=== PATIENT | female | born 1950 | race Caucasian/White ===

== ENCOUNTER 2022-12-03 17:44 | Inpatient (IN) | payer MEDICARE, OTHER ==
[~2022-12-03] VITALS: Ht 170.2 cm; Wt 83.0 kg
[2022-12-03] MEDS ORDERED: SCOPOLAMINE 1.5 MG (TRANSDERM-SCOP) PATCH TD ONE (18:00)
[2022-12-03] MEDS ORDERED: fentaNYL INJ 100 MCG/2 ML AMP IVP ONE (18:00)
[2022-12-03] MEDS: NS IV 1000 ML 1,000 ML IV SCH ×2 (18:07→23:51)
--- NOTE | 2022-12-03 18:30 | Diagnostic Imaging Report ---
EXAMINATION: Chest 1 view. HISTORY: Preoperative exam. COMPARISON: None available. FINDINGS: There is a 2.5 cm nodule in the left upper zone. No edema or pneumonia. No pleural effusion or pneumothorax. Heart size is normal. IMPRESSION: Suspicious 2.5 cm nodule in the left upper zone. Chest CT recommended. Dictated by: Dictated on workstation # [id number]
--- NOTE | 2022-12-03 18:30 | Diagnostic Imaging Report ---
EXAM: Pelvis with right hip 2-3 views INDICATION: Fall. Trauma. Right hip pain. COMPARISON: None. FINDINGS/ IMPRESSION: 1. Mildly displaced right subcapital hip fracture. 2. No other fracture is identified. 3. Soft tissue shadows are unremarkable. Dictated by: Dictated on workstation # [id number]
--- NOTE | 2022-12-03 18:40 | ED Lower Extremity ---
General Chief Complaint: Trauma-Non Activation Stated Complaint: RIGHT HIP PAIN Nursing Triage Note: pt to room by [facility] ems. ems reports pt was out walking her dogs when she fell and landed on right hip. pt states she was unable to get herself up. ems reports giving 100 mcg fentanyl and then 50 mcg fentanyl before arrival. ems reports pt does have shortening and external rotation to right leg Source: patient, EMS Exam Limitations: no limitations History of Present Illness Date Seen by Provider: Dec 03, 2022 Time Seen by Provider: 17:47 Initial Comments Patient is a 72-year-old female who presents to the emergency room by ambulance from [facility] chief complaint right hip pain. She was out walking her dogs, had a mechanical trip and fall onto a rock onto her right hip due to the dogs. She was unable to get herself up, a neighbor called the ambulance. Patient denies hitting her head, no loss of consciousness. She denies any antecedent chest pain, shortness of breath, nausea or vomiting. She has never injured this right hip in the past. She has had prior right patellar fracture that she states needs follow-up. This is remote to this injury. She received 100 of fentanyl prior to arrival. Still complaining of pain at a "8". Denies numbness tingling to the right leg. No other complaints of illness or injury recently. She is a diabetic, hypertensive. Also on a cholesterol drug and anti-depressant, Onset: just prior to arrival Pain/Injury Location: right hip Method of Injury: fell Modifying Factors: Improves With Immobilization; Worse With Movement; Improves With Pain Medication Allergies and Home Medications Allergies Coded Allergies: Penicillins (Verified Allergy, Unknown, 12/03/22) Patient Home Medication List Home Medication List Reviewed: Yes Amlodipine Besylate (Amlodipine Besylate) 5 Mg Tablet, 5 MG PO DAILY, (Reported) Entered as Reported by: KATIE SHARMA on 12/04/22137 Last Action: New Order Ezetimibe (Zetia) 10 Mg Tablet, 10 MG PO HS, (Reported) Entered as Reported by: KATIE SHARMA on 12/04/22137 Last Action: New Order Liothyronine Sodium (Liothyronine Sodium) 5 Mcg Tablet, 5 MCG PO DAILY, (Reported) Entered as Reported by: KATIE SHARMA on 12/04/22137 Last Action: New Order Meloxicam, Submicronized (Meloxicam) 10 Mg Capsule, 15 MG PO DAILY, (Reported) Entered as Reported by: KATIE SHARMA on 12/04/22137 Last Action: New Order Metformin HCl (Metformin HCl ER) 500 Mg Tab.er.24h, 500 MG PO BID, (Reported) Entered as Reported by: KATIE SHARMA on 12/04/22137 Last Action: New Order Metoprolol Tartrate (Metoprolol Tartrate) 50 Mg Tablet, 50 MG PO BID, (Reported) Entered as Reported by: KATIE SHARMA on 12/04/22137 Last Action: New Order Venlafaxine HCl (Venlafaxine HCl ER) 150 Mg Cap.er.24h, 150 MG PO DAILY, (Reported) Entered as Reported by: KATIE SHARMA on 12/04/22137 Last Action: New Order Review of Systems Constitutional: see HPI EENTM: no symptoms reported Respiratory: no symptoms reported Cardiovascular: no symptoms reported Gastrointestinal: no symptoms reported Genitourinary: no symptoms reported : No Musculoskeletal: joint pain (right hip) Skin: no symptoms reported Psychiatric/Neurological: No Symptoms Reported All Other Systems Reviewed Negative Unless Noted: Yes Physical Exam Vital Signs Vital Signs - First Documented 12/03/22 17:47 Temp 36.6 Pulse 89 Resp 16 B/P (MAP) 183/87 (119) Pulse Ox 96 Capillary Refill : Height, Weight, BMI Height: '" Weight: lbs. oz. kg; 28.00 BMI Method: General Appearance: WD/WN, no apparent distress HEENT: PERRL/EOMI, other (dry mucous membranes) Neck: non-tender, full range of motion, supple Cardiovascular: regular rate, rhythm, other (2+ radial pulses; 2+ DP pulses bilaterally) Respiratory: lungs clear, normal breath sounds, no respiratory distress, no accessory muscle use Gastrointestinal: normal bowel sounds, non tender, soft Hips: right hip bone tenderness, right hip limited range of motion, right hip pain, right hip soft tissue tenderness Legs: bilateral leg non-tender, bilateral leg normal inspection Knees: bilateral knee non-tender, bilateral knee normal inspection Ankles: bilateral ankle non-tender, bilateral ankle normal inspection Feet: bilateral foot non-tender, bilateral foot normal inspection Neurologic/Psychiatric: alert, normal mood/affect, oriented x 3 Skin: normal color, warm/dry Progress/Results/Core Measures Results/Orders Lab Results Laboratory Tests Test 12/03/22 18:57 Range/Units White Blood Count 8.8 4.3-11.0 10^3/uL Red Blood Count 5.03 3.80-5.11 10^6/uL Hemoglobin 15.0 11.5-16.0 g/dL Hematocrit 45 35-52 % Mean Corpuscular Volume 89 80-99 fL Mean Corpuscular Hemoglobin 30 25-34 pg Mean Corpuscular Hemoglobin Concent 34 32-36 g/dL Red Cell Distribution Width 13.7 10.0-14.5 % Platelet Count 195 130-400 10^3/uL Mean Platelet Volume 11.3 9.0-12.2 fL Immature Granulocyte % (Auto) 1 % Neutrophils (%) (Auto) 79 H 42-75 % Lymphocytes (%) (Auto) 15 12-44 % Monocytes (%) (Auto) 6 0-12 % Eosinophils (%) (Auto) 0 0-10 % Basophils (%) (Auto) 0 0-10 % Neutrophils # (Auto) 6.9 1.8-7.8 10^3/uL Lymphocytes # (Auto) 1.3 1.0-4.0 10^3/uL Monocytes # (Auto) 0.5 0.0-1.0 10^3/uL Eosinophils # (Auto) 0.0 0.0-0.3 10^3/uL Basophils # (Auto) 0.0 0.0-0.1 10^3/uL Immature Granulocyte # (Auto) 0.1 0.0-0.1 10^3/uL Sodium Level 141 135-145 MMOL/L Potassium Level 3.3 L 3.6-5.0 MMOL/L Chloride Level 105 98-107 MMOL/L Carbon Dioxide Level 21 21-32 MMOL/L Anion Gap 15 H 5-14 MMOL/L Blood Urea Nitrogen 14 7-18 MG/DL Creatinine 0.86 0.60-1.30 MG/DL Estimat Glomerular Filtration Rate 72 BUN/Creatinine Ratio 16 Glucose Level 160 H 70-105 MG/DL Calcium Level 9.4 8.5-10.1 MG/DL My Orders Orders - NOEMI FLYNN MD Ed Iv/Invasive Line Start (12/03/22 18:00) Cbc With Automated Diff (12/03/22 18:00) Basic Metabolic Panel (12/03/22 18:00) Ekg Tracing (12/03/22 18:00) Chest 1 View, Ap/Pa Only (12/03/22 18:00) Pelvis With Right Hip 2-3views (12/03/22 18:00) Fentanyl Inj (Sublimaze Injection) (12/03/22 18:00) Scopolamine Patch (Transderm-Scop Patch) (12/03/22 18:00) Ns Iv 1000 Ml (Sodium Chloride 0.9%) (12/03/22 18:00) Morphine Injection (Morphine Injection (12/03/22 20:17) Medications Given in ED Current Medications Medications Dose Ordered Sig/Supriya Route Start Time Stop Time Status Last Admin Dose Admin Fentanyl Citrate 50 mcg ONCE ONCE IVP 12/03/22 18:00 12/03/22 18:04 DC 12/03/22 18:07 50 MCG Scopolamine 1.5 mg ONCE ONCE TD 12/03/22 18:00 12/03/22 18:04 DC 12/03/22 18:07 1.5 MG Vital Signs/I&O 12/03/22 12/03/22 17:47 21:05 Temp 36.6 Pulse 89 91 Resp 16 B/P (MAP) 183/87 (119) 165/78 Pulse Ox 96 94 12/04/22 00:00 Intake Total 1000 ml Balance 1000 ml Blood Pressure Mean: 119 Admisison Planning May Need Admission (Planning): 20:07 Initial ECG Impression Date: Dec 03, 2022 Initial ECG Impression Time: 18:26 Initial ECG Rate: 81 Initial ECG Rhythm: Normal Sinus Initial ECG Intervals: Normal Initial ECG Impression: Normal Diagnostic Imaging Diagonstic Imaging: Xray Plain Films/CT/US/NM/MRI: chest Comments [facility] [place] NAME: DON SAUCEDO I [facility] REC#: [id number] PT STATUS: REG ER : 1950 PHYSICIAN: NOEMI FLYNN MD ADMIT DATE: 12/03/22/ER Signed Date of Exam:12/03/22 CHEST 1 VIEW, AP/PA ONLY EXAMINATION: Chest 1 view. HISTORY: Preoperative exam. COMPARISON: None available. FINDINGS: There is a 2.5 cm nodule in the left upper zone. No edema or pneumonia. No pleural effusion or pneumothorax. Heart size is normal. IMPRESSION: Suspicious 2.5 cm nodule in the left upper zone. Chest CT recommended. Dictated by: Dictated on workstation # [id number] Dict: 12/03/221823 Trans: 12/03/22[address] [facility] [id number] Interpreted by: JOSÉ CAZARES MD Electronically signed by: JOSÉ CAZARES MD 12/03/221958 Diagonstic Imaging: Xray Comments [facility] [place] NAME: DON SAUCEDO I [facility] REC#: [id number] PT STATUS: REG ER : 1950 PHYSICIAN: NOEMI FLYNN MD ADMIT DATE: 12/03/22/ER Signed Date of Exam:12/03/22 PELVIS WITH RIGHT HIP 2-3VIEWS EXAM: Pelvis with right hip 2-3 views INDICATION: Fall. Trauma. Right hip pain. COMPARISON: None. FINDINGS/ IMPRESSION: 1. Mildly displaced right subcapital hip fracture. 2. No other fracture is identified. 3. Soft tissue shadows are unremarkable. Dictated by: Dictated on workstation # [id number] Dict: 12/03/221824 Trans: 12/03/221829 [facility] [id number] Interpreted by: ONEIL DEJESUS MD Electronically signed by: ONEIL DEJESUS MD 12/03/221829 Departure Communication (Admissions) Time/Spoke to Admitting Phy: 20:[address] Wright - hospitalist) accepts IP to Med surg Time/Spoke to Consulting Phy: 19:[address] Lara - if he can have a scrub and 2 assists, wioll be able to fix her on Tuesday. Discussing with Head Of Sales And Marketing Impression Primary Impression: Closed right hip fracture Qualified Codes: S72.001A - Fracture of unspecified part of neck of right femur, initial encounter for closed fracture Disposition: ADMITTED INPATIENT Condition: Stable Admissions Decision to Admit Reason: Admit from ER (General) Decision to Admit/Date: Dec 03, 2022 Time/Decision to Admit Time: 20:32 Departure-Patient Inst. Referrals: MARCY SNOWDEN (PCP/Family) Primary Care Physician NOEMI FLYNN MD Dec 03, 2022 18:40
[2022-12-03 19:04] LABS: BASOPHILS % (AUTO) 0 % (0-10); EOSINOPHILS % (AUTO) 0 % (0-10); HEMATOCRIT 45 % (35-52); LYMPHOCYTES # (AUTO) 1.3 10^3/uL (1.0-4.0); LYMPHOCYTES % (AUTO) 15 % (12-44); MEAN CORPUSCULAR HEMOGLOBIN 30 pg (25-34); MEAN CORPUSCULAR HGB CONC 34 g/dL (32-36); MEAN CORPUSCULAR VOLUME 89 fL (80-99); MEAN PLATELET VOLUME 11.3 fL (9.0-12.2); MONOCYTES # (AUTO) 0.5 10^3/uL (0.0-1.0); MONOCYTES % (AUTO) 6 % (0-12); NEUTROPHILS # (AUTO) 6.9 10^3/uL (1.8-7.8); NEUTROPHILS % (AUTO) 79 % (42-75); PLATELET COUNT 195 10^3/uL (130-400); WHITE BLOOD COUNT 8.8 10^3/uL (4.3-11.0)
[2022-12-03 19:43] LABS: CALCIUM 9.4 MG/DL (8.5-10.1); CREATININE SERUM 0.86 MG/DL (0.60-1.30); POTASSIUM 3.3 MMOL/L (3.6-5.0)
[2022-12-03] MEDS ORDERED: morphine INJ 10 MG/ML 1ML (SYR OR VIAL) IVP STA (20:17)
[2022-12-03 21:15] VITALS: BP 146/71
[2022-12-03 23:26] VITALS: BP 152/67
[2022-12-03] MEDS: CATHETER FLUSH 10 ML SYR IVP SCH (23:51)
[2022-12-04] MEDS: morphine INJ 4 MG/ML 1 ML (VIAL/SYRINGE) IV PRN ×3 (00:06→08:19)
[2022-12-04] MEDS ORDERED: MELO10CA3 PO (01:38)
[2022-12-04] MEDS ORDERED: VENL150C98 PO (01:38)
[2022-12-04] MEDS ORDERED: LIOT5TAB10 PO (01:38)
[2022-12-04] MEDS ORDERED: AMLO-250 PO (01:38)
[2022-12-04] MEDS ORDERED: METF-865 PO (01:38)
[2022-12-04] MEDS ORDERED: METO50TA15 PO (01:38)
[2022-12-04] MEDS ORDERED: EZET10TA17 PO (01:38)
[2022-12-04 04:20] VITALS: BP 140/80
[2022-12-04] MEDS: CATHETER FLUSH 10 ML SYR IVP SCH ×3 (05:41→20:48)
[2022-12-04 06:20] LABS: POTASSIUM 3.1 MMOL/L (3.6-5.0)
[2022-12-04 06:21] LABS: CALCIUM 8.3 MG/DL (8.5-10.1)
[2022-12-04 06:25] LABS: CREATININE SERUM 0.7 MG/DL (0.60-1.30)
[2022-12-04 07:45] VITALS: BP 146/67
[2022-12-04] MEDS ORDERED: meTOprolol TARTRATE 50 MG (LOPRESSOR) TAB PO NR (11:00)
[2022-12-04] MEDS ORDERED: VENlafaxine XR 75 MG (EFFEXOR XR) CAP PO NR (11:00)
[2022-12-04] MEDS ORDERED: KCL 20 MEQ TAB (K-DUR) PO NR (11:00)
[2022-12-04] MEDS ORDERED: LEVOTHYROXINE 75 MCG (LEVOTHROID) TABLET PO NR (11:00)
[2022-12-04] MEDS: HYDROcodone/APAP 5 MG/325 MG (LORTAB) TAB PO PRN ×2 (11:04→15:45)
[2022-12-04 11:15] VITALS: BP 149/70
--- NOTE | 2022-12-04 11:54 | History & Physical-Hospitalist ---
History of Present Illness HPI/Chief Complaint Pt is a 72yoCF with a PMH of NIDDMII, HTN, depression, hypothyroisism, and osteoporosis who presented to the ER due to right hip pain. She states she was out walking her dogs (7 month old standard poodle and 4 month old ?bulldog per picture) and suffered a mechanical fall and landed on her hip on a rock. She had severe right hip pain and decided to seek evaluation in the ER via EMS. She was given fentanyl without relief requiring morphine. imaging revealed right hip fracture. Dr Flynn discussed this with Dr Lara who plans to do surgery tomorrow AM. Patient reports doing well this morning and pain is controlled at the time. Source: patient Date Seen 12/04/22 Time Seen by a Provider: 10:00 Attending Physician Maricarmen Corrigan PCP Admitting Physician: Aaron Wright MD Attending Physician: Aaron Wright MD Referring Physician Date of Admission Dec 03, 2022 at 21:07 Home Medications & Allergies Home Medications Reviewed patient Home Medication Reconciliation performed by pharmacy medication reconciliations page technician and/or nursing. Patients Allergies have been reviewed. Allergies Allergies Coded Allergies Penicillins (Verified Allergy, Unknown, 12/03/22) Rdtjdbp-HAM-IfM Reductase Inhibitor (Verified Allergy, Unknown, 12/05/22) Sulfa (Sulfonamide Antibiotics) (Verified Allergy, Unknown, Itching, 12/05/22) acetaminophen (Verified Allergy, Unknown, Itching, 12/05/22) clarithromycin (Verified Allergy, Unknown, 12/05/22) doxycycline (Verified Allergy, Unknown, Hives, 12/05/22) oxycodone (Verified Allergy, Unknown, Itching, 12/05/22) valdecoxib (Verified Allergy, Unknown, Hives, 12/05/22) Past Cjvcovi-Jhuaqy-Fgmlmh Hx Patient Social History Marrital Status: Tobacco Use?: No Use of E-Cig and/or Vaping dev: No Substance use?: No Alcohol Use?: No Pt feels they are or have been: No Immunizations Up To Date Date of Influenza Vaccine: Oct 10, 2022 Current Status Advance Directives: No Communicates: Verbally Primary Language: Djiboutian Preferred Spoken Language: Djiboutian Is interpretation needed?: No Implanted or Applied Medical D: None Past Medical History Hypertension Osteoporosis Hypothyroidsim, Diabetes, Non-Insulin dep Family Medical History Reviewed Nursing Family Hx Review of Systems Constitutional: see HPI Physical Exam Physical Exam Vital Signs Vital Signs - First Documented 12/03/22 12/03/22 12/05/22 17:47 21:15 10:15 Temp 36.6 Pulse 89 Resp 16 B/P (MAP) 183/87 (119) Pulse Ox 96 O2 Delivery Room Air O2 Flow Rate 10.00 Capillary Refill : Height, Weight, BMI Height: '" Weight: lbs. oz. kg; 28.65 BMI Method: General Appearance: No Apparent Distress, WD/WN Respiratory: Lungs Clear, No Accessory Muscle Use, No Respiratory Distress Cardiovascular: Regular Rate, Rhythm, No Murmur Gastrointestinal: Normal Bowel Sounds, Non Tender, Soft Extremity: Normal Capillary Refill, No Calf Tenderness, No Pedal Edema Neurologic/Psychiatric: Alert, Oriented x3 Results Results/Procedures Labs Laboratory Tests 12/03/22 18:57 12/04/22 05:48 Patient resulted labs reviewed. Imaging: Reviewed Imaging Report Imaging [facility] [place] [id number] PT STATUS: REG ER : 1950 PHYSICIAN: NOEMI FLYNN MD ADMIT DATE: 12/03/22/ER Signed Date of Exam:12/03/22 PELVIS WITH RIGHT HIP 2-3VIEWS EXAM: Pelvis with right hip 2-3 views INDICATION: Fall. Trauma. Right hip pain. COMPARISON: None. FINDINGS/ IMPRESSION: 1. Mildly displaced right subcapital hip fracture. 2. No other fracture is identified. 3. Soft tissue shadows are unremarkable. Dictated by: Dictated on workstation # [id number] Dict: 12/03/221824 Trans: 12/03/221829 [facility] [id number] Interpreted by: ONEIL DEJESUS MD Electronically signed by: ONEIL DEJESUS MD 12/03/221829 [facility] [place] [place] [id number] PT STATUS: REG ER : 1950 PHYSICIAN: NOEMI FLYNN MD ADMIT DATE: 12/03/22/ER Signed Date of Exam:12/03/22 CHEST 1 VIEW, AP/PA ONLY EXAMINATION: Chest 1 view. HISTORY: Preoperative exam. COMPARISON: None available. FINDINGS: There is a 2.5 cm nodule in the left upper zone. No edema or pneumonia. No pleural effusion or pneumothorax. Heart size is normal. IMPRESSION: Suspicious 2.5 cm nodule in the left upper zone. Chest CT recommended. Dictated by: Dictated on workstation # [id number] Dict: 12/03/224 Trans: 12/03/221958 [facility] [id number] Interpreted by: JOSÉ CAZARES MD Electronically signed by: JOSÉ CAZARES MD 12/03/221958 Assessment/Plan Admission Diagnosis Right hip fracture Admission Status: Inpatient Order (span 2 midnights) Reason for Inpatient Admission: see below Assessment and Plan Right hip fracture Osteoporosis Planning for OR tomorrow AM Pain regimen Start bowel regimen tomorrow Add oral pain option while able to take PO PT/OT post surgery Hypokalemia Replace potassium HTN BP relatively well controlled right now REviewed home meds with patient in room Resume metoprolol and hold amlodipine and diuretic If BP trends up will resume amlodipine NIDDMII State metformin causes diarrhea and would like to avoid it while she is stuck in bed BS 153 this AM trend Hypothyroidism Resume synthroid Anxiety/Depression Resume Effexor Lung nodule on CXR Informed of this by ER Will need outpatient follow up DVT ppx: lovenox post op Diagnosis/Problems Diagnosis/Problems (1) Essential (primary) hypertension (2) Hyperlipidemia (3) Hypokalemia (4) Non-insulin dependent type 2 diabetes mellitus (5) Hypothyroidism (6) Depression (7) Closed right hip fracture Status: Acute Qualifiers: Encounter type: initial encounter Qualified Codes: S72.001A - Fracture of unspecified part of neck of right femur, initial encounter for closed fracture Copy Copies To 1: AARON Chen MD Dec 04, 2022 11:54 am
[2022-12-04] MEDS ORDERED: diphenhydrAMINE 25 MG TAB (BENADRYL) PO PRN (12:00)
[2022-12-04 16:00] VITALS: BP 164/76
[2022-12-04 19:48] VITALS: BP 178/82
[2022-12-04] MEDS: eZETimibe 10 MG (ZETIA) TABLET PO SCH (20:47)
[2022-12-04] MEDS: meTOprolol TARTRATE 50 MG (LOPRESSOR) TAB PO SCH (20:47)
[2022-12-05] VITALS (12 sets, daily range): BP systolic 147–197; BP diastolic 69–91
[2022-12-05] MEDS: morphine INJ 4 MG/ML 1 ML (VIAL/SYRINGE) IV PRN ×2 (00:22→15:05)
[2022-12-05] MEDS ORDERED: LORA10CA PO (01:03)
[2022-12-05] MEDS ORDERED: OMEP20CA18 PO (01:03)
[2022-12-05] MEDS ORDERED: DIPH25CA79 PO (01:03)
[2022-12-05] MEDS ORDERED: LEVO75CA5 PO (01:03)
[2022-12-05] MEDS ORDERED: CALC600T91 PO (01:03)
[2022-12-05] MEDS ORDERED: DENO60DI SQ (01:03)
[2022-12-05] MEDS ORDERED: VALS1TAB80 PO (01:03)
[2022-12-05] MEDS ORDERED: ASPI-999 PO (01:03)
[2022-12-05] MEDS: CATHETER FLUSH 10 ML SYR IVP SCH ×3 (05:42→21:27)
[2022-12-05] MEDS: VENlafaxine XR 75 MG (EFFEXOR XR) CAP PO SCH (05:42)
[2022-12-05] MEDS: LEVOTHYROXINE 75 MCG (LEVOTHROID) TABLET PO SCH (05:42)
[2022-12-05] MEDS ORDERED: CLINDAMYCIN 900 MG/50 ML IVPB 50 ML IV NR (07:30)
[2022-12-05] MEDS ORDERED: LIDOCAINE PF 2% 5 ML (XYLOCAINE) VIAL ONE (07:35)
[2022-12-05] MEDS ORDERED: proPOfol 200 MG/20 ML (DIPRIVAN) VIAL IV ONE (07:35)
[2022-12-05] MEDS ORDERED: SEVOFLURANE (ULTANE) 15 ML INHAL SOLN ONE ×2 (07:35→09:30)
[2022-12-05] MEDS ORDERED: MIDAZOLAM 2 MG/2 ML (VERSED) VIAL ONE (07:35)
[2022-12-05] MEDS ORDERED: fentaNYL INJ 100 MCG/2 ML AMP ONE (07:35)
[2022-12-05] MEDS ORDERED: ROCURONIUM 50 MG/5 ML (ZEMURON) VIAL IV ONE (07:35)
[2022-12-05] MEDS ORDERED: ONDANSETRON 4 MG/2 ML (SDV) Z0FRAN ONE (07:35)
[2022-12-05] MEDS ORDERED: ROPIVACAINE 5MG/ML 30ML VIAL ONE (07:46)
--- NOTE | 2022-12-05 08:02 | Consultation - Ortho ---
Consult - Ortho Subjective Date of Exam 12/05/22 Chief Complaint Right Hip Injury HPI/Events since last exam fell on 12/03/22, unable to bear weight, brought by EMS and found to have subcapital hip fracture, I was asked to manage the fracture Medical, Surgical History see admit Social History see admit Family History see admit Review of Systems - Allergies: Coded Allergies: Penicillins (Verified Allergy, Unknown, 12/03/22) Elugilw-MQR-VoB Reductase Inhibitor (Verified Allergy, Unknown, 12/05/22) Sulfa (Sulfonamide Antibiotics) (Verified Allergy, Unknown, Itching, 12/05/22) acetaminophen (Verified Allergy, Unknown, Itching, 12/05/22) clarithromycin (Verified Allergy, Unknown, 12/05/22) doxycycline (Verified Allergy, Unknown, Hives, 12/05/22) oxycodone (Verified Allergy, Unknown, Itching, 12/05/22) valdecoxib (Verified Allergy, Unknown, Hives, 12/05/22) Home Meds Reported Medications Valsartan/Hydrochlorothiazide (Valsartan-Hctz 320-25 mg Tab) 320 Mg-25 Mg Tablet, 1 EACH PO DAILY, TAB 12/05/22 Levothyroxine Sodium (Levothyroxine) 75 Mcg Capsule, 75 MCG PO DAILY, CAP 12/05/22 Denosumab (Prolia) 60 Mg/Ml Disp.syrin, 60 MG SQ UD, EA 12/05/22 Loratadine (Claritin) 10 Mg Capsule, 10 MG PO DAILY, CAP 12/05/22 Omeprazole (Omeprazole) 20 Mg Capsule.dr, 20 MG PO DAILY, CAP 12/05/22 Calcium Carbonate (Calcium) 600 Mg Calcium (1500 Mg) Tablet, 600 MG PO BID, TAB 12/05/22 Aspirin (Aspirin) 81 Mg Tab.chew, 81 MG PO DAILY, TAB 12/05/22 Diphenhydramine HCl (Benadryl) 25 Mg Capsule, 25 MG PO HS, CAP 12/05/22 Metformin HCl (Metformin HCl ER) 500 Mg Tab.er.24h, 1000 MG PO BID, TAB 12/04/22 Liothyronine Sodium (Liothyronine Sodium) 5 Mcg Tablet, 5 MCG PO DAILY, TAB 12/04/22 Amlodipine Besylate (Amlodipine Besylate) 5 Mg Tablet, 5 MG PO DAILY, TAB 12/04/22 Venlafaxine HCl (Venlafaxine HCl ER) 150 Mg Cap.er.24h, 150 MG PO DAILY, CAP 12/04/22 Meloxicam, Submicronized (Meloxicam) 10 Mg Capsule, 15 MG PO DAILY, CAP 12/04/22 Metoprolol Tartrate (Metoprolol Tartrate) 50 Mg Tablet, 50 MG PO BID, TAB 12/04/22 Ezetimibe (Zetia) 10 Mg Tablet, 10 MG PO HS, TAB 12/04/22 Objective Exam R Hip: No abrasions, leg with some shortening and rotation, +DF of ankle, sensation grossly intact to light touch, pulses 2+ Vital Signs Vital Signs Date Time Temp Pulse Resp B/P (MAP) Pulse Ox O2 Delivery O2 Flow Rate FiO2 12/05/22 04:29 36.0 80 18 167/77 (107) 92 Room Air 12/05/22 00:41 36.5 75 18 173/76 (108) 93 Room Air 12/04/22 20:00 Room Air 12/04/22 19:48 37.0 81 20 178/82 (114) 95 Room Air 12/04/22 16:00 37.2 79 20 164/76 (105) 93 Room Air 12/04/22 11:15 36.9 87 18 149/70 (96) 94 Room Air 12/04/22 08:00 92 Room Air I & O 12/05/22 07:00 Intake Total 2520 ml Output Total 3350 ml Balance -830 ml Imaging AP Pelvis and 2 views of the right hip dated 12/03/22 were reviewed from PACS and demonstrated displaced fracture of the femoral neck with some underlying o steoarthritis Assessment and Plan Assessment Right Femoral Neck Fracture Right Hip Primary Osteoarthritis Problem List Right Femoral Neck Fracture Right Hip Primary Osteoarthritis Plan Reviewed findings and options. I have recommended proceeding with right total hip arthroplasty. Nature of the procedure and the postoperative course were discussed. Risks and benefits were discussed. Consent obtained. Plan to proceed this AM. Final Diagonsis Right Femoral Neck Fracture Right Hip Primary Osteoarthritis Level of the visit: Level 3 (global preop) FIGUEROA VILCHIS MD Dec 05, 2022 08:02
[2022-12-05] MEDS ORDERED: TRANEXAMIC ACID 100 MG/ML 10 ML INJECTION ONE (08:13)
--- NOTE | 2022-12-05 10:17 | Operative Report - Ortho ---
Operative Report Surgeon (s)/Coating Manager (s) Surgeon FIGUEROA VILCHIS MD Coating Manager n/a Pre-Operative Diagnosis Right Femoral Neck Fracture; Right Hip Primary Osteoarthritis Post-Operative Diagnosis same Operative Report Date of Procedure: Dec 05, 2022 Name of Procedure Performed: Right Total Hip Arthroplasty Description & Findings After obtaining informed consent and marking the patient in the preoperative holding area, the patient did receive antibiotics and was taken to the operating room. General anesthesia was induced and patient was positioned in the lateral decubitus position with the right side up. Right lower extremity was prepped and draped in the usual sterile fashion. Surgical timeout was taken. Posterolateral approach was utilized. Capsule and external rotators were taken down in one layer. Femoral neck fracture line was freshened with a saw. Femoral head was removed and sized. Acetabulum was exposed. Labrum and soft tissue was removed from the acetabulum. Sequential reaming was began beginning with a 43 mm reamer and reaming to a 48 mm. 48 mm acetabular shell was placed and had good fit. A polyethylene liner was put into place and impacted to lock; locking was verified with a freer. Attention was turned to the femoral side, a [place] cutter osteotome was used to removed bone near the greater trochanter. Canal finder was inserted followed by the lateralizing reamer. Sequential broaching was began with a 0 and was broached to a 4. Trial 127 degree neck and -4 mm 32 head were put into place. Leg lengths were grossly equal; the hip was stable in position of sleep, and stable in flexion and internal rotation but tight. This was accepted. Hip was dislocated. Trial components were removed and the canal was irrigated. A size 4 Accolade II was impacted into place and set at the same level as the broach. A -4 32 mm ceramic head was impacted onto the samson taper of the stem. Hip was once again located and found to have grossly equal leg lengths with stability in position of sleep as well as flexion and internal rotation. Hip was irrigated. Tranexamic acid has been administered IV for hemostasis. The fascial layer was closed with #2 StrataFix. The subcutaneous layer was closed with 2-0 Vicryl. Skin was closed with ilene. Wound was dressed with xeroform, 4x4s, ABD, and tape. Patient was placed in abduction pillow and transferred to a hospital bed without difficulty and was stable to the recovery room. Anesthesia Type General Estimated Blood Loss 300 ml Specimen(s) collected/removed None FIGUEROA VILCHIS MD Dec 05, 2022 10:17
--- NOTE | 2022-12-05 11:01 | Diagnostic Imaging Report ---
EXAMINATION: Pelvis, single view. COMPARISON: December 03, 2022. HISTORY: 72-year-old female, status post right total hip arthroplasty. FINDINGS: There is a right total hip prosthesis. The hardware is intact. There are lateral skin ilene. Soft tissue gas likely reflects recent postoperative state of the patient. There is no identified interval fracture. IMPRESSION: 1. Interval placement of right total hip prosthesis without identified complication. Dictated by: Dictated on workstation # [id number]
[2022-12-05] MEDS: meTOprolol TARTRATE 50 MG (LOPRESSOR) TAB PO SCH ×2 (11:29→21:27)
[2022-12-05] MEDS: HYDROcodone/APAP 5 MG/325 MG (LORTAB) TAB PO PRN (11:29)
[2022-12-05] MEDS ORDERED: LACTATED RINGERS 1,000 ML IV PRN (11:45)
--- NOTE | 2022-12-05 13:03 | Progress Note - Hospitalist ---
Subjective HPI/CC On Admission Date Seen by Provider: Dec 05, 2022 Pt is a 72yoCF with a PMH of NIDDMII, HTN, depression, hypothyroisism, and osteoporosis who presented to the ER due to right hip pain. She states she was out walking her dogs (7 month old standard poodle and 4 month old ?bulldog per picture) and suffered a mechanical fall and landed on her hip on a rock. She had severe right hip pain and decided to seek evaluation in the ER via EMS. She was given fentanyl without relief requiring morphine. imaging revealed right hip fracture. Dr Montenegro discussed this with Dr Lara who plans to do surgery tomorrow AM. Patient reports doing well this morning and pain is controlled at the time. Subjective/Events-last exam Pt seen during recovery from surgery. Quite sleeping. APPLICATIONS ADMINISTRATOR Mary at bedside and states surgery went well. Objective Exam Vital Signs Vital Signs Date Time Temp Pulse Resp B/P (MAP) Pulse Ox O2 Delivery O2 Flow Rate FiO2 12/05/22 11:16 36.6 87 18 159/76 (103) 93 Room Air 12/05/22 10:50 10.00 Capillary Refill : General Appearance: No Apparent Distress, Other Respiratory: Lungs Clear, No Respiratory Distress Cardiovascular: Regular Rate, Rhythm, No Murmur Neurologic/Psychiatric: Other (sleeping still from surgery) Results/Procedures Lab Patient resulted labs reviewed. Imaging: Reviewed Imaging Report Assessment/Plan Assessment and Plan Assess & Plan/Chief Complaint Right hip fracture Osteoporosis POD #0 Management per Ortho Pain regimen Bowel regimen PT/OT IRF eval Hypokalemia Replaced potassium HTN BP slightly elevated, trend Continue metoprolol, resume amlodipine NIDDMII State metformin causes diarrhea and would like to avoid it while she is stuck in bed Hypothyroidism Continue synthroid Anxiety/Depression Continue Effexor Lung nodule on CXR Informed of this by ER Will need outpatient follow up DVT ppx: lovenox post op when ok with Dr Lara Diagnosis/Problems Diagnosis/Problems (1) Essential (primary) hypertension (2) Hyperlipidemia (3) Hypokalemia (4) Non-insulin dependent type 2 diabetes mellitus (5) Hypothyroidism (6) Depression (7) Closed right hip fracture Status: Acute Qualifiers: Encounter type: initial encounter Qualified Codes: S72.001A - Fracture of unspecified part of neck of right femur, initial encounter for closed fracture ROSETTA,AARON M MD Dec 05, 2022 1:03 pm
[2022-12-05] MEDS ORDERED: amLODIPine 10 MG (NORVASC) TAB PO NR (13:30)
[2022-12-05] MEDS: CLINDAMYCIN 600 MG/50 ML IVPB 50 ML IV SCH ×2 (15:06→21:27)
[2022-12-05] MEDS: inSUlin ASPART (NovoLOG) 1 UNIT/0.01 ML (CHARGE PER UNIT) SC SCH ×2 (16:16→21:27)
[2022-12-05] MEDS ORDERED: ENOXAPARIN 40 MG/0.4 ML (LOVENOX) SYR SQ SCH (21:00)
[2022-12-05] MEDS: eZETimibe 10 MG (ZETIA) TABLET PO SCH (21:27)
[2022-12-05] MEDS: DOCUSATE SODIUM 100 MG (COLACE) CAP PO SCH (21:27)
[2022-12-06] VITALS (25 sets, daily range): BP systolic 136–179; BP diastolic 63–80
[2022-12-06] MEDS: VENlafaxine XR 75 MG (EFFEXOR XR) CAP PO SCH (05:49)
[2022-12-06] MEDS: LEVOTHYROXINE 75 MCG (LEVOTHROID) TABLET PO SCH (05:49)
[2022-12-06] MEDS: CATHETER FLUSH 10 ML SYR IVP SCH ×3 (05:52→20:42)
[2022-12-06] MEDS: inSUlin ASPART (NovoLOG) 1 UNIT/0.01 ML (CHARGE PER UNIT) SC SCH ×4 (05:52→20:33)
[2022-12-06 06:28] LABS: HEMATOCRIT 35 % (35-52); HEMOGLOBIN 11.7 g/dL (11.5-16.0); MEAN CORPUSCULAR HEMOGLOBIN 29 pg (25-34); MEAN CORPUSCULAR HGB CONC 33 g/dL (32-36); MEAN CORPUSCULAR VOLUME 88 fL (80-99); MEAN PLATELET VOLUME 11.8 fL (9.0-12.2); PLATELET COUNT 204 10^3/uL (130-400); WHITE BLOOD COUNT 11.2 10^3/uL (4.3-11.0)
[2022-12-06 06:59] LABS: POTASSIUM 3.5 MMOL/L (3.6-5.0)
[2022-12-06 07:00] LABS: CALCIUM 8.2 MG/DL (8.5-10.1)
[2022-12-06 07:04] LABS: CREATININE SERUM 0.8 MG/DL (0.60-1.30)
--- NOTE | 2022-12-06 07:43 | Anesthesia-General Post-Op ---
General Patient Condition Mental Status/LOC: Same as Preop Cardiovascular: Satisfactory Nausea/Vomiting: Absent Respiratory: Satisfactory Pain: Controlled Complications: Absent Post Op Complications Complications None Follow Up Care/Instructions Patient Instructions None needed. Anesthesia/Patient Condition Patient Condition Patient is doing well, no complaints, stable vital signs, no apparent adverse anesthesia problems. No complications reported per nursing. D/C home per [facility] Criteria: Yes DWAIN TORO CRNA Dec 06, 2022 07:43
[2022-12-06] MEDS ORDERED: KCL 20 MEQ TAB (K-DUR) PO NR (08:30)
[2022-12-06] MEDS ORDERED: MELO15TA39 PO (08:38)
[2022-12-06] MEDS ORDERED: CYAN100088 PO (08:38)
[2022-12-06] MEDS ORDERED: FLUT9.9S NS (08:38)
[2022-12-06] MEDS ORDERED: MAGN400T39 PO (08:38)
[2022-12-06] MEDS: amLODIPine 10 MG (NORVASC) TAB PO SCH (08:58)
[2022-12-06] MEDS: meTOprolol TARTRATE 50 MG (LOPRESSOR) TAB PO SCH ×2 (08:59→20:42)
[2022-12-06] MEDS: ENOXAPARIN 40 MG/0.4 ML (LOVENOX) SYR SQ SCH (08:59)
[2022-12-06] MEDS: DOCUSATE SODIUM 100 MG (COLACE) CAP PO SCH ×2 (08:59→20:42)
[2022-12-06] MEDS ORDERED: amLODIPine 5 MG (NORVASC) TAB PO SCH (09:00)
--- NOTE | 2022-12-06 09:43 | Physical Therapy Evaluation ---
PT Evaluation-General Medical Diagnosis Admission Date Dec 03, 2022 at 21:07 Medical Diagnosis: right hip fracture Onset Date: Dec 03, 2022 Therapy Diagnosis Therapy Diagnosis: generalized weakness/debility Precautions Precautions/Isolations: Fall Prevention, Standard Precautions right THR precautions Weight Bear Status Right Lower Extremity: Right Weight Bearing/Tolerated Left Lower Extremity: Left Full Weight Bearing right THR precautions Referral Physician: aMrco Reason for Referral: Evaluation/Treatment Medical History Pertinent Medical History: DM, HTN, Hypothroidism Current History EMS secondary to fall walking dogs Reviewed History: Yes Social History Home: Single Level Current Living Status: Spouse Entry Into Home: Stairs With Railing PT Steps Into Home: 5 Prior Prior Level of Function SCALE: Activities may be completed with or without assistive devices. 5-Mwhnqcvdyt-nheiizq completes the activity by him/herself with no assistance from a helper. 5-Set-up or Clean-up Assistance-helper sets up or cleans up; patient completes activity. [place] assists only prior to or following the activity. 4-Supervision or Touching Assistance-helper provides verbal cues and/or touching/steadying and/or contact guard assistance as patient completes activity. Assistance may be provided throughout the activity or intermittently. 3-Partial/Moderate Assistance-helper does LESS THAN HALF the effort. [place] li fts, holds or supports trunk or limbs, but provides less than half the effort. 2-Substantial/Maximal Assistance-helper does MORE THAN HALF the effort. [place] lifts or holds trunk or limbs and provides more than half the effort. 9-Mdycecpzm-bdfoot does ALL the effort. Patient does none of the effort to complete the activity. Or, the assistance of 2 or more helpers is required for the patient to complete the activity. If activity was not attempted, code reason: 7-Patient Refused. 9-Not Applicable-not attempted and the patient did not perform the activity before the current illness, exacerbation or injury. 10-Not Attempted due to Environmental Limitations-(lack of equipment, weather restraints, etc.). 88-Not Attempted due to Medical Conditions or Safety Concerns. Bed Mobility: 6 Transfers (B,C,W/C): 6 Gait: 6 Stairs: 6 Indoor Mobility (Ambulation): Independent Stairs: Independent Prior Devices Use: None per patient report PT Evaluation-Current Subjective Patient agrees to PT. Patient having episodes of inconsistent responses to simple questions. RN is aware and confirms. Objective Patient Orientation: Confused Attachments: Oxygen, [place] Catheter ROM/Strength ROM Lower Extremities right hip precautions/left LE WFL (patient does home bilateral LE very rigid) Strength Lower Extremities left 3/5 grossly/right 3-/5 grossly Integumentary/Posture Bladder Incontinence: [place]field Cath Posture WFL Neuromuscular (Tone, Coordination, Reflexes) grossly intact Sensory Vision: Functional Hearing: Impaired Transfers Lying to Sitting/Side of Bed(Q: 1 Sit to Stand (QC): 1 Chair/Efv-dl-Puqdv Xfer(QC): 1 Gait Mode of Locomotion: Walk Anticipated Mode of Locomotion: Walk Distance: 3 steps Gait Assistive Device: FWW Comments/Gait Description PT dependent assist Balance Sitting Static: Fair Sitting Dynamic: Fair Standing Static: Poor Standing Dynamic: Poor Assessment/Needs Patient will benefit from skilled PT to address functional strength and mobility to improve current LOF to safely return to home with spouse at maximum LOF. Rehab Potential: Fair PT Railway Signal Electrician Goals Long-Term Goals PT Long-Term Goals Time Frame: Dec 25, 2022 Roll Left & Right (QC): 4 Sit to Lying (QC): 4 Lying-Sitting on Side/Bed(QC): 4 Sit to Stand (QC): 4 Chair/Tje-pn-Ytjhe Xfer(QC): 4 Toilet Transfer (QC): 4 Walk 10 feet (QC): 4 Walk 50ft with 2 Turns (QC): 4 Walk 150 ft (QC): 4 PT Plan Problem List Problem List: Activity Tolerance, Functional Strength, Safety, Balance, Gait, Transfer, Bed Mobility Treatment/Plan Treatment Plan: Continue Plan of Care Treatment Plan: Bed Mobility, Education, Functional Activity Bladimir, Functional Strength, Gait, Safety, Therapeutic Exercise, Transfers Treatment Duration: Dec 25, 2022 Frequency: 11 times per week Estimated Hrs Per Day: .5 hour per day Time Time In: 825 Time Out: 848 DATE: Dec 06, 2022 Total Billed Treatment Time: 23 Total Billed Treatment 1 visit EVModC 9 min FA 14 min MIRLANDE PEREZ PT Dec 06, 2022 09:43
--- NOTE | 2022-12-06 10:50 | Occ Therapy Progress Note ---
Therapy Progress Note OT recommends order for speech evaluation d/t report of increased patient confusion, inability to answer questions appropriately, word finding and formation and sentence organization impaired. MURRAY PENA OT Dec 06, 2022 10:50
--- NOTE | 2022-12-06 10:58 | Occupational Therapy Eval ---
OT Evaluation-General/PLF Medical Diagnosis Admission Date Dec 03, 2022 at 21:07 Medical Diagnosis: right hip fracture Onset Date: Dec 03, 2022 Therapy Diagnosis Therapy Diagnosis: R NITIN Precautions Precautions/Isolations: Fall Prevention, Standard Precautions Comments RTHA posterior precautions Weight Bear Status Weight Bearing Restriction: Weight Bearing/Tolerated Use abductor wedge in bed Referral Physician: Marco Medical History Pertinent Medical History: DM, HTN, Hypothroidism Current History s/p fall walking dogs Reviewed History: Yes Social History Home: Single Level Current Living Status: Spouse Entry Into Home: Stairs With Railing Steps Into Home: 5 ADL-Prior Level of Function SCALE: Activities may be completed with or without assistive devices. 3-Ifjnlurpqc-tgjelbu completes the activity by him/herself with no assistance from a helper. 5-Set-up or Clean-up Assistance-helper sets up or cleans up; patient completes activity. [place] assists only prior to or following the activity. 4-Supervision or Touching Assistance-helper provides verbal cues and/or touching/steadying and/or contact guard assistance as patient completes activity. Assistance may be provided throughout the activity or intermittently. 3-Partial/Moderate Assistance-helper does LESS THAN HALF the effort. [place] lifts, holds or supports trunk or limbs, but provides less than half the effort. 2-Substantial/Maximal Assistance-helper does MORE THAN HALF the effort. [place] lifts or holds trunk or limbs and provides more than half the effort. 7-Iasgtsskx-zdctcq does ALL the effort. Patient does none of the effort to complete the activity. Or, the assistance of 2 or more helpers is required for the patient to complete the activity. If activity was not attempted, code reason: 7-Patient Refused. 9-Not Applicable-not attempted and the patient did not perform the activity before the current illness, exacerbation or injury. 10-Not Attempted due to Environmental Limitations-(lack of equipment, weather restraints, etc.). 88-Not Attempted due to Medical Conditions or Safety Concerns. Self Care: Independent Functional Cognition: Needed Some Help Drive Self: Yes OT Current Status Subjective Confused when asked Day of week unable to respond, OT directed patient to [place], Patient responded Tuesday, when asked month, date and year patient reports TUESDAY. Patient reports she is in [place]. Unable to state her town or address she lives in . is present with patient Mental Status/Objective Patient Orientation: Confused Current Patient does not follow commands for therapist assessment, when asked to raise UES patient does not move, when asked to reach for an object patient has d ifficulty locating object, ADL-Treatment ADL-Current Dependent for all LB ADLS d/t inability to motor plan, and possible receptive aphasia, and weakness, Patient confused Eating (QC): 4 Oral Hygiene (QC): 4 Shower/Bathe Self (QC): 1 Upper Body Dressing (QC): 2 Lower Body Dressing (QC): 1 On/Off Footwear (QC): 1 Toileting Hygiene (QC): 1 Education OT Patient Education: Correct positioning, Instructions to caregiver, Modified ADL techniques, Progress toward Goal/Update tx plan, Purpose of tx/functional activities, Reviewed precautions, Rehab process, Safety issues, Transfer techniques, Use of adapted equipment Teaching Recipient: Patient, Family Teaching Methods: Demonstration, Discussion Response to Teaching: Verbalize Understanding, Unable to Comprehend ( reports understanding), Reinforcement Needed OT Short Term Goals Short Term Goals Eatin Oral hygiene: 6 Toileting hygiene: 3 Shower/bathe self: 3 Upper body dressin Lower body dressin Putting on/taking off footwear: 3 OT Consumer Product Advisor Goals Skilled Nursing Goals Eating (QC): 6 Oral Hygiene (QC): 6 Toileting Hygiene (QC): 5 Shower/Bathe Self (QC): 5 Upper Body Dressing (QC): 6 Lower Body Dressing (QC): 5 On/Off Footwear (QC): 5 1=Demonstrate adherence to instructed precautions during ADL tasks. 2=Patient will verbalize/demonstrate understanding of assistive devices/modifications for ADL. 3=Patient will improve strength/tolerance for activity to enable patient to perform ADL's. OT Education/Plan Problem List/Assessment Assessment: Decreased Activ Tolerance, Decreased Safety Aware, Decreased UE Strength, Dependent Transfers, Impaired Cognition, Impaired Coordination, Impaired Funct Balance, Impaired Self-Care Skills Discharge Recommendations Plan/Recommendations: Continue POC Therapy Discharge Recommendati: Post Acute OT Equpiment Recommendations-D/C: Hip Kit Treatment Plan/Plan of Care Treatment,Training & Education: Yes Patient would benefit from OT for education, treatment and training to promote independence in ADL's, mobility, safety and/or upper extremity function for ADL's. Plan of Care: ADL Retraining, Cognitive Retraining, Concurrent Therapy, Functional Mobility, Group Exercise/Act as Ind, UE Funct Exercise/Act, UE Neuromus Re-Ed/Coord Treatment Duration: Dec 18, 2022 Frequency: 3 times per week (3-5 times per week) Estimated Hrs Per Day: .25 hour per day Agreement: Yes Rehab Potential: Fair Time Start Time: 10:41 Stop Time: 11:04 DATE: Dec 06, 2022 Total Time Billed (hr/min): 23 Billed Treatment Time 1 visit EV 1, FA 1 23 minutes MURRAY PENA OT Dec 06, 2022 10:58
[2022-12-06] MEDS: MEROPENEM 500 MG in NS (IVPB) 100 ML IV SCH ×2 (12:24→18:00)
--- NOTE | 2022-12-06 12:56 | Progress Note - Ortho ---
Progress Note Subjective Date of Exam 12/06/22 Chief Complaint POD #1 R NITIN HPI/Events since last exam has remained confused today, not able to do much from therapy standpoint Review of Systems - Allergies: Coded Allergies: Penicillins (Verified Allergy, Unknown, 12/03/22) Nvmbtky-SKU-DwE Reductase Inhibitor (Verified Allergy, Unknown, 12/05/22) Sulfa (Sulfonamide Antibiotics) (Verified Allergy, Unknown, Itching, 12/05/22) acetaminophen (Verified Allergy, Unknown, Itching, 12/05/22) clarithromycin (Verified Allergy, Unknown, 12/05/22) doxycycline (Verified Allergy, Unknown, Hives, 12/05/22) oxycodone (Verified Allergy, Unknown, Itching, 12/05/22) valdecoxib (Verified Allergy, Unknown, Hives, 12/05/22) Home Meds Reported Medications Fluticasone Propionate (Flonase Allergy Relief) 50 Mcg/Actuation [place].susp, 1 SPRAY NS DAILY PRN for CONGESTION, EACH 1 SPRAY EACH NARE DAILY 12/06/22 Magnesium Oxide (Magnesium) 400 Mg Magnesium Tablet, 800 MG PO DAILY, TAB TAKES 2 (400MG) TABS 12/06/22 Cyanocobalamin (Vitamin B-12) (B-12) 1,000 Mcg Tablet, 1000 MCG PO DAILY, TAB 12/06/22 Meloxicam (Meloxicam) 15 Mg Tablet, 15 MG PO DAILY, TAB 12/06/22 Valsartan/Hydrochlorothiazide (Valsartan-Hctz 320-25 mg Tab) 320 Mg-25 Mg Tablet, 1 EACH PO DAILY, TAB 12/05/22 Levothyroxine Sodium (Levothyroxine) 75 Mcg Capsule, 75 MCG PO DAILY, CAP 12/05/22 Denosumab (Prolia) 60 Mg/Ml Disp.syrin, 60 MG SQ UD, EA 12/05/22 Loratadine (Claritin) 10 Mg Capsule, 10 MG PO DAILY, CAP 12/05/22 Omeprazole (Omeprazole) 20 Mg Capsule.dr, 20 MG PO DAILY, CAP 12/05/22 Calcium Carbonate (Calcium) 600 Mg Calcium (1500 Mg) Tablet, 600 MG PO BID, TAB 12/05/22 Aspirin (Aspirin) 81 Mg Tab.chew, 81 MG PO DAILY, TAB 12/05/22 Diphenhydramine HCl (Benadryl) 25 Mg Capsule, 25 MG PO HS, CAP 12/05/22 Metformin HCl (Metformin HCl ER) 500 Mg Tab.er.24h, 1000 MG PO BID, TAB TAKES 2 (500MG) TABS 12/04/22 Liothyronine Sodium (Liothyronine Sodium) 5 Mcg Tablet, 5 MCG PO BID, TAB 12/04/22 Amlodipine Besylate (Amlodipine Besylate) 5 Mg Tablet, 5 MG PO DAILY, TAB 12/04/22 Venlafaxine HCl (Venlafaxine HCl ER) 150 Mg Cap.er.24h, 150 MG PO DAILY, CAP 12/04/22 Metoprolol Tartrate (Metoprolol Tartrate) 50 Mg Tablet, 50 MG PO BID, TAB 12/04/22 Ezetimibe (Zetia) 10 Mg Tablet, 10 MG PO DAILY, TAB 12/04/22 Discontinued Reported Medications Meloxicam, Submicronized (Meloxicam) 10 Mg Capsule, 15 MG PO DAILY, CAP 12/04/22 Objective Exam R Hip: Dressing C/D/I, +DF of ankle, no s/s of DVT Vital Signs Vital Signs Date Time Temp Pulse Resp B/P (MAP) Pulse Ox O2 Delivery O2 Flow Rate FiO2 12/06/22 12:20 36.9 83 18 156/70 (98) 98 Nasal Cannula 1.00 12/06/22 08:32 37.8 79 18 162/71 (101) 98 Nasal Cannula 1.00 12/06/22 08:26 95 Nasal Cannula 1.00 12/06/22 08:00 Nasal Cannula 2.00 12/06/22 04:00 36.8 91 18 145/66 (92) 95 Nasal Cannula 1.00 12/05/22 23:58 37.8 90 18 160/69 (99) 94 Nasal Cannula 1.00 12/05/22 20:00 Nasal Cannula 2.00 12/05/22 19:44 38.2 90 20 149/70 (96) 94 Nasal Cannula 1.00 12/05/22 15:59 37.5 81 18 155/71 (99) 95 Room Air I & O 12/06/22 07:00 Intake Total 550 ml Output Total 675 ml Balance -125 ml Lab Results Laboratory Tests 12/05/22 16:03: Glucometer 138H 12/05/22 20:22: Glucometer 191H 12/06/22 05:37: White Blood Count 11.2H, Red Blood Count 4.01, Hemoglobin 11.7#, Hematocrit 35, Mean Corpuscular Volume 88, Mean Corpuscular Hemoglobin 29, Mean Corpuscular Hemoglobin Concent 33, Red Cell Distribution Width 13.6, Platelet Count 204, Mean Platelet Volume 11.8, Sodium Level 136, Potassium Level 3.5L, Chloride Level 105, Carbon Dioxide Level 20L, Anion Gap 11, Blood Urea Nitrogen 10, Creatinine 0.80, Estimat Glomerular Filtration Rate 78, BUN/Creatinine Ratio 13, Glucose Level 198H, Calcium Level 8.2L 12/06/22 05:47: Glucometer 197H 12/06/22 11:57: Glucometer 178H Imaging Postop AP Pelvis was reviewed and demonstrated right total hip arthroplasty with components in good position and no complication Assessment and Plan Assessment Right Femoral Neck Fracture s/p R NITIN Problem List Right Femoral Neck Fracture s/p R NITIN Plan Therapy as able Posterior hip precautions DVT prophylaxis Final Diagonsis Right Femoral Neck Fracture s/p R NITIN Level of the visit: Level 3 (global) FIGUEROA VILCHIS MD Dec 06, 2022 12:56
--- NOTE | 2022-12-06 14:15 | Physical Therapy Daily Note ---
PT Daily Note-Current Subjective Patient is currently very confused and unable to speak clearly. RN present and highly aware. Patient is talking but it's "word salad". Nothing is making since. Pain Section J - Health Conditions 1. Rarely or not at all 2. Occasionally 3. Frequently 4. Almost constantly 8. Unable to answer Pain Effect on Sleep: 8 Pain Interference with Therapy: 8 Pain Interference w/Day-to-Day: 8 Mental Status Patient Orientation: Confused Transfers SCALE: Activities may be completed with or without assistive devices. 3-Dmcnyuzuyt-gqyclfk completes the activity by him/herself with no assistance from a helper. 5-Set-up or Clean-up Assistance-helper sets up or cleans up; patient completes activity. [place] assists only prior to or following the activity. 4-Supervision or Touching Assistance-helper provides verbal cues and/or touching/steadying and/or contact guard assistance as patient completes activity. Assistance may be provided throughout the activity or intermittently. 3-Partial/Moderate Assistance-helper does LESS THAN HALF the effort. [place] lifts, holds or supports trunk or limbs, but provides less than half the effort. 2-Substantial/Maximal Assistance-helper does MORE THAN HALF the effort. [place] lifts or holds trunk or limbs and provides more than half the effort. 4-Fvbpntymz-wiltwr does ALL the effort. Patient does none of the effort to complete the activity. Or, the assistance of 2 or more helpers is required for the patient to complete the activity. If activity was not attempted, code reason: 7-Patient Refused. 9-Not Applicable-not attempted and the patient did not perform the activity before the current illness, exacerbation or injury. 10-Not Attempted due to Environmental Limitations-(lack of equipment, weather restraints, etc.). 88-Not Attempted due to Medical Conditions or Safety Concerns. Sit to Lying (QC): 1 (x 2) Sit to Stand (QC): 1 (x 2) Chair/Xmc-dh-Buiuw Xfer(QC): 1 (x 2) patient is very resistive with all mobility and unable to follow simple direction on this date. Weight Bearing Right Lower Extremity: Right Weight Bearing/Tolerated Left Lower Extremity: Left Full Weight Bearing right THR precautions Exercises Supine Ex: Ankle pumps, Heel Slides Supine Reps: 12 (AAROM with patient resisting all ROM and mobility) Assessment Patient in bed with abduction pillow in place. Patient is very resistive with all mobility at this time. ST, RN and physician aware of current speech difficulties. PT increase activity as tolerated by patient. PT Prison Goals Prison Goals PT Underground Conduit Installer Goals Time Frame: Dec 25, 2022 Roll Left & Right (QC): 4 Sit to Lying (QC): 4 Lying-Sitting on Side/Bed(QC): 4 Sit to Stand (QC): 4 Chair/Mkr-ab-Uyroo Xfer(QC): 4 Toilet Transfer (QC): 4 Walk 10 feet (QC): 4 Walk 50ft with 2 Turns (QC): 4 Walk 150 ft (QC): 4 PT Plan Treatment/Plan Treatment Plan: Continue Plan of Care Treatment Plan: Bed Mobility, Education, Functional Activity Bladimir, Functional Strength, Gait, Safety, Therapeutic Exercise, Transfers Treatment Duration: Dec 25, 2022 Frequency: 11 times per week Estimated Hrs Per Day: .5 hour per day Time Time In: 1323 Time Out: 1338 DATE: Dec 06, 2022 Total Billed Treatment Time: 15 Total Billed Treatment 1 visit FA 15 min MIRLANDE PEREZ PT Dec 06, 2022 14:15
--- NOTE | 2022-12-06 14:35 | Progress Note - Hospitalist ---
Subjective HPI/CC On Admission Date Seen by Provider: Dec 06, 2022 Time Seen by Provider: 11:15 Pt is a 72yoCF with a PMH of NIDDMII, HTN, depression, hypothyroisism, and osteoporosis who presented to the ER due to right hip pain. She states she was out walking her dogs (7 month old standard poodle and 4 month old ?bulldog per picture) and suffered a mechanical fall and landed on her hip on a rock. She had severe right hip pain and decided to seek evaluation in the ER via EMS. She was given fentanyl without relief requiring morphine. imaging revealed right hip fracture. Dr Montenegro discussed this with Dr Lara who plans to do surgery tomorrow AM. Patient reports doing well this morning and pain is controlled at the time. Subjective/Events-last exam She is sitting in her chair. She is confused. She denies pain. She has no complaints. Objective Exam Vital Signs Vital Signs Date Time Temp Pulse Resp B/P (MAP) Pulse Ox O2 Delivery O2 Flow Rate FiO2 12/06/22 12:20 36.9 83 18 156/70 (98) 98 Nasal Cannula 1.00 Capillary Refill : Less Than 3 Seconds General Appearance: No Apparent Distress, WD/WN HEENT: PERRL/EOMI, Pharynx Normal Neck: Normal Inspection, Supple Respiratory: Lungs Clear, No Respiratory Distress Cardiovascular: Regular Rate, Rhythm, No Edema, No Murmur Gastrointestinal: Normal Bowel Sounds, Non Tender, Soft Extremity: Normal Inspection, Non Tender, No Pedal Edema Neurologic/Psychiatric: Alert, No Motor/Sensory Deficits, Normal Mood/Affect, Disoriented Skin: Normal Color, Warm/Dry Results/Procedures Lab Laboratory Tests 12/06/22 05:37 Patient resulted labs reviewed. Imaging: Reviewed Imaging Report Assessment/Plan Assessment and Plan Assess & Plan/Chief Complaint Right hip fracture Osteoporosis POD #1 Management per Ortho Pain regimen Bowel regimen PT/OT IRF accepted Postoperative delirium Check UA CT Head Hypokalemia Monitor and correct as needed HTN Continue metoprolol and amlodipine NIDDMII Sliding scale insulin Hypothyroidism Continue synthroid Anxiety/Depression Continue Effexor Lung nodule on CXR Follow up recommended Will need CT chest as outpatient DVT ppx: lovenox Diagnosis/Problems Diagnosis/Problems (1) Closed right hip fracture Status: Acute Qualifiers: Encounter type: initial encounter Qualified Codes: S72.001A - Fracture of unspecified part of neck of right femur, initial encounter for closed fracture (2) Postoperative delirium Status: Acute (3) T2DM (type 2 diabetes mellitus) Status: Chronic (4) HTN (hypertension) Status: Chronic (5) Lung nodule Status: Acute ZOHREH NIXON MD Dec 06, 2022 14:35
[2022-12-06 15:17] LABS: BILIRUBIN,URINE NEGATIVE (NEGATIVE); CLARITY,URINE CLEAR; COLOR,URINE YELLOW; GLUCOSE, URINE (UA) NEGATIVE (NEGATIVE); KETONES,URINE 1+ (NEGATIVE); LEUKOCYTE ESTERASE ,URINE NEGATIVE (NEGATIVE); NITRITE,URINE NEGATIVE (NEGATIVE); PROTEIN,URINE 2+ (NEGATIVE)
[2022-12-06 15:32] LABS: BACTERIA,URINE TRACE /HPF; WBC,URINE RARE /HPF
--- NOTE | 2022-12-06 15:37 | Diagnostic Imaging Report ---
PROCEDURE: CT head wo r/o stroke. TECHNIQUE: Multiple contiguous axial images were obtained through the brain without the use of intravenous contrast. Auto Exposure Controls were utilized during the CT exam to meet ALARA standards for radiation dose reduction. INDICATION: Altered mental status. COMPARISON: No prior studies are available for comparison. The ventricles and sulci are within normal limits. No sulcal effacement or midline shift is identified. No acute intra-axial or extra-axial hemorrhage is detected. Cisterns are patent. Visualized paranasal sinuses are clear. IMPRESSION: No acute intracranial process is detected. Dictated by: Dictated on workstation # [id number]
[2022-12-06] MEDS ORDERED: NS IV ONE (17:30)
[2022-12-06] MEDS ORDERED: NS IV 500 ML 500 ML IV PRN (17:30)
--- NOTE | 2022-12-06 19:45 | Diagnostic Imaging Report ---
EXAMINATION: Chest 1 view HISTORY: Fever. COMPARISON: 12/03/2022 FINDINGS: Heart size and pulmonary vasculature are normal. There are mild interstitial opacities seen within the perihilar and upper lungs. These are not significantly changed from 12/03/2022. Persistent nodular density in the left upper lung. No pneumothorax or significant pleural effusion. The osseous structures are intact. IMPRESSION: 1. Stable interstitial opacities within the perihilar and upper lungs compared to prior exam. Stable opacity within the left upper lung. These could be further evaluated with a CT of the chest. Dictated by: Dictated on workstation # [id number]
[2022-12-06] MEDS: eZETimibe 10 MG (ZETIA) TABLET PO SCH (20:42)
[2022-12-06] MEDS ORDERED: ACETAMINOPHEN 325 MG TABLET PO PRN (22:45)
[2022-12-07 00:01] VITALS: BP 151/71
[2022-12-07] MEDS: MEROPENEM 500 MG in NS (IVPB) 100 ML IV SCH ×2 (00:14→05:03)
[2022-12-07 03:22] VITALS: BP 131/68
[2022-12-07 05:01] LABS: BASOPHILS % (AUTO) 0 % (0-10); EOSINOPHILS % (AUTO) 0 % (0-10); HEMATOCRIT 29 % (35-52); HEMOGLOBIN 9.6 g/dL (11.5-16.0); LYMPHOCYTES # (AUTO) 1.1 10^3/uL (1.0-4.0); LYMPHOCYTES % (AUTO) 13 % (12-44); MEAN CORPUSCULAR HEMOGLOBIN 29 pg (25-34); MEAN CORPUSCULAR HGB CONC 33 g/dL (32-36); MEAN CORPUSCULAR VOLUME 88 fL (80-99); MEAN PLATELET VOLUME 11.3 fL (9.0-12.2); MONOCYTES # (AUTO) 0.9 10^3/uL (0.0-1.0); MONOCYTES % (AUTO) 11 % (0-12); NEUTROPHILS # (AUTO) 6.1 10^3/uL (1.8-7.8); NEUTROPHILS % (AUTO) 75 % (42-75); PLATELET COUNT 164 10^3/uL (130-400); WHITE BLOOD COUNT 8.1 10^3/uL (4.3-11.0)
[2022-12-07] MEDS: VENlafaxine XR 75 MG (EFFEXOR XR) CAP PO SCH (05:03)
[2022-12-07] MEDS: LEVOTHYROXINE 75 MCG (LEVOTHROID) TABLET PO SCH (05:03)
[2022-12-07] MEDS: CATHETER FLUSH 10 ML SYR IVP SCH (05:04)
[2022-12-07] MEDS: inSUlin ASPART (NovoLOG) 1 UNIT/0.01 ML (CHARGE PER UNIT) SC SCH (05:11)
[2022-12-07 05:22] LABS: CALCIUM 7.7 MG/DL (8.5-10.1); CREATININE SERUM 0.63 MG/DL (0.60-1.30); MAGNESIUM 1.6 MG/DL (1.6-2.4); POTASSIUM 3.5 MMOL/L (3.6-5.0)
[2022-12-07] MEDS: MAGNESIUM 1 GM/100 ML IVPB 100 ML IV SCH ×4 (05:57→11:13)
[2022-12-07] MEDS ORDERED: KCL 20 MEQ TAB (K-DUR) PO SCH (06:00)
[2022-12-07] MEDS ORDERED: POTASSIUM CL 10MEQ/50ML IVPB 50 ML IV SCH (06:00)
[2022-12-07] MEDS ORDERED: MAGNESIUM 1 GM/100 ML IVPB 100 ML IV SCH (06:00)
[2022-12-07] MEDS ORDERED: POTASSIUM BICARB 20 MEQ (EFFER-K) TABLET PO SCH (06:00)
[2022-12-07] MEDS: DOCUSATE SODIUM 100 MG (COLACE) CAP PO SCH (07:30)
[2022-12-07] MEDS: meTOprolol TARTRATE 50 MG (LOPRESSOR) TAB PO SCH (07:30)
[2022-12-07] MEDS: amLODIPine 10 MG (NORVASC) TAB PO SCH (07:30)
[2022-12-07] MEDS: ENOXAPARIN 40 MG/0.4 ML (LOVENOX) SYR SQ SCH (07:31)
[2022-12-07 08:45] VITALS: BP 99/63
[2022-12-07] MEDS ORDERED: KCL 20 MEQ TAB (K-DUR) PO ONE (09:00)
--- NOTE | 2022-12-07 09:35 | Occupational Ther Daily Note ---
OT Current Status-Daily Note Subjective OT arrived w/ patient in bathroom w/ PCT. BM incont with environment contamination needing house keeping sanitation Mental Status/Objective Patient Orientation: Person, Place Attachments: Butterfield Catheter, IV ADL-Treatment Complete shower w/ NITIN precautions, patient does not recall precaution education Therapy Code Descriptions/Definitions Functional [place] Measure: 0=Not Assessed/NA 4=Minimal Assistance 1=Total Assistance 5=Supervision or Setup 2=Maximal Assistance 6=Modified [place] 3=Moderate Assistance 7=Complete IndependenceSCALE: Activities may be completed with or without assistive devices. 3-Xjdpypnqgx-rsmoqca completes the activity by him/herself with no assistance from a helper. 5-Set-up or Clean-up Assistance-helper sets up or cleans up; patient completes activity. [place] assists only prior to or following the activity. 4-Supervision or Touching Assistance-helper provides verbal cues and/or touching/steadying and/or contact guard assistance as patient completes activity. Assistance may be provided throughout the activity or intermittently. 3-Partial/Moderate Assistance-helper does LESS THAN HALF the effort. [place] lifts, holds or supports trunk or limbs, but provides less than half the effort. 2-Substantial/Maximal Assistance-helper does MORE THAN HALF the effort. [place] lifts or holds trunk or limbs and provides more than half the effort. 7-Iaxbgpvnx-gwkcdf does ALL the effort. Patient does none of the effort to complete the activity. Or, the assistance of 2 or more helpers is required for the patient to complete the activity. If activity was not attempted, code reason: 7-Patient Refused. 9-Not Applicable-not attempted and the patient did not perform the activity before the current illness, exacerbation or injury. 10-Not Attempted due to Environmental Limitations-(lack of equipment, weather restraints, etc.). 88-Not Attempted due to Medical Conditions or Safety Concerns. Eating (QC): 6 Oral Hygiene (QC): 5 (sitting) Bathing Location: L Arm, R Arm, L Upper Leg, R Upper Leg, L Lower Leg (including foot), R Lower Leg (including foot), Chest, Abdomen, Buttocks, Perineal Area Shower/Bathe Self (QC): 2 Upper Body Dressing (QC): 3 Lower Body Dressing (QC): 2 On/Off Footwear: 1 Toileting Hygiene (QC): 2 Toilet Transfer (QC): 2 Education OT Patient Education: Correct positioning, Modified ADL techniques, Progress toward Goal/Update tx plan, Purpose of tx/functional activities, Reviewed p recautions, Rehab process, Safety issues, Transfer techniques, Use of adapted equipment Teaching Recipient: Patient Teaching Methods: Demonstration, Discussion Response to Teaching: Reinforcement Needed OT Short Term Goals Short Term Goals Eatin Oral hygiene: 6 Toileting hygiene: 3 Shower/bathe self: 3 Upper body dressin Lower body dressin Putting on/taking off footwear: 3 OT Swimming Pool Salesperson Goals Swimming Pool Salesperson Goals Eating (QC): 6 Oral Hygiene (QC): 6 Toileting Hygiene (QC): 5 Shower/Bathe Self (QC): 5 Upper Body Dressing (QC): 6 Lower Body Dressing (QC): 5 On/Off Footwear (QC): 5 1=Demonstrate adherence to instructed precautions during ADL tasks. 2=Patient will verbalize/demonstrate understanding of assistive devices /modifications for ADL. 3=Patient will improve strength/tolerance for activity to enable patient to perform ADL's. OT Education/Plan Discharge Recommendations Plan/Recommendations: Continue POC Equpiment Recommendations-D/C: Hip Kit Comment Housekeeping notified, RN notified for IV alarm, solar project engineer arrived and left card for patient, cared placed on bed tray, patient resting in recliner, w/ LEs elevated all needs met Treatment Plan/Plan of Care Patient would benefit from OT for education, treatment and training to promote independence in ADL's, mobility, safety and/or upper extremity function for ADL's. Plan of Care: ADL Retraining, Cognitive Retraining, Concurrent Therapy, Functional Mobility, Group Exercise/Act as Ind, UE Funct Exercise/Act, UE Neuromus Re-Ed/Coord Treatment Duration: Dec 18, 2022 Frequency: 3 times per week (3-5 times per week) Estimated Hrs Per Day: .25 hour per day Agreement: Yes Rehab Potential: Fair Time Start Time: 08:45 Stop Time: 09:36 DATE: Dec 07, 2022 Total Time Billed (hr/min): 46 Billed Treatment Time 1 visit ADL 3 46 min MURRAY PENA OT Dec 07, 2022 09:35
--- NOTE | 2022-12-07 09:37 | Physical Therapy Daily Note ---
PT Daily Note-Current Subjective Patient agrees to PT. Mentation much improved on this date. Pain Numeric Pain Scale: 8 Location: Right Location Body Site: Hip Pain Description: Acute Section J - Health Conditions 1. Rarely or not at all 2. Occasionally 3. Frequently 4. Almost constantly 8. Unable to answer Pain Effect on Sleep: 2 Pain Interference with Therapy: 2 Pain Interference w/Day-to-Day: 2 Mental Status Patient Orientation: Person, Time, Situation Attachments: Oxygen, Butterfield Catheter, IV Transfers SCALE: Activities may be completed with or without assistive devices. 3-Rttmbmfouf-cwysumd completes the activity by him/herself with no assistance from a helper. 5-Set-up or Clean-up Assistance-helper sets up or cleans up; patient completes activity. [place] assists only prior to or following the activity. 4-Supervision or Touching Assistance-helper provides verbal cues and/or touching/steadying and/or contact guard assistance as patient completes activity. Assistance may be provided throughout the activity or intermittently. 3-Partial/Moderate Assistance-helper does LESS THAN HALF the effort. [place] lifts, holds or supports trunk or limbs, but provides less than half the effort. 2-Substantial/Maximal Assistance-helper does MORE THAN HALF the effort. [place] lifts or holds trunk or limbs and provides more than half the effort. 8-[place]-agmjef does ALL the effort. Patient does none of the effort to complete the activity. Or, the assistance of 2 or more helpers is required for the patient to complete the activity. If activity was not attempted, code reason: 7-Patient Refused. 9-Not Applicable-not attempted and the patient did not perform the activity before the current illness, exacerbation or injury. 10-Not Attempted due to Environmental Limitations-(lack of equipment, weather restraints, etc.). 88-Not Attempted due to Medical Conditions or Safety Concerns. Lying to Sitting/Side of Bed(Q: 2 Sit to Stand (QC): 2 Chair/Ppr-qq-Cpkms Xfer(QC): 2 Weight Bearing Right Lower Extremity: Right Weight Bearing/Tolerated Left Lower Extremity: Left Full Weight Bearing right THR precautions Gait Training Distance: 50' Walk 10 feet (QC): 3 Walk 50 ft with 2 Turns(QC): 3 Walk 150 ft (QC): 88 Gait Assistive Device: FWW very slow, step to, antalgic gait sequence Exercises Supine Ex: Ankle pumps, Quad Set, Heel Slides Supine Reps: 15 (AAROM) Seated Therapy Exercises: Ankle pumps, Long arc quads Seated Reps: 15 Assessment Patient improved on this date. Patient up in recliner with needs met. PT to continue to increase activity as tolerated by patient. PT Senior Care Goals Senior Care Goals PT Senior Care Goals Time Frame: Dec 25, 2022 Roll Left & Right (QC): 4 Sit to Lying (QC): 4 Lying-Sitting on Side/Bed(QC): 4 Sit to Stand (QC): 4 Chair/Gwo-ot-Bdbym Xfer(QC): 4 Toilet Transfer (QC): 4 Walk 10 feet (QC): 4 Walk 50ft with 2 Turns (QC): 4 Walk 150 ft (QC): 4 PT Plan Treatment/Plan Treatment Plan: Continue Plan of Care Treatment Plan: Bed Mobility, Education, Functional Activity [place], Functional Strength, Gait, Safety, Therapeutic Exercise, Transfers Treatment Duration: Dec 25, 2022 Frequency: 11 times per week Estimated Hrs Per Day: .5 hour per day Time Time In: 800 Time Out: 823 DATE: Dec 07, 2022 Total Billed Treatment Time: 23 Total Billed Treatment 1 visit EX 13 min GT 10 min MIRLANDE PEREZ PT Dec 07, 2022 09:37
--- NOTE | 2022-12-07 09:43 | Progress Note - Ortho ---
Progress Note Subjective Date of Exam 12/07/22 Chief Complaint POD #2 R NITIN HPI/Events since last exam much improved from confusion standpoint, making slow progress with therapy, pain controlled Review of Systems - Allergies: Coded Allergies: Penicillins (Verified Allergy, Unknown, 12/03/22) Mgpmcjz-WXW-QyB Reductase Inhibitor (Verified Allergy, Unknown, 12/05/22) Sulfa (Sulfonamide Antibiotics) (Verified Allergy, Unknown, Itching, 12/05/22) acetaminophen (Verified Allergy, Unknown, Itching, 12/05/22) clarithromycin (Verified Allergy, Unknown, 12/05/22) doxycycline (Verified Allergy, Unknown, Hives, 12/05/22) oxycodone (Verified Allergy, Unknown, Itching, 12/05/22) valdecoxib (Verified Allergy, Unknown, Hives, 12/05/22) Home Meds Reported Medications Fluticasone Propionate (Flonase Allergy Relief) 50 Mcg/Actuation [place].susp, 1 SPRAY NS DAILY PRN for CONGESTION, EACH 1 SPRAY EACH NARE DAILY 12/06/22 Magnesium Oxide (Magnesium) 400 Mg Magnesium Tablet, 800 MG PO DAILY, TAB TAKES 2 (400MG) TABS 12/06/22 Cyanocobalamin (Vitamin B-12) (B-12) 1,000 Mcg Tablet, 1000 MCG PO DAILY, TAB 12/06/22 Meloxicam (Meloxicam) 15 Mg Tablet, 15 MG PO DAILY, TAB 12/06/22 Valsartan/Hydrochlorothiazide (Valsartan-Hctz 320-25 mg Tab) 320 Mg-25 Mg Tablet, 1 EACH PO DAILY, TAB 12/05/22 Levothyroxine Sodium (Levothyroxine) 75 Mcg Capsule, 75 MCG PO DAILY, CAP 12/05/22 Denosumab (Prolia) 60 Mg/Ml Disp.syrin, 60 MG SQ UD, EA 12/05/22 Loratadine (Claritin) 10 Mg Capsule, 10 MG PO DAILY, CAP 12/05/22 Omeprazole (Omeprazole) 20 Mg Capsule.dr, 20 MG PO DAILY, CAP 12/05/22 Calcium Carbonate (Calcium) 600 Mg Calcium (1500 Mg) Tablet, 600 MG PO BID, TAB 12/05/22 Aspirin (Aspirin) 81 Mg Tab.chew, 81 MG PO DAILY, TAB 12/05/22 Diphenhydramine HCl (Benadryl) 25 Mg Capsule, 25 MG PO HS, CAP 12/05/22 Metformin HCl (Metformin HCl ER) 500 Mg Tab.er.24h, 1000 MG PO BID, TAB TAKES 2 (500MG) TABS 12/04/22 Liothyronine Sodium (Liothyronine Sodium) 5 Mcg Tablet, 5 MCG PO BID, TAB 12/04/22 Amlodipine Besylate (Amlodipine Besylate) 5 Mg Tablet, 5 MG PO DAILY, TAB 12/04/22 Venlafaxine HCl (Venlafaxine HCl ER) 150 Mg Cap.er.24h, 150 MG PO DAILY, CAP 12/04/22 Metoprolol Tartrate (Metoprolol Tartrate) 50 Mg Tablet, 50 MG PO BID, TAB 12/04/22 Ezetimibe (Zetia) 10 Mg Tablet, 10 MG PO DAILY, TAB 12/04/22 Discontinued Reported Medications Meloxicam, Submicronized (Meloxicam) 10 Mg Capsule, 15 MG PO DAILY, CAP 12/04/22 Objective Exam Right Hip: Dressing C/D/I, +DF of ankle, no s/s of DVT Vital Signs Vital Signs Date Time Temp Pulse Resp B/P (MAP) Pulse Ox O2 Delivery O2 Flow Rate FiO2 12/07/22 08:45 37.8 79 20 99/63 (75) 99 Nasal Cannula 2.00 12/07/22 03:22 36.1 90 24 131/68 (89) 97 Nasal Cannula 2.00 12/07/22 01:26 36.3 12/07/22 00:19 38.0 12/07/22 00:01 37.7 87 24 151/71 (97) 94 Nasal Cannula 2.00 12/06/22 22:19 85 150/72 (98) 95 Nasal Cannula 2.00 12/06/22 22:04 38.0 87 150/70 (96) 94 Nasal Cannula 2.00 12/06/22 21:49 81 152/79 (103) 98 12/06/22 21:34 82 145/80 (101) 95 Nasal Cannula 2.00 12/06/22 21:19 37.6 89 146/71 (96) 97 Nasal Cannula 2.00 12/06/22 20:51 93 145/70 (95) 12/06/22 20:49 106 145/70 (95) 98 Nasal Cannula 2.00 12/06/22 20:35 Nasal Cannula 2.00 12/06/22 20:34 38.2 107 179/71 (107) 97 Nasal Cannula 2.00 12/06/22 20:19 104 143/77 (99) Nasal Cannula 2.00 12/06/22 20:04 99 147/72 (97) 95 Nasal Cannula 2.00 12/06/22 20:01 37.5 100 18 160/75 (103) 97 Nasal Cannula 2.00 12/06/22 19:49 103 160/73 (102) 96 12/06/22 19:34 98 161/76 (104) 96 12/06/22 19:19 109 147/67 (93) 95 12/06/22 19:04 109 158/76 (103) 96 12/06/22 18:49 109 151/66 (94) 98 12/06/22 18:34 108 138/68 (91) 12/06/22 18:20 113 154/78 (103) 86 12/06/22 18:19 110 154/78 (103) 92 12/06/22 18:04 102 148/80 (102) 99 12/06/22 17:49 109 151/66 (94) 98 12/06/22 17:49 106 142/79 (100) 97 12/06/22 16:20 37.9 105 18 136/63 (87) 96 Nasal Cannula 2.00 12/06/22 15:38 97 Nasal Cannula 1.00 12/06/22 12:20 36.9 83 18 156/70 (98) 98 Nasal Cannula 1.00 I & O 12/07/22 06:59 Intake Total 4170 ml Output Total 1950 ml Balance 2220 ml Lab Results Laboratory Tests 12/06/22 11:57: Glucometer 178H 12/06/22 15:10: Urine Color YELLOW, Urine Clarity CLEAR, Urine pH 6.0, Urine Specific [place] 1.020, Urine Protein 2+H, Urine Glucose (UA) NEGATIVE, Urine Ketones 1+H, Urine Nitrite NEGATIVE, Urine Bilirubin NEGATIVE, Urine Urobilinogen 0.2, Urine Leukocyte Esterase NEGATIVE, Urine RBC (Auto) 3+H, Urine RBC 10-25H, Urine WBC RARE, Urine Crystals NONE, Urine Bacteria TRACE, Urine Casts NONE, Urine Mucus NEGATIVE, Urine Culture Indicated NO 12/06/22 16:23: Glucometer 154H 12/06/22 17:51: Lactic Acid Level 0.83 12/06/22 20:25: Glucometer 149H 12/07/22 04:44: White Blood Count 8.1, Red Blood Count 3.30L, Hemoglobin 9.6L, Hematocrit 29L, Mean Corpuscular Volume 88, Mean Corpuscular Hemoglobin 29, Mean Corpuscular Hemoglobin Concent 33, Red Cell Distribution Width 13.6, Platelet Count 164, Mean Platelet Volume 11.3, Immature Granulocyte % (Auto) 1, Neutrophils (%) (Auto) 75, Lymphocytes (%) (Auto) 13, Monocytes (%) (Auto) 11, Eosinophils (%) (Auto) 0, Basophils (%) (Auto) 0, Neutrophils # (Auto) 6.1, Lymphocytes # (Auto) 1.1, Monocytes # (Auto) 0.9, Eosinophils # (Auto) 0.0, Basophils # (Auto) 0.0, Immature Granulocyte # (Auto) 0.1, Sodium Level 137, Potassium Level 3.5L, Chloride Level 110H, Carbon Dioxide Level 18L, Anion Gap 9, Blood Urea Nitrogen 7, Creatinine 0.63, Estimat Glomerular Filtration Rate 94, BUN/Creatinine Ratio 11, Glucose Level 171H, Calcium Level 7.7L, Magnesium Level 1.6 12/07/22 05:08: Glucometer 166H Assessment and Plan Assessment Right Femoral Neck Fracture s/p R NITIN Problem List Right Femoral Neck Fracture s/p R NITIN Plan PT/OT DVT Prophylaxis Agree with plan for acute rehab Final Diagonsis Right Femoral Neck Fracture s/p R NITIN Level of the visit: Level 3 (postop global) Focused Exam Lactate Level 12/06/22 17:51: Lactic Acid Level 0.83 FIGUEROA VILCHIS MD Dec 07, 2022 09:43
--- NOTE | 2022-12-07 11:24 | Discharge Summary ---
Discharge Summary Hospital Course Problems/Dx: (1) Closed right hip fracture Status: Acute Qualifiers: Qualified Codes: S72.001A - Fracture of unspecified part of neck of right femur, initial encounter for closed fracture (2) Postoperative delirium Status: Acute (3) T2DM (type 2 diabetes mellitus) Status: Chronic (4) HTN (hypertension) Status: Chronic (5) Lung nodule Status: Acute Hospital Course Date of Admission: Dec 03, 2022 at 21:07 Admission Diagnosis : Closed right hip fracture Family Physician/Provider: Maricarmen Corrigan Date of Discharge: 12/07/22 Discharge Diagnosis: Closed right hip fracture Hospital Course: Xiomara Cox is a 72 year old female who was admitted with a hip fracture. Orthopedic surgery was consulted and she underwent a right total hip arthroplasty. She had issues with postoperative delirium. She had a CT Head which showed no acute abnormalities. She had a slight fever and was started on Meropenem. Her UA/chest xray were negative. Blood cultures were drawn and pending. Her delirium resolved. She was transferred to inpatient rehab for continued therapy and monitoring. Labs and Pending Lab Test: Laboratory Tests 12/06/22 11:57: Glucometer 178H 12/06/22 15:10: Urine Color YELLOW, Urine Clarity CLEAR, Urine pH 6.0, Urine Specific [place] 1.020, Urine Protein 2+H, Urine Glucose (UA) NEGATIVE, Urine Ketones 1+H, Urine Nitrite NEGATIVE, Urine Bilirubin NEGATIVE, Urine Urobilinogen 0.2, Urine Leukocyte Esterase NEGATIVE, Urine RBC (Auto) 3+H, Urine RBC 10-25H, Urine WBC RARE, Urine Crystals NONE, Urine Bacteria TRACE, Urine Casts NONE, Urine Mucus NEGATIVE, Urine Culture Indicated NO 12/06/22 16:23: Glucometer 154H 12/06/22 17:51: Lactic Acid Level 0.83 12/06/22 20:25: Glucometer 149H 12/07/22 04:44: White Blood Count 8.1, Red Blood Count 3.30L, Hemoglobin 9.6L, Hematocrit 29L, Mean Corpuscular Volume 88, Mean Corpuscular Hemoglobin 29, Mean Corpuscular Hemoglobin Concent 33, Red Cell Distribution Width 13.6, Platelet Count 164, Mean Platelet Volume 11.3, Immature Granulocyte % (Auto) 1, Neutrophils (%) (Auto) 75, Lymphocytes (%) (Auto) 13, Monocytes (%) (Auto) 11, Eosinophils (%) (Auto) 0, Basophils (%) (Auto) 0, Neutrophils # (Auto) 6.1, Lymphocytes # (Auto) 1.1, Monocytes # (Auto) 0.9, Eosinophils # (Auto) 0.0, Basophils # (Auto) 0.0, Immature Granulocyte # (Auto) 0.1, Sodium Level 137, Potassium Level 3.5L, Chloride Level 110H, Carbon Dioxide Level 18L, Anion Gap 9, Blood Urea Nitrogen 7, Creatinine 0.63, Estimat Glomerular Filtration Rate 94, BUN/Creatinine Ratio 11, Glucose Level 171H, Calcium Level 7.7L, Magnesium Level 1.6 12/07/22 05:08: Glucometer 166H 12/07/22 10:59: Glucometer 173H Home Meds Active Reported Flonase Allergy Relief (Fluticasone Propionate) 50 Mcg/Actuation [place].susp 1 [place] NS DAILY PRN 1 SPRAY EACH NARE DAILY Magnesium (Magnesium Oxide) 400 Mg Magnesium Tablet 800 Mg PO DAILY TAKES 2 (400MG) TABS B-12 (Cyanocobalamin (Vitamin B-12)) 1,000 Mcg Tablet 1,000 Mcg PO DAILY Meloxicam 15 Mg Tablet 15 Mg PO DAILY Valsartan-Hctz 320-25 mg Tab (Valsartan/Hydrochlorothiazide) 320 Mg-25 Mg Tablet 1 Each PO DAILY Levothyroxine (Levothyroxine Sodium) 75 Mcg Capsule 75 Mcg PO DAILY Prolia (Denosumab) 60 Mg/Ml Disp.syrin 60 Mg SQ UD Claritin (Loratadine) 10 Mg Capsule 10 Mg PO DAILY Omeprazole 20 Mg Capsule.dr 20 Mg PO DAILY Calcium (Calcium Carbonate) 600 Mg Calcium (1500 Mg) Tablet 600 Mg PO BID Aspirin 81 Mg Tab.chew 81 Mg PO DAILY Benadryl (Diphenhydramine HCl) 25 Mg Capsule 25 Mg PO HS Metformin HCl ER (Metformin HCl) 500 Mg Tab.er.24h 1,000 Mg PO BID TAKES 2 (500MG) TABS Liothyronine Sodium 5 Mcg Tablet 5 Mcg PO BID Amlodipine Besylate 5 Mg Tablet 5 Mg PO DAILY Venlafaxine HCl ER (Venlafaxine HCl) 150 Mg Cap.er.24h 150 Mg PO DAILY Metoprolol Tartrate 50 Mg Tablet 50 Mg PO BID Zetia (Ezetimibe) 10 Mg Tablet 10 Mg PO DAILY Assessment/Pt Instructions See instructions Discharge Planning: >30 minutes discharge planning Discharge Instructions Discharge Diet: No Restrictions Activity as Tolerated: Yes Consultations Ortho Discharge Physical Examination Vital Signs Vital Signs Date Time Temp Pulse Resp B/P (MAP) Pulse Ox O2 Delivery O2 Flow Rate FiO2 12/07/22 08:45 37.8 79 20 99/63 (75) 99 Nasal Cannula 2.00 General Appearance: No Apparent Distress, WD/WN Respiratory: Lungs Clear, No Respiratory Distress Cardiovascular: Regular Rate, Rhythm, No Murmur Gastrointestinal: Normal Bowel Sounds, Soft Extremity: Normal Inspection, No Pedal Edema Skin: Normal Color, Warm/Dry Neurologic/Psychiatric: Alert, Normal Mood/Affect Allergies: Coded Allergies: Penicillins (Verified Allergy, Unknown, 12/03/22) Dxajmgk-UOD-TsG Reductase Inhibitor (Verified Allergy, Unknown, 12/05/22) Sulfa (Sulfonamide Antibiotics) (Verified Allergy, Unknown, Itching, 12/05/22) clarithromycin (Verified Allergy, Unknown, 12/05/22) doxycycline (Verified Allergy, Unknown, Hives, 12/05/22) oxycodone (Verified Allergy, Unknown, Itching, 12/05/22) valdecoxib (Verified Allergy, Unknown, Hives, 12/05/22) Discharge Summary Date of Admission Dec 03, 2022 at 21:07 Date of Discharge Discharge Date: Dec 07, 2022 Discharge Time: 11:22 Admission Diagnosis Right hip fracture Consults/Procedures Consulations Ortho Procedures Right total hip arthroplasty Discharge Diagnosis Right hip fracture Osteoporosis Postoperative delirium Hypokalemia HTN NIDDMII Hypothyroidism Anxiety/Depression Lung nodule on CXR (1) Closed right hip fracture Status: Acute Qualifiers: Qualified Codes: S72.001A - Fracture of unspecified part of neck of right femur, initial encounter for closed fracture (2) Postoperative delirium Status: Acute (3) T2DM (type 2 diabetes mellitus) Status: Chronic (4) HTN (hypertension) Status: Chronic (5) Lung nodule Status: Acute ZOHREH NIXON MD Dec 07, 2022 11:22
[2022-12-07 11:29] VITALS: BP 99/63
[2022-12-07 11:34] VITALS: BP 99/63
--- NOTE | 2022-12-08 14:02 | Physician Query Clarification ---
PQ-Further Specificity Admission/Discharge Admission Date: Dec 03, 2022 at 21:07 Discharge Date: Dec 07, 2022 at 11:34 Dr. Nixon, The medical record reflects the following clinical scenario: History/Risk Factors: rt subcapital fx fall walking dogs, rt hip OA, osteoporosis, DM, HTN Clinical Findings: AP Pelvis and 2 views of the right hip dated 12/03/22 were reviewed from PACS and demonstrated displaced fracture of the femoral neck with some underlying osteoarthritis Treatment: Rt THR Question: Can you further specify if the rt subcapital fx is due to trauma or pathologic d/t OA and or Osteoporosis per the clinical indicators above? Please document a response in the Progress Notes or Discharge Summary. 1. Rt subcapital fx is due to trauma 2. Rt subcapital fx is pathologic d/t OA and or Osteoporosis 3. Other, with explanation of the clinical findings. 4. Clinically undetermined, no explanation for the clinical findings. PHYSICIAN RESPONSE Can you specify per above: 1 In responding to this query, please exercise your independent professional judgment. The purpose of this communication is to more accurately reflect the complexity of your patients condition. The fact that a question is asked does not imply that any particular answer is desired or expected. Thank you for your timely response to this clarification. Requestors name: Herminia THIS PHYSICIAN QUERY FORM IS A PERMANENT PART OF THE MEDICAL RECORD HERMINIA HARRELL Dec 08, 2022 14:01 ZOHREH NIXON MD Dec 08, 2022 17:09
== END 2022-12-07 11:34 | DRG 522 ==
LOC: ER 17:45 → 4TH 21:07
PROVIDERS: ADMIT Family Medicine; ATTEND Internal Medicine
PROC: 0SR904A Replacement of Right Hip Joint with Ceramic on Polyethylene Synthetic Substitute, Uncemented, Open Approach (ICD-10-PCS; principal; 2022-12-05 07:55)
DX: S72.011A Unspecified intracapsular fracture of right femur, initial encounter for closed fracture (principal); F05 Delirium due to known physiological condition; E11.9 Type 2 diabetes mellitus without complications; I10 Essential (primary) hypertension; E03.9 Hypothyroidism, unspecified; M81.0 Age-related osteoporosis without current pathological fracture; R91.1 Solitary pulmonary nodule; E87.6 Hypokalemia; F41.9 Anxiety disorder, unspecified; F32.A Depression, unspecified; M16.11 Unilateral primary osteoarthritis, right hip; Z79.84 Long term (current) use of oral hypoglycemic drugs; Z88.6 Allergy status to analgesic agent; Z88.1 Allergy status to other antibiotic agents; Z88.5 Allergy status to narcotic agent; Z88.0 Allergy status to penicillin; Z88.2 Allergy status to sulfonamides; Z88.8 Allergy status to other drugs, medicaments and biological substances; W18.30XA Fall on same level, unspecified, initial encounter; Y93.K1 Activity, walking an animal
CPT/HCPCS: 36415; 51702; 70450; 71045; 72170; 80048; 81000; 82947; 83605; 83735; 85025; 85027; 87040; 93005; 94664; 94760

== ENCOUNTER 2022-12-07 10:11 | Inpatient (IN) | payer MEDICARE, OTHER ==
[~2022-12-07] VITALS: Ht 170.2 cm; Wt 84.6 kg
[~2022-12-07 10:11] MED LIST: AMLO-250 PO; ASPI-999 PO; CALC600T91 PO; CYAN100088 PO; DENO60DI SQ; DIPH25CA79 PO; EZET10TA17 PO; FLUT9.9S NS; LEVO75CA5 PO; LIOT5TAB10 PO; LORA10CA PO; MAGN400T39 PO; MELO10CA3 PO; MELO15TA39 PO; METF-865 PO; METO50TA15 PO; OMEP20CA18 PO; VALS1TAB80 PO; VENL150C98 PO
[2022-12-07] MEDS ORDERED: LACTULOSE SYRUP 10GM/15ML (ENULOSE) 30ML UDC PO PRN (10:30)
[2022-12-07] MEDS ORDERED: DOCUSATE SODIUM 100 MG (COLACE) CAP PO PRN (10:30)
[2022-12-07] MEDS ORDERED: ALPRAZolam 0.25 MG (XANAX) TAB PO PRN (10:30)
[2022-12-07] MEDS ORDERED: ONDANSETRON 4 MG (ZOFRAN) ORAL DISSOLVE TAB PO PRN (10:30)
[2022-12-07] MEDS ORDERED: ACETAMINOPHEN 325 MG TABLET PO PRN (10:30)
[2022-12-07] MEDS ORDERED: FLEET ENEMA ADULT 1 EA BTL PR PRN (10:30)
[2022-12-07] MEDS ORDERED: CALCIUM CARBONATE 500 MG (TUMS) TAB.CHEW PO PRN (10:30)
[2022-12-07] MEDS ORDERED: BISACODYL 10 MG SUPP (DULCOLAX) PR PRN (10:30)
[2022-12-07 12:18] VITALS: BP 142/81
--- NOTE | 2022-12-07 12:38 | Physical Therapy Evaluation ---
PT Evaluation-General Medical Diagnosis Admission Date Dec 07, 2022 at 11:20 Medical Diagnosis: right NITIN Onset Date: Dec 05, 2022 Therapy Diagnosis Therapy Diagnosis: impaired mobility Precautions Precautions/Isolations: Fall Prevention, Standard Precautions, Pressure Ulcer Referral Physician: Dejah Carr DO Reason for Referral: Evaluation/Treatment Medical History Pertinent Medical History: DM, HTN, Hypothroidism Social History Home: Single Level Current Living Status: Spouse Entry Into Home: Stairs With Railing PT Steps Into Home: 5 Prior Prior Level of Function SCALE: Activities may be completed with or without assistive devices. 0-Ykkyrtufws-chpkutq completes the activity by him/herself with no assistance from a helper. 5-Set-up or Clean-up Assistance-helper sets up or cleans up; patient completes activity. [place] assists only prior to or following the activity. 4-Supervision or Touching Assistance-helper provides verbal cues and/or touching/steadying and/or contact guard assistance as patient completes activity. Assistance may be provided throughout the activity or intermittently. 3-Partial/Moderate Assistance-helper does LESS THAN HALF the effort. [place] lifts, holds or supports trunk or limbs, but provides less than half the effort. 2-Substantial/Maximal Assistance-helper does MORE THAN HALF the effort. [place] lifts or holds trunk or limbs and provides more than half the effort. 6-Gljklqwpn-uyhsam does ALL the effort. Patient does none of the effort to complete the activity. Or, the assistance of 2 or more helpers is required for the patient to complete the activity. If activity was not attempted, code reason: 7-Patient Refused. 9-Not Applicable-not attempted and the patient did not perform the activity before the current illness, exacerbation or injury. 10-Not Attempted due to Environmental Limitations-(lack of equipment, weather restraints, etc.). 88-Not Attempted due to Medical Conditions or Safety Concerns. Bed Mobility: 6 Transfers (B,C,W/C): 6 Gait: 6 Stairs: 6 Indoor Mobility (Ambulation): Independent Stairs: Independent PT Evaluation-Current Subjective Patient in recliner pre tx, agrees to PT, has 8/10 pain in right hip. Pain Section J - Health Conditions 1. Rarely or not at all 2. Occasionally 3. Frequently 4. Almost constantly 8. Unable to answer Pain Effect on Sleep: 3 Pain Interference with Therapy: 3 Pain Interference w/Day-to-Day: 3 Pt/Family Goals to be independent at home Objective Patient Orientation: Person, Place, Situation Attachments: Oxygen, IV Sensory Vision: Functional Hearing: Functional Sensation Right Lower Extremit: Intact Sensation Left Lower Extremity: Intact Transfers Roll Left & Right (QC): 3 Sit to Lying (QC): 3 Lying to Sitting/Side of Bed(Q: 3 Sit to Stand (QC): 3 Chair/Myi-ou-Lxfhw Xfer(QC): 4 Toilet Transfer (QC): 4 Car Transfer (QC): 3 Patient performed rolling and supine <-> sit with min assist, sit <-> stand mod assist, transfers CGA, car transfer mod assist. Patient needs cues for positioning and safety, has a lot of pain with movement. Gait Does the Patient Walk?: Yes Mode of Locomotion: Walk Anticipated Mode of Locomotion: Walk Walk 10 feet (QC): 4 Walk 50 ft with 2 Turns(QC): 4 Walk 150 ft (QC): 88 Walking 10ft/uneven surface-QC: 88 Distance: 50'x2 Gait Assistive Device: FWW Comments/Gait Description Patient can ambulate 50' with a rolling walker with CGA (including 50' with at least 2 turns of 90 degrees), she cannot ambulate over an uneven surface yet, she slides her feet across the floor, decreased weight bearing on right leg, lots of pain. Wheelchair Training Wheel 50 ft with 2 turns (QC): 9 Wheel 150 ft (QC): 9 Stairs 1 Step (curb) (QC): 88 4 Steps (QC): 88 12 Steps (QC): 88 Balance Sitting Static: Normal Sitting Dynamic: Normal Standing Static: Fair Standing Dynamic: Fair Picking up an Object (QC): 4 (CGA using a emissions testing technician) Assessment/Needs Patient in bed post tx with nurse call, phone, tray, all needs met. Patient has impaired mobility, endurance, pain with activity. She needs min assist for supine to sit but mod assist for sit to stand. Rehab Potential: Fair PT [facility] Goals Certified Medical Biller Goals PT [facility] Goals Time Frame: Dec 21, 2022 Roll Left to Right (QC): 6 Sit to Lying (QC): 6 Lying-Sitting on Side/Bed(QC): 6 Sit to Stand (QC): 6 Chair/Tsy-wo-Hhmim Xfer(QC): 6 Toilet/Commode Transfer (QC): 6 Car Transfer (QC): 6 Walk 10 feet (QC): 6 Walk 10ft-Uneven Surface(QC): 6 Walk 50ft with 2 Turns (QC): 6 Walk 150 ft (QC): 6 Wheel 50 feet with 2 turns (QC: 9 Wheel 150 feet: 9 1 Step (curb) (QC): 4 4 Steps (QC): 4 12 Steps (QC): 88 Picking up an Object (QC): 6 PT Plan Problem List Problem List: Activity Tolerance, Functional Strength, Safety, Balance, Gait, Transfer, Bed Mobility, ROM Treatment/Plan Treatment Plan: Continue Plan of Care Treatment Plan: Bed Mobility, Education, Functional Activity Bladimir, Functional Strength, Group Therapy, Gait, Safety, Therapeutic Exercise, Transfers Treatment Duration: Dec 21, 2022 Frequency: At least 5 of 7 days/Wk (IRF) Estimated Hrs Per Day: 1.5 hours per day Patient and/or Family Agrees t: Yes Safety Risks/Education Patient Education: Gait Training, Transfer Techniques, Reviewed Precautions, Correct Positioning, Safety Issues Teaching Recipient: Patient Teaching Methods: Demonstration, Discussion Response to Teaching: Reinforcement Needed Discharge Recommendations Plan Patient will perform bed mobility and transfer training, balance and endurance training, functional strengthening, stair training, gait training, and education, to improve functional mobility and independence at home. Therapy Discharge Recommendati: Home & Family, Post Acute PT Time Time In: 1120 Time Out: 1200 DATE: Dec 07, 2022 Total Billed Treatment Time: 40 Total Billed Treatment 1 visit EVAyush 15' FA 25' SWETHA KENDALL PT Dec 07, 2022 12:38
--- NOTE | 2022-12-07 12:45 | Occupational Therapy Eval ---
OT Evaluation-General/PLF Medical Diagnosis Admission Date Dec 07, 2022 at 11:20 Medical Diagnosis: s/p R NITIN Onset Date: Dec 05, 2022 Therapy Diagnosis Therapy Diagnosis: decreased ADL status Precautions Precautions/Isolations: Fall Prevention, Standard Precautions, Pressure Ulcer Comments R hip precautions. Referral Physician: Bruno Referral Reason: Evaluation/Treatment Medical History Pertinent Medical History: DM, HTN, Hypothroidism Additional Medical History NIDDMII, HTN, depression, hypothyroisism, and osteoporosis Current History fall walking dog, s/p R NITIN Social History Home: Single Level Current Living Status: Spouse Entry Into Home: Stairs With Railing Steps Into Home: 3 front door 2 large steps (~10" tall), deck door 3 steps with handrail. Typically go in/out of deck door. ADL-Prior Level of Function SCALE: Activities may be completed with or without assistive devices. 0-Rbttxxpyau-feobngn completes the activity by him/herself with no assistance from a helper. 5-Set-up or Clean-up Assistance-helper sets up or cleans up; patient completes activity. [place] assists only prior to or following the activity. 4-Supervision or Touching Assistance-helper provides verbal cues and/or touching/steadying and/or contact guard assistance as patient completes activity. Assistance may be provided throughout the activity or intermittently. 3-Partial/Moderate Assistance-helper does LESS THAN HALF the effort. [place] lifts, holds or supports trunk or limbs, but provides less than half the effort. 2-Substantial/Maximal Assistance-helper does MORE THAN HALF the effort. [place] lifts or holds trunk or limbs and provides more than half the effort. 3-Voznvgvja-pzzfge does ALL the effort. Patient does none of the effort to complete the activity. Or, the assistance of 2 or more helpers is required for the patient to complete the activity. If activity was not attempted, code reason: 7-Patient Refused. 9-Not Applicable-not attempted and the patient did not perform the activity before the current illness, exacerbation or injury. 10-Not Attempted due to Environmental Limitations-(lack of equipment, weather restraints, etc.). 88-Not Attempted due to Medical Conditions or Safety Concerns. ADL PLOF Comments Pt was independent with ADLs and functional mobility without AD. Pt owns a cane and uses it for long distance walks with hills (such as [place]). Self Care: Independent Functional Cognition: Independent DME/Equipment: Bath Chair, Shower OT Current Status Subjective Pt in bed, agreeable to OT evaluation and tx. Pt unable to recall hip precautions. Mental Status/Objective Patient Orientation: Person, Place, Situation Attachments: Butterfield Catheter, IV, Oxygen Current Glasses/Contacts: Yes Hearing Aids: No Dentures/Partials: Yes Hand Dominance: Right Upper Extremity ROM WFL Upper Extremity Coordination WFL Upper Extremity Sensation WFL Upper Extremity Strength grossly 4+/5 ADL-Treatment Eating (QC): 6 Oral Hygiene (QC): 5 Shower/Bathe Self (QC): 2 Upper Body Dressing (QC): 3 (min A) Lower Body Dressing (QC): 2 On/Off Footwear (QC): 1 Toileting Hygiene (QC): 2 Other Treatments OT evaluation complete along with ADL tx. OT/PT cotreat due to skill of 2 clinicians required which a project technician could not perform in order to coordinate UE/LEs, decrease fall risk, and due to pt's limitations in strength, mobility/transfers, activity tolerance. OT focused on UE placement and cues for sequencing and safety, PT focused on LE placement, transfers/mobility and gross overall movement. Pt transferred supine to sit EOB, then performed functional mobility out of room into ARU common area, slow pace. Pt transferred to w/c and taken to therapy gym. Pt stood in parallel bars, completing BUE reaching task to focus on standing tolerance and dynamic standing balance. Post tx, pt in therapy gym with [place], all needs met. Max assist for supine to sit, min assist for sit to stand, CGA for transfers, patient needs cues for positioning during mobility. Education OT Patient Education: Correct positioning, Energy conservation, Exercise program, Modified ADL techniques, Progress toward Goal/Update tx plan, Purpose of tx/functional activities, Reviewed precautions, Rehab process Teaching Recipient: Patient Teaching Methods: Discussion Response to Teaching: Verbalize Understanding BIMS CAM BIMS Expression of Ideas and Wants: Without Difficulty Understanding Verbal Content: Understands Brief Interview/Mental Status: Yes IRF LOREN BIMS: IRF LOREN BIMS Response (Comments) Value Repitition of Three Words Three 3 Recalls Socks Yes, No Cue Required 2 Recalls Blue Yes, No Cue Required 2 Recalls Bed No, Could Not Recall 0 Year Correct 3 Month Accurate Within 5 Days 2 Day Incorrect or No Answer 0 Total 12 [address] Ass[address] Mental [address] No CAM Mental Status Change/Baseline: 1 Inattention: 0 Disorganized thinkin Altered level of consciousness: 0 OT Short Term Goals Short Term Goals Time Frame: Dec 15, 2022 Shower/bathe self: 3 Lower body dressin Putting on/taking off footwear: 3 OT Pie Chef Goals Alf Goals Time Frame: Dec 31, 2022 Eating (QC): 6 Oral Hygiene (QC): 6 Toileting Hygiene (QC): 6 Shower/Bathe Self (QC): 6 Upper Body Dressing (QC): 6 Lower Body Dressing (QC): 6 On/Off Footwear (QC): 6 Additional Goals: 1-Demonstrate ADL Tasks, 2-Verbalize Understanding, 3- ImproveStrength/Bladimir 1=Demonstrate adherence to instructed precautions during ADL tasks. 2=Patient will verbalize/demonstrate understanding of assistive devices/modifications for ADL. 3=Patient will improve strength/tolerance for activity to enable patient to perform ADL's. OT Education/Plan Problem List/Assessment Assessment: Decreased Activ Tolerance, Decreased UE Strength, Impaired Funct Balance, Impaired I ADL's, Impaired Self-Care Skills Discharge Recommendations Plan/Recommendations: Continue POC Treatment Plan/Plan of Care Patient would benefit from OT for education, treatment and training to promote independence in ADL's, mobility, safety and/or upper extremity function for ADL's. Plan of Care: ADL Retraining, Functional Mobility, Group Exercise/Act as Ind, UE Funct Exercise/Act Treatment Duration: Dec 31, 2022 Frequency: At least 5 of 7 days/Wk (IRF) Estimated Hrs Per Day: 1.5 hours per day Agreement: Yes Rehab Potential: Good Time Start Time: 12:35 Stop Time: 13:30 DATE: Dec 07, 2022 Total Time Billed (hr/min): 55 Billed Treatment Time [id number] OT eval/tx (25'), 1300 - 1330 [place] (30') 1, EVM (10'), ADL (15'), FA 2 (30') HELENA BANEGAS OT Dec 07, 2022 12:45
--- NOTE | 2022-12-07 13:44 | ST Cognitive Linguistic Eval ---
Speech Evaluation-General Medical Diagnosis s/p R NITIN Onset Date: Dec 05, 2022 Therapy Diagnosis Therapy Diagnosis: Baseline, Intact Cognitive Linguistic Skills Precautions Precautions: Fall Precautions/Isolations: Fall Prevention, Standard Precautions Referral Referring Physician: Dr. Carr Reason for Referral: Evaluation/Treatment Medical History Pertinent Medical History: DM, HTN, Hypothroidism Reviewed History: Yes Social History Current Living Status: Spouse Speech PLF-Current Status Prior Level of Function The patient denied concerns or difficulties with her cognition, speech, language, or swallowing. Per patient, "Yesterday was pretty bad but I think I'm back." Per patient's , the patient experienced delrium following anesthesia. Subjective The patient was lying in bed, awake and alert, upon entrance to her room by the clinician. The patient greeted the clinician appropriately and was agreeable to participation in the cognitive linguistic evaluation. The patient's spouse was at bedside and remained for the evaluation. Language Eval: Auditory Comprehends Simple Yes/No Ques: Functional Indent/Objects Multiple Pelaez: Functional Follows 1-Step Commands: Functional Follows General Conversations: Functional Language Eval: Verbal Language Completes Spontaneous Greeting: Functional Produces Auto, Serial Info: Functional Word Finding: Mild Requests Basic Needs: Functional States Basic Personal Info: Functional Expresses Complex Ideas: Functional Cognitive Patient Orientation The patient was independently oriented to self, location, month, and year. Objective Cognitive Domain Attention: WNL Memory: WNL Visuospatial Skills: WNL Composite Severity Rating: WNL Objective Oral Motor/Speech Production The patient does not display dysarthria or apraxia of speech at this time. The patient is 100% intelligible in known and unknown contexts. Impression The patient demonstrated intact and baseline cognitive linguistic skills. Skilled speech pathology services are not warranted at this time. Speech-Plan Treatment Plan Speech Therapy Treatment Plan: Continue Plan of Care Treatment Duration: Dec 07, 2022 Frequency: 1 time per week Estimated Hrs Per Day: .25 hour per day Rehab Potential: Good Pt/Family Agrees to Plan: Yes Safety Risks/Education Teaching Recipient: Patient, Significant Other Teaching Methods: Discussion Response to Teaching: Verbalize Understanding Education Topics Provided: Results, Recommendations, Plan of Care Time Speech Therapy Time In: 12:00 Speech Therapy Time Out: 12:20 DATE: Dec 07, 2022 Total Billed Time: 20 Billed Treatment Time 1, BAKARI CASTILLO [facility] ST Dec 07, 2022 13:44
--- NOTE | 2022-12-07 13:46 | Progress Note ---
TOLUSYNDEY 12/07/22 1346: Progress Note CC: R Hip Arthroplasty POD#2 HPI: Xiomara is a 72 yo F w/ hx of NIDDMI, hypothyroidism, and HTN who presents to the rehabilitation unit on POD#2 following a total R hip arthroplasty on 12/05/22 for a R femoral head fx. Post op course is notable for confusion which has since resolved and w/u with CTH was negative. CXR performed on date of admission revealed lung nodule. Xiomara says she is doing well. She complains of 8-9/10 pain in her hip when she tries to roll or reposition herself. ROS: Denies SOB, palpitations, confusion, nausea, vomiting, pain, fever/chills, hematemesis, hemoptysis, hematochezia. +diarrhea x1 this morning, +dry cough present before admission. Medications(Home): -Amlodipine 5 mg qday -Aspirin 81mg qday -Calcium carbonate 600 mg BID -Cyanocobalamin(B12) 1000 Mcg qday -Denosumab 60 mg sq ud -Diphenhydramine 25mg po qhs -Ezetimibe 10 mg qday -Fluticasone 1 spray PRN -Levothyroxine 75 mcg qday -Liothyronine 5 mcg qday -Loratadine 10 mg qday -Magnesium oxide 400 mg qday -Meloxicam 15 mg po qday -Metformin 500mg ER BID -Metoprolol tartrate 50 mg BID -Omeprazole 20 mg po qday -Valsartan/HCTZ 320/25mg po qday -Venlafaxine 150 mg qday PMHx: Non insulin dependent DMII hypothyroidism osteoporosis anxiety depression breast cancer PSHx: Breast lumpectomy +radiation, follows with breast surgeon cholecystectomy tonsillectomy age 7 appendectomy age 8 Family Hx: Denies FamHx of lung cancer Father w/ pancreatic cancer dx'ed age ~80 Social Hx: Denies Hx of smoking Denies alcohol use. , lives at home with , 2 dogs 2 children, healthy Physical Exam: Vitals: Temp 36.5C; Pulse 84; RR 18; BP 142/81; 99%RA General: Pleasant, cooperative, NAD. HEENT: EOMI, PERRL. MM moist. Neck: Supple, no JVD, no LAD. CV: distal pulses 2+/4, cap refill <2 seconds, normal s1/s2, RRR, no M/R/Gs. Pulmonary: CTAB, normal respiratory excursion. Abdomen: soft, nondistended, nTTP. Skin: surgical wound with dressing R hip, otherwise dry, intact. Extremities: no c/c/e. Neuro: A&Ox4. Moves all extremities spontaneously, CNII-XII grossly intact. Assessment/Plan: R Femoral Head Fx s/p R NITIN POD#2 Post-op Delirium - resolved -confusion on POD#1, CTH negative, resolved -PT/OT eval -SECTIONIZER eval -Tylenol prn for pain Lung Nodule Dry Cough Hx Breast Cancer -CXR reviewed -Robutussin prn for cough T2DM, non insulin dependent -Medium SSI Diarrhea -x1 this morning -on senna, lactulose, PEG, loperamide -monitor HTN -resume home meds Anxiety -xanax prn ARLETTE -uses home cpap Dispo: POD#2, continue with PT/OT. DEJAH GEORGE DO 12/08/22 0440: Supervisory-Addendum Brief Verification & Attestation Participated in pt care: history, MDM, physical Personally performed: exam, history, MDM, supervision of care Care discussed with: Medical Student Procedures: n/a Results interpretation: Verified all documentation Verification and Attestation of Medical Student E/M Service A medical student performed and documented this service in my presence. I reviewed and verified all information documented by the medical student and made modifications to such information, when appropriate. I personally performed the physical exam and medical decision making. Dejah George Dec 08, 2022,04:40 SYDNEY MOTLEY Dec 07, 2022 13:46 DEJAH GEORGE DO Dec 08, 2022 04:40
--- NOTE | 2022-12-07 14:17 | Occupational Ther Daily Note ---
OT Current Status-Daily Note Subjective Took over care from OTR/L. Co-treat with PT ([id number]), skills of 2 clinicians required to decrease fall risk, increase activity tolerance and overall mobility. PT focusing on transfers and standing stamina while OT focusing on functional mobility and B UE placment/strength. Mental Status/Objective Patient Orientation: Person, Place, Time Attachments: [place] Catheter, IV, Oxygen (2L) ADL-Treatment Therapy Code Descriptions/Definitions Functional [place] Measure: 0=Not Assessed/NA 4=Minimal Assistance 1=Total Assistance 5=Supervision or Setup 2=Maximal Assistance 6=Modified [place] 3=Moderate Assistance 7=Complete IndependenceSCALE: Activities may be completed with or without assistive devices. 6-Nqanzywdfr-aabeyoe completes the activity by him/herself with no assistance from a helper. 5-Set-up or Clean-up Assistance-helper sets up or cleans up; patient completes activity. [place] assists only prior to or following the activity. 4-Supervision or Touching Assistance-helper provides verbal cues and/or touching /steadying and/or contact guard assistance as patient completes activity. Assistance may be provided throughout the activity or intermittently. 3-Partial/Moderate Assistance-helper does LESS THAN HALF the effort. [place] lifts, holds or supports trunk or limbs, but provides less than half the effort. 2-Substantial/Maximal Assistance-helper does MORE THAN HALF the effort. [place] lifts or holds trunk or limbs and provides more than half the effort. 4-Iqvdzdhwp-lbxxvl does ALL the effort. Patient does none of the effort to complete the activity. Or, the assistance of 2 or more helpers is required for the patient to complete the activity. If activity was not attempted, code reason: 7-Patient Refused. 9-Not Applicable-not attempted and the patient did not perform the activity before the current illness, exacerbation or injury. 10-Not Attempted due to Environmental Limitations-(lack of equipment, weather restraints, etc.). 88-Not Attempted due to Medical Conditions or Safety Concerns. Eating (QC): 6 Lower Body Dressing (QC): 2 Other Treatment Pt required assistance to transport via w/c back to room. Pt has difficulty with following directions and pc/gc needed. Pt required max A for sit to stand from w/c. Assist x2 for EOB to supine to maintain hip precautions and pt's weakness. Pt requires assist to roll side to side in bed then is able to hold self on designated side. Nrsg in room for skin check and to change dressings. Max A for lower body dressing. Pt able to set up own meal and use regular utensils to eat. After session, pt lying in bed with call light/phone in reach. All needs met in room. OT Director Of Development And Marketing Goals [facility] Goals Time Frame: Dec 31, 2022 Acute change in mental status: 1 Inattention: 0 Disorganized thinkin Altered level of consciousness: 0 Eating (QC): 6 Oral Hygiene (QC): 6 Toileting Hygiene (QC): 6 Shower/Bathe Self (QC): 6 Upper Body Dressing (QC): 6 Lower Body Dressing (QC): 6 On/Off Footwear (QC): 6 Additional Goals: 1-Demonstrate ADL Tasks, 2-Verbalize Understanding, 3-ImproveStrength/Bladimir 1=Demonstrate adherence to instructed precautions during ADL tasks. 2=Patient will verbalize/demonstrate understanding of assistive devices/modifications for ADL. 3=Patient will improve strength/tolerance for activity to enable patient to perform ADL's. OT Education/Plan Problem List/Assessment Assessment: Decreased Activ Tolerance, Decreased Safety Aware, Decreased UE Strength, Impaired Bed Mobility, Impaired Cognition, Impaired Funct Balance, Impaired Self-Care Skills Discharge Recommendations Plan/Recommendations: Continue POC Treatment Plan/Plan of Care Patient would benefit from OT for education, treatment and training to promote independence in ADL's, mobility, safety and/or upper extremity function for ADL's. Plan of Care: ADL Retraining, Functional Mobility, Group Exercise/Act as Ind, UE Funct Exercise/Act Treatment Duration: Dec 31, 2022 Frequency: At least 5 of 7 days/Wk (IRF) Estimated Hrs Per Day: 1.5 hours per day Agreement: Yes Rehab Potential: Good Time Start Time: 13:30 Stop Time: 14:00 DATE: Dec 07, 2022 Total Time Billed (hr/min): 30 Billed Treatment Time 1 visit-FA 2 (30 min) co-treat with PT [id number], individual [id number] SHARMAINE MUNOZ Dec 07, 2022 14:17
[2022-12-07] MEDS ORDERED: morphine INJ 4 MG/ML 1 ML (VIAL/SYRINGE) IV PRN (14:30)
[2022-12-07] MEDS ORDERED: ENOXAPARIN 40 MG/0.4 ML (LOVENOX) SYR SQ SCH (14:30)
[2022-12-07] MEDS ORDERED: MEROPENEM 500 MG in NS (IVPB) 100 ML IV SCH (14:30)
--- NOTE | 2022-12-07 14:35 | Physical Therapy Daily Note ---
PT Daily Note-Current Subjective Patient in bed pre tx, agrees to PT, has 8/10 pain in right leg. Will be co- treating with OT due to poor patient mobility, strength, endurance, severe debility, severe pain with activity, coordinate UE and LE with activity, safety and reduce risk of falls. Pain Section J - Health Conditions 1. Rarely or not at all 2. Occasionally 3. Frequently 4. Almost constantly 8. Unable to answer Pain Effect on Sleep: 3 Pain Interference with Therapy: 3 Pain Interference w/Day-to-Day: 3 Appearance Patient in therapy gym post tx, will continue with OT for a bit. Mental Status Patient Orientation: Person, Place, Situation Attachments: Oxygen, IV Transfers SCALE: Activities may be completed with or without assistive devices. 4-Awttlyzncs-dnnswnn completes the activity by him/herself with no assistance from a helper. 5-Set-up or Clean-up Assistance-helper sets up or cleans up; patient completes activity. [place] assists only prior to or following the activity. 4-Supervision or Touching Assistance-helper provides verbal cues and/or touching/steadying and/or contact guard assistance as patient completes activity. Assistance may be provided throughout the activity or intermittently. 3-Partial/Moderate Assistance-helper does LESS THAN HALF the effort. [place] lifts, holds or supports trunk or limbs, but provides less than half the effort. 2-Substantial/Maximal Assistance-helper does MORE THAN HALF the effort. [place] lifts or holds trunk or limbs and provides more than half the effort. 1-Dixsuehgm-vjhecf does ALL the effort. Patient does none of the effort to complete the activity. Or, the assistance of 2 or more helpers is required for the patient to complete the activity. If activity was not attempted, code reason: 7-Patient Refused. 9-Not Applicable-not attempted and the patient did not perform the activity before the current illness, exacerbation or injury. 10-Not Attempted due to Environmental Limitations-(lack of equipment, weather restraints, etc.). 88-Not Attempted due to Medical Conditions or Safety Concerns. Roll Left & Right (QC): 3 Lying to Sitting/Side of Bed(Q: 2 Sit to Stand (QC): 3 Chair/Hmo-ww-Obgyf Xfer(QC): 4 Max assist for supine to sit, min assist for sit to stand, CGA for transfers, patient needs cues for positioning during mobility. Gait Training Distance: 50' Walk 10 feet (QC): 4 Walk 50 ft with 2 Turns(QC): 4 Gait Persons Needed: 1 Gait Assistive Device: FWW WC follow, very slow ambulation, decreased weight bearing on right leg, step-to gait pattern, poor foot clearance Exercises standing in parallel bars working on bearing weight and endurance on the right leg while working on UE peg activity Treatments PT performed bed mobility and transfers, ambulation, standing activity, OT performed UE peg activity, UE positioning and safety during activity Assessment Current Status: Fair Progress severe pain with activity PT Law Office Manager Goals Law Office Manager Goals PT [facility] Goals Time Frame: Dec 21, 2022 Roll Left & Right (QC): 6 Sit to Lying (QC): 6 Lying-Sitting on Side/Bed(QC): 6 Sit to Stand (QC): 6 Chair/Ixm-ic-Cunnd Xfer(QC): 6 Toilet Transfer (QC): 6 Car Transfer (QC): 6 Does the Patient Walk: Yes Walk 10 feet (QC): 6 Walk 50ft with 2 Turns (QC): 6 Walk 150 ft (QC): 6 Walking 10ft on Uneven Surface: 6 1 Step (curb) (QC): 4 4 Steps (QC): 4 12 Steps (QC): 88 Picking up an Object (QC): 6 Wheel 50 feet with 2 turns (QC: 9 Wheel 150 feet: 9 PT Plan Problem List Problem List: Activity Tolerance, Functional Strength, Safety, Balance, Gait, Transfer, Bed Mobility, ROM Treatment/Plan Treatment Plan: Continue Plan of Care Treatment Plan: Bed Mobility, Education, Functional Activity Bladimir, Functional Strength, Group Therapy, Gait, Safety, Therapeutic Exercise, Transfers Treatment Duration: Dec 21, 2022 Frequency: At least 5 of 7 days/Wk (IRF) Estimated Hrs Per Day: 1.5 hours per day Patient and/or Family Agrees t: Yes Safety Risks/Education Patient Education: Gait Training, Transfer Techniques, Reviewed Precautions, Correct Positioning, Safety Issues Teaching Recipient: Patient Teaching Methods: Demonstration, Discussion Response to Teaching: Reinforcement Needed Time Time In: 1300 Time Out: 1340 DATE: Dec 07, 2022 Total Billed Treatment Time: 40 Total Billed Treatment 1 visit FA 40' co-treated for 40' SWETHA KENDALL PT Dec 07, 2022 14:35
--- NOTE | 2022-12-07 14:35 | PM&R Post Admission Assessment ---
PM&R HP Date of Visit: Dec 07, 2022 Time of Visit: 12:00 History of Present Illness CC: R Hip Arthroplasty POD#2 HPI: Xiomara is a 72 yo F w/ hx of NIDDMI, hypothyroidism, and HTN who presents to the rehabilitation unit on POD#2 following a total R hip arthroplasty on 12/05/22 for a R femoral head fx. Post op course is notable for confusion which has since resolved and w/u with CTH was negative. CXR performed on date of admission revealed lung nodule. Xiomara says she is doing well. She complains of 8-9/10 pain in her hip when she tries to roll or reposition herself. ROS: Denies SOB, palpitations, confusion, nausea, vomiting, pain, fever/chills, hematemesis, hemoptysis, hematochezia. +diarrhea x1 this morning, +dry cough present before admission. Medications(Home): -Amlodipine 5 mg qday -Aspirin 81mg qday -Calcium carbonate 600 mg BID -Cyanocobalamin(B12) 1000 Mcg qday -Denosumab 60 mg sq ud -Diphenhydramine 25mg po qhs -Ezetimibe 10 mg qday -Fluticasone 1 spray PRN -Levothyroxine 75 mcg qday -Liothyronine 5 mcg qday -Loratadine 10 mg qday -Magnesium oxide 400 mg qday -Meloxicam 15 mg po qday -Metformin 500mg ER BID -Metoprolol tartrate 50 mg BID -Omeprazole 20 mg po qday -Valsartan/HCTZ 320/25mg po qday -Venlafaxine 150 mg qday PMHx: Non insulin dependent DMII hypothyroidism osteoporosis anxiety depression breast cancer PSHx: Breast lumpectomy +radiation, follows with breast surgeon cholecystectomy tonsillectomy age 7 appendectomy age 8 Family Hx: Denies FamHx of lung cancer Father w/ pancreatic cancer dx'ed age ~80 Social Hx: Denies Hx of smoking Denies alcohol use. , lives at home with , 2 dogs 2 children, healthy Physical Exam: Vitals: Temp 36.5C; Pulse 84; RR 18; BP 142/81; 99%RA General: Pleasant, cooperative, NAD. HEENT: EOMI, PERRL. MM moist. Neck: Supple, no JVD, no LAD. CV: distal pulses 2+/4, cap refill <2 seconds, normal s1/s2, RRR, no M/R/Gs. Pulmonary: CTAB, normal respiratory excursion. Abdomen: soft, nondistended, nTTP. Skin: surgical wound with dressing R hip, otherwise dry, intact. Extremities: no c/c/e. Neuro: A&Ox4. Moves all extremities spontaneously, CNII-XII grossly intact. Assessment/Plan: R Femoral Head Fx s/p R NITIN POD#2 Post-op Delirium - resolved -confusion on POD#1, CTH negative, resolved -PT/OT eval -[facility]ERMAN eval -Tylenol prn for pain Lung Nodule Dry Cough Hx Breast Cancer -CXR reviewed -Robutussin prn for cough T2DM, non insulin dependent -Medium SSI Diarrhea -x1 this morning -on senna, lactulose, PEG, loperamide -monitor HTN -resume home meds Anxiety -xanax prn ARLETTE -uses home cpap Dispo: POD#2, continue with PT/OT. Past Kvvpyuz-Wbshkz-Wirymn Hx Past Med/Social Hx: Reviewed Nursing Past Med/Soc Hx, Reviewed and Corrections made Patient Social History Marrital Status: Employed/Student: retired Alcohol Use: Denies Use Smoking Status: Never a Smoker Immunizations Up To Date Date of Influenza Vaccine: Oct 10, 2022 Past Medical History Surgeries: Breast Respiratory: Sleep Apnea Cardiac: Hypertension Musculoskeletal: Osteoporosis Endocrine: Hypothyroidsim, Diabetes, Non-Insulin dep Cancer: Breast What Type of Treatment Did You: Chemotherapy, Radiation, Surgical Intervention Prior Level of Function Bed Mobility: 6 Transfers: 6 Gait: 6 Stairs: 6 Indoor Mobility (Ambulation): Independent Stairs: Independent Self Care: Independent Functional Cognition: Independent Current Level of Fuctioning Roll Left to Right: 3 Sit to Lyin Lying to Sitting/Side of Bed: 2 Sit to Stand: 3 Chair/Tkl-bf-Fcxoj Xfer: 4 Car Transfer: 3 Does the Patient Walk: Yes Mode of Locomotion: Walk Anticipated Mode of Locomotion: Walk Walk 10 feet: 4 Walk 50 ft with 2 Turns: 4 Walk 150 ft: 88 Walking 10ft on uneven surface: 88 Gait Assistive Device: FWW Wheel 50 ft with 2 turns: 9 Wheel 150 ft: 9 1 Step (curb): 88 4 Steps: 88 12 Steps: 88 Picking up an Object: 4 (CGA using a medical malpractice paralegal) Eatin Oral Hygiene: 5 Shower/Bathe Self: 2 Upper Body Dressin Lower Body Dressin On/Off Footwear: 1 Toileting Hygiene: 2 PM&R Allergy/Meds/Data Review Allergies Coded Allergies: Penicillins (Verified Allergy, Unknown, 12/03/22) Pbeyecs-NDO-CtW Reductase Inhibitor (Verified Allergy, Unknown, 12/05/22) Sulfa (Sulfonamide Antibiotics) (Verified Allergy, Unknown, Itching, 12/05/22) clarithromycin (Verified Allergy, Unknown, 12/05/22) doxycycline (Verified Allergy, Unknown, Hives, 12/05/22) oxycodone (Verified Allergy, Unknown, Itching;pt tolerated morphine, 12/07/22) valdecoxib (Verified Allergy, Unknown, Hives, 12/05/22) Home Medications Scheduled Amlodipine Besylate (Amlodipine Besylate), 5 MG PO DAILY, (Reported) Aspirin (Aspirin), 81 MG PO DAILY, (Reported) Calcium Carbonate (Calcium), 600 MG PO BID, (Reported) Cyanocobalamin (Vitamin B-12) (B-12), 1,000 MCG PO DAILY, (Reported) Denosumab (Prolia), 60 MG SQ UD, (Reported) Diphenhydramine HCl (Benadryl), 25 MG PO HS, (Reported) Ezetimibe (Zetia), 10 MG PO DAILY, (Reported) Levothyroxine Sodium (Levothyroxine), 75 MCG PO DAILY, (Reported) Liothyronine Sodium (Liothyronine Sodium), 5 MCG PO BID, (Reported) Loratadine (Claritin), 10 MG PO DAILY, (Reported) Magnesium Oxide (Magnesium), 800 MG PO DAILY, (Reported) Meloxicam (Meloxicam), 15 MG PO DAILY, (Reported) Metformin HCl (Metformin HCl ER), 1,000 MG PO BID, (Reported) Metoprolol Tartrate (Metoprolol Tartrate), 50 MG PO BID, (Reported) Omeprazole (Omeprazole), 20 MG PO DAILY, (Reported) Valsartan/Hydrochlorothiazide (Valsartan-Hctz 320-25 mg Tab), 1 EACH PO DAILY, (Reported) Venlafaxine HCl (Venlafaxine HCl ER), 150 MG PO DAILY, (Reported) Scheduled PRN Fluticasone Propionate (Flonase Allergy Relief), 1 SPRAY NS DAILY PRN for CONGESTION, (Reported) Discontinued Medications Meloxicam, Submicronized (Meloxicam), 15 MG PO DAILY, (Reported) Discontinued Reason: Prescription changed Current Medications Current Medications Reviewed Review of Systems Constitutional: see HPI, malaise, weakness EENTM: no symptoms reported Respiratory: no symptoms reported Cardiovascular: no symptoms reported Gastrointestinal: no symptoms reported Genitourinary: no symptoms reported Musculoskeletal: joint pain, muscle pain, muscle stiffness, muscle cramps Skin: no symptoms reported Psychiatric/Neurological: Anxiety, Depressed All Other Systems Reviewed Negative Unless Noted: Yes Physical Exam Physical Exam Vital Signs Vital Signs - First Documented 12/07/22 12:18 Temp 36.5 Pulse 84 Resp 18 B/P (MAP) 142/81 (101) Pulse Ox 99 O2 Delivery Room Air Capillary Refill : Height, Weight, BMI Height: '" Weight: lbs. oz. kg; 29.58 BMI Method: General Appearance: No Apparent Distress, WD/WN, Chronically ill, Obese Eyes: Bilateral Eye Normal Inspection, Bilateral Eye PERRL HEENT: PERRL/EOMI, Normal ENT Inspection, Pharynx Normal Neck: Full Range of Motion, Normal Inspection, Non Tender, Supple, Carotid Bruit Respiratory: Chest Non Tender, Lungs Clear, No Accessory Muscle Use, No Respiratory Distress, Decreased Breath Sounds Cardiovascular: Regular Rate, Rhythm, No Edema, No Gallop, No JVD, No Murmur, Normal Peripheral Pulses Gastrointestinal: Normal Bowel Sounds, No Organomegaly, No Pulsatile Mass, Non Tender, Soft Back: Normal Inspection, No CVA Tenderness, No Vertebral Tenderness Extremity: Normal Capillary Refill, Normal Inspection, Normal Range of Motion (except right leg), Non Tender, No Calf Tenderness, No Pedal Edema Neurologic/Psychiatric: Alert, Oriented x3, No Motor/Sensory Deficits, Normal Mood/Affect Skin: Normal Color, Warm/Dry Lymphatic: No Adenopathy PM&R Medical Assessment & Plan REHAB/MEDICAL ASSESSMENT AND PLAN: REHAB IMPAIRMENT GROUP: Right hip fracture ETIOLOGIC DIAGNOSIS: Right hip fracture The comorbidities that impact the patients function and/or functional outcome by: post op confusion now cleared, right leg pain, ARLETTE, HTN, post op anemia, lung nodule with h/o breast cancer REHAB PLAN: The patient is being admitted to our comprehensive inpatient rehabilitation facility and can tolerate the intensity of service consisting of at least: 180 minutes of therapy a day, 5 out of 7 days a week Rehab treatment will consist of: PT OT will focus on regaining function with use of AD in order to return home with family The patient/family has a good understanding of our discharge process and will benefit from an interdisciplinary inpatient rehabilitation program. The patient has potential to make improvement and is in need of at least two of the following multidisciplinary therapies including but not limited to physical, occupational, speech, and prosthetics and orthotics. Additionally the patient will need services from respiratory, nutritional services, wound care, psychology, etc. (Customize this to each patient). Given the patients complex condition and risk of further medical complications, rehabilitation services cannot be safely or effectively provided at a lower level of care such as a senior living facility. BARRIERS TO DISCHARGE: Right leg pain ESTIMATED LOS: 10 days DISPOSITION: Home RELEVANT CHANGES SINCE PREADMISSION SCREENING: I have compared the patients medical and functional status at the time of the preadmission screening and there are: no changes PROGNOSIS: Good REHABILITATION GOALS: 1. PT OT will focus on regaining function with use of AD in order to return home with family All the above goals were reviewed with the patient and he/she is in agreement. By signing this document, I acknowledge that I have personally performed a full physical examination on this patient within 24 hours of admission to this inpatient rehabilitation facility and have determined the patient to be able to tolerate the above course of treatment at an intensive level for a reasonable period of time. I will be completing a detailed individualized Plan of Care for this patient by day #4 of the patients stay based upon the Preadmission Screen, the Post-Admission Evaluation, and the therapy evaluations. Admission Dx/Comorbidities: (1) Closed right hip fracture Status: Acute ICD Codes: S72.001A - Fracture of unspecified part of neck of right femur, initial encounter for closed fracture (2) Postoperative delirium Status: Acute ICD Codes: F05 - Delirium due to known physiological condition (3) T2DM (type 2 diabetes mellitus) Status: Chronic ICD Codes: E11.9 - Type 2 diabetes mellitus without complications (4) Lung nodule Status: Acute ICD Codes: R91.1 - Solitary pulmonary nodule (5) HTN (hypertension) Status: Chronic ICD Codes: I10 - Essential (primary) hypertension (6) Non-insulin dependent type 2 diabetes mellitus ICD Codes: E11.9 - Type 2 diabetes mellitus without complications (7) Essential (primary) hypertension ICD Codes: I10 - Essential (primary) hypertension (8) Hypothyroidism ICD Codes: E03.9 - Hypothyroidism, unspecified (9) Hyperlipidemia ICD Codes: E78.5 - Hyperlipidemia, unspecified (10) Hypokalemia ICD Codes: E87.6 - Hypokalemia Assessment/Plan Assessment and Plan Assess & Plan/Chief Complaint Assessment: Right hip fracture Post op delirium Post op anemia from acute blood loss ARLETTE on CPAP Breast cancer with lung nodule on imaging HTN HLP Hypothyroidism DM Plan: PT OT Pain control Monitor labs SHA GEORGE DO Dec 07, 2022 14:35
[2022-12-07 20:13] VITALS: BP 147/74
[2022-12-07] MEDS: meTOprolol TARTRATE 50 MG (LOPRESSOR) TAB PO SCH (20:37)
[2022-12-07] MEDS: eZETimibe 10 MG (ZETIA) TABLET PO SCH (20:37)
[2022-12-07] MEDS: CATHETER FLUSH 10 ML SYR IVP SCH (20:38)
[2022-12-07] MEDS: polyethylene glycoL POWDER 17 GM (MIRALAX) PACK PO SCH (20:57)
[2022-12-07] MEDS: DOCUSATE SODIUM 100 MG (COLACE) CAP PO SCH ×2 (20:57)
[2022-12-07] MEDS: SENNA W/DOCUSATE (SENOKOT S) TABLET PO SCH (20:58)
[2022-12-08 05:20] LABS: BASOPHILS % (AUTO) 0 % (0-10); EOSINOPHILS % (AUTO) 0 % (0-10); HEMATOCRIT 28 % (35-52); HEMOGLOBIN 9.4 g/dL (11.5-16.0); LYMPHOCYTES # (AUTO) 1.2 10^3/uL (1.0-4.0); LYMPHOCYTES % (AUTO) 18 % (12-44); MEAN CORPUSCULAR HEMOGLOBIN 29 pg (25-34); MEAN CORPUSCULAR HGB CONC 34 g/dL (32-36); MEAN CORPUSCULAR VOLUME 86 fL (80-99); MEAN PLATELET VOLUME 11.2 fL (9.0-12.2); MONOCYTES # (AUTO) 0.6 10^3/uL (0.0-1.0); MONOCYTES % (AUTO) 9 % (0-12); NEUTROPHILS # (AUTO) 4.8 10^3/uL (1.8-7.8); NEUTROPHILS % (AUTO) 73 % (42-75); PLATELET COUNT 196 10^3/uL (130-400); WHITE BLOOD COUNT 6.6 10^3/uL (4.3-11.0)
[2022-12-08 05:39] LABS: ALBUMIN 2.8 GM/DL (3.2-4.5); BILIRUBIN,TOTAL 0.5 MG/DL (0.1-1.0); CREATININE SERUM 0.6 MG/DL (0.60-1.30); POTASSIUM 3.5 MMOL/L (3.6-5.0); TOTAL PROTEIN 5.7 GM/DL (6.4-8.2)
[2022-12-08] MEDS: CATHETER FLUSH 10 ML SYR IVP SCH ×3 (06:02→20:56)
[2022-12-08] MEDS: LEVOTHYROXINE 75 MCG (LEVOTHROID) TABLET PO SCH (06:02)
[2022-12-08] MEDS: VENlafaxine XR 75 MG (EFFEXOR XR) CAP PO SCH (06:02)
[2022-12-08 08:00] VITALS: BP 144/75
--- NOTE | 2022-12-08 08:06 | PM&R Progress Note ---
Subjective HPI/CC On Admission Date Seen by Provider: Dec 08, 2022 Time Seen by Provider: 13:30 Subjective/Events-last exam 12/08/2022: Improved status Pain controlled Lung mass is known and managed in [place] but it appears it is a benign granuloma? No falls Improved status Subtle cognition deficit noted since she could not name her doctor who managed the lung nodule Review of Systems General: Fatigue, Malaise Objective Exam Vital Signs Vital Signs Date Time Temp Pulse Resp B/P (MAP) Pulse Ox O2 Delivery O2 Flow Rate FiO2 12/08/22 20:30 Nasal Cannula 2.00 12/08/22 19:46 36.6 87 20 140/63 (88) 98 Capillary Refill : General Appearance: No Apparent Distress, WD/WN, Chronically ill, Obese HEENT: PERRL/EOMI, Normal ENT Inspection, Pharynx Normal Neck: Full Range of Motion, Normal Inspection, Non Tender, Supple, Carotid Bruit Respiratory: Chest Non Tender, Lungs Clear, No Accessory Muscle Use, No Respiratory Distress, Decreased Breath Sounds Cardiovascular: Regular Rate, Rhythm, No Edema, No Gallop, No JVD, No Murmur, Normal Peripheral Pulses Gastrointestinal: Normal Bowel Sounds, No Organomegaly, No Pulsatile Mass, Non Tender, Soft Back: Normal Inspection, No CVA Tenderness, No Vertebral Tenderness Extremity: Normal Capillary Refill, Normal Inspection, Normal Range of Motion (except right leg), Non Tender, No Calf Tenderness, No Pedal Edema Neurologic/Psychiatric: Alert, Oriented x3, No Motor/Sensory Deficits, Normal Mood/Affect Skin: Normal Color, Warm/Dry Lymphatic: No Adenopathy Results/Procedures Lab Laboratory Tests 12/08/22 05:05 Patient resulted labs reviewed. FIM Transfers Therapy Code Descriptions/Definitions Functional [place] Measure: 0=Not Assessed/NA 4=Minimal Assistance 1=Total Assistance 5=Supervision or Setup 2=Maximal Assistance 6=Modified [place] 3=Moderate Assistance 7=Complete IndependenceSCALE: Activities may be completed with or without assistive devices. 8-Lttwojelgk-etceaqt completes the activity by him/herself with no assistance from a helper. 5-Set-up or Clean-up Assistance-helper sets up or cleans up; patient completes activity. [place] assists only prior to or following the activity. 4-Supervision or Touching Assistance-helper provides verbal cues and/or touching/steadying and/or contact guard assistance as patient completes activity. Assistance may be provided throughout the activity or intermittently. 3-Partial/Moderate Assistance-helper does LESS THAN HALF the effort. [place] lifts, holds or supports trunk or limbs, but provides less than half the effort. 2-Substantial/Maximal Assistance-helper does MORE THAN HALF the effort. [place] lifts or holds trunk or limbs and provides more than half the effort. 8-Iklxytkvm-fftlxi does ALL the effort. Patient does none of the effort to complete the activity. Or, the assistance of 2 or more helpers is required for the patient to complete the activity. If activity was not attempted, code reason: 7-Patient Refused. 9-Not Applicable-not attempted and the patient did not perform the activity before the current illness, exacerbation or injury. 10-Not Attempted due to Environmental Limitations-(lack of equipment, weather restraints, etc.). 88-Not Attempted due to Medical Conditions or Safety Concerns. Roll Left to Right (QC): 3 Sit to Lying (QC): 3 Sit to Stand (QC): 3 Chair/Ige-ya-Jwzvj Xfer(QC): 4 Car Transfer (QC): 3 Gait Training Does the Patient Walk?: Yes Distance: 50' Walk 10 feet (QC): 4 Walk 50 ft with 2 Turns(QC): 4 Walk 150 ft (QC): 88 Walking 10ft/uneven surface-QC: 88 Gait Persons Needed: 1 Gait Assistive Device: FWW Wheelchair Training Wheel 50 ft with 2 turns (QC): 9 Wheel 150 ft (QC): 9 Stair Training 1 Step (curb) (QC): 88 4 Steps (QC): 88 12 Steps (QC): 88 Balance Picking up an Object (QC): 4 (CGA using a product picker) ADL-Treatment Eating (QC): 6 Oral Hygiene (QC): 5 Shower/Bathe Self (QC): 2 Upper Body Dressing (QC): 3 (min A) Lower Body Dressing (QC): 2 On/Off Footwear (QC): 1 Toileting Hygiene (QC): 2 Assessment/Plan Assessment and Plan Assess & Plan/Chief Complaint Assessment: Right hip fracture Post op delirium Post op anemia from acute blood loss ARLETTE on CPAP Breast cancer with lung nodule on imaging but this is a known nodule per patient and she sees specialist in [place] for that but patient did not remember the name of the doctor HTN HLP Hypothyroidism DM Plan: PT OT Pain control Monitor labs 12/08/2022: Pain control Monitor closely (1) Closed right hip fracture Status: Acute (2) Postoperative delirium Status: Acute (3) T2DM (type 2 diabetes mellitus) Status: Chronic (4) Lung nodule Status: Acute (5) HTN (hypertension) Status: Chronic (6) Non-insulin dependent type 2 diabetes mellitus (7) Essential (primary) hypertension (8) Hypothyroidism (9) Hyperlipidemia (10) Hypokalemia SHA GEORGE DO Dec 08, 2022 08:06
--- NOTE | 2022-12-08 08:06 | Individualized Plan of Care ---
Individualized Plan of Care Rehab Nursing IPOC Order Admission Date Dec 07, 2022 at 11:20 Current Orders Orders Admission Order(Inpt,Obs,Sdc) (12/07/22 10:22) Vital Signs: Per Unit Policy ( 08,16,00 (12/07/22 10:22) Yash Allen 09,21 (12/07/22 10:22) Sequential Compression Device (12/07/22 10:22) Degreaser Operator-Inpt Rehab Con (12/07/22 10:22) Rehab Nursing Orders-Ipoc (12/07/22 10:22) Physical Therapy Rehab Orders (12/07/22 10:22) Occupational Therapy Rehab Ord (12/07/22 10:22) Speech Therapy Rehab Orders (12/07/22 10:22) Cbc With Automated Diff (12/08/22 06:00) Comprehensive Metabolic Panel (12/08/22 06:00) Precautions (Aru) (12/07/22 10:22) Weekly Weight WEEK (12/07/22 10:22) Rehab-Intensity Of Therapy (12/07/22 10:22) Initiate Admission Nursing Pro .admission (12/07/22 10:22) Alprazolam Tablet (Xanax Tablet) (12/07/22 10:30) Calcium Carbonate Chew Tablet (Antacid C (12/07/22 10:30) Diphenhydramine Tablet (Benadryl Tablet) (12/07/22 10:30) Docusate Sodium Capsule (Colace Capsule) (12/07/22 21:00) Docusate Sodium Capsule (Colace Capsule) (12/07/22 10:30) Bisacodyl Suppository (Dulcolax Supposit (12/07/22 10:30) Lactulose Oral Solution (Enulose Oral So (12/07/22 10:30) Na Phos/Na Biphos Enema (Fleet Enema Maximus (12/07/22 10:30) Guaifenesin/Codeine Syrup (Robitussin Ac (12/07/22 10:30) Loperamide Tablet (Imodium Tablet) (12/07/22 10:30) Melatonin Tablet (Melatonin Tablet) (12/07/22 10:30) Polyethylene Glycol Powder Pkt (Miralax (12/07/22 21:00) Ondansetron Oral Dissolve Tab (Zofran (12/07/22 10:30) Senna S Tablet (Senokot S Tablet) (12/07/22 21:00) Acetaminophen Tablet/Caplet (Tylenol T (12/07/22 10:30) Initiate Admission Nursing Pro .admission (12/07/22 10:22) Admission Arrival Bed Request (12/07/22 11:34) General/Regular (12/07/22 Lunch) Patient Visit (12/07/22 ) Speech Sound Lang Comp (12/07/22 ) Treat. Speech/Lang/Voice (12/07/22 ) Code/Resuscitation (12/07/22 14:30) Abduction Pillow: Apply (Order (12/07/22 14:30) Accucheck Achs ACHS (12/07/22 14:30) Dressing Order (Intervention) DAILY (12/07/22 14:30) Incentive Spirometry (Nursing) Q2H (12/07/22 14:30) Oxygen-Administer 07,19 (12/07/22 14:30) Sequential Compression Device (12/07/22 14:30) Weight Bearing As Tolerated (12/07/22 14:30) Acetaminophen Tablet/Caplet (Tylenol T (12/07/22 14:30) Docusate Sodium Capsule (Colace Capsule) (12/07/22 21:00) Enoxaparin Injection (Lovenox Injection) (12/07/22 14:30) Hydrocodone/Apap 5/325 Tablet (Lortab 5 (12/07/22 14:30) Levothyroxine Tablet (Synthroid Tablet) (12/08/22 06:30) Meropenem (Merrem 500 Mg) (12/07/22 14:30) Sodium Chloride Flush (Catheter Flush Sy (12/07/22 22:00) Venlafaxine Xr Capsule (Effexor Xr Capsu (12/08/22 07:00) Amlodipine Tablet (Norvasc Tablet) (12/08/22 09:00) Ezetimibe Tablet (Zetia Tablet) (12/07/22 21:00) Metoprolol Tartrate (Ir) Tab (Lopressor (12/07/22 21:00) Morphine Injection (Morphine Injection (12/07/22 14:30) Consult Orthopedic Surgery (12/07/22 14:30) Incentive Spirometry Initial (12/07/22 14:30) Incentive Spirometry (Nursing) Q2H (12/07/22 14:30) Pharmacy Consult/Message (12/07/22 14:33) Enoxaparin Injection (Lovenox Injection) (12/08/22 09:00) Potassium Chloride (Tablet) (K Dur Table (12/08/22 08:30) Potassium Chloride (Tablet) (Klor Con Ta (12/09/22 07:00) Iron Test (Fe) (12/08/22 08:07) Vitamin B 12 (12/08/22 08:07) Pantoprazole Tablet (Protonix Tablet) (12/08/22 14:30) Sucralfate Tablet (Carafate Tablet) (12/08/22 14:30) Patient Visit (12/08/22 ) Gait Training, Ea 15 Min (12/08/22 ) Functional Activities, Ea 15 (12/08/22 ) Exercise Therap, Ea 15 Min (12/08/22 ) Patient Visit (12/08/22 ) Gait Training, Ea 15 Min (12/08/22 ) Exercise Therap, Ea 15 Min (12/08/22 ) Rehab Nursing Orders: Ongoing Assess. of Cognitive Status, Ongoing Assess. of Function Status, Bladder Management, Bladder Scan, Bladder Training, Bowel Management, Bowel Training, Disease Management & Educaiton, DVT Prophylaxis, Fall Prevention, Fluid/Electrolyte/Nutrition Mgmt, Infection Prevention, Medic ation Management & Education, Management of Risks & Complications, Management of Skin Intergrity, Nutrition Management, Pain Management, Patient/Family Support, Safety Management, Swallow Precautions Intensity of Therapy to be met Patient to be seen: Min.3h per day/5 of 7d PT IPOC Problem List: Activity Tolerance, Functional Strength, Safety, Balance, Gait, Transfer, Bed Mobility, ROM Treatment Plan: Continue Plan of Care Bed Mobility, Education, Functional Activity Bladimir, Functional Strength, Group Therapy, Gait, Safety, Therapeutic Exercise, Transfers Treatment Duration: Dec 21, 2022 Frequency: At least 5 of 7 days/Wk (IRF) Estimated Hrs Per Day: 1.5 hours per day OT IPOC Problems: Decreased Activ Tolerance, Decreased Safety Aware, Decreased UE Strength, Impaired Bed Mobility, Impaired Cognition, Impaired Funct Balance, Impaired Self-Care Skills OT Treatment, Training and Edu: Yes Plan of Care: ADL Retraining, Functional Mobility, Group Exercise/Act as Ind, UE Funct Exercise/Act Treatment Duration: Dec 31, 2022 Frequency: At least 5 of 7 days/Wk (IRF) Estimated Hrs Per Day: 1.[address] IPOC Speech Therapy Treatment Plan: Continue Plan of Care Treatment Duration: Dec 07, 2022 Frequency: 1 time per week Estimated Hrs Per Day: .25 hour per day Degreaser Operator/Case Mgmt Degreaser Operator/Case Managemen: Discharge Planning Dietitian/Jacquard Card Cutter Dietitian/Jacquard Card Cutter to monitor nutritional status and make changes and/or recommendations as needed and work with speech pathology on dietary upgrades as the occur. Physician IPOC Medical Issues being managed closely and that require the 24 hour availability of a physician: Recent hip fracture with post op confusion and post op anemia will require close monitoring for any decompensation since increased risk for respiratory failure Medical Issues: Bowel/Bladder Function, DVT Prophylaxis, Falls Precautions, Fluid/Electrolyte/Nutrition Balance, Infection Protection, Pain Management Brief Synthesis of Preadmission Screen, Post-Admission Evaluation, and Therapy Evaluations: PT OT will focus on regaining function with use of AD in order to increase ambulatory stamina and increase ADL's to return home Medical Prognosis: Good Anticipated Length of Stay: 10 days SHA GEORGE DO Dec 08, 2022 08:06
[2022-12-08] MEDS ORDERED: KCL 20 MEQ TAB (K-DUR) PO NR (08:30)
[2022-12-08] MEDS: meTOprolol TARTRATE 50 MG (LOPRESSOR) TAB PO SCH ×2 (08:49→20:56)
[2022-12-08] MEDS: ENOXAPARIN 40 MG/0.4 ML (LOVENOX) SYR SQ SCH (08:50)
[2022-12-08] MEDS: amLODIPine 10 MG (NORVASC) TAB PO SCH (08:50)
[2022-12-08] MEDS: SENNA W/DOCUSATE (SENOKOT S) TABLET PO SCH ×2 (08:50→20:03)
[2022-12-08] MEDS: DOCUSATE SODIUM 100 MG (COLACE) CAP PO SCH ×4 (08:50→20:03)
[2022-12-08] MEDS: polyethylene glycoL POWDER 17 GM (MIRALAX) PACK PO SCH ×2 (08:50→20:03)
--- NOTE | 2022-12-08 08:52 | Physical Therapy Daily Note ---
PT Daily Note-Current Subjective Pt. agrees to Rx. But states her son has shared that he thinks its entirely too soon to begin rehab. This COMPILATION CLERK sharing that this is a good thing for her, movement and strengthening are a very good thing for her. etc. Pt. with brief full of loose BM, states she usually has bowel control but thought she was passing gas but she wasnt, "metphormin does this to me" Pain Numeric Pain Scale: 8 Location: Right Location Body Site: Hip Pain Description: Ache Section J - Health Conditions 1. Rarely or not at all 2. Occasionally 3. Frequently 4. Almost constantly 8. Unable to answer Pain Effect on Sleep: 1 Pain Interference with Therapy: 2 Pain Interference w/Day-to-Day: 2 Appearance loose BM all about through brief and up into izaguirre and coming out of brief in front and back, on gown and bedding. Mental Status Patient Orientation: Normal For Age Attachments: Oxygen (2L), [place] Catheter Transfers SCALE: Activities may be completed with or without assistive devices. 6-Eblyuztlki-oluauvl completes the activity by him/herself with no assistance from a helper. 5-Set-up or Clean-up Assistance-helper sets up or cleans up; patient completes activity. [place] assists only prior to or following the activity. 4-Supervision or Touching Assistance-helper provides verbal cues and/or touching/steadying and/or contact guard assistance as patient completes activity. Assistance may be provided throughout the activity or intermittently. 3-Partial/Moderate Assistance-helper does LESS THAN HALF the effort. [place] lifts, holds or supports trunk or limbs, but provides less than half the effort. 2-Substantial/Maximal Assistance-helper does MORE THAN HALF the effort. [place] lifts or holds trunk or limbs and provides more than half the effort. 3-Dygwfwlse-gdjius does ALL the effort. Patient does none of the effort to complete the activity. Or, the assistance of 2 or more helpers is required for the patient to complete the activity. If activity was not attempted, code reason: 7-Patient Refused. 9-Not Applicable-not attempted and the patient did not perform the activity before the current illness, exacerbation or injury. 10-Not Attempted due to Environmental Limitations-(lack of equipment, weather restraints, etc.). 88-Not Attempted due to Medical Conditions or Safety Concerns. Roll Left & Right (QC): 4 Lying to Sitting/Side of Bed(Q: 3 Sit to Stand (QC): 5 Chair/Zmc-tb-Mcupl Xfer(QC): 4 needs assist sup to sit at mod level Gait Training Does the Patient Walk?: Yes Walk 10 feet (QC): 4 Walk 50 ft with 2 Turns(QC): 4 Gait Persons Needed: 1 Gait Assistive Device: FWW 80 ft, 50 ft x 4 FWW slow, good sequence , heavy wt bearing on FWW Exercises Supine Ex: Ankle pumps, Quad Set, Glut sets, Heel Slides, Short Arc Quads, Scooting, Hip abd/add Supine Reps: 12 (x2) Seated Therapy Exercises: Ankle pumps, Sit to stand, Long arc quads, Hip abd/add Seated Reps: 12 Treatments rolling and positioning, education regarding precautions as pt. crosses at ankle often. TRFs, gait, hip therex Assessment Current Status: Good Progress PT Fdc Goals Blind Hanger Goals PT Blind Hanger Goals Time Frame: Dec 21, 2022 Roll Left & Right (QC): 6 Sit to Lying (QC): 6 Lying-Sitting on Side/Bed(QC): 6 Sit to Stand (QC): 6 Chair/Myh-em-Sygqu Xfer(QC): 6 Toilet Transfer (QC): 6 Car Transfer (QC): 6 Does the Patient Walk: Yes Walk 10 feet (QC): 6 Walk 50ft with 2 Turns (QC): 6 Walk 150 ft (QC): 6 Walking 10ft on Uneven Surface: 6 1 Step (curb) (QC): 4 4 Steps (QC): 4 12 Steps (QC): 88 Picking up an Object (QC): 6 Wheel 50 feet with 2 turns (QC: 9 Wheel 150 feet: 9 PT Plan Treatment/Plan Treatment Plan: Continue Plan of Care Treatment Plan: Bed Mobility, Education, Functional Activity Bladimir, Functional Strength, Group Therapy, Gait, Safety, Therapeutic Exercise, Transfers Treatment Duration: Dec 21, 2022 Frequency: At least 5 of 7 days/Wk (IRF) Estimated Hrs Per Day: 1.5 hours per day Patient and/or Family Agrees t: Yes Safety Risks/Education Patient Education: Gait Training, Transfer Techniques, Reviewed Precautions, Correct Positioning, Safety Issues Teaching Recipient: Patient Teaching Methods: Demonstration, Discussion Response to Teaching: Verbalize Understanding, Return Demonstration, Reinforcement Needed Time Time In: 745 Time Out: 845 DATE: Dec 08, 2022 Total Billed Treatment Time: 60 Total Billed Treatment 1,EX25m,GT20m,FA15 JAVY FONTENOT COMPILATION CLERK Dec 08, 2022 08:52
--- NOTE | 2022-12-08 10:02 | Occupational Ther Daily Note ---
OT Current Status-Daily Note Subjective Pt alert, sitting in recliner. Pt agrees to therapy. No c/o pain at this time. Mental Status/Objective Patient Orientation: Person, Place, Time, Situation Attachments: IV, Oxygen (2L) ADL-Treatment Pt agrees to shower. Pt ambulated to shower using FWW with CGA, sit to stand min A. Mod A for shower transfer. Pt required assist to cleanse lower legs and feet, LH sponge given to pt. Pt able to reach most areas sitting on bench, assistance to stand while pt cleansed buttocks/dolores area. Set up for upper body dressing. Mod A for LBD, will need hip kit to complete independently. Mod A for slip on shoes. Assist to thread feet through pant legs then with assist to stand, pt able to hike over hips by self. After session pt, sitting in recliner with call light/phone in reach. All needs met in room. Therapy Code Descriptions/Definitions Functional [place] Measure: 0=Not Assessed/NA 4=Minimal Assistance 1=Total Assistance 5=Supervision or Setup 2=Maximal Assistance 6=Modified [place] 3=Moderate Assistance 7=Complete IndependenceSCALE: Activities may be completed with or without assistive devices. 5-Fykjcddiqa-cutlykm completes the activity by him/herself with no assistance from a helper. 5-Set-up or Clean-up Assistance-helper sets up or cleans up; patient completes activity. [place] assists only prior to or following the activity. 4-Supervision or Touching Assistance-helper provides verbal cues and/or touching/steadying and/or contact guard assistance as patient completes activity. Assistance may be provided throughout the activity or intermittently. 3-Partial/Moderate Assistance-helper does LESS THAN HALF the effort. [place] lifts, holds or supports trunk or limbs, but provides less than half the effort. 2-Substantial/Maximal Assistance-helper does MORE THAN HALF the effort. [place] lifts or holds trunk or limbs and provides more than half the effort. 3-Ydnfyessw-dmvvcw does ALL the effort. Patient does none of the effort to complete the activity. Or, the assistance of 2 or more helpers is required for the patient to complete the activity. If activity was not attempted, code reason: 7-Patient Refused. 9-Not Applicable-not attempted and the patient did not perform the activity before the current illness, exacerbation or injury. 10-Not Attempted due to Environmental Limitations-(lack of equipment, weather restraints, etc.). 88-Not Attempted due to Medical Conditions or Safety Concerns. Bathing Location: L Arm, R Arm, L Upper Leg, R Upper Leg, Chest, Abdomen, Buttocks, Perineal Area Shower/Bathe Self (QC): 3 Upper Body Dressing (QC): 5 Lower Body Dressing (QC): 3 On/Off Footwear: 2 OT Short Term Goals Short Term Goals Time Frame: Dec 15, 2022 Shower/bathe self: 3 Lower body dressin Putting on/taking off footwear: 3 OT Jewelry Enameler Goals [facility] Goals Time Frame: Dec 31, 2022 Acute change in mental status: 1 Inattention: 0 Disorganized thinkin Altered level of consciousness: 0 Eating (QC): 6 Oral Hygiene (QC): 6 Toileting Hygiene (QC): 6 Shower/Bathe Self (QC): 6 Upper Body Dressing (QC): 6 Lower Body Dressing (QC): 6 On/Off Footwear (QC): 6 Additional Goals: 1-Demonstrate ADL Tasks, 2-Verbalize Understanding, 3- ImproveStrength/Bladimir 1=Demonstrate adherence to instructed precautions during ADL tasks. 2=Patient will verbalize/demonstrate understanding of assistive devices/modifications for ADL. 3=Patient will improve strength/tolerance for activity to enable patient to perform ADL's. OT Education/Plan Problem List/Assessment Assessment: Decreased Activ Tolerance, Decreased UE Strength, Impaired Funct Balance, Impaired Self-Care Skills Discharge Recommendations Plan/Recommendations: Continue POC Treatment Plan/Plan of Care Patient would benefit from OT for education, treatment and training to promote independence in ADL's, mobility, safety and/or upper extremity function for ADL's. Plan of Care: ADL Retraining, Functional Mobility, Group Exercise/Act as Ind, U E Funct Exercise/Act Treatment Duration: Dec 31, 2022 Frequency: At least 5 of 7 days/Wk (IRF) Estimated Hrs Per Day: 1.5 hours per day Agreement: Yes Rehab Potential: Good Time Start Time: 09:00 Stop Time: 10:00 DATE: Dec 08, 2022 Total Time Billed (hr/min): 60 Billed Treatment Time 1 visit-ADL 4 (60 min) SHARMAINE MUNOZ Dec 08, 2022 10:02
[2022-12-08] MEDS: ACETAMINOPHEN 325 MG TABLET PO PRN ×2 (12:53→20:56)
--- NOTE | 2022-12-08 13:00 | Occupational Ther Daily Note ---
OT Current Status-Daily Note Subjective Pt alert, sitting in recliner. Pt agrees to therapy. Pt c/o hip pain, 06/19, nrsg brought pain meds. Mental Status/Objective Patient Orientation: Person, Place, Time, Situation Attachments: IV, Oxygen (2L) ADL-Treatment present in room. Pt very talkative and hard to keep focused on ADL task. Pt ambulated retirement to bathroom then sat in w/c to get to bathroom sink. Pt independent with oral care. SBA for safety while pt completes sit <--> stands. After session, pt sitting in recliner with call light/phone in reach. All needs met in room. Therapy Code Descriptions/Definitions Functional [place] Measure: 0=Not Assessed/NA 4=Minimal Assistance 1=Total Assistance 5=Supervision or Setup 2=Maximal Assistance 6=Modified [place] 3=Moderate Assistance 7=Complete IndependenceSCALE: Activities may be completed with or without assistive devices. 5-Qvwrwbaczc-vhanmnq completes the activity by him/herself with no assistance from a helper. 5-Set-up or Clean-up Assistance-helper sets up or cleans up; patient completes activity. [place] assists only prior to or following the activity. 4-Supervision or Touching Assistance-helper provides verbal cues and/or touching/steadying and/or contact guard assistance as patient completes activity. Assistance may be provided throughout the activity or intermittently. 3-Partial/Moderate Assistance-helper does LESS THAN HALF the effort. [place] lifts, holds or supports trunk or limbs, but provides less than half the effort. 2-Substantial/Maximal Assistance-helper does MORE THAN HALF the effort. [place] lifts or holds trunk or limbs and provides more than half the effort. 2-Lvkqcdmbg-agfoyb does ALL the effort. Patient does none of the effort to complete the activity. Or, the assistance of 2 or more helpers is required for the patient to complete the activity. If activity was not attempted, code reason: 7-Patient Refused. 9-Not Applicable-not attempted and the patient did not perform the activity before the current illness, exacerbation or injury. 10-Not Attempted due to Environmental Limitations-(lack of equipment, weather restraints, etc.). 88-Not Attempted due to Medical Conditions or Safety Concerns. Oral Hygiene (QC): 6 OT Short Term Goals Short Term Goals Time Frame: Dec 15, 2022 Shower/bathe self: 3 Lower body dressin Putting on/taking off footwear: 3 OT Human Services Worker Goals Detention Goals Time Frame: Dec 31, 2022 Acute change in mental status: 1 Inattention: 0 Disorganized thinkin Altered level of consciousness: 0 Eating (QC): 6 Oral Hygiene (QC): 6 Toileting Hygiene (QC): 6 Shower/Bathe Self (QC): 6 Upper Body Dressing (QC): 6 Lower Body Dressing (QC): 6 On/Off Footwear (QC): 6 Additional Goals: 1-Demonstrate ADL Tasks, 2-Verbalize Understanding, 3- ImproveStrength/Bladimir 1=Demonstrate adherence to instructed precautions during ADL tasks. 2=Patient will verbalize/demonstrate understanding of assistive devices/modifications for ADL. 3=Patient will improve strength/tolerance for activity to enable patient to perform ADL's. OT Education/Plan Problem List/Assessment Assessment: Decreased Activ Tolerance, Impaired Self-Care Skills Discharge Recommendations Plan/Recommendations: Continue POC Treatment Plan/Plan of Care Patient would benefit from OT for education, treatment and training to promote independence in ADL's, mobility, safety and/or upper extremity function for ADL's. Plan of Care: ADL Retraining, Functional Mobility, Group Exercise/Act as Ind, UE Funct Exercise/Act Treatment Duration: Dec 31, 2022 Frequency: At least 5 of 7 days/Wk (IRF) Estimated Hrs Per Day: 1.5 hours per day Agreement: Yes Rehab Potential: Good Time Start Time: 12:30 Stop Time: 13:00 DATE: Dec 08, 2022 Total Time Billed (hr/min): 30 Billed Treatment Time 1 visit-ADL 2 (30 min) SHARMAINE MUNOZ Dec 08, 2022 13:00
--- NOTE | 2022-12-08 13:45 | Physical Therapy Daily Note ---
PT Daily Note-Current Subjective Pt. agrees to Rx. c/o pain at 6/10 in right hip at rest and a little greater with activity Pain Numeric Pain Scale: 6 Location: Right Location Body Site: Hip Pain Description: Ache Section J - Health Conditions 1. Rarely or not at all 2. Occasionally 3. Frequently 4. Almost constantly 8. Unable to answer Pain Effect on Sleep: 1 Pain Interference with Therapy: 2 Pain Interference w/Day-to-Day: 2 Mental Status Patient Orientation: Normal For Age Attachments: Oxygen, [place] Catheter Transfers SCALE: Activities may be completed with or without assistive devices. 4-Uiwatpcukj-jtnjpqz completes the activity by him/herself with no assistance from a helper. 5-Set-up or Clean-up Assistance-helper sets up or cleans up; patient completes activity. [place] assists only prior to or following the activity. 4-Supervision or Touching Assistance-helper provides verbal cues and/or touching/steadying and/or contact guard assistance as patient completes activity. Assistance may be provided throughout the activity or intermittently. 3-Partial/Moderate Assistance-helper does LESS THAN HALF the effort. [place] lifts, holds or supports trunk or limbs, but provides less than half the effort. 2-Substantial/Maximal Assistance-helper does MORE THAN HALF the effort. [place] lifts or holds trunk or limbs and provides more than half the effort. 6-Cnuasbumz-rnhswr does ALL the effort. Patient does none of the effort to complete the activity. Or, the assistance of 2 or more helpers is required for the patient to complete the activity. If activity was not attempted, code reason: 7-Patient Refused. 9-Not Applicable-not attempted and the patient did not perform the activity before the current illness, exacerbation or injury. 10-Not Attempted due to Environmental Limitations-(lack of equipment, weather restraints, etc.). 88-Not Attempted due to Medical Conditions or Safety Concerns. Sit to Lying (QC): 3 Sit to Stand (QC): 4 Chair/Nfg-bk-Ybkmu Xfer(QC): 4 Gait Training Does the Patient Walk?: Yes Walk 10 feet (QC): 4 Walk 50 ft with 2 Turns(QC): 4 Gait Persons Needed: 1 Gait Assistive Device: FWW pt. hesitant to wt bear on RLE , antalgic, slow, heavy wt bearing on FWW , requests frequent rest breaks Exercises Supine Ex: Ankle pumps, Glut sets, Heel Slides, Short Arc Quads, Hip abd/add Supine Reps: 12 NuStep Minutes: 10 NuStep Workload: 2 Treatments needs assist for RLE ex as well as TRFs in ut bed, gait slow with pain c/o Assessment Current Status: Good Progress slow steady progress, working through pain PT Senior Care Goals Corporate Secretary Goals PT Corporate Secretary Goals Time Frame: Dec 21, 2022 Roll Left & Right (QC): 6 Sit to Lying (QC): 6 Lying-Sitting on Side/Bed(QC): 6 Sit to Stand (QC): 6 Chair/Drb-we-Pjdvm Xfer(QC): 6 Toilet Transfer (QC): 6 Car Transfer (QC): 6 Does the Patient Walk: Yes Walk 10 feet (QC): 6 Walk 50ft with 2 Turns (QC): 6 Walk 150 ft (QC): 6 Walking 10ft on Uneven Surface: 6 1 Step (curb) (QC): 4 4 Steps (QC): 4 12 Steps (QC): 88 Picking up an Object (QC): 6 Wheel 50 feet with 2 turns (QC: 9 Wheel 150 feet: 9 PT Plan Treatment/Plan Treatment Plan: Continue Plan of Care Treatment Plan: Bed Mobility, Education, Functional Activity Bladimir, Functional Strength, Group Therapy, Gait, Safety, Therapeutic Exercise, Transfers Treatment Duration: Dec 21, 2022 Frequency: At least 5 of 7 days/Wk (IRF) Estimated Hrs Per Day: 1.5 hours per day Patient and/or Family Agrees t: Yes Safety Risks/Education Patient Education: Gait Training, Transfer Techniques, Reviewed Precautions, Correct Positioning, Safety Issues Teaching Recipient: Patient Teaching Methods: Demonstration, Discussion Response to Teaching: Verbalize Understanding, Return Demonstration, Reinforcement Needed reviewed again THR precautions Time Time In: 1305 Time Out: 1335 DATE: Dec 08, 2022 Total Billed Treatment Time: 30 Total Billed Treatment 1,GT13m,EX17m JAVY FONTENOT RECRUITING SPECIALIST Dec 08, 2022 13:45
[2022-12-08] MEDS ORDERED: SUCRALFATE 1 GM (CARAFATE) TAB PO PRN (14:30)
[2022-12-08] MEDS: PANTOPRAZOLE 40 MG (PROTONIX) TAB PO SCH (17:02)
[2022-12-08 19:46] VITALS: BP 140/63
[2022-12-08] MEDS: MELATONIN 3 MG TABLET PO PRN (20:56)
[2022-12-08] MEDS: diphenhydrAMINE 25 MG TAB (BENADRYL) PO PRN (20:56)
[2022-12-08] MEDS: eZETimibe 10 MG (ZETIA) TABLET PO SCH (20:56)
[2022-12-09] VITALS (10 sets, daily range): BP systolic 78–218; BP diastolic 51–136
--- NOTE | 2022-12-09 04:56 | PM&R Progress Note ---
Subjective HPI/CC On Admission Date Seen by Provider: Dec 09, 2022 Time Seen by Provider: 10:00 Subjective/Events-last exam 12/09/2022: Had episode of HTN and tachycardia so EKG obtained and Telemetry started Dr Mccarty consulted DC catheter then had retention No falls 12/08/2022: Improved status Pain controlled Lung mass is known and managed in [place] but it appears it is a benign granuloma? No falls Improved status Subtle cognition deficit noted since she could not name her doctor who managed the lung nodule Review of Systems General: Fatigue, Malaise Objective Exam Vital Signs Vital Signs Date Time Temp Pulse Resp B/P (MAP) Pulse Ox O2 Delivery O2 Flow Rate FiO2 12/09/22 19:44 37.2 86 18 187/80 (115) 94 Room Air 12/08/22 20:30 2.00 Capillary Refill : General Appearance: No Apparent Distress, WD/WN, Chronically ill, Obese HEENT: PERRL/EOMI, Normal ENT Inspection, Pharynx Normal Neck: Full Range of Motion, Normal Inspection, Non Tender, Supple, Carotid Bruit Respiratory: Chest Non Tender, Lungs Clear, No Accessory Muscle Use, No Respiratory Distress, Decreased Breath Sounds Cardiovascular: Regular Rate, Rhythm, No Edema, No Gallop, No JVD, No Murmur, Normal Peripheral Pulses Gastrointestinal: Normal Bowel Sounds, No Organomegaly, No Pulsatile Mass, Non Tender, Soft Back: Normal Inspection, No CVA Tenderness, No Vertebral Tenderness Extremity: Normal Capillary Refill, Normal Inspection, Normal Range of Motion (except right leg), Non Tender, No Calf Tenderness, No Pedal Edema Neurologic/Psychiatric: Alert, Oriented x3, No Motor/Sensory Deficits, Normal Mood/Affect Skin: Normal Color, Warm/Dry Lymphatic: No Adenopathy Results/Procedures Lab Patient resulted labs reviewed. FIM Transfers Therapy Code Descriptions/Definitions Functional [place] Measure: 0=Not Assessed/NA 4=Minimal Assistance 1=Total Assistance 5=Supervision or Setup 2=Maximal Assistance 6=Modified [place] 3=Moderate Assistance 7=Complete IndependenceSCALE: Activities may be completed with or without assistive devices. 5-Tjrnjntqlx-homnung completes the activity by him/herself with no assistance from a helper. 5-Set-up or Clean-up Assistance-helper sets up or cleans up; patient completes activity. [place] assists only prior to or following the activity. 4-Supervision or Touching Assistance-helper provides verbal cues and/or touching/steadying and/or contact guard assistance as patient completes activity. Assistance may be provided throughout the activity or intermittently. 3-Partial/Moderate Assistance-helper does LESS THAN HALF the effort. [place] lifts, holds or supports trunk or limbs, but provides less than half the effort. 2-Substantial/Maximal Assistance-helper does MORE THAN HALF the effort. [place] lifts or holds trunk or limbs and provides more than half the effort. 7-Ivyncxwxz-gsfjfk does ALL the effort. Patient does none of the effort to complete the activity. Or, the assistance of 2 or more helpers is required for the patient to complete the activity. If activity was not attempted, code reason: 7-Patient Refused. 9-Not Applicable-not attempted and the patient did not perform the activity before the current illness, exacerbation or injury. 10-Not Attempted due to Environmental Limitations-(lack of equipment, weather restraints, etc.). 88-Not Attempted due to Medical Conditions or Safety Concerns. Roll Left to Right (QC): 4 Sit to Lying (QC): 3 Sit to Stand (QC): 4 Chair/Vex-bk-Uzhtr Xfer(QC): 4 Car Transfer (QC): 3 Gait Training Does the Patient Walk?: Yes Distance: 50' Walk 10 feet (QC): 4 Walk 50 ft with 2 Turns(QC): 4 Walk 150 ft (QC): 88 Walking 10ft/uneven surface-QC: 88 Gait Persons Needed: 1 Gait Assistive Device: FWW Wheelchair Training Wheel 50 ft with 2 turns (QC): 9 Wheel 150 ft (QC): 9 Stair Training 1 Step (curb) (QC): 88 4 Steps (QC): 88 12 Steps (QC): 88 Balance Picking up an Object (QC): 4 (CGA using a district court administrator) ADL-Treatment Eating (QC): 6 Oral Hygiene (QC): 6 Bathing Location: L Arm, R Arm, L Upper Leg, R Upper Leg, Chest, Abdomen, Buttocks, Perineal Area Shower/Bathe Self (QC): 3 Upper Body Dressing (QC): 5 Lower Body Dressing (QC): 3 On/Off Footwear (QC): 2 Toileting Hygiene (QC): 2 Assessment/Plan Assessment and Plan Assess & Plan/Chief Complaint Assessment: Right hip fracture Post op delirium Post op anemia from acute blood loss ARLETTE on CPAP Breast cancer with lung nodule on imaging but this is a known nodule per patient and she sees specialist in [place] for that but patient did not remember the name of the doctor HTN HLP Hypothyroidism DM Urinary retention after DC catheter Plan: PT OT Pain control Monitor labs 12/08/2022: Pain control Monitor closely 12/09/2022: Monitor closely In/out caths prn (1) Closed right hip fracture Status: Acute (2) Postoperative delirium Status: Acute (3) T2DM (type 2 diabetes mellitus) Status: Chronic (4) Lung nodule Status: Acute (5) HTN (hypertension) Status: Chronic (6) Non-insulin dependent type 2 diabetes mellitus (7) Essential (primary) hypertension (8) Hypothyroidism (9) Hyperlipidemia (10) Hypokalemia SHA GEORGE DO Dec 09, 2022 04:56
[2022-12-09] MEDS: KCL 10 MEQ TAB (MICRO K) PO SCH (06:22)
[2022-12-09] MEDS: CATHETER FLUSH 10 ML SYR IVP SCH ×3 (06:22→21:39)
[2022-12-09] MEDS: ACETAMINOPHEN 325 MG TABLET PO PRN ×2 (06:22→11:59)
[2022-12-09] MEDS: LOPERAMIDE 2 MG (IMODIUM) TABLET PO PRN (06:22)
[2022-12-09] MEDS: VENlafaxine XR 75 MG (EFFEXOR XR) CAP PO SCH (06:23)
[2022-12-09] MEDS: LEVOTHYROXINE 75 MCG (LEVOTHROID) TABLET PO SCH (06:23)
[2022-12-09] MEDS ORDERED: CYANOCOBALAMIN INJ 1000 MCG/ML IM ONE (07:00)
[2022-12-09] MEDS: PANTOPRAZOLE 40 MG (PROTONIX) TAB PO SCH (09:06)
[2022-12-09] MEDS: meTOprolol TARTRATE 50 MG (LOPRESSOR) TAB PO SCH ×2 (09:06→21:38)
[2022-12-09] MEDS: amLODIPine 10 MG (NORVASC) TAB PO SCH (09:06)
[2022-12-09] MEDS: IRON SUCROSE 200 MG/10 ML (VENOFER) VIAL IV SCH ×2 (09:07→11:59)
[2022-12-09] MEDS: ENOXAPARIN 40 MG/0.4 ML (LOVENOX) SYR SQ SCH (09:08)
--- NOTE | 2022-12-09 09:48 | Occupational Ther Daily Note ---
OT Current Status-Daily Note Subjective Pt in bed, RN present throughout tx. During tx, pt c/o dizziness, BP 78/51 with HR 175 supine, after several mins BP taken again 56/44. Tx terminated at this time. ADL-Treatment Therapy Code Descriptions/Definitions Functional [place] Measure: 0=Not Assessed/NA 4=Minimal Assistance 1=Total Assistance 5=Supervision or Setup 2=Maximal Assistance 6=Modified [place] 3=Moderate Assistance 7=Complete IndependenceSCALE: Activities may be completed with or without assistive devices. 2-Weqfhzjrad-frmxuhy completes the activity by him/herself with no assistance from a helper. 5-Set-up or Clean-up Assistance-helper sets up or cleans up; patient completes activity. [place] assists only prior to or following the activity. 4-Supervision or Touching Assistance-helper provides verbal cues and/or touching/steadying and/or contact guard assistance as patient completes activity. Assistance may be provided throughout the activity or intermittently. 3-Partial/Moderate Assistance-helper does LESS THAN HALF the effort. [place] lifts, holds or supports trunk or limbs, but provides less than half the effort. 2-Substantial/Maximal Assistance-helper does MORE THAN HALF the effort. [place] lifts or holds trunk or limbs and provides more than half the effort. 1-Ghkighfcs-vzvwak does ALL the effort. Patient does none of the effort to compl ete the activity. Or, the assistance of 2 or more helpers is required for the patient to complete the activity. If activity was not attempted, code reason: 7-Patient Refused. 9-Not Applicable-not attempted and the patient did not perform the activity before the current illness, exacerbation or injury. 10-Not Attempted due to Environmental Limitations-(lack of equipment, weather restraints, etc.). 88-Not Attempted due to Medical Conditions or Safety Concerns. Other Treatment Pt in bed, RN present. Pt agreeable to OT Tx. Pt took medications provided by RN independently. OT began setting up environment for transfer, pt began to c/o dizziness that has occurred over the last 2 mins. BP taken and was 78/51 HR 175 BPM in bed. HOB lowered flat, after several mins, BP 56/44, RN aware and present. Pt's bed placed in trendelenburg position. Pt requests if anything gray ppens to her to immediately notify her . OT provided therapeutic listening and communication with pt during this time, asking pt if she felt like she was going to pass out or anything, pt denied feeling like she was going to pass out. Post tx, pt supine in bed with RN, all needs met. Treatment terminated due to low BP and increased HR. OT will attempt tx again later if appropriate. Education OT Patient Education: Correct positioning, Energy conservation, Modified ADL techniques, Progress toward Goal/Update tx plan, Purpose of tx/functional activities, Rehab process Teaching Recipient: Patient Teaching Methods: Discussion Response to Teaching: Verbalize Understanding OT Short Term Goals Short Term Goals Time Frame: Dec 15, 2022 Shower/bathe self: 3 Lower body dressin Putting on/taking off footwear: 3 OT Repair Manager Goals Repair Manager Goals Time Frame: Dec 31, 2022 Acute change in mental status: 1 Inattention: 0 Disorganized thinkin Altered level of consciousness: 0 Eating (QC): 6 Oral Hygiene (QC): 6 Toileting Hygiene (QC): 6 Shower/Bathe Self (QC): 6 Upper Body Dressing (QC): 6 Lower Body Dressing (QC): 6 On/Off Footwear (QC): 6 Additional Goals: 1-Demonstrate ADL Tasks, 2-Verbalize Understanding, 3- ImproveStrength/Bladimir 1=Demonstrate adherence to instructed precautions during ADL tasks. 2=Patient will verbalize/demonstrate understanding of assistive devices/modifica tions for ADL. 3=Patient will improve strength/tolerance for activity to enable patient to perform ADL's. OT Education/Plan Problem List/Assessment Assessment: Decreased Activ Tolerance, Decreased UE Strength, Impaired Funct Balance, Impaired I ADL's, Impaired Self-Care Skills Discharge Recommendations Plan/Recommendations: Continue POC Treatment Plan/Plan of Care Patient would benefit from OT for education, treatment and training to promote independence in ADL's, mobility, safety and/or upper extremity function for ADL's. Plan of Care: ADL Retraining, Functional Mobility, Group Exercise/Act as Ind, UE Funct Exercise/Act Treatment Duration: Dec 31, 2022 Frequency: At least 5 of 7 days/Wk (IRF) Estimated Hrs Per Day: 1.5 hours per day Agreement: Yes Rehab Potential: Good Time Start Time: 09:00 Stop Time: 09:30 DATE: Dec 09, 2022 Total Time Billed (hr/min): 30 Billed Treatment Time 1, FA 2 HELENA BANEGAS OT Dec 09, 2022 09:47
[2022-12-09] MEDS: polyethylene glycoL POWDER 17 GM (MIRALAX) PACK PO SCH ×2 (09:50→21:08)
--- NOTE | 2022-12-09 11:18 | Occupational Ther Daily Note ---
OT Current Status-Daily Note Subjective Pt in bed, states feeling better than 1st tx. Pt's RN states pt OK for therapy. ADL-Treatment Therapy Code Descriptions/Definitions Functional [place] Measure: 0=Not Assessed/NA 4=Minimal Assistance 1=Total Assistance 5=Supervision or Setup 2=Maximal Assistance 6=Modified [place] 3=Moderate Assistance 7=Complete IndependenceSCALE: Activities may be completed with or without assistive devices. 5-Qnlaqyypzv-vokdtow completes the activity by him/herself with no assistance from a helper. 5-Set-up or Clean-up Assistance-helper sets up or cleans up; patient completes activity. [place] assists only prior to or following the activity. 4-Supervision or Touching Assistance-helper provides verbal cues and/or touching/steadying and/or contact guard assistance as patient completes activity. Assistance may be provided throughout the activity or intermittently. 3-Partial/Moderate Assistance-helper does LESS THAN HALF the effort. [place] lifts, holds or supports trunk or limbs, but provides less than half the effort. 2-Substantial/Maximal Assistance-helper does MORE THAN HALF the effort. [place] lifts or holds trunk or limbs and provides more than half the effort. 6-Kzlkaulmu-nafnyc does ALL the effort. Patient does none of the effort to complete the activity. Or, the assistance of 2 or more helpers is required for the patient to complete the activity. If activity was not attempted, code reason: 7-Patient Refused. 9-Not Applicable-not attempted and the patient did not perform the activity before the current illness, exacerbation or injury. 10-Not Attempted due to Environmental Limitations-(lack of equipment, weather restraints, etc.). 88-Not Attempted due to Medical Conditions or Safety Concerns. Other Treatment OT/PT cotreat due to skill of 2 clinicians required which a rehabilitation case coordinator could not perform in order to coordinate UE/LEs, decrease fall risk, due to pt's low blood pressure during 1st tx, and due to pt's limitations in strength, activity tolerance, mobility, and transfers. PT focused on LE placement, gross overall movement, and transfers/mobility, OT focused on UE placement, cues for sequencing and safety and ADLs. Pt's BP 177/74 (R ankle), HR 85 BPM, O2 saturation 92%. Pt able to scoot up towards HOB with cues for UE placement. Supine UE/LE exercises performed in preparation for standing. Pts BP195/76. Pt transferred supine to sit EOB with VCs for technique. Upon sitting EOB, BP 208/105, and after a couple of minutes 209/111, RN notified. Pt transferred to recliner using FWW, took seated rest break. Pt stood from recliner for standing BP, 218/136, RN aware. Pt sat back in recliner and positioned to comfort. Post tx, pt in recliner, call light in reach and all needs met. Chair alarm activated CGA for transfers and mobility with FWW from bed to chair. Education OT Patient Education: Correct positioning, Energy conservation, Modified ADL techniques, Progress toward Goal/Update tx plan, Purpose of tx/functional activities, Rehab process Teaching Recipient: Patient, Significant Other Response to Teaching: Verbalize Understanding OT Short Term Goals Short Term Goals Time Frame: Dec 15, 2022 Shower/bathe self: 3 Lower body dressin Putting on/taking off footwear: 3 OT Longterm Goals Longterm Goals Time Frame: Dec 31, 2022 Acute change in mental status: 1 Inattention: 0 Disorganized thinkin Altered level of consciousness: 0 Eating (QC): 6 Oral Hygiene (QC): 6 Toileting Hygiene (QC): 6 Shower/Bathe Self (QC): 6 Upper Body Dressing (QC): 6 Lower Body Dressing (QC): 6 On/Off Footwear (QC): 6 Additional Goals: 1-Demonstrate ADL Tasks, 2-Verbalize Understanding, 3- ImproveStrength/Bladimir 1=Demonstrate adherence to instructed precautions during ADL tasks. 2=Patient will verbalize/demonstrate understanding of assistive devices/modifications for ADL. 3=Patient will improve strength/tolerance for activity to enable patient to perform ADL's. OT Education/Plan Problem List/Assessment Assessment: Decreased Activ Tolerance, Decreased UE Strength, Impaired Funct Balance, Impaired I ADL's, Impaired Self-Care Skills Discharge Recommendations Plan/Recommendations: Continue POC Treatment Plan/Plan of Care Patient would benefit from OT for education, treatment and training to promote independence in ADL's, mobility, safety and/or upper extremity function for ADL's. Plan of Care: ADL Retraining, Functional Mobility, Group Exercise/Act as Ind, UE Funct Exercise/Act Treatment Duration: Dec 31, 2022 Frequency: At least 5 of 7 days/Wk (IRF) Estimated Hrs Per Day: 1.5 hours per day Agreement: Yes Rehab Potential: Good Time Start Time: 11:00 Stop Time: 12:00 DATE: Dec 09, 2022 Total Time Billed (hr/min): 60 Billed Treatment Time cotreat x60' 1, EX 2 (30'), FA 2 (30') HELENA BANEGAS OT Dec 09, 2022 11:18
--- NOTE | 2022-12-09 11:53 | Physical Therapy Daily Note ---
PT Daily Note-Current Subjective Pt. in bed, nursing at bedside, PT OT co Rx secondary to pt. experiencing episodic morning with reported extreme low BP readings and c/o dizziness. PT OT present to assess after pt. just having telemetry placed as well as midline. Pt. denies pain or dizziness at this time. Pain Location: No Pain Reported Section J - Health Conditions 1. Rarely or not at all 2. Occasionally 3. Frequently 4. Almost constantly 8. Unable to answer Pain Effect on Sleep: 1 Pain Interference with Therapy: 2 Pain Interference w/Day-to-Day: 2 Mental Status Patient Orientation: Normal For Age Attachments: [place] Catheter, Other-See Comments (telemetry) Transfers SCALE: Activities may be completed with or without assistive devices. 1-Hnwntxjfyn-lovgeuv completes the activity by him/herself with no assistance from a helper. 5-Set-up or Clean-up Assistance-helper sets up or cleans up; patient completes activity. [place] assists only prior to or following the activity. 4-Supervision or Touching Assistance-helper provides verbal cues and/or touching/steadying and/or contact guard assistance as patient completes activity. Assistance may be provided throughout the activity or intermittently. 3-Partial/Moderate Assistance-helper does LESS THAN HALF the effort. [place] li fts, holds or supports trunk or limbs, but provides less than half the effort. 2-Substantial/Maximal Assistance-helper does MORE THAN HALF the effort. [place] lifts or holds trunk or limbs and provides more than half the effort. 7-Mpccqjwsz-zufnvo does ALL the effort. Patient does none of the effort to complete the activity. Or, the assistance of 2 or more helpers is required for the patient to complete the activity. If activity was not attempted, code reason: 7-Patient Refused. 9-Not Applicable-not attempted and the patient did not perform the activity before the current illness, exacerbation or injury. 10-Not Attempted due to Environmental Limitations-(lack of equipment, weather restraints, etc.). 88-Not Attempted due to Medical Conditions or Safety Concerns. Roll Left & Right (QC): 6 Lying to Sitting/Side of Bed(Q: 6 Sit to Stand (QC): 6 Chair/Kxn-ea-Odcsl Xfer(QC): 4 CGA for all TRFs and function secondary to BP findings and recent morning history. see BP readings below. Gait Training Does the Patient Walk?: Yes Gait Assistive Device: FWW 6-7 feet bed to chair FWW CGA slow, difficulty placing and advancing LLE, heavy wt bearing on FWW. Exercises Supine Ex: Ankle pumps, Quad Set, Rolling, Glut sets, Heel Slides, Short Arc Quads, Scooting, Straight leg raise, Hip abd/add Supine Reps: 15 Treatments PT OT co Rx secondary to pt having markedly low BP readings in am, ( see chart) and in contrast pt having markedly high BP readings at this time with PT OT . BP cuff palced at right ankle/lower leg secondary to limb alert right for past mastectomy and newly placed midline on left. BP in [id number], sitting 208/105, standing 218/136 , HR consistent at 87 bpm, nursing and cardiology in/out during this assessment and Rx period . PT OT coordinating assessment and safety for all ADLs and TRFs. Assessment Current Status: Fair Progress limited tolerance for Rx this date due to above stated findings. PT Outside Sales Manager Goals Outside Sales Manager Goals PT Outside Sales Manager Goals Time Frame: Dec 21, 2022 Roll Left & Right (QC): 6 Sit to Lying (QC): 6 Lying-Sitting on Side/Bed(QC): 6 Sit to Stand (QC): 6 Chair/Mkt-tn-Btlka Xfer(QC): 6 Toilet Transfer (QC): 6 Car Transfer (QC): 6 Does the Patient Walk: Yes Walk 10 feet (QC): 6 Walk 50ft with 2 Turns (QC): 6 Walk 150 ft (QC): 6 Walking 10ft on Uneven Surface: 6 1 Step (curb) (QC): 4 4 Steps (QC): 4 12 Steps (QC): 88 Picking up an Object (QC): 6 Wheel 50 feet with 2 turns (QC: 9 Wheel 150 feet: 9 PT Plan Treatment/Plan Treatment Plan: Continue Plan of Care Treatment Plan: Bed Mobility, Education, Functional Activity Bl[place], Functional Strength, Group Therapy, Gait, Safety, Therapeutic Exercise, Transfers Treatment Duration: Dec 21, 2022 Frequency: At least 5 of 7 days/Wk (IRF) Estimated Hrs Per Day: 1.5 hours per day Patient and/or Family Agrees t: Yes Safety Risks/Education Patient Education: Transfer Techniques, Reviewed Precautions (leg crossing), Correct Positioning, Safety Issues Teaching Recipient: Patient Teaching Methods: Demonstration, Discussion Response to Teaching: Verbalize Understanding, Return Demonstration, Reinforcement Needed Time Time In: 1100 Time Out: 1200 DATE: Dec 09, 2022 Total Billed Treatment Time: 60 (co Rx OT) Total Billed Treatment 1,EX30m,FA30m JAVY FONTENOT FUR FARMER Dec 09, 2022 11:53
[2022-12-09] MEDS: DOCUSATE SODIUM 100 MG (COLACE) CAP PO SCH ×4 (11:59→21:08)
[2022-12-09] MEDS: SENNA W/DOCUSATE (SENOKOT S) TABLET PO SCH ×2 (12:00→21:08)
[2022-12-09] MEDS: DICLOFENAC 1% GEL 100 GM (VOLTAREN) TUBE TOP SCH ×3 (14:04→21:38)
--- NOTE | 2022-12-09 15:02 | Physical Therapy Daily Note ---
PT Daily Note-Current Subjective no c/o Pain Location: No Pain Reported Section J - Health Conditions 1. Rarely or not at all 2. Occasionally 3. Frequently 4. Almost constantly 8. Unable to answer Pain Effect on Sleep: 1 Pain Interference with Therapy: 2 Pain Interference w/Day-to-Day: 2 Mental Status Patient Orientation: Normal For Age Attachments: [place] Catheter Transfers SCALE: Activities may be completed with or without assistive devices. 4-Lnbbnfmopl-yaprpbh completes the activity by him/herself with no assistance from a helper. 5-Set-up or Clean-up Assistance-helper sets up or cleans up; patient completes activity. [place] assists only prior to or following the activity. 4-Supervision or Touching Assistance-helper provides verbal cues and/or touching/steadying and/or contact guard assistance as patient completes activity. Assistance may be provided throughout the activity or intermittently. 3-Partial/Moderate Assistance-helper does LESS THAN HALF the effort. [place] lifts, holds or supports trunk or limbs, but provides less than half the effort. 2-Substantial/Maximal Assistance-helper does MORE THAN HALF the effort. [place] lifts or holds trunk or limbs and provides more than half the effort. 7-Xzywrlvsa-ikrfdn does ALL the effort. Patient does none of the effort to complete the activity. Or, the assistance of 2 or more helpers is required for the patient to complete the activity. If activity was not attempted, code reason: 7-Patient Refused. 9-Not Applicable-not attempted and the patient did not perform the activity before the current illness, exacerbation or injury. 10-Not Attempted due to Environmental Limitations-(lack of equipment, weather restraints, etc.). 88-Not Attempted due to Medical Conditions or Safety Concerns. Roll Left & Right (QC): 6 Sit to Lying (QC): 6 Lying to Sitting/Side of Bed(Q: 6 Sit to Stand (QC): 6 Chair/Lrt-mv-Sbwcf Xfer(QC): 6 improved sit to sup managing RLE indep Gait Training Gait Assistive Device: FWW 15 ft x 2 FWW CGA Exercises Supine Ex: Ankle pumps, Quad Set, Glut sets, Heel Slides, Hip abd/add Supine Reps: 15 Treatments gait, TRFs, ex, , no c/o dizziness, Assessment Current Status: Good Progress PT [facility] Goals Circus Hand Goals PT Circus Hand Goals Time Frame: Dec 21, 2022 Roll Left & Right (QC): 6 Sit to Lying (QC): 6 Lying-Sitting on Side/Bed(QC): 6 Sit to Stand (QC): 6 Chair/Vdb-bm-Dqqta Xfer(QC): 6 Toilet Transfer (QC): 6 Car Transfer (QC): 6 Does the Patient Walk: Yes Walk 10 feet (QC): 6 Walk 50ft with 2 Turns (QC): 6 Walk 150 ft (QC): 6 Walking 10ft on Uneven Surface: 6 1 Step (curb) (QC): 4 4 Steps (QC): 4 12 Steps (QC): 88 Picking up an Object (QC): 6 Wheel 50 feet with 2 turns (QC: 9 Wheel 150 feet: 9 PT Plan Treatment/Plan Treatment Plan: Continue Plan of Care Treatment Plan: Bed Mobility, Education, Functional Activity [place], Functional Strength, Group Therapy, Gait, Safety, Therapeutic Exercise, Transfers Treatment Duration: Dec 21, 2022 Frequency: At least 5 of 7 days/Wk (IRF) Estimated Hrs Per Day: 1.5 hours per day Patient and/or Family Agrees t: Yes Safety Risks/Education Patient Education: Gait Training, Transfer Techniques, Correct Positioning, Disease Process, Safety Issues Teaching Recipient: Patient Teaching Methods: Demonstration, Discussion Response to Teaching: Verbalize Understanding, Return Demonstration, Reinforcement Needed Time Time In: 1400 Time Out: 1430 DATE: Dec 09, 2022 Total Billed Treatment Time: 30 Total Billed Treatment 1,FA20m,EX10m JAVY FONTENOT PTA Dec 09, 2022 15:02
[2022-12-09] MEDS: diphenhydrAMINE 25 MG TAB (BENADRYL) PO PRN (16:39)
--- NOTE | 2022-12-09 16:58 | Consultation-Cardiology ---
HPI-Cardiology Cardiology Consultation Date of Consultation 12/09/22 Date of Admission Time Seen by Provider: 12:30 Indication: Palpitation HPI 72-year-old lady currently in acute rehab after total hip arthroplasty. Has history of hypertension. Was sitting in a chair where she was found to be tachycardic. Having rapid heart rate. Reported to be around 170, reported to be hypotensive, lasted for about 30 minutes by the time she had an EKG she was back in regular sinus rhythm and stable blood pressure. She denied any similar episodes in the past. Has been doing well. On my examination and evaluation she was sitting comfortably in the chair. Home Medications & Allergies Allergies: Coded Allergies: Penicillins (Verified Allergy, Unknown, 12/03/22) Klnvyhy-RXI-BeH Reductase Inhibitor (Verified Allergy, Unknown, 12/05/22) Sulfa (Sulfonamide Antibiotics) (Verified Allergy, Unknown, Itching, 12/05/22) clarithromycin (Verified Allergy, Unknown, 12/05/22) doxycycline (Verified Allergy, Unknown, Hives, 12/05/22) oxycodone (Verified Allergy, Unknown, Itching;pt tolerated morphine, 12/07/22) valdecoxib (Verified Allergy, Unknown, Hives, 12/05/22) Home Medication List Reviewed: Yes EMP-Tpvttw-Gnjqme Hx Patient Social History Marital Status: Employed/Student: retired Smoking Status: Never a Smoker Have you traveled recently?: No Alcohol Use?: No Immunizations Up To Date Date of Influenza Vaccine: Oct 10, 2022 Past Medical History Discussed below Family Medical History Significant Family History: No Pertinent Family Hx Review of Systems-General Review of Systems Constitutional: see HPI, malaise, weakness EENTM: no symptoms reported Respiratory: no symptoms reported Cardiovascular: no symptoms reported Gastrointestinal: no symptoms reported Genitourinary: no symptoms reported Musculoskeletal: joint pain, muscle pain, muscle stiffness, muscle cramps Skin: no symptoms reported Psychiatric/Neurological: Anxiety, Depressed All Other Systems Reviewed Negative Unless Noted: Yes Reviewed Test Results Reviewed Test Results Lab Laboratory Tests Test 12/08/22 20:39 12/09/22 05:53 12/09/22 11:09 12/09/22 15:56 Range/Units Glucometer 144 H 145 H 135 H 91 70-110 MG/DL Physical Exam Physical Exam Vital Signs Vital Signs - First Documented 12/07/22 12/07/22 12:18 14:35 Temp 36.5 Pulse 84 Resp 18 B/P (MAP) 142/81 (101) Pulse Ox 99 O2 Delivery Room Air O2 Flow Rate 2.00 Capillary Refill : Height, Weight, BMI Height: '" Weight: lbs. oz. kg; 29.65 BMI Method: General Appearance: No Apparent Distress, WD/WN, Chronically ill, Obese Eyes: Bilateral Eye Normal Inspection, Bilateral Eye PERRL HEENT: PERRL/EOMI, Normal ENT Inspection, Pharynx Normal Neck: Full Range of Motion, Normal Inspection, Non Tender, Supple, Carotid Bruit Respiratory: Chest Non Tender, Lungs Clear, No Accessory Muscle Use, No Respi ratory Distress, Decreased Breath Sounds Cardiovascular: Regular Rate, Rhythm, No Edema, No Gallop, No JVD, No Murmur, Normal Peripheral Pulses Gastrointestinal: Normal Bowel Sounds, No Organomegaly, No Pulsatile Mass, Non Tender, Soft Back: Normal Inspection, No CVA Tenderness, No Vertebral Tenderness Extremity: Normal Capillary Refill, Normal Inspection, Normal Range of Motion (except right leg), Non Tender, No Calf Tenderness, No Pedal Edema Neurologic/Psychiatric: Alert, Oriented x3, No Motor/Sensory Deficits, Normal Mood/Affect Skin: Normal Color, Warm/Dry Lymphatic: No Adenopathy A/P-Cardiology Admission Diagnosis Tachycardia Hypertension Diabetes mellitus Hip fracture Assessment/Plan Transient episode of tachycardia with hypotension. Patient was placed on telemetry, will continue to monitor and continue with physical therapy No change to medication is recommended at this point. Status post hip arthroplasty after closed head fracture. Maintained in physical therapy Hypertension, monitor blood pressure Diabetes mellitus, managed by primary care physician Generalized weakness. BRANDEE PAYNE MD Dec 09, 2022 16:58
[2022-12-09] MEDS: MELATONIN 3 MG TABLET PO PRN (21:37)
[2022-12-09] MEDS: eZETimibe 10 MG (ZETIA) TABLET PO SCH (21:37)
[2022-12-09] MEDS: guaiFENesin/CODEINE (ROBITUSSIN AC) 10ML UDC PO PRN (21:37)
[2022-12-09] MEDS: HYDROcodone/APAP 5 MG/325 MG (LORTAB) TAB PO PRN (21:39)
[2022-12-10] MEDS: diphenhydrAMINE 25 MG TAB (BENADRYL) PO PRN (03:41)
[2022-12-10] MEDS: HYDROcodone/APAP 5 MG/325 MG (LORTAB) TAB PO PRN ×3 (03:43→14:32)
[2022-12-10] MEDS: CATHETER FLUSH 10 ML SYR IVP SCH ×3 (06:19→21:20)
[2022-12-10] MEDS: LEVOTHYROXINE 75 MCG (LEVOTHROID) TABLET PO SCH (06:19)
[2022-12-10] MEDS: KCL 10 MEQ TAB (MICRO K) PO SCH (06:58)
[2022-12-10] MEDS: LOPERAMIDE 2 MG (IMODIUM) TABLET PO PRN (06:58)
[2022-12-10] MEDS: CYANOCOBALAMIN 1,000 MCG (VITAMIN B-12) TABLET PO SCH (06:58)
[2022-12-10] MEDS: VENlafaxine XR 75 MG (EFFEXOR XR) CAP PO SCH (06:59)
[2022-12-10 07:54] VITALS: BP 156/67
[2022-12-10 08:14] VITALS: BP 212/72
[2022-12-10] MEDS: PANTOPRAZOLE 40 MG (PROTONIX) TAB PO SCH (08:21)
[2022-12-10] MEDS: polyethylene glycoL POWDER 17 GM (MIRALAX) PACK PO SCH ×2 (08:22→21:22)
[2022-12-10] MEDS: SENNA W/DOCUSATE (SENOKOT S) TABLET PO SCH ×2 (08:22→21:22)
[2022-12-10] MEDS: amLODIPine 10 MG (NORVASC) TAB PO SCH (08:22)
[2022-12-10] MEDS: meTOprolol TARTRATE 50 MG (LOPRESSOR) TAB PO SCH ×2 (08:22→21:22)
[2022-12-10] MEDS: DOCUSATE SODIUM 100 MG (COLACE) CAP PO SCH ×3 (08:22→21:22)
[2022-12-10] MEDS: DICLOFENAC 1% GEL 100 GM (VOLTAREN) TUBE TOP SCH ×4 (08:23→21:21)
[2022-12-10] MEDS: ENOXAPARIN 40 MG/0.4 ML (LOVENOX) SYR SQ SCH ×2 (08:24→08:30)
[2022-12-10 08:35] VITALS: BP 202/92
[2022-12-10 08:37] VITALS: BP 146/73
--- NOTE | 2022-12-10 09:05 | PM&R Progress Note ---
Subjective HPI/CC On Admission Date Seen by Provider: Dec 10, 2022 Time Seen by Provider: 10:00 Subjective/Events-last exam 12/10/2022: BP varies Pain controlled Slow recovery No nausea 12/09/2022: Had episode of HTN and tachycardia so EKG obtained and Telemetry started Dr Mccarty consulted DC catheter then had retention No falls 12/08/2022: Improved status Pain controlled Lung mass is known and managed in [place] but it appears it is a benign granuloma? No falls Improved status Subtle cognition deficit noted since she could not name her doctor who managed the lung nodule Review of Systems General: Fatigue, Malaise Objective Exam Vital Signs Vital Signs Date Time Temp Pulse Resp B/P (MAP) Pulse Ox O2 Delivery O2 Flow Rate FiO2 12/11/22 01:00 73 12/10/22 21:15 97 Room Air 2.00 12/10/22 19:33 36.7 18 152/67 (95) Capillary Refill : General Appearance: No Apparent Distress, WD/WN, Chronically ill, Obese HEENT: PERRL/EOMI, Normal ENT Inspection, Pharynx Normal Neck: Full Range of Motion, Normal Inspection, Non Tender, Supple, Carotid Bruit Respiratory: Chest Non Tender, Lungs Clear, No Accessory Muscle Use, No Respiratory Distress, Decreased Breath Sounds Cardiovascular: Regular Rate, Rhythm, No Edema, No Gallop, No JVD, No Murmur, Normal Peripheral Pulses Gastrointestinal: Normal Bowel Sounds, No Organomegaly, No Pulsatile Mass, Non Tender, Soft Back: Normal Inspection, No CVA Tenderness, No Vertebral Tenderness Extremity: Normal Capillary Refill, Normal Inspection, Normal Range of Motion (except right leg), Non Tender, No Calf Tenderness, No Pedal Edema Neurologic/Psychiatric: Alert, Oriented x3, No Motor/Sensory Deficits, Normal Mood/Affect Skin: Normal Color, Warm/Dry Lymphatic: No Adenopathy Results/Procedures Lab Laboratory Tests 12/10/22 10:02 Patient resulted labs reviewed. FIM Transfers Therapy Code Descriptions/Definitions Functional [place] Measure: 0=Not Assessed/NA 4=Minimal Assistance 1=Total Assistance 5=Supervision or Setup 2=Maximal Assistance 6=Modified [place] 3=Moderate Assistance 7=Complete IndependenceSCALE: Activities may be completed with or without assistive devices. 2-Cwdsmzyqun-isimatz completes the activity by him/herself with no assistance from a helper. 5-Set-up or Clean-up Assistance-helper sets up or cleans up; patient completes activity. [place] assists only prior to or following the activity. 4-Supervision or Touching Assistance-helper provides verbal cues and/or touching/steadying and/or contact guard assistance as patient completes activity. Assistance may be provided throughout the activity or intermittently. 3-Partial/Moderate Assistance-helper does LESS THAN HALF the effort. [place] lifts, holds or supports trunk or limbs, but provides less than half the effort. 2-Substantial/Maximal Assistance-helper does MORE THAN HALF the effort. [place] lifts or holds trunk or limbs and provides more than half the effort. 0-Ukohbipmw-dgdwue does ALL the effort. Patient does none of the effort to c omplete the activity. Or, the assistance of 2 or more helpers is required for the patient to complete the activity. If activity was not attempted, code reason: 7-Patient Refused. 9-Not Applicable-not attempted and the patient did not perform the activity before the current illness, exacerbation or injury. 10-Not Attempted due to Environmental Limitations-(lack of equipment, weather restraints, etc.). 88-Not Attempted due to Medical Conditions or Safety Concerns. Roll Left to Right (QC): 6 Sit to Lying (QC): 6 Sit to Stand (QC): 6 Chair/Gvv-cr-Yocww Xfer(QC): 6 Car Transfer (QC): 3 Gait Training Does the Patient Walk?: Yes Distance: 50' Walk 10 feet (QC): 4 Walk 50 ft with 2 Turns(QC): 4 Walk 150 ft (QC): 88 Walking 10ft/uneven surface-QC: 88 Gait Persons Needed: 1 Gait Assistive Device: FWW Wheelchair Training Wheel 50 ft with 2 turns (QC): 9 Wheel 150 ft (QC): 9 Stair Training 1 Step (curb) (QC): 88 4 Steps (QC): 88 12 Steps (QC): 88 Balance Picking up an Object (QC): 4 (CGA using a criminal justice professor) ADL-Treatment Eating (QC): 6 Oral Hygiene (QC): 6 Bathing Location: L Arm, R Arm, L Upper Leg, R Upper Leg, Chest, Abdomen, Buttocks, Perineal Area Shower/Bathe Self (QC): 3 Upper Body Dressing (QC): 5 Lower Body Dressing (QC): 3 On/Off Footwear (QC): 2 Toileting Hygiene (QC): 2 Assessment/Plan Assessment and Plan Assess & Plan/Chief Complaint Assessment: Right hip fracture Post op delirium Post op anemia from acute blood loss ARLETTE on CPAP Breast cancer with lung nodule on imaging but this is a known nodule per patient and she sees specialist in [place] for that but patient did not remember the name of the doctor HTN HLP Hypothyroidism DM Urinary retention after DC catheter Plan: PT OT Pain control Monitor labs 12/08/2022: Pain control Monitor closely 12/09/2022: Monitor closely In/out caths prn 12/10/2022: Monitor closely Urinary retention management (1) Closed right hip fracture Status: Acute (2) Postoperative delirium Status: Acute (3) T2DM (type 2 diabetes mellitus) Status: Chronic (4) Lung nodule Status: Acute (5) HTN (hypertension) Status: Chronic (6) Non-insulin dependent type 2 diabetes mellitus (7) Essential (primary) hypertension (8) Hypothyroidism (9) Hyperlipidemia (10) Hypokalemia SHA GEORGE 3, 2023 09:05
[2022-12-10 10:15] LABS: BASOPHILS % (AUTO) 0 % (0-10); EOSINOPHILS % (AUTO) 0 % (0-10); HEMATOCRIT 29 % (35-52); HEMOGLOBIN 9.9 g/dL (11.5-16.0); LYMPHOCYTES # (AUTO) 1.4 10^3/uL (1.0-4.0); LYMPHOCYTES % (AUTO) 23 % (12-44); MEAN CORPUSCULAR HEMOGLOBIN 30 pg (25-34); MEAN CORPUSCULAR HGB CONC 34 g/dL (32-36); MEAN CORPUSCULAR VOLUME 88 fL (80-99); MEAN PLATELET VOLUME 10.5 fL (9.0-12.2); MONOCYTES # (AUTO) 0.6 10^3/uL (0.0-1.0); MONOCYTES % (AUTO) 10 % (0-12); NEUTROPHILS # (AUTO) 3.9 10^3/uL (1.8-7.8); NEUTROPHILS % (AUTO) 66 % (42-75); PLATELET COUNT 296 10^3/uL (130-400); WHITE BLOOD COUNT 5.9 10^3/uL (4.3-11.0)
[2022-12-10 10:32] LABS: BILIRUBIN,TOTAL 0.4 MG/DL (0.1-1.0); CALCIUM 8.4 MG/DL (8.5-10.1); CREATININE SERUM 0.74 MG/DL (0.60-1.30); POTASSIUM 3.4 MMOL/L (3.6-5.0)
--- NOTE | 2022-12-10 11:20 | Progress Note - Ortho ---
Progress Note Subjective Date of Exam 12/10/22 Chief Complaint POD #5 R NITIN HPI/Events since last exam improving from hip standpoint, making progress with therapy Review of Systems - Allergies: Coded Allergies: Penicillins (Verified Allergy, Unknown, 12/03/22) Iqttrkm-JGX-ZkW Reductase Inhibitor (Verified Allergy, Unknown, 12/05/22) Sulfa (Sulfonamide Antibiotics) (Verified Allergy, Unknown, Itching, 12/05/22) clarithromycin (Verified Allergy, Unknown, 12/05/22) doxycycline (Verified Allergy, Unknown, Hives, 12/05/22) oxycodone (Verified Allergy, Unknown, Itching;pt tolerated morphine, 12/07/22) valdecoxib (Verified Allergy, Unknown, Hives, 12/05/22) Home Meds Reported Medications Fluticasone Propionate (Flonase Allergy Relief) 50 Mcg/Actuation [place].susp, 1 SPRAY NS DAILY PRN for CONGESTION, EACH 1 SPRAY EACH NARE DAILY 12/06/22 Magnesium Oxide (Magnesium) 400 Mg Magnesium Tablet, 800 MG PO DAILY, TAB TAKES 2 (400MG) TABS 12/06/22 Cyanocobalamin (Vitamin B-12) (B-12) 1,000 Mcg Tablet, 1000 MCG PO DAILY, TAB 12/06/22 Meloxicam (Meloxicam) 15 Mg Tablet, 15 MG PO DAILY, TAB 12/06/22 Valsartan/Hydrochlorothiazide (Valsartan-Hctz 320-25 mg Tab) 320 Mg-25 Mg Tablet, 1 EACH PO DAILY, TAB 12/05/22 Levothyroxine Sodium (Levothyroxine) 75 Mcg Capsule, 75 MCG PO DAILY, CAP 12/05/22 Denosumab (Prolia) 60 Mg/Ml Disp.syrin, 60 MG SQ UD, EA 12/05/22 Loratadine (Claritin) 10 Mg Capsule, 10 MG PO DAILY, CAP 12/05/22 Omeprazole (Omeprazole) 20 Mg Capsule.dr, 20 MG PO DAILY, CAP 12/05/22 Calcium Carbonate (Calcium) 600 Mg Calcium (1500 Mg) Tablet, 600 MG PO BID, TAB 12/05/22 Aspirin (Aspirin) 81 Mg Tab.chew, 81 MG PO DAILY, TAB 12/05/22 Diphenhydramine HCl (Benadryl) 25 Mg Capsule, 25 MG PO HS, CAP 12/05/22 Metformin HCl (Metformin HCl ER) 500 Mg Tab.er.24h, 1000 MG PO BID, TAB TAKES 2 (500MG) TABS 12/04/22 Liothyronine Sodium (Liothyronine Sodium) 5 Mcg Tablet, 5 MCG PO BID, TAB 12/04/22 Amlodipine Besylate (Amlodipine Besylate) 5 Mg Tablet, 5 MG PO DAILY, TAB 12/04/22 Venlafaxine HCl (Venlafaxine HCl ER) 150 Mg Cap.er.24h, 150 MG PO DAILY, CAP 12/04/22 Metoprolol Tartrate (Metoprolol Tartrate) 50 Mg Tablet, 50 MG PO BID, TAB 12/04/22 Ezetimibe (Zetia) 10 Mg Tablet, 10 MG PO DAILY, TAB 12/04/22 Discontinued Reported Medications Meloxicam, Submicronized (Meloxicam) 10 Mg Capsule, 15 MG PO DAILY, CAP 12/04/22 Objective Exam R Hip: Incision C/D/I, +DF of ankle, no s/s of DVT Vital Signs Vital Signs Date Time Temp Pulse Resp B/P (MAP) Pulse Ox O2 Delivery O2 Flow Rate FiO2 12/10/22 08:37 92 146/73 (97) 12/10/22 08:35 93 202/92 (128) 12/10/22 08:14 85 20 212/72 (118) 97 Room Air 12/10/22 07:54 35.8 75 20 156/67 (96) 96 Room Air 12/10/22 07:00 76 12/10/22 01:00 65 12/09/22 21:20 97 Room Air 12/09/22 19:44 37.2 86 18 187/80 (115) 94 Room Air 12/09/22 19:00 85 12/09/22 15:20 84 18 146/68 (94) 98 Room Air 12/09/22 12:52 78 12/09/22 11:53 36.1 81 20 156/73 (100) 97 Room Air 12/09/22 11:38 87 20 218/136 (163) 12/09/22 11:35 80 209/111 (143) I & O 12/10/22 07:00 Intake Total 2180 ml Output Total 1750 ml Balance 430 ml Lab Results Laboratory Tests 12/09/22 15:56: Glucometer 91 12/09/22 20:07: Glucometer 84 12/10/22 06:30: Glucometer 143H 12/10/22 10:02: White Blood Count 5.9, Red Blood Count 3.36L, Hemoglobin 9.9L, Hematocrit 29L, Mean Corpuscular Volume 88, Mean Corpuscular Hemoglobin 30, Mean Corpuscular Hemoglobin Concent 34, Red Cell Distribution Width 14.3, Platelet Count 296, Mean Platelet Volume 10.5, Immature Granulocyte % (Auto) 1, Neutrophils (%) (Auto) 66, Lymphocytes (%) (Auto) 23, Monocytes (%) (Auto) 10, Eosinophils (%) (Auto) 0, Basophils (%) (Auto) 0, Neutrophils # (Auto) 3.9, Lymphocytes # (Auto) 1.4, Monocytes # (Auto) 0.6, Eosinophils # (Auto) 0.0, Basophils # (Auto) 0.0, Immature Granulocyte # (Auto) 0.1, Sodium Level 142, Potassium Level 3.4L, Chloride Level 112H, Carbon Dioxide Level 21, Anion Gap 9, Blood Urea Nitrogen 7, Creatinine 0.74, Estimat Glomerular Filtration Rate 86, BUN/Creatinine Ratio 9, Glucose Level 220H, Calcium Level 8.4L, Corrected Calcium 9.2, Total Bilirubin 0.4, Aspartate Amino Transf (AST/SGOT) 41H, Alanine Aminotransferase (ALT/SGPT) 43, Alkaline Phosphatase 44, Total Protein 6.0L, Albumin 3.0L 12/10/22 10:55: Glucometer 175H Assessment and Plan Assessment Right Femoral Neck Fracture s/p R NITIN Problem List Right Femoral Neck Fracture s/p R NITIN Plan PT/OT DVT Prophylaxis Final Diagonsis Right Femoral Neck Fracture s/p R NITIN Level of the visit: Level 3 (global) FIGUEROA VILCHIS MD Dec 10, 2022 11:20
--- NOTE | 2022-12-10 11:39 | Wound Care Assessment ---
Wound Care Assessment Date Seen by Provider: Dec 10, 2022 Time Seen by Provider: 11:33 Chief Complaint Pressure/MASD R. buttock HPI This pleasant 72 year old female was admitted to our inpatient rehab following R. NITIN. She notes that initially she had a full thickness ulcer of R. buttock following surgery. She did also struggle with post-op anemia (jose mofer per primary team). She is improving now and quite mobile. Her incision looks great and her buttock now appears epithelialized. She does have h/o DM2 but blood sugars well controlled during this admission. See orders below for recommendations. Past Medical History: Admits Diabetes Type II post-operative anemia, h/o breast CA Smoking Status: Never a Smoker Alcohol Use: Denies Use Review of Systems General: Other (obesity ) Exam Vital Signs Date Time Temp Pulse Resp B/P (MAP) Pulse Ox O2 Delivery O2 Flow Rate FiO2 12/10/22 08:37 92 146/73 (97) 12/10/22 08:14 20 97 Room Air 12/10/22 07:54 35.8 12/08/22 20:30 2.00 Capillary Refill : General Appearance: no apparent distress, obese HEENT: other (normal hearing) Neck: full range of motion Cardiovascular: no edema Respiratory: no respiratory distress, no accessory muscle use Extremities: other (R. NITIN incision c/d/i with ilene in place) Neurologic/Psychiatric: alert, normal mood/affect, oriented x 3 Skin: other (see below) Wound assessment: This wound appears epithelialized. There is no active drainage. There is evidence of stage 1 pressure injury and MASD to area. Cleanse daily and apply barrier ointment with bordered foam dressing. Results Laboratory Tests 12/09/22 15:56: Glucometer 91 12/09/22 20:07: Glucometer 84 12/10/22 06:30: Glucometer 143H 12/10/22 10:02: White Blood Count 5.9, Red Blood Count 3.36L, Hemoglobin 9.9L, Hematocrit 29L, Mean Corpuscular Volume 88, Mean Corpuscular Hemoglobin 30, Mean Corpuscular Hemoglobin Concent 34, Red Cell Distribution Width 14.3, Platelet Count 296, Mean Platelet Volume 10.5, Immature Granulocyte % (Auto) 1, Neutrophils (%) (Auto) 66, Lymphocytes (%) (Auto) 23, Monocytes (%) (Auto) 10, Eosinophils (%) (Auto) 0, Basophils (%) (Auto) 0, Neutrophils # (Auto) 3.9, Lymphocytes # (Auto) 1.4, Monocytes # (Auto) 0.6, Eosinophils # (Auto) 0.0, Basophils # (Auto) 0.0, Immature Granulocyte # (Auto) 0.1, Sodium Level 142, Potassium Level 3.4L, Chloride Level 112H, Carbon Dioxide Level 21, Anion Gap 9, Blood Urea Nitrogen 7, Creatinine 0.74, Estimat Glomerular Filtration Rate 86, BUN/Creatinine Ratio 9, Glucose Level 220H, Calcium Level 8.4L, Corrected Calcium 9.2, Total Bilir ubin 0.4, Aspartate Amino Transf (AST/SGOT) 41H, Alanine Aminotransferase (ALT/SGPT) 43, Alkaline Phosphatase 44, Total Protein 6.0L, Albumin 3.0L 12/10/22 10:55: Glucometer 175H Assessment/Plan/Dx Assessment: 1. Stage 3 pressure ulcer R. buttock with MASD (now epithelialized) 2. R. NITIN 3. Post operative anemia 4. DM2 Plan: 1. Cleanse daily. Apply barrier ointment and bordered foam dressing. Change daily. Off load with frequent positional changes 2. Defer to surgery 3. Defer to primary team 4. Defer to primary team. MARY JANE CUEVAS MD Dec 10, 2022 11:39
--- NOTE | 2022-12-10 11:44 | Cardiology Progress Note ---
Subjective Date Seen by Provider: Dec 10, 2022 Time Seen by Provider: 11:39 Subjective/Events-last exam Patient was seen at bedside sitting comfortably, feeling better. Objective-Cardiology Exam Last Set of Vital Signs Vital Signs 12/08/22 12/10/22 12/10/22 12/10/22 20:30 07:54 08:14 08:37 Temp 35.8 Pulse 92 Resp 20 B/P (MAP) 146/73 (97) Pulse Ox 97 O2 Delivery Room Air O2 Flow Rate 2.00 I&O Intake and Output 12/10/22 00:00 Intake Total 1780 ml Output Total 3050 ml Balance -1270 ml Intake Oral 1780 ml Output Urine Total 3050 ml Bladder Scan Volume Amount 4 ml # Bowel Movements 2 General: Alert, Oriented X3, Cooperative HEENT: Atraumatic Neck: Supple Lungs: Clear to Auscultation Heart: Regular Rate, Normal S1, Normal S2 Abdomen: Normal Bowel Sounds Skin: No Rashes Neuro: Normal Speech Psych/Mental Status: Mood NL Results Lab Laboratory Tests 12/10/22 10:02 A/P-Cardiology Admission Diagnosis Tachycardia Hypertension Diabetes mellitus Hip fracture Assessment/Plan Transient episode of tachycardia with hypotension. Telemetry started on December 09, 2022, no arrhythmia detected Continue to monitor 2D echo done on December 09, 2022 with normal LV size and function. No significant abnormality. Hypertension, labile blood pressure Increase metoprolol to 100 mg twice daily, add losartan 25 mg daily Continue to monitor blood pressure Status post hip arthroplasty after closed head fracture. Maintained in physical therapy Diabetes mellitus, managed by primary care physician Generalized weakness. BRANDEE PAYNE MD Dec 10, 2022 11:44
--- NOTE | 2022-12-10 11:53 | Physical Therapy Daily Note ---
PT Daily Note-Current Subjective Pt. agrees to Rx, at rest pt. has no c/o pain but with Rx pt. c/o pain in right knee/thigh at 8/10. Pt states this subsides to a degree with rest. Pt hesitant to sit up in recliner after Rx for lunch bc the chair seat is so hard, ( air cushion applied to alleviate this) no c/o dizziness or SOB Pain Numeric Pain Scale: 8 Location: Right Location Body Site: Thigh Pain Description: Ache Section J - Health Conditions 1. Rarely or not at all 2. Occasionally 3. Frequently 4. Almost constantly 8. Unable to answer Pain Effect on Sleep: 1 Pain Interference with Therapy: 3 Pain Interference w/Day-to-Day: 2 Mental Status Patient Orientation: Normal For Age Attachments: Other-See Comments (telemetry) Transfers SCALE: Activities may be completed with or without assistive devices. 3-Jefuuwhjna-viidvmd completes the activity by him/herself with no assistance from a helper. 5-Set-up or Clean-up Assistance-helper sets up or cleans up; patient completes activity. [place] assists only prior to or following the activity. 4-Supervision or Touching Assistance-helper provides verbal cues and/or touching/steadying and/or contact guard assistance as patient completes activity. Assistance may be provided throughout the activity or intermittently. 3-Partial/Moderate Assistance-helper does LESS THAN HALF the effort. [place] lifts, holds or supports trunk or limbs, but provides less than half the effort. 2-Substantial/Maximal Assistance-helper does MORE THAN HALF the effort. [place] lifts or holds trunk or limbs and provides more than half the effort. 3-Djcopnjfj-kbzcub does ALL the effort. Patient does none of the effort to complete the activity. Or, the assistance of 2 or more helpers is required for the patient to complete the activity. If activity was not attempted, code reason: 7-Patient Refused. 9-Not Applicable-not attempted and the patient did not perform the activity before the current illness, exacerbation or injury. 10-Not Attempted due to Environmental Limitations-(lack of equipment, weather restraints, etc.). 88-Not Attempted due to Medical Conditions or Safety Concerns. Roll Left & Right (QC): 6 Lying to Sitting/Side of Bed(Q: 4 Sit to Stand (QC): 4 Chair/Zfd-vh-Bplaa Xfer(QC): 4 Toilet Transfer (QC): 4 Gait Training Does the Patient Walk?: Yes Walk 10 feet (QC): 4 Walk 50 ft with 2 Turns(QC): 4 Walk 150 ft (QC): 4 Gait Persons Needed: 1 Gait Assistive Device: FWW slow, no LOB, reviewed sequence Exercises Supine Ex: Ankle pumps, Quad Set, Glut sets, Heel Slides, Short Arc Quads, Scooting, Straight leg raise, Hip abd/add Supine Reps: 12 (assisted right) Seated Therapy Exercises: Ankle pumps, Sit to stand, Long arc quads, Hip abd/add Seated Reps: 15 Treatments sup and sit LE ex, TRFs, gait , toileting Assessment Current Status: Good Progress PT Publication Designer Goals Publication Designer Goals PT [facility] Goals Time Frame: Dec 21, 2022 Roll Left & Right (QC): 6 Sit to Lying (QC): 6 Lying-Sitting on Side/Bed(QC): 6 Sit to Stand (QC): 6 Chair/Mex-ms-Iscxc Xfer(QC): 6 Toilet Transfer (QC): 6 Car Transfer (QC): 6 Does the Patient Walk: Yes Walk 10 feet (QC): 6 Walk 50ft with 2 Turns (QC): 6 Walk 150 ft (QC): 6 Walking 10ft on Uneven Surface: 6 1 Step (curb) (QC): 4 4 Steps (QC): 4 12 Steps (QC): 88 Picking up an Object (QC): 6 Wheel 50 feet with 2 turns (QC: 9 Wheel 150 feet: 9 PT Plan Treatment/Plan Treatment Plan: Continue Plan of Care Treatment Plan: Bed Mobility, Education, Functional Activity Bladimir, Functional Strength, Group Therapy, Gait, Safety, Therapeutic Exercise, Transfers Treatment Duration: Dec 21, 2022 Frequency: At least 5 of 7 days/Wk (IRF) Estimated Hrs Per Day: 1.5 hours per day Patient and/or Family Agrees t: Yes Safety Risks/Education Patient Education: Gait Training, Transfer Techniques, Correct Positioning, Disease Process, Safety Issues Teaching Recipient: Patient Teaching Methods: Demonstration, Discussion Response to Teaching: Verbalize Understanding, Return Demonstration, Reinforcement Needed Time Time In: 1100 Time Out: 1200 DATE: Dec 10, 2022 Total Billed Treatment Time: 60 Total Billed Treatment 1,GT25,FA15,EX20m JAVY FONTENOT PTA Dec 10, 2022 11:53
[2022-12-10 12:37] VITALS: BP 142/65
[2022-12-10] MEDS: LOSARTAN 25 MG (COZAAR) TAB PO SCH (12:39)
--- NOTE | 2022-12-10 12:56 | Occupational Ther Daily Note ---
OT Current Status-Daily Note Subjective Pt seen in room, u p in bed, agreeable to OT. No pain reported. Appearance Alert, cooperative, able to advocate for herself Mental Status/Objective Patient Orientation: Person, Place, Time, Situation Attachments: Central Line, Telemetry ADL-Treatment Pt and RN in room reviewed issues with BP yesterday morning. Nursing took pressures this morning and were not low. Pt also reported not feeling dizzy or light headed. Agreeable to sponge bath while seated at EOB for safety. Reviewed hip precautions and rationale for them. Also reviewed adapted equipment - pt is familiar with most of it due to use because of R knee problems. Provided BSC over toilet to make it higher and have arms for transfers, for safety. Pt needed assistance moving R leg off and on bed, with cues re: hip precautions. Washed upped and lower body seated at EOB, requiring long handled sponge to reach below knees. SBA to stand at FWW to wash dolores area. Able to doff/don L sock but assist needed with R. Donned shirt with setup, slacks with min assist and use of system development engineer to avoid reaching below knees. Pt declined toileting need. Pt returned to supine, with help with R leg. Pt left in bed, 4 rails up, all needs met. Nursing notified to turn bed alarm on. Therapy Code Descriptions/Definitions Functional [place] Measure: 0=Not Assessed/NA 4=Minimal Assistance 1=Total Assistance 5=Supervision or Setup 2=Maximal Assistance 6=Modified [place] 3=Moderate Assistance 7=Complete IndependenceSCALE: Activities may be completed with or without assistive devices. 9-Vvbjfkysve-xnnjmpz completes the activity by him/herself with no assistance from a helper. 5-Set-up or Clean-up Assistance-helper sets up or cleans up; patient completes activity. [place] assists only prior to or following the activity. 4-Supervision or Touching Assistance-helper provides verbal cues and/or touching/steadying and/or contact guard assistance as patient completes activity. Assistance may be provided throughout the activity or intermittently. 3-Partial/Moderate Assistance-helper does LESS THAN HALF the effort. [place] lifts, holds or supports trunk or limbs, but provides less than half the effort. 2-Substantial/Maximal Assistance-helper does MORE THAN HALF the effort. [place] lifts or holds trunk or limbs and provides more than half the effort. 4-Yxydcunnv-gvfcyb does ALL the effort. Patient does none of the effort to complete the activity. Or, the assistance of 2 or more helpers is required for the patient to complete the activity. If activity was not attempted, code reason: 7-Patient Refused. 9-Not Applicable-not attempted and the patient did not perform the activity before the current illness, exacerbation or injury. 10-Not Attempted due to Environmental Limitations-(lack of equipment, weather restraints, etc.). 88-Not Attempted due to Medical Conditions or Safety Concerns. Shower/Bathe Self (QC): 3 Upper Body Dressing (QC): 5 Lower Body Dressing (QC): 4 On/Off Footwear: 3 Education OT Patient Education: Progress toward Goal/Update tx plan, Purpose of tx/func tional activities, Reviewed precautions, Safety issues, Use of adapted equipment Teaching Recipient: Patient Teaching Methods: Demonstration, Discussion Response to Teaching: Verbalize Understanding, Return Demonstration OT Short Term Goals Short Term Goals Time Frame: Dec 15, 2022 Shower/bathe self: 3 Lower body dressin Putting on/taking off footwear: 3 OT Posting Machine Operator Goals [facility] Goals Time Frame: Dec 31, 2022 Acute change in mental status: 1 Inattention: 0 Disorganized thinkin Altered level of consciousness: 0 Eating (QC): 6 Oral Hygiene (QC): 6 Toileting Hygiene (QC): 6 Shower/Bathe Self (QC): 6 Upper Body Dressing (QC): 6 Lower Body Dressing (QC): 6 On/Off Footwear (QC): 6 Additional Goals: 1-Demonstrate ADL Tasks, 2-Verbalize Understanding, 3- ImproveStrength/Bladimir 1=Demonstrate adherence to instructed precautions during ADL tasks. 2=Patient will verbalize/demonstrate understanding of assistive devices/modifications for ADL. 3=Patient will improve strength/tolerance for activity to enable patient to perform ADL's. OT Education/Plan Discharge Recommendations Plan/Recommendations: Continue POC Treatment Plan/Plan of Care Patient would benefit from OT for education, treatment and training to promote independence in ADL's, mobility, safety and/or upper extremity function for ADL's. Plan of Care: ADL Retraining, Functional Mobility, Group Exercise/Act as Ind, UE Funct Exercise/Act Treatment Duration: Dec 31, 2022 Frequency: At least 5 of 7 days/Wk (IRF) Estimated Hrs Per Day: 1.5 hours per day Agreement: Yes Rehab Potential: Good Time Start Time: 08:30 Stop Time: 09:30 DATE: Dec 10, 2022 Total Time Billed (hr/min): 60 Billed Treatment Time visit, ADL 60 minutes GALA REILLY OT Dec 10, 2022 12:56
--- NOTE | 2022-12-10 13:35 | Occupational Ther Daily Note ---
OT Current Status-Daily Note Subjective Pt alert, sitting in recliner. Pt agrees to therapy. No c/o pain. Mental Status/Objective Patient Orientation: Person, Place, Time, Situation Attachments: IV, Telemetry ADL-Treatment Therapy Code Descriptions/Definitions Functional [place] Measure: 0=Not Assessed/NA 4=Minimal Assistance 1=Total Assistance 5=Supervision or Setup 2=Maximal Assistance 6=Modified [place] 3=Moderate Assistance 7=Complete IndependenceSCALE: Activities may be completed with or without assistive devices. 8-Hxjemqxngq-ttytlcn completes the activity by him/herself with no assistance from a helper. 5-Set-up or Clean-up Assistance-helper sets up or cleans up; patient completes activity. [place] assists only prior to or following the activity. 4-Supervision or Touching Assistance-helper provides verbal cues and/or touching/steadying and/or contact guard assistance as patient completes activity. Assistance may be provided throughout the activity or intermittently. 3-Partial/Moderate Assistance-helper does LESS THAN HALF the effort. [place]jay lifts, holds or supports trunk or limbs, but provides less than half the effort. 2-Substantial/Maximal Assistance-helper does MORE THAN HALF the effort. [place] lifts or holds trunk or limbs and provides more than half the effort. 7-Icsnvbwla-gfktuj does ALL the effort. Patient does none of the effort to complete the activity. Or, the assistance of 2 or more helpers is required for the patient to complete the activity. If activity was not attempted, code reason: 7-Patient Refused. 9-Not Applicable-not attempted and the patient did not perform the activity before the current illness, exacerbation or injury. 10-Not Attempted due to Environmental Limitations-(lack of equipment, weather restraints, etc.). 88-Not Attempted due to Medical Conditions or Safety Concerns. On/Off Footwear: 5 Other Treatment Pt educated on AE for donning/doffing footwear. Pt utilized amusement equipment operator and dressing stick to doff socks by self after education. Education on sock aide. Pt able to place sock then use sock aide to don socks independently. HEIDI hose placed on sock aide and pt able to don HEIDI hose by self. Pt donned/doffed shoes by self after shoes given to pt After session, pt sitting in recliner with call light/phone in reach. All needs met in room. OT Short Term Goals Short Term Goals Time Frame: Dec 15, 2022 Shower/bathe self: 3 Lower body dressin Putting on/taking off footwear: 3 OT Digital Artist Goals [facility] Goals Time Frame: Dec 31, 2022 Acute change in mental status: 1 Inattention: 0 Disorganized thinkin Altered level of consciousness: 0 Eating (QC): 6 Oral Hygiene (QC): 6 Toileting Hygiene (QC): 6 Shower/Bathe Self (QC): 6 Upper Body Dressing (QC): 6 Lower Body Dressing (QC): 6 On/Off Footwear (QC): 6 Additional Goals: 1-Demonstrate ADL Tasks, 2-Verbalize Understanding, 3- ImproveStrength/Bladimir 1=Demonstrate adherence to instructed precautions during ADL tasks. 2=Patient will verbalize/demonstrate understanding of assistive dev ices/modifications for ADL. 3=Patient will improve strength/tolerance for activity to enable patient to perform ADL's. OT Education/Plan Problem List/Assessment Assessment: Decreased Activ Tolerance, Impaired Self-Care Skills Discharge Recommendations Plan/Recommendations: Continue POC Treatment Plan/Plan of Care Patient would benefit from OT for education, treatment and training to promote independence in ADL's, mobility, safety and/or upper extremity function for ADL's. Plan of Care: ADL Retraining, Functional Mobility, Group Exercise/Act as Ind, UE Funct Exercise/Act Treatment Duration: Dec 31, 2022 Frequency: At least 5 of 7 days/Wk (IRF) Estimated Hrs Per Day: 1.5 hours per day Agreement: Yes Rehab Potential: Good Time Start Time: 13:05 Stop Time: 13:35 DATE: Dec 10, 2022 Total Time Billed (hr/min): 30 Billed Treatment Time 1 visit-ADL 2 (30 min) SHARMAINE MUNOZ Dec 10, 2022 13:35
--- NOTE | 2022-12-10 14:26 | Physical Therapy Daily Note ---
PT Daily Note-Current Subjective Pt. agrees to Rx, would like to walk and then get in bed for a nap. Pain Numeric Pain Scale: 4 Location: Right Location Body Site: Knee Pain Description: Ache Section J - Health Conditions 1. Rarely or not at all 2. Occasionally 3. Frequently 4. Almost constantly 8. Unable to answer Pain Effect on Sleep: 1 Pain Interference with Therapy: 3 Pain Interference w/Day-to-Day: 2 Mental Status Patient Orientation: Normal For Age Transfers SCALE: Activities may be completed with or without assistive devices. 1-Mkcurjnbdo-pmphgxf completes the activity by him/herself with no assistance from a helper. 5-Set-up or Clean-up Assistance-helper sets up or cleans up; patient completes activity. [place] assists only prior to or following the activity. 4-Supervision or Touching Assistance-helper provides verbal cues and/or touchin g/steadying and/or contact guard assistance as patient completes activity. Assistance may be provided throughout the activity or intermittently. 3-Partial/Moderate Assistance-helper does LESS THAN HALF the effort. [place] lifts, holds or supports trunk or limbs, but provides less than half the effort. 2-Substantial/Maximal Assistance-helper does MORE THAN HALF the effort. [place] lifts or holds trunk or limbs and provides more than half the effort. 2-Spqglntso-kybhol does ALL the effort. Patient does none of the effort to complete the activity. Or, the assistance of 2 or more helpers is required for the patient to complete the activity. If activity was not attempted, code reason: 7-Patient Refused. 9-Not Applicable-not attempted and the patient did not perform the activity before the current illness, exacerbation or injury. 10-Not Attempted due to Environmental Limitations-(lack of equipment, weather restraints, etc.). 88-Not Attempted due to Medical Conditions or Safety Concerns. sit to stand indep to CGA, sit to sup min asst RLE Gait Training Does the Patient Walk?: Yes Gait Assistive Device: FWW 50 ft , 25 ft CGA to SBA ,no LOB Exercises Supine Ex: Ankle pumps, Quad Set, Glut sets Supine Reps: 15 Treatments TRFs, gait, positioning and review of precautions Assessment Current Status: Good Progress no c/o dizzy, progressing well PT Mcfp Goals Gas Turbine Powerplant Mechanic Goals PT Gas Turbine Powerplant Mechanic Goals Time Frame: Dec 21, 2022 Roll Left & Right (QC): 6 Sit to Lying (QC): 6 Lying-Sitting on Side/Bed(QC): 6 Sit to Stand (QC): 6 Chair/Sie-vy-Vwshm Xfer(QC): 6 Toilet Transfer (QC): 6 Car Transfer (QC): 6 Does the Patient Walk: Yes Walk 10 feet (QC): 6 Walk 50ft with 2 Turns (QC): 6 Walk 150 ft (QC): 6 Walking 10ft on Uneven Surface: 6 1 Step (curb) (QC): 4 4 Steps (QC): 4 12 Steps (QC): 88 Picking up an Object (QC): 6 Wheel 50 feet with 2 turns (QC: 9 Wheel 150 feet: 9 PT Plan Treatment/Plan Treatment Plan: Continue Plan of Care Treatment Plan: Bed Mobility, Education, Functional Activity Bladimir, Functional Strength, Group Therapy, Gait, Safety, Therapeutic Exercise, Transfers Treatment Duration: Dec 21, 2022 Frequency: At least 5 of 7 days/Wk (IRF) Estimated Hrs Per Day: 1.5 hours per day Patient and/or Family Agrees t: Yes Safety Risks/Education Patient Education: Gait Training, Transfer Techniques Response to Teaching: Reinforcement Needed Time Time In: 1400 Time Out: 1430 DATE: Dec 10, 2022 Total Billed Treatment Time: 30 Total Billed Treatment 1,GT15m,FAJackm JAVY FONTENOT PTA Dec 10, 2022 14:26
[2022-12-10 19:33] VITALS: BP 152/67
[2022-12-10] MEDS: TRIAMCINOLONE 0.1% CR (KENALOG) 15 GM TUBE TOP SCH (21:21)
[2022-12-10] MEDS: eZETimibe 10 MG (ZETIA) TABLET PO SCH (21:21)
[2022-12-10] MEDS: guaiFENesin/CODEINE (ROBITUSSIN AC) 10ML UDC PO PRN (21:22)
[2022-12-11] MEDS: VENlafaxine XR 75 MG (EFFEXOR XR) CAP PO SCH (06:38)
[2022-12-11] MEDS: KCL 10 MEQ TAB (MICRO K) PO SCH (06:38)
[2022-12-11] MEDS: LEVOTHYROXINE 75 MCG (LEVOTHROID) TABLET PO SCH (06:38)
[2022-12-11] MEDS: CYANOCOBALAMIN 1,000 MCG (VITAMIN B-12) TABLET PO SCH (06:38)
[2022-12-11] MEDS: CATHETER FLUSH 10 ML SYR IVP SCH ×3 (06:40→20:12)
[2022-12-11] MEDS: LOPERAMIDE 2 MG (IMODIUM) TABLET PO PRN (06:46)
--- NOTE | 2022-12-11 07:40 | PM&R Progress Note ---
Subjective HPI/CC On Admission Date Seen by Provider: Dec 11, 2022 Time Seen by Provider: 12:00 Subjective/Events-last exam 12/11/2022: No major issues Checking UA since she reported increased odor Slow recovery but walking now 12/10/2022: BP varies Pain controlled Slow recovery No nausea 12/09/2022: Had episode of HTN and tachycardia so EKG obtained and Telemetry started Dr Mccarty consulted DC catheter then had retention No falls 12/08/2022: Improved status Pain controlled Lung mass is known and managed in [place] but it appears it is a benign granu paty? No falls Improved status Subtle cognition deficit noted since she could not name her doctor who managed the lung nodule Review of Systems General: Fatigue, Malaise Objective Exam Vital Signs Vital Signs Date Time Temp Pulse Resp B/P (MAP) Pulse Ox O2 Delivery O2 Flow Rate FiO2 12/12/22 01:24 69 12/11/22 20:45 94 Room Air 12/11/22 20:03 36.2 18 144/65 (91) 12/11/22 09:00 2.00 Capillary Refill : General Appearance: No Apparent Distress, WD/WN, Chronically ill, Obese HEENT: PERRL/EOMI, Normal ENT Inspection, Pharynx Normal Neck: Full Range of Motion, Normal Inspection, Non Tender, Supple, Carotid Bruit Respiratory: Chest Non Tender, Lungs Clear, No Accessory Muscle Use, No Respiratory Distress, Decreased Breath Sounds Cardiovascular: Regular Rate, Rhythm, No Edema, No Gallop, No JVD, No Murmur, Normal Peripheral Pulses Gastrointestinal: Normal Bowel Sounds, No Organomegaly, No Pulsatile Mass, Non Tender, Soft Back: Normal Inspection, No CVA Tenderness, No Vertebral Tenderness Extremity: Normal Capillary Refill, Normal Inspection, Normal Range of Motion (except right leg), Non Tender, No Calf Tenderness, No Pedal Edema Neurologic/Psychiatric: Alert, Oriented x3, No Motor/Sensory Deficits, Normal Mood/Affect Skin: Normal Color, Warm/Dry Lymphatic: No Adenopathy Results/Procedures Lab Patient resulted labs reviewed. FIM Transfers Therapy Code Descriptions/Definitions Functional [place] Measure: 0=Not Assessed/NA 4=Minimal Assistance 1=Total Assistance 5=Supervision or Setup 2=Maximal Assistance 6=Modified [place] 3=Moderate Assistance 7=Complete IndependenceSCALE: Activities may be completed with or without assistive devices. 5-Hrwwnirdqs-euukivf completes the activity by him/herself with no assistance from a helper. 5-Set-up or Clean-up Assistance-helper sets up or cleans up; patient completes activity. [place] assists only prior to or following the activity. 4-Supervision or Touching Assistance-helper provides verbal cues and/or touching/steadying and/or contact guard assistance as patient completes activity. Assistance may be provided throughout the activity or intermittently. 3-Partial/Moderate Assistance-helper does LESS THAN HALF the effort. [place] lifts, holds or supports trunk or limbs, but provides less than half the effort. 2-Substantial/Maximal Assistance-helper does MORE THAN HALF the effort. [place] lifts or holds trunk or limbs and provides more than half the effort. 2-Ucudidyly-gelsbq does ALL the effort. Patient does none of the effort to complete the activity. Or, the assistance of 2 or more helpers is required for the patient to complete the activity. If activity was not attempted, code reason: 7-Patient Refused. 9-Not Applicable-not attempted and the patient did not perform the activity before the current illness, exacerbation or injury. 10-Not Attempted due to Environmental Limitations-(lack of equipment, weather restraints, etc.). 88-Not Attempted due to Medical Conditions or Safety Concerns. Roll Left to Right (QC): 6 Sit to Lying (QC): 6 Sit to Stand (QC): 4 Chair/Eox-ij-Rfgxa Xfer(QC): 4 Car Transfer (QC): 3 Gait Training Does the Patient Walk?: Yes Distance: 50' Walk 10 feet (QC): 4 Walk 50 ft with 2 Turns(QC): 4 Walk 150 ft (QC): 4 Walking 10ft/uneven surface-QC: 88 Gait Persons Needed: 1 Gait Assistive Device: FWW Wheelchair Training Wheel 50 ft with 2 turns (QC): 9 Wheel 150 ft (QC): 9 Stair Training 1 Step (curb) (QC): 88 4 Steps (QC): 88 12 Steps (QC): 88 Balance Picking up an Object (QC): 4 (CGA using a invoice clerk) ADL-Treatment Eating (QC): 6 Oral Hygiene (QC): 6 Bathing Location: L Arm, R Arm, L Upper Leg, R Upper Leg, Chest, Abdomen, Buttocks, Perineal Area Shower/Bathe Self (QC): 3 Upper Body Dressing (QC): 5 Lower Body Dressing (QC): 4 On/Off Footwear (QC): 3 Toileting Hygiene (QC): 2 Assessment/Plan Assessment and Plan Assess & Plan/Chief Complaint Assessment: Right hip fracture Post op delirium Post op anemia from acute blood loss ARLETTE on CPAP Breast cancer with lung nodule on imaging but this is a known nodule per patient and she sees specialist in [place] for that but patient did not remember the name of the doctor HTN HLP Hypothyroidism DM Urinary retention after DC catheter Plan: PT OT Pain control Monitor labs 12/08/2022: Pain control Monitor closely 12/09/2022: Monitor closely In/out caths prn 12/10/2022: Monitor closely Urinary retention management 12/11/2022: Check UA (1) Closed right hip fracture Status: Acute (2) Postoperative delirium Status: Acute (3) T2DM (type 2 diabetes mellitus) Status: Chronic (4) Lung nodule Status: Acute (5) HTN (hypertension) Status: Chronic (6) Non-insulin dependent type 2 diabetes mellitus (7) Essential (primary) hypertension (8) Hypothyroidism (9) Hyperlipidemia (10) Hypokalemia SHA GEORGE DO Dec 11, 2022 07:40
[2022-12-11 07:43] VITALS: BP 137/69
[2022-12-11] MEDS: LOSARTAN 25 MG (COZAAR) TAB PO SCH (08:48)
[2022-12-11] MEDS: PANTOPRAZOLE 40 MG (PROTONIX) TAB PO SCH (08:51)
[2022-12-11] MEDS: amLODIPine 10 MG (NORVASC) TAB PO SCH (08:51)
[2022-12-11] MEDS: DOCUSATE SODIUM 100 MG (COLACE) CAP PO SCH ×2 (08:52→21:30)
[2022-12-11] MEDS: IRON SUCROSE 200 MG/10 ML (VENOFER) VIAL IV SCH (08:52)
[2022-12-11] MEDS: meTOprolol TARTRATE 50 MG (LOPRESSOR) TAB PO SCH ×2 (08:52→20:11)
[2022-12-11] MEDS: polyethylene glycoL POWDER 17 GM (MIRALAX) PACK PO SCH ×2 (08:52→21:30)
[2022-12-11] MEDS: SENNA W/DOCUSATE (SENOKOT S) TABLET PO SCH ×2 (08:52→21:30)
[2022-12-11] MEDS: TRIAMCINOLONE 0.1% CR (KENALOG) 15 GM TUBE TOP SCH ×2 (08:53→20:11)
[2022-12-11] MEDS: ENOXAPARIN 40 MG/0.4 ML (LOVENOX) SYR SQ SCH (08:53)
[2022-12-11] MEDS: DICLOFENAC 1% GEL 100 GM (VOLTAREN) TUBE TOP SCH ×4 (08:53→20:11)
[2022-12-11] MEDS: HYDROcodone/APAP 5 MG/325 MG (LORTAB) TAB PO PRN ×2 (12:17→18:45)
[2022-12-11] MEDS ORDERED: FUROSEMIDE 40 MG/4 ML INJ (LASIX) IVP ONE (12:45)
[2022-12-11] MEDS ORDERED: FUROSEMIDE 20 MG (LASIX) TAB PO PRN (12:45)
[2022-12-11] MEDS ORDERED: PHENAZOPYRIDINE 100 MG (PYRIDIUM) TABLET PO PRN (12:45)
--- NOTE | 2022-12-11 13:12 | Physical Therapy Daily Note ---
PT Daily Note-Current Subjective Pt in bed upon arrival and agrees to PT. Says she's not feeling very well today. Pain Section J - Health Conditions 1. Rarely or not at all 2. Occasionally 3. Frequently 4. Almost constantly 8. Unable to answer Pain Effect on Sleep: 1 Pain Interference with Therapy: 3 Pain Interference w/Day-to-Day: 2 Mental Status Patient Orientation: Person, Place, Time, Situation Transfers SCALE: Activities may be completed with or without assistive devices. 6-Bazwykvkir-rxpfsqm completes the activity by him/herself with no assistance from a helper. 5-Set-up or Clean-up Assistance-helper sets up or cleans up; patient completes activity. [place] assists only prior to or following the activity. 4-Supervision or Touching Assistance-helper provides verbal cues and/or touching/steadying and/or contact guard assistance as patient completes activity. Assistance may be provided throughout the activity or intermittently. 3-Partial/Moderate Assistance-helper does LESS THAN HALF the effort. [place] lifts, holds or supports trunk or limbs, but provides less than half the effort. 2-Substantial/Maximal Assistance-helper does MORE THAN HALF the effort. [place] lifts or holds trunk or limbs and provides more than half the effort. 1-Urlddjvlu-upfgri does ALL the effort. Patient does none of the effort to complete the activity. Or, the assistance of 2 or more helpers is required for the patient to complete the activity. If activity was not attempted, code reason: 7-Patient Refused. 9-Not Applicable-not attempted and the patient did not perform the activity bef ore the current illness, exacerbation or injury. 10-Not Attempted due to Environmental Limitations-(lack of equipment, weather r estraints, etc.). 88-Not Attempted due to Medical Conditions or Safety Concerns. Sit to Stand (QC): 4 Gait Training Does the Patient Walk?: Yes Distance: 150' Walk 10 feet (QC): 4 Walk 50 ft with 2 Turns(QC): 4 Walk 150 ft (QC): 4 Gait Persons Needed: 1 Gait Assistive Device: FWW Exercises Seated Therapy Exercises: Ankle pumps, Long arc quads, Hip abd/add Seated Reps: 20 Standing: Sit to Stand Standing Reps: 5 Treatments Pt amb out into [facility] to therapy gym. TFs to chair and performs seated exs. Pt then amb back to room and TFs back to bed. All needs met and call light nearby as PT departs. Assessment Current Status: Good Progress Pt required verbal and tactile cues in order to perform TRFs and exs correctly. Pt fatigued post treatment. PT Electrical Continuity Inspector Goals Mcc Goals PT Mcc Goals Time Frame: Dec 21, 2022 Roll Left & Right (QC): 6 Sit to Lying (QC): 6 Lying-Sitting on Side/Bed(QC): 6 Sit to Stand (QC): 6 Chair/Lkj-pa-Sumqv Xfer(QC): 6 Toilet Transfer (QC): 6 Car Transfer (QC): 6 Does the Patient Walk: Yes Walk 10 feet (QC): 6 Walk 50ft with 2 Turns (QC): 6 Walk 150 ft (QC): 6 Walking 10ft on Uneven Surface: 6 1 Step (curb) (QC): 4 4 Steps (QC): 4 12 Steps (QC): 88 Picking up an Object (QC): 6 Wheel 50 feet with 2 turns (QC: 9 Wheel 150 feet: 9 PT Plan Problem List Problem List: Activity Tolerance, Functional Strength Treatment/Plan Treatment Plan: Continue Plan of Care Treatment Plan: Bed Mobility, Education, Functional Activity Bl[place], Functional Strength, Group Therapy, Gait, Safety, Therapeutic Exercise, Transfers Treatment Duration: Dec 21, 2022 Frequency: At least 5 of 7 days/Wk (IRF) Estimated Hrs Per Day: 1.5 hours per day Patient and/or Family Agrees t: Yes Safety Risks/Education Patient Education: Gait Training, Transfer Techniques, Correct Positioning Teaching Recipient: Patient Teaching Methods: Discussion Response to Teaching: Return Demonstration Time Time In: 1140 Time Out: 1200 DATE: Dec 11, 2022 Total Billed Treatment Time: 20 Total Billed Treatment 1, Ex 20' ALBA FELDER GRAIN UNLOADER MACHINE Dec 11, 2022 13:12
[2022-12-11] MEDS: diphenhydrAMINE 25 MG TAB (BENADRYL) PO PRN (13:30)
[2022-12-11 15:26] LABS: BILIRUBIN,URINE NEGATIVE (NEGATIVE); CLARITY,URINE CLEAR; COLOR,URINE YELLOW; GLUCOSE, URINE (UA) NEGATIVE (NEGATIVE); KETONES,URINE NEGATIVE (NEGATIVE); LEUKOCYTE ESTERASE ,URINE NEGATIVE (NEGATIVE); NITRITE,URINE NEGATIVE (NEGATIVE); PROTEIN,URINE NEGATIVE (NEGATIVE)
[2022-12-11 15:35] LABS: BACTERIA,URINE TRACE /HPF; SQUAMOUS EPITHELIAL CELL,UR RARE /HPF; YEAST,URINE FEW /HPF
[2022-12-11 20:03] VITALS: BP 144/65
[2022-12-11] MEDS: eZETimibe 10 MG (ZETIA) TABLET PO SCH (20:11)
[2022-12-12] MEDS: HYDROcodone/APAP 5 MG/325 MG (LORTAB) TAB PO PRN ×3 (00:23→20:05)
[2022-12-12] MEDS: KCL 10 MEQ TAB (MICRO K) PO SCH (05:53)
[2022-12-12] MEDS: VENlafaxine XR 75 MG (EFFEXOR XR) CAP PO SCH (05:53)
[2022-12-12] MEDS: CYANOCOBALAMIN 1,000 MCG (VITAMIN B-12) TABLET PO SCH (05:53)
[2022-12-12] MEDS: CATHETER FLUSH 10 ML SYR IVP SCH ×3 (05:53→20:06)
[2022-12-12] MEDS: LEVOTHYROXINE 75 MCG (LEVOTHROID) TABLET PO SCH (05:53)
--- NOTE | 2022-12-12 07:18 | PM&R Progress Note ---
Subjective HPI/CC On Admission Date Seen by Provider: Dec 12, 2022 Time Seen by Provider: 12:30 Subjective/Events-last exam 12/12/2022: No major issues Pain controlled Walking pretty well Checked meds 12/11/2022: No major issues Checking UA since she reported increased odor Slow recovery but walking now 12/10/2022: BP varies Pain controlled Slow recovery No nausea 12/09/2022: Had episode of HTN and tachycardia so EKG obtained and Telemetry started Dr Mccarty consulted DC catheter then had retention No falls 12/08/2022: Improved status Pain controlled Lung mass is known and managed in [place] but it appears it is a benign granuloma? No falls Improved status Subtle cognition deficit noted since she could not name her doctor who managed the lung nodule Review of Systems General: Fatigue, Malaise Objective Exam Vital Signs Vital Signs Date Time Temp Pulse Resp B/P (MAP) Pulse Ox O2 Delivery O2 Flow Rate FiO2 12/12/22 12:31 76 12/12/22 09:45 Room Air 12/12/22 07:27 37.0 18 159/77 (104) 97 12/11/22 09:00 2.00 Capillary Refill : General Appearance: No Apparent Distress, WD/WN, Chronically ill, Obese HEENT: PERRL/EOMI, Normal ENT Inspection, Pharynx Normal Neck: Full Range of Motion, Normal Inspection, Non Tender, Supple, Carotid Bruit Respiratory: Chest Non Tender, Lungs Clear, No Accessory Muscle Use, No Respiratory Distress, Decreased Breath Sounds Cardiovascular: Regular Rate, Rhythm, No Edema, No Gallop, No JVD, No Murmur, Normal Peripheral Pulses Gastrointestinal: Normal Bowel Sounds, No Organomegaly, No Pulsatile Mass, Non Tender, Soft Back: Normal Inspection, No CVA Tenderness, No Vertebral Tenderness Extremity: Normal Capillary Refill, Normal Inspection, Normal Range of Motion (except right leg), Non Tender, No Calf Tenderness, No Pedal Edema Neurologic/Psychiatric: Alert, Oriented x3, No Motor/Sensory Deficits, Normal Mood/Affect Skin: Normal Color, Warm/Dry Lymphatic: No Adenopathy Results/Procedures Lab Patient resulted labs reviewed. FIM Transfers Therapy Code Descriptions/Definitions Functional [place] Measure: 0=Not Assessed/NA 4=Minimal Assistance 1=Total Assistance 5=Supervision or Setup 2=Maximal Assistance 6=Modified [place] 3=Moderate Assistance 7=Complete IndependenceSCALE: Activities may be completed with or without assistive devices. 8-Qvxppvshcr-gugvxei completes the activity by him/herself with no assistance from a helper. 5-Set-up or Clean-up Assistance-helper sets up or cleans up; patient completes activity. [place] assists only prior to or following the activity. 4-Supervision or Touching Assistance-helper provides verbal cues and/or touching/steadying and/or contact guard assistance as patient completes activity. Assistance may be provided throughout the activity or intermittently. 3-Partial/Moderate Assistance-helper does LESS THAN HALF the effort. [place] lifts, holds or supports trunk or limbs, but provides less than half the effort. 2-Substantial/Maximal Assistance-helper does MORE THAN HALF the effort. [place] lifts or holds trunk or limbs and provides more than half the effort. 7-Pqnpvdkfl-gyjrhr does ALL the effort. Patient does none of the effort to complete the activity. Or, the assistance of 2 or more helpers is required for the patient to complete the activity. If activity was not attempted, code reason: 7-Patient Refused. 9-Not Applicable-not attempted and the patient did not perform the activity before the current illness, exacerbation or injury. 10-Not Attempted due to Environmental Limitations-(lack of equipment, weather restraints, etc.). 88-Not Attempted due to Medical Conditions or Safety Concerns. Roll Left to Right (QC): 6 Sit to Lying (QC): 6 Sit to Stand (QC): 4 Chair/Lfw-nw-Ghsnw Xfer(QC): 4 Car Transfer (QC): 3 Gait Training Does the Patient Walk?: Yes Distance: 150' Walk 10 feet (QC): 4 Walk 50 ft with 2 Turns(QC): 4 Walk 150 ft (QC): 4 Walking 10ft/uneven surface-QC: 88 Gait Persons Needed: 1 Gait Assistive Device: FWW Wheelchair Training Wheel 50 ft with 2 turns (QC): 9 Wheel 150 ft (QC): 9 Stair Training 1 Step (curb) (QC): 88 4 Steps (QC): 88 12 Steps (QC): 88 Balance Picking up an Object (QC): 4 (CGA using a curtain cutter) ADL-Treatment Eating (QC): 6 Oral Hygiene (QC): 6 Bathing Location: L Arm, R Arm, L Upper Leg, R Upper Leg, Chest, Abdomen, Buttocks, Perineal Area Shower/Bathe Self (QC): 3 Upper Body Dressing (QC): 5 Lower Body Dressing (QC): 4 On/Off Footwear (QC): 3 Toileting Hygiene (QC): 2 Assessment/Plan Assessment and Plan Assess & Plan/Chief Complaint Assessment: Right hip fracture Post op delirium Post op anemia from acute blood loss ARLETTE on CPAP Breast cancer with lung nodule on imaging but this is a known nodule per patient and she sees specialist in [place] for that but patient did not remember the name of the doctor HTN HLP Hypothyroidism DM Urinary retention after DC catheter Plan: PT OT Pain control Monitor labs 12/08/2022: Pain control Monitor closely 12/09/2022: Monitor closely In/out caths prn 12/10/2022: Monitor closely Urinary retention management 12/11/2022: Check UA 12/12/2022: UA ok (1) Closed right hip fracture Status: Acute (2) Postoperative delirium Status: Acute (3) T2DM (type 2 diabetes mellitus) Status: Chronic (4) Lung nodule Status: Acute (5) HTN (hypertension) Status: Chronic (6) Non-insulin dependent type 2 diabetes mellitus (7) Essential (primary) hypertension (8) Hypothyroidism (9) Hyperlipidemia (10) Hypokalemia SHA GEORGE 5, 2023 07:18
[2022-12-12 07:27] VITALS: BP 159/77
[2022-12-12] MEDS: DOCUSATE SODIUM 100 MG (COLACE) CAP PO SCH ×2 (08:12→20:31)
[2022-12-12] MEDS: polyethylene glycoL POWDER 17 GM (MIRALAX) PACK PO SCH ×2 (08:13→20:31)
[2022-12-12] MEDS: SENNA W/DOCUSATE (SENOKOT S) TABLET PO SCH ×2 (08:13→20:31)
[2022-12-12] MEDS: amLODIPine 10 MG (NORVASC) TAB PO SCH (08:15)
[2022-12-12] MEDS: PANTOPRAZOLE 40 MG (PROTONIX) TAB PO SCH (08:15)
[2022-12-12] MEDS: meTOprolol TARTRATE 50 MG (LOPRESSOR) TAB PO SCH ×2 (08:15→20:05)
[2022-12-12] MEDS: LOSARTAN 25 MG (COZAAR) TAB PO SCH (08:15)
[2022-12-12] MEDS: LOPERAMIDE 2 MG (IMODIUM) TABLET PO PRN (08:15)
[2022-12-12] MEDS: ENOXAPARIN 40 MG/0.4 ML (LOVENOX) SYR SQ SCH (08:16)
[2022-12-12] MEDS: DICLOFENAC 1% GEL 100 GM (VOLTAREN) TUBE TOP SCH ×4 (09:36→20:39)
[2022-12-12] MEDS: TRIAMCINOLONE 0.1% CR (KENALOG) 15 GM TUBE TOP SCH ×2 (09:36→20:05)
[2022-12-12] MEDS ORDERED: LORATADINE (CLARITIN) 10 MG TAB PO ONE (11:15)
[2022-12-12 19:49] VITALS: BP 154/68
[2022-12-12] MEDS: eZETimibe 10 MG (ZETIA) TABLET PO SCH (20:05)
[2022-12-12] MEDS: guaiFENesin/CODEINE (ROBITUSSIN AC) 10ML UDC PO PRN (20:05)
--- NOTE | 2022-12-13 05:32 | PM&R Progress Note ---
Subjective HPI/CC On Admission Date Seen by Provider: Dec 13, 2022 Time Seen by Provider: 08:30 Subjective/Events-last exam 12/13/2022: No major issues Pain controlled No falls Checked meds and labs 12/12/2022: No major issues Pain controlled Walking pretty well Checked meds 12/11/2022: No major issues Checking UA since she reported increased odor Slow recovery but walking now 12/10/2022: BP varies Pain controlled Slow recovery No nausea 12/09/2022: Had episode of HTN and tachycardia so EKG obtained and Telemetry started Dr Mccarty consulted DC catheter then had retention No falls 12/08/2022: Improved status Pain controlled Lung mass is known and managed in [place] but it appears it is a benign granuloma? No falls Improved status Subtle cognition deficit noted since she could not name her doctor who managed the lung nodule Review of Systems General: Fatigue, Malaise Objective Exam Vital Signs Vital Signs Date Time Temp Pulse Resp B/P (MAP) Pulse Ox O2 Delivery O2 Flow Rate FiO2 12/14/22 01:00 83 12/13/22 21:08 Room Air 12/13/22 19:48 36.6 20 136/68 (90) 97 12/11/22 09:00 2.00 Capillary Refill : General Appearance: No Apparent Distress, WD/WN, Chronically ill, Obese HEENT: PERRL/EOMI, Normal ENT Inspection, Pharynx Normal Neck: Full Range of Motion, Normal Inspection, Non Tender, Supple, Carotid Bruit Respiratory: Chest Non Tender, Lungs Clear, No Accessory Muscle Use, No Respiratory Distress, Decreased Breath Sounds Cardiovascular: Regular Rate, Rhythm, No Edema, No Gallop, No JVD, No Murmur, Normal Peripheral Pulses Gastrointestinal: Normal Bowel Sounds, No Organomegaly, No Pulsatile Mass, Non Tender, Soft Back: Normal Inspection, No CVA Tenderness, No Vertebral Tenderness Extremity: Normal Capillary Refill, Normal Inspection, Normal Range of Motion (except right leg), Non Tender, No Calf Tenderness, No Pedal Edema Neurologic/Psychiatric: Alert, Oriented x3, No Motor/Sensory Deficits, Normal Mood/Affect Skin: Normal Color, Warm/Dry Lymphatic: No Adenopathy Results/Procedures Lab Laboratory Tests 12/13/22 05:43 Patient resulted labs reviewed. FIM Transfers Therapy Code Descriptions/Definitions Functional [place] Measure: 0=Not Assessed/NA 4=Minimal Assistance 1=Total Assistance 5=Supervision or Setup 2=Maximal Assistance 6=Modified [place] 3=Moderate Assistance 7=Complete IndependenceSCALE: Activities may be completed with or without assistive devices. 2-Nychdsixdn-ngveesn completes the activity by him/herself with no assistance from a helper. 5-Set-up or Clean-up Assistance-helper sets up or cleans up; patient completes activity. [place] assists only prior to or following the activity. 4-Supervision or Touching Assistance-helper provides verbal cues and/or touching/steadying and/or contact guard assistance as patient completes activity. Assistance may be provided throughout the activity or intermittently. 3-Partial/Moderate Assistance-helper does LESS THAN HALF the effort. [place] lifts, holds or supports trunk or limbs, but provides less than half the effort. 2-Substantial/Maximal Assistance-helper does MORE THAN HALF the effort. [place] lifts or holds trunk or limbs and provides more than half the effort. 7-Tlpmgfnyl-yyaogc does ALL the effort. Patient does none of the effort to complete the activity. Or, the assistance of 2 or more helpers is required for the patient to complete the activity. If activity was not attempted, code reason: 7-Patient Refused. 9-Not Applicable-not attempted and the patient did not perform the activity before the current illness, exacerbation or injury. 10-Not Attempted due to Environmental Limitations-(lack of equipment, weather restraints, etc.). 88-Not Attempted due to Medical Conditions or Safety Concerns. Roll Left to Right (QC): 6 Sit to Lying (QC): 6 Sit to Stand (QC): 4 Chair/Lpj-tk-Qxliq Xfer(QC): 4 Car Transfer (QC): 3 Gait Training Does the Patient Walk?: Yes Distance: 150' Walk 10 feet (QC): 4 Walk 50 ft with 2 Turns(QC): 4 Walk 150 ft (QC): 4 Walking 10ft/uneven surface-QC: 88 Gait Persons Needed: 1 Gait Assistive Device: FWW Wheelchair Training Wheel 50 ft with 2 turns (QC): 9 Wheel 150 ft (QC): 9 Stair Training 1 Step (curb) (QC): 88 4 Steps (QC): 88 12 Steps (QC): 88 Balance Picking up an Object (QC): 4 (CGA using a psychodramatist) ADL-Treatment Eating (QC): 6 Oral Hygiene (QC): 6 Bathing Location: L Arm, R Arm, L Upper Leg, R Upper Leg, Chest, Abdomen, Buttocks, Perineal Area Shower/Bathe Self (QC): 3 Upper Body Dressing (QC): 5 Lower Body Dressing (QC): 4 On/Off Footwear (QC): 3 Toileting Hygiene (QC): 2 Assessment/Plan Assessment and Plan Assess & Plan/Chief Complaint Assessment: Right hip fracture Post op delirium Post op anemia from acute blood loss ARLETTE on CPAP Breast cancer with lung nodule on imaging but this is a known nodule per patient and she sees specialist in [place] for that but patient did not remember the name of the doctor HTN HLP Hypothyroidism DM Urinary retention after DC catheter Plan: PT OT Pain control Monitor labs 12/08/2022: Pain control Monitor closely 12/09/2022: Monitor closely In/out caths prn 12/10/2022: Monitor closely Urinary retention management 12/11/2022: Check UA 12/12/2022: UA ok 12/13/2022: Monitor closely (1) Closed right hip fracture Status: Acute (2) Postoperative delirium Status: Acute (3) T2DM (type 2 diabetes mellitus) Status: Chronic (4) Lung nodule Status: Acute (5) HTN (hypertension) Status: Chronic (6) Non-insulin dependent type 2 diabetes mellitus (7) Essential (primary) hypertension (8) Hypothyroidism (9) Hyperlipidemia (10) Hypokalemia SHA GEORGE DO Dec 13, 2022 05:31
[2022-12-13 05:59] LABS: BASOPHILS % (AUTO) 0 % (0-10); EOSINOPHILS % (AUTO) 0 % (0-10); HEMATOCRIT 34 % (35-52); LYMPHOCYTES # (AUTO) 1.7 10^3/uL (1.0-4.0); LYMPHOCYTES % (AUTO) 20 % (12-44); MEAN CORPUSCULAR HEMOGLOBIN 29 pg (25-34); MEAN CORPUSCULAR HGB CONC 33 g/dL (32-36); MEAN CORPUSCULAR VOLUME 90 fL (80-99); MEAN PLATELET VOLUME 10.8 fL (9.0-12.2); MONOCYTES # (AUTO) 0.7 10^3/uL (0.0-1.0); MONOCYTES % (AUTO) 8 % (0-12); NEUTROPHILS # (AUTO) 6.1 10^3/uL (1.8-7.8); NEUTROPHILS % (AUTO) 71 % (42-75); PLATELET COUNT 260 10^3/uL (130-400); WHITE BLOOD COUNT 8.6 10^3/uL (4.3-11.0)
[2022-12-13 06:21] LABS: ALBUMIN 3.3 GM/DL (3.2-4.5); BILIRUBIN,TOTAL 0.4 MG/DL (0.1-1.0); CALCIUM 9.1 MG/DL (8.5-10.1); CREATININE SERUM 0.73 MG/DL (0.60-1.30); POTASSIUM 3.8 MMOL/L (3.6-5.0); TOTAL PROTEIN 6.4 GM/DL (6.4-8.2)
[2022-12-13] MEDS: CYANOCOBALAMIN 1,000 MCG (VITAMIN B-12) TABLET PO SCH (06:35)
[2022-12-13] MEDS: LEVOTHYROXINE 75 MCG (LEVOTHROID) TABLET PO SCH (06:35)
[2022-12-13] MEDS: VENlafaxine XR 75 MG (EFFEXOR XR) CAP PO SCH (06:35)
[2022-12-13] MEDS: CATHETER FLUSH 10 ML SYR IVP SCH ×3 (06:36→20:56)
[2022-12-13] MEDS: HYDROcodone/APAP 5 MG/325 MG (LORTAB) TAB PO PRN ×3 (06:36→20:53)
[2022-12-13] MEDS: KCL 10 MEQ TAB (MICRO K) PO SCH (06:36)
[2022-12-13 07:29] VITALS: BP 169/67
[2022-12-13] MEDS: PANTOPRAZOLE 40 MG (PROTONIX) TAB PO SCH (07:29)
[2022-12-13] MEDS: LORATADINE (CLARITIN) 10 MG TAB PO SCH (07:30)
[2022-12-13] MEDS: meTOprolol TARTRATE 50 MG (LOPRESSOR) TAB PO SCH ×2 (07:30→20:51)
[2022-12-13] MEDS: amLODIPine 10 MG (NORVASC) TAB PO SCH (07:30)
[2022-12-13] MEDS: IRON SUCROSE 200 MG/10 ML (VENOFER) VIAL IV SCH (07:30)
[2022-12-13] MEDS: LOSARTAN 25 MG (COZAAR) TAB PO SCH (07:30)
[2022-12-13] MEDS: LOPERAMIDE 2 MG (IMODIUM) TABLET PO PRN (07:30)
[2022-12-13] MEDS: ENOXAPARIN 40 MG/0.4 ML (LOVENOX) SYR SQ SCH (07:31)
[2022-12-13] MEDS: SENNA W/DOCUSATE (SENOKOT S) TABLET PO SCH (07:34)
[2022-12-13] MEDS: polyethylene glycoL POWDER 17 GM (MIRALAX) PACK PO SCH (07:34)
[2022-12-13] MEDS: TRIAMCINOLONE 0.1% CR (KENALOG) 15 GM TUBE TOP SCH ×2 (07:34→20:55)
[2022-12-13] MEDS: DOCUSATE SODIUM 100 MG (COLACE) CAP PO SCH (07:34)
[2022-12-13] MEDS: DICLOFENAC 1% GEL 100 GM (VOLTAREN) TUBE TOP SCH ×4 (07:36→20:54)
--- NOTE | 2022-12-13 08:19 | Occupational Ther Daily Note ---
OT Current Status-Daily Note Subjective Pt in bed, agreeable to OT Tx. Mental Status/Objective Attachments: IV (Iron) ADL-Treatment Therapy Code Descriptions/Definitions Functional [place] Measure: 0=Not Assessed/NA 4=Minimal Assistance 1=Total Assistance 5=Supervision or Setup 2=Maximal Assistance 6=Modified [place] 3=Moderate Assistance 7=Complete IndependenceSCALE: Activities may be completed with or without assistive devices. 9-Jpclakczrx-cwwhfvs completes the activity by him/herself with no assistance from a helper. 5-Set-up or Clean-up Assistance-helper sets up or cleans up; patient completes activity. [place] assists only prior to or following the activity. 4-Supervision or Touching Assistance-helper provides verbal cues and/or touching/steadying and/or contact guard assistance as patient completes activity. Assistance may be provided throughout the activity or intermittently. 3-Partial/Moderate Assistance-helper does LESS THAN HALF the effort. [place] lifts, holds or supports trunk or limbs, but provides less than half the effort. 2-Substantial/Maximal Assistance-helper does MORE THAN HALF the effort. [place] lifts or holds trunk or limbs and provides more than half the effort. 3-Ynkpkpuri-liakox does ALL the effort. Patient does none of the effort to complete the activity. Or, the assistance of 2 or more helpers is required for the patient to complete the activity. If activity was not attempted, code reason: 7-Patient Refused. 9-Not Applicable-not attempted and the patient did not perform the activity before the current illness, exacerbation or injury. 10-Not Attempted due to Environmental Limitations-(lack of equipment, weather restraints, etc.). 88-Not Attempted due to Medical Conditions or Safety Concerns. Eating (QC): 6 Oral Hygiene (QC): 6 Upper Body Dressing (QC): 5 On/Off Footwear: 5 (slip on shoes.) Other Treatment Pt in bed, transferred supine to sit EOB, CGA with min VCs for hip precautions. Pt completed sit to stand from EOB with SBA, then CGA transfer into bathroom. Pt sat at sink to complete grooming tasks independently. Pt then used FWW to perform functional mobility to therapy gym, CGA. OT tx focused on increasing BUE Strength and activity tolerance. Pt completed arm bike, x15 mins, 20 Watt resistance, 2 rest breaks. Pt returned to her room using FWW, SBA. Pt able to gather clothing from closet with SBA, then returned to recliner. Pt changed shirt with set up assistance, and completed UE sponge bath with set up assistance. Post tx, pt in recliner, call light in reach and all needs met. Education OT Patient Education: Correct positioning, Energy conservation, Modified ADL techniques, Progress toward Goal/Update tx plan, Purpose of tx/functional activities, Rehab process Teaching Recipient: Patient Teaching Methods: Discussion Response to Teaching: Verbalize Understanding OT Short Term Goals Short Term Goals Time Frame: Dec 15, 2022 Shower/bathe self: 3 Lower body dressin Putting on/taking off footwear: 3 OT Group Home Goals Florist Helper Goals Time Frame: Dec 31, 2022 Acute change in mental status: 1 Inattention: 0 Disorganized thinkin Altered level of consciousness: 0 Eating (QC): 6 Oral Hygiene (QC): 6 Toileting Hygiene (QC): 6 Shower/Bathe Self (QC): 6 Upper Body Dressing (QC): 6 Lower Body Dressing (QC): 6 On/Off Footwear (QC): 6 Additional Goals: 1-Demonstrate ADL Tasks, 2-Verbalize Understanding, 3- ImproveStrength/[place] 1=Demonstrate adherence to instructed precautions during ADL tasks. 2=Patient will verbalize/demonstrate understanding of assistive devices/modifications for ADL. 3=Patient will improve strength/tolerance for activity to enable patient to perform ADL's. OT Education/Plan Problem List/Assessment Assessment: Decreased Activ Tolerance, Decreased UE Strength, Impaired Funct Balance, Impaired I ADL's, Impaired Self-Care Skills Discharge Recommendations Plan/Recommendations: Continue POC Treatment Plan/Plan of Care Patient would benefit from OT for education, treatment and training to promote independence in ADL's, mobility, safety and/or upper extremity function for ADL's. Plan of Care: ADL Retraining, Functional Mobility, Group Exercise/Act as Ind, UE Funct Exercise/Act Treatment Duration: Dec 31, 2022 Frequency: At least 5 of 7 days/Wk (IRF) Estimated Hrs Per Day: 1.5 hours per day Agreement: Yes Rehab Potential: Good Time Start Time: 07:45 Stop Time: 08:45 DATE: Dec 13, 2022 Total Time Billed (hr/min): 60 Billed Treatment Time 1,EX (20'), ADL 3 (40') HELENA BANEGAS OT Dec 13, 2022 08:19
--- NOTE | 2022-12-13 08:44 | Cardiology Progress Note ---
Subjective Date Seen by Provider: Dec 13, 2022 Time Seen by Provider: 08:30 Subjective/Events-last exam Pt resting after morning PT session. Her only complaint is some mild achy pains in her hip and knee. Her BP was slightly elevated this morning at 169/67, however this was prior to morning medications. She denies any chest pain, dizziness, visual changes, headaches, shortness of breath, or any other acute sx. Review of Systems General: No Chills, No Night Sweats; Other (diaphorectic due to recent PT) HEENT: No Head Aches, No Visual Changes Pulmonary: No Dyspnea, No Cough Cardiovascular: No: Chest Pain, Palpitations, Edema Gastrointestinal: No: Nausea, Vomiting, Abdominal Pain Genitourinary: No Dysuria, No Frequency Musculoskeletal: leg pain (s/p right hip repair. Chronic right knee pain. ) Neurological: No: Weakness, Numbness Objective-Cardiology Exam Last Set of Vital Signs Vital Signs 12/11/22 12/13/22 12/13/22 12/13/22 09:00 07:29 07:39 08:31 Temp 36.2 Pulse 90 Resp 20 B/P (MAP) 169/67 (101) Pulse Ox 96 O2 Delivery Room Air O2 Flow Rate 2.00 I&O Intake and Output 12/13/22 00:00 Intake Total 2140 ml Output Total 2700 ml Balance -560 ml Intake Oral 2140 ml Output Urine Total 2700 ml # Voids 2 # Bowel Movements 1 General: Alert, Oriented X3, Cooperative HEENT: Atraumatic, EOMI, Mucous Memb Moist/[place] Neck: Supple, No LAD Lungs: Clear to Auscultation, Normal Air Movement Heart: Regular Rate, Normal S1, Normal S2 Abdomen: Normal Bowel Sounds, Soft, No Tenderness Extremities: No Cyanosis, No Edema, Normal Pulses Skin: No Rashes Neuro: Normal Speech, Sensation Intact Psych/Mental Status: Mood NL Results Lab Laboratory Tests 12/13/22 05:43 A/P-Cardiology Admission Diagnosis Tachycardia Hypertension Diabetes mellitus Hip fracture Assessment/Plan Transient episode of tachycardia with hypotension. - resolved no palpitations or chest pain Telemetry started on December 09, 2022, no arrhythmia detected Continue to monitor 2D echo done on December 09, 2022 with normal LV size and function. No significant abnormality. Hypertension, labile blood pressure Increase metoprolol to 100 mg twice daily, add losartan 25 mg daily, continue amilodipine 5mg daily I will increase losartan to 50 mg daily Status post hip arthroplasty after closed head fracture, pain improving. Maintained in physical therapy Diabetes mellitus, managed by primary care physician Generalized weakness, improving each day with physical therapy Supervisory-Addendum Brief Verification & Attestation Participated in pt care: history, MDM, physical Personally performed: exam, history, MDM, supervision of care Care discussed with: Medical Student Procedures: n/a Results interpretation: Verified all documentation Verification and Attestation of Medical Student E/M Service A medical student performed and documented this service in my presence. I reviewed and verified all information documented by the medical student and made modifications to such information, when appropriate. I personally performed the physical exam and medical decision making. Patient was seen at bedside, sitting comfortably. Telemetry reviewed, no arrhythmia detected Hypertension, poorly controlled, increase losartan to 50 mg daily and continue on metoprolol 100 mg twice daily and amlodipine 5 mg daily Brandee Mccarty Dec 13, 2022,09:23 AARON FORD Dec 13, 2022 08:44 BRANDEE MCCARTY MD Dec 13, 2022 09:24
[2022-12-13 10:58] VITALS: BP 168/72
[2022-12-13] MEDS: LOSARTAN 50 MG (COZAAR) TAB PO SCH (11:01)
--- NOTE | 2022-12-13 12:08 | Physical Therapy Daily Note ---
PT Daily Note-Current Subjective Pt sitting in recliner upon arrival. Pt agrees to PT. Pt gives medical history felicia. in terms of R knee/hip health. Pain Location: Right Location Body Site: Thigh Pain Description: Ache Comment: Reports but doesn't rate Section J - Health Conditions 1. Rarely or not at all 2. Occasionally 3. Frequently 4. Almost constantly 8. Unable to answer Pain Effect on Sleep: 1 Pain Interference with Therapy: 3 Pain Interference w/Day-to-Day: 2 Mental Status Patient Orientation: Person, Place, Time, Situation Attachments: Other-See Comments (Telemetry) Transfers SCALE: Activities may be completed with or without assistive devices. 7-Wqivhvrcji-xkgztij completes the activity by him/herself with no assistance from a helper. 5-Set-up or Clean-up Assistance-helper sets up or cleans up; patient completes activity. [place] assists only prior to or following the activity. 4-Supervision or Touching Assistance-helper provides verbal cues and/or touching/steadying and/or contact guard assistance as patient completes activity. Assistance may be provided throughout the activity or intermittently. 3-Partial/Moderate Assistance-helper does LESS THAN HALF the effort. [place] lifts, holds or supports trunk or limbs, but provides less than half the effort. 2-Substantial/Maximal Assistance-helper does MORE THAN HALF the effort. [place] lifts or holds trunk or limbs and provides more than half the effort. 9-Blkkuynkq-zyrfjw does ALL the effort. Patient does none of the effort to complete the activity. Or, the assistance of 2 or more helpers is required for the patient to complete the activity. If activity was not attempted, code reason: 7-Patient Refused. 9-Not Applicable-not attempted and the patient did not perform the activity before the current illness, exacerbation or injury. 10-Not Attempted due to Environmental Limitations-(lack of equipment, weather restraints, etc.). 88-Not Attempted due to Medical Conditions or Safety Concerns. Sit to Lying (QC): 4 Sit to Stand (QC): 4 Weight Bearing Full Weight Bearing Full Weight Bearing Gait Training Does the Patient Walk?: Yes Distance: 150' Walk 10 feet (QC): 5 Walk 50 ft with 2 Turns(QC): 5 Walk 150 ft (QC): 5 Gait Assistive Device: FWW Wheelchair Training Does the Pt Use a Wheelchair?: No Stair Training Stair Training: Handrails/: 2 handrails #of Steps: 6 1 Step (curb) (QC): 4 4 Steps (QC): 4 Treatments TF to standing and amb in hallway after declining need for BR. Pt completes 6 steps using 2 handrails at [facility]. Pt amb in hallway before returning to room, TF to Supine in bed. All needs met, call light in hand. Assessment Current Status: Good Progress Pt is gaining strength and mobility. PT Sharepoint Net Developer Goals Half-Way Goals PT Sharepoint Net Developer Goals Time Frame: Dec 21, 2022 Roll Left & Right (QC): 6 Sit to Lying (QC): 6 Lying-Sitting on Side/Bed(QC): 6 Sit to Stand (QC): 6 Chair/Mmp-ab-Lntrx Xfer(QC): 6 Toilet Transfer (QC): 6 Car Transfer (QC): 6 Does the Patient Walk: Yes Walk 10 feet (QC): 6 Walk 50ft with 2 Turns (QC): 6 Walk 150 ft (QC): 6 Walking 10ft on Uneven Surface: 6 1 Step (curb) (QC): 4 4 Steps (QC): 4 12 Steps (QC): 88 Picking up an Object (QC): 6 Wheel 50 feet with 2 turns (QC: 9 Wheel 150 feet: 9 PT Plan Treatment/Plan Treatment Plan: Continue Plan of Care Treatment Plan: Bed Mobility, Education, Functional Activity Bladimir, Functional Strength, Group Therapy, Gait, Safety, Therapeutic Exercise, Transfers Treatment Duration: Dec 21, 2022 Frequency: At least 5 of 7 days/Wk (IRF) Estimated Hrs Per Day: 1.5 hours per day Patient and/or Family Agrees t: Yes Safety Risks/Education Patient Education: Gait Training, Transfer Techniques, Steps, Correct Positioning, Safety Issues Teaching Recipient: Patient Teaching Methods: Discussion Response to Teaching: Verbalize Understanding Time Time In: 1030 Time Out: 1130 DATE: Dec 13, 2022 Total Billed Treatment Time: 60 Total Billed Treatment 1, FA x2 (30m), GT (20m) & EX (10m) SHARAN SERNA FOREPART REDUCER Dec 13, 2022 12:08
--- NOTE | 2022-12-13 15:50 | Therapy Group Daily Note ---
Therapy Daily Group Note Patient Education Topic Exercises Exercises LE Seated Exercise, UE Exercise Session Ratio (pt:therapist): 3:1 Goal of Session: Education on ARU Expectations, UE/LE Strengthing Goal Met for this Session: Yes Pt Benefit of Group: Contributions to Others, F/U Use of Strategies @Home, Increased Functional Safety, Increased Functional Strength, Improved Cognition, Recognition of Peers, Socialization Other/Notes Pt ambulated to OT/PT group at [facility] using FWW. Group consisted of introductions (name, place living, favorite activity in spring), socialization, B UE/LE seated exercises, education on ARU expectations and benefits of exercise. Pt introduced self appropriately and actively listened to peers. Pt asked questions and commented to peers throughout group. Pt demonstrated understanding of educational topics by voicing own strategies, exercises and experiences that related to topics. After session, pt laying Supine in bed with call light/phone in reach. All needs met in room. Start Time: 13:00 Stop Time: 14:00 Total Billed Treatment Time: 60 Total Billed Treatment 1, SHARAN DAVE BUSPERSON Dec 13, 2022 15:50
--- NOTE | 2022-12-13 16:04 | Physical Therapy Progress Note ---
Therapy Progress Note The patient has mobility limitation that significantly impairs her ability to participate in one or more mobility-related activities of daily living (MRADL) in the home. The patient is able to safely use the walker and the functional mobility deficit can be sufficiently resolved with use of a walker while it cannot be resolved with any other device such as a wheelchair or cane. SHARAN SERNA PTA Dec 13, 2022 16:04
[2022-12-13 19:48] VITALS: BP 136/68
[2022-12-13] MEDS: eZETimibe 10 MG (ZETIA) TABLET PO SCH (20:51)
[2022-12-13] MEDS ORDERED: DOCUSATE SODIUM 100 MG (COLACE) CAP PO PRN (21:00)
[2022-12-13] MEDS ORDERED: SENNA W/DOCUSATE (SENOKOT S) TABLET PO PRN (21:00)
[2022-12-13] MEDS ORDERED: polyethylene glycoL POWDER 17 GM (MIRALAX) PACK PO PRN (21:00)
[2022-12-14] MEDS: VENlafaxine XR 75 MG (EFFEXOR XR) CAP PO SCH (06:06)
[2022-12-14] MEDS: KCL 10 MEQ TAB (MICRO K) PO SCH (06:06)
[2022-12-14] MEDS: LEVOTHYROXINE 75 MCG (LEVOTHROID) TABLET PO SCH (06:06)
[2022-12-14] MEDS: CYANOCOBALAMIN 1,000 MCG (VITAMIN B-12) TABLET PO SCH (06:06)
[2022-12-14] MEDS: CATHETER FLUSH 10 ML SYR IVP SCH ×3 (06:07→20:40)
--- NOTE | 2022-12-14 06:16 | PM&R Progress Note ---
Subjective HPI/CC On Admission Date Seen by Provider: Dec 14, 2022 Time Seen by Provider: 09:00 Subjective/Events-last exam 12/14/2022: Overall improved No falls Pain controlled BM loose 12/13/2022: No major issues Pain controlled No falls Checked meds and labs 12/12/2022: No major issues Pain controlled Walking pretty well Checked meds 12/11/2022: No major issues Checking UA since she reported increased odor Slow recovery but walking now 12/10/2022: BP varies Pain controlled Slow recovery No nausea 12/09/2022: Had episode of HTN and tachycardia so EKG obtained and Telemetry started Dr Mccarty consulted DC catheter then had retention No falls 12/08/2022: Improved status Pain controlled Lung mass is known and managed in [place] but it appears it is a benign granuloma? No falls Improved status Subtle cognition deficit noted since she could not name her doctor who managed the lung nodule Review of Systems General: Fatigue, Malaise Objective Exam Vital Signs Vital Signs Date Time Temp Pulse Resp B/P (MAP) Pulse Ox O2 Delivery O2 Flow Rate FiO2 12/15/22 01:00 73 12/14/22 21:19 Room Air 12/14/22 19:14 36.4 16 136/67 (90) 95 12/11/22 09:00 2.00 Capillary Refill : General Appearance: No Apparent Distress, WD/WN, Chronically ill, Obese HEENT: PERRL/EOMI, Normal ENT Inspection, Pharynx Normal Neck: Full Range of Motion, Normal Inspection, Non Tender, Supple, Carotid Bruit Respiratory: Chest Non Tender, Lungs Clear, No Accessory Muscle Use, No Respiratory Distress, Decreased Breath Sounds Cardiovascular: Regular Rate, Rhythm, No Edema, No Gallop, No JVD, No Murmur, Normal Peripheral Pulses Gastrointestinal: Normal Bowel Sounds, No Organomegaly, No Pulsatile Mass, Non Tender, Soft Back: Normal Inspection, No CVA Tenderness, No Vertebral Tenderness Extremity: Normal Capillary Refill, Normal Inspection, Normal Range of Motion (except right leg), Non Tender, No Calf Tenderness, No Pedal Edema Neurologic/Psychiatric: Alert, Oriented x3, No Motor/Sensory Deficits, Normal Mood/Affect Skin: Normal Color, Warm/Dry Lymphatic: No Adenopathy Results/Procedures Lab Patient resulted labs reviewed. FIM Transfers Therapy Code Descriptions/Definitions Functional [place] Measure: 0=Not Assessed/NA 4=Minimal Assistance 1=Total Assistance 5=Supervision or Setup 2=Maximal Assistance 6=Modified [place] 3=Moderate Assistance 7=Complete IndependenceSCALE: Activities may be completed with or without assistive devices. 9-Tulowriaep-ifefbgg completes the activity by him/herself with no assistance from a helper. 5-Set-up or Clean-up Assistance-helper sets up or cleans up; patient completes activity. [place] assists only prior to or following the activity. 4-Supervision or Touching Assistance-helper provides verbal cues and/or touching/steadying and/or contact guard assistance as patient completes activity. Assistance may be provided throughout the activity or intermittently. 3-Partial/Moderate Assistance-helper does LESS THAN HALF the effort. [place] lifts, holds or supports trunk or limbs, but provides less than half the effort. 2-Substantial/Maximal Assistance-helper does MORE THAN HALF the effort. [place] lifts or holds trunk or limbs and provides more than half the effort. 2-Tpfmwefch-vqqtxu does ALL the effort. Patient does none of the effort to complete the activity. Or, the assistance of 2 or more helpers is required for the patient to complete the activity. If activity was not attempted, code reason: 7-Patient Refused. 9-Not Applicable-not attempted and the patient did not perform the activity before the current illness, exacerbation or injury. 10-Not Attempted due to Environmental Limitations-(lack of equipment, weather restraints, etc.). 88-Not Attempted due to Medical Conditions or Safety Concerns. Roll Left to Right (QC): 6 Sit to Lying (QC): 4 Sit to Stand (QC): 4 Chair/Fju-pl-Tbzdd Xfer(QC): 4 Car Transfer (QC): 3 Gait Training Does the Patient Walk?: Yes Distance: 150' Walk 10 feet (QC): 5 Walk 50 ft with 2 Turns(QC): 5 Walk 150 ft (QC): 5 Walking 10ft/uneven surface-QC: 88 Gait Persons Needed: 1 Gait Assistive Device: FWW Wheelchair Training Does the Pt Use a Wheelchair?: No Wheel 50 ft with 2 turns (QC): 9 Wheel 150 ft (QC): 9 Stair Training Stair Training: Handrails/: 2 handrails #of Steps: 6 1 Step (curb) (QC): 4 4 Steps (QC): 4 12 Steps (QC): 88 Balance Picking up an Object (QC): 4 (CGA using a manager valuation) ADL-Treatment Eating (QC): 6 Oral Hygiene (QC): 6 Bathing Location: L Arm, R Arm, L Upper Leg, R Upper Leg, Chest, Abdomen, Buttocks, Perineal Area Shower/Bathe Self (QC): 3 Upper Body Dressing (QC): 5 Lower Body Dressing (QC): 4 On/Off Footwear (QC): 5 (slip on shoes.) Toileting Hygiene (QC): 2 Assessment/Plan Assessment and Plan Assess & Plan/Chief Complaint Assessment: Right hip fracture Post op delirium Post op anemia from acute blood loss ARLETTE on CPAP Breast cancer with lung nodule on imaging but this is a known nodule per patient and she sees specialist in [place] for that but patient did not remember the name of the doctor HTN HLP Hypothyroidism DM Urinary retention after DC catheter now resolved Plan: PT OT Pain control Monitor labs 12/08/2022: Pain control Monitor closely 12/09/2022: Monitor closely In/out caths prn 12/10/2022: Monitor closely Urinary retention management 12/11/2022: Check UA 12/12/2022: UA ok 12/13/2022: Monitor closely 12/14/2022: Monitor closely (1) Closed right hip fracture Status: Acute (2) Postoperative delirium Status: Acute (3) T2DM (type 2 diabetes mellitus) Status: Chronic (4) Lung nodule Status: Acute (5) HTN (hypertension) Status: Chronic (6) Non-insulin dependent type 2 diabetes mellitus (7) Essential (primary) hypertension (8) Hypothyroidism (9) Hyperlipidemia (10) Hypokalemia SHA GEORGE DO Dec 14, 2022 06:16
--- NOTE | 2022-12-14 07:43 | Cardiology Progress Note ---
Subjective Date Seen by Provider: Dec 14, 2022 Time Seen by Provider: 07:30 Subjective/Events-last exam Pt resting in chair in NAD. States she is achy all over, but that is not new for her. She has a headache this morning rating it 5/10. Her most recent blood pressure was recorded last night as 136/68. She denies fever, chills, dizziness, chest pain, shortness of breath, or any other complaints. Review of Systems General: No Chills, No Night Sweats HEENT: Head Aches; No Visual Changes Pulmonary: No Dyspnea, No Cough Cardiovascular: No: Chest Pain Gastrointestinal: No: Nausea, Vomiting, Abdominal Pain Genitourinary: No Dysuria, No Frequency Musculoskeletal: leg pain (s/p right hip surgery, chronic right knee pain ) Neurological: No: Weakness, Numbness Objective-Cardiology Exam Last Set of Vital Signs Vital Signs 12/11/22 12/13/22 12/13/22 12/14/22 09:00 19:48 21:08 01:00 Temp 36.6 Pulse 83 Resp 20 B/P (MAP) 136/68 (90) Pulse Ox 97 O2 Delivery Room Air O2 Flow Rate 2.00 I&O Intake and Output 12/14/22 00:00 Intake Total 1975 ml Output Total 1800 ml Balance 175 ml Intake Oral 1975 ml Output Urine Total 1800 ml # Voids 1 # Urine Diapers 2 # Bowel Movements 2 General: Alert, Oriented X3, Cooperative HEENT: Atraumatic, EOMI, Mucous Memb Moist/[place] Neck: Supple, No LAD Lungs: Clear to Auscultation, Normal Air Movement Heart: Regular Rate, Normal S1, Normal S2 Abdomen: Normal Bowel Sounds, Soft, No Tenderness Extremities: No Cyanosis, No Edema, Normal Pulses Skin: No Rashes Neuro: Normal Speech, Sensation Intact Psych/Mental Status: Mood NL A/P-Cardiology Admission Diagnosis Tachycardia Hypertension Diabetes mellitus Hip fracture Assessment/Plan Transient episode of tachycardia with hypotension. - resolved no palpitations or chest pain Telemetry started on December 09, 2022, no arrhythmia detected Continue to monitor 2D echo done on December 09, 2022 with normal LV size and function. No significant abnormality. Hypertension, labile blood pressure Increased metoprolol to 100 mg twice daily, increased losartan to 50mg, continue amilodipine 5mg daily Blood pressure still elevated, I will increase losartan to 100 mg daily Status post hip arthroplasty after closed head fracture, pain improving. Maintained in physical therapy Diabetes mellitus, managed by primary care physician Generalized weakness, improving each day with physical therapy Supervisory-Addendum Brief Verification & Attestation Participated in pt care: history, MDM, physical Personally performed: exam, history, MDM, supervision of care Care discussed with: Medical Student Procedures: n/a Results interpretation: Verified all documentation Verification and Attestation of Medical Student E/M Service A medical student performed and documented this service in my presence. I reviewed and verified all information documented by the medical student and made modifications to such information, when appropriate. I personally performed the physical exam and medical decision making. Brandee Mccarty, Dec 14, 2022,09:00 AARON FORD Dec 14, 2022 07:43 BRANDEE MCCARTY MD Dec 14, 2022 09:00
[2022-12-14 08:00] VITALS: BP 156/72
[2022-12-14] MEDS: LOSARTAN 50 MG (COZAAR) TAB PO SCH (08:39)
[2022-12-14] MEDS: amLODIPine 10 MG (NORVASC) TAB PO SCH (08:39)
[2022-12-14] MEDS: ENOXAPARIN 40 MG/0.4 ML (LOVENOX) SYR SQ SCH (08:39)
[2022-12-14] MEDS: HYDROcodone/APAP 5 MG/325 MG (LORTAB) TAB PO PRN ×2 (08:39→21:02)
[2022-12-14] MEDS: LORATADINE (CLARITIN) 10 MG TAB PO SCH (08:39)
[2022-12-14] MEDS: LOPERAMIDE 2 MG (IMODIUM) TABLET PO PRN (08:39)
[2022-12-14] MEDS: PANTOPRAZOLE 40 MG (PROTONIX) TAB PO SCH (08:39)
[2022-12-14] MEDS: meTOprolol TARTRATE 50 MG (LOPRESSOR) TAB PO SCH ×2 (08:48→20:39)
[2022-12-14] MEDS: DICLOFENAC 1% GEL 100 GM (VOLTAREN) TUBE TOP SCH ×4 (08:50→20:41)
[2022-12-14] MEDS: TRIAMCINOLONE 0.1% CR (KENALOG) 15 GM TUBE TOP SCH ×2 (08:50→20:41)
--- NOTE | 2022-12-14 09:25 | Physical Therapy Daily Note ---
PT Daily Note-Current Subjective Pt sitting in recliner upon arrival. Pt agrees to PT. Pain Location: Right Location Body Site: Thigh Pain Description: Ache Section J - Health Conditions 1. Rarely or not at all 2. Occasionally 3. Frequently 4. Almost constantly 8. Unable to answer Pain Effect on Sleep: 1 Pain Interference with Therapy: 3 Pain Interference w/Day-to-Day: 2 Mental Status Patient Orientation: Person, Place, Time, Situation Attachments: Other-See Comments (Telemetry) Transfers SCALE: Activities may be completed with or without assistive devices. 5-Isqwbipwfz-ynewjwd completes the activity by him/herself with no assistance from a helper. 5-Set-up or Clean-up Assistance-helper sets up or cleans up; patient completes activity. [place] assists only prior to or following the activity. 4-Supervision or Touching Assistance-helper provides verbal cues and/or touching/steadying and/or contact guard assistance as patient completes activity. Assistance may be provided throughout the activity or intermittently. 3-Partial/Moderate Assistance-helper does LESS THAN HALF the effort. [place] lifts, holds or supports trunk or limbs, but provides less than half the effort. 2-Substantial/Maximal Assistance-helper does MORE THAN HALF the effort. [place] lifts or holds trunk or limbs and provides more than half the effort. 2-Vxuutwcqh-rxxxkz does ALL the effort. Patient does none of the effort to complete the activity. Or, the assistance of 2 or more helpers is required for the patient to complete the activity. If activity was not attempted, code reason: 7-Patient Refused. 9-Not Applicable-not attempted and the patient did not perform the activity before the current illness, exacerbation or injury. 10-Not Attempted due to Environmental Limitations-(lack of equipment, weather restraints, etc.). 88-Not Attempted due to Medical Conditions or Safety Concerns. Sit to Lying (QC): 5 Lying to Sitting/Side of Bed(Q: 5 Sit to Stand (QC): 5 Toilet Transfer (QC): 5 Weight Bearing Full Weight Bearing Full Weight Bearing Gait Training Does the Patient Walk?: Yes Distance: 15' x2 Walk 10 feet (QC): 5 Gait Assistive Device: FWW Treatments Upon entering pt's room, pt had BM while sitting in recliner. Pt asked to change clothes and get cleaned up before leaving room for tx. Pt TF to standing and amb to BR. Pt doffs clothes & brief. Pt completes pericare but SUPERVISOR BONDING reassess due to blow out. Pt needs bandage change due to BM so returns to EOB to change bandage and don fresh clothes. Pt completes bed mobility before end of tx. Pt resting at end of tx w/all needs met, call light in hand. Assessment Current Status: Good Progress Pt fatigued by end of tx. BP was 156/72 & Pulse 90 during tx. PT Ski Maker Goals Longterm Goals PT Longterm Goals Time Frame: Dec 21, 2022 Roll Left & Right (QC): 6 Sit to Lying (QC): 6 Lying-Sitting on Side/Bed(QC): 6 Sit to Stand (QC): 6 Chair/Dib-rm-[place] Xfer(QC): 6 Toilet Transfer (QC): 6 Car Transfer (QC): 6 Does the Patient Walk: Yes Walk 10 feet (QC): 6 Walk 50ft with 2 Turns (QC): 6 Walk 150 ft (QC): 6 Walking 10ft on Uneven Surface: 6 1 Step (curb) (QC): 4 4 Steps (QC): 4 12 Steps (QC): 88 Picking up an Object (QC): 6 Wheel 50 feet with 2 turns (QC: 9 Wheel 150 feet: 9 PT Plan Problem List Problem List: Activity Tolerance Treatment/Plan Treatment Plan: Continue Plan of Care Treatment Plan: Bed Mobility, Education, Functional Activity Bladimir, Functional Strength, Group Therapy, Gait, Safety, Therapeutic Exercise, Transfers Treatment Duration: Dec 21, 2022 Frequency: At least 5 of 7 days/Wk (IRF) Estimated Hrs Per Day: 1.5 hours per day Patient and/or Family Agrees t: Yes Time Time In: 800 Time Out: 930 DATE: Dec 14, 2022 Total Billed Treatment Time: 90 Total Billed Treatment 1, FA x6 (90m) SHARAN SERNA SUPERVISOR BONDING Dec 14, 2022 09:25
--- NOTE | 2022-12-14 10:53 | Occupational Ther Daily Note ---
OT Current Status-Daily Note Subjective Pt agreeable to OT Tx. ADL-Treatment Therapy Code Descriptions/Definitions Functional [place] Measure: 0=Not Assessed/NA 4=Minimal Assistance 1=Total Assistance 5=Supervision or Setup 2=Maximal Assistance 6=Modified [place] 3=Moderate Assistance 7=Complete IndependenceSCALE: Activities may be completed with or without assistive devices. 3-Felzlqpvvs-soxumke completes the activity by him/herself with no assistance from a helper. 5-Set-up or Clean-up Assistance-helper sets up or cleans up; patient completes activity. [place] assists only prior to or following the activity. 4-Supervision or Touching Assistance-helper provides verbal cues and/or touching/steadying and/or contact guard assistance as patient completes activity. Assistance may be provided throughout the activity or intermittently. 3-Partial/Moderate Assistance-helper does LESS THAN HALF the effort. [place] lifts, holds or supports trunk or limbs, but provides less than half the effort. 2-Substantial/Maximal Assistance-helper does MORE THAN HALF the effort. [place] lifts or holds trunk or limbs and provides more than half the effort. 2-Xfdtepmtb-goxfbb does ALL the effort. Patient does none of the effort to complete the activity. Or, the assistance of 2 or more helpers is required for the patient to complete the activity. If activity was not attempted, code reason: 7-Patient Refused. 9-Not Applicable-not attempted and the patient did not perform the activity before the current illness, exacerbation or injury. 10-Not Attempted due to Environmental Limitations-(lack of equipment, weather restraints, etc.). 88-Not Attempted due to Medical Conditions or Safety Concerns. Eating (QC): 6 Oral Hygiene (QC): 6 Shower/Bathe Self (QC): 5 (Set up ) Upper Body Dressing (QC): 6 Lower Body Dressing (QC): 4 (Min VCs for hip precautiosn.) On/Off Footwear: 6 (IND slip on shoes.) Toileting Hygiene (QC): 6 Toilet Transfer (QC): 6 Min VCs required to maintain hip precautions during ADLs. Other Treatment Pt in bed, transferred supine to sit EOB, SBA, 1 VC for hip precautions. Pt used FWW to transfer into bathroom and onto BS over toilet. Pt completed toileting, doffed clothes, then transferred to AK. Pt completed showering and dressing, VC required to use pet supplies salesperson for donning LE clothing and to maintain hip precautions. Pt stood at sink for oral care and grooming tasks independently. Pt used FWW to perform functional mobility to therapy gym, IND. OT tx focused on increasing BUE Strength and activity tolerance. Pt completed UE reaching task, 1lb wrist weight placed bilaterally. Pt placed/removed 1" pegs from foam pegboard, alternating hands, x100 total. Pt returned to her room using FWW, IND, transferring to bed, SBA. Post tx, pt in bed, call light in reach and all needs met. Education OT Patient Education: Correct positioning, Energy conservation, Modified ADL techniques, Progress toward Goal/Update tx plan, Purpose of tx/functional activities, Rehab process Teaching Recipient: Patient Teaching Methods: Discussion Response to Teaching: Verbalize Understanding OT Short Term Goals Short Term Goals Time Frame: Dec 15, 2022 Shower/bathe self: 3 Lower body dressin Putting on/taking off footwear: 3 OT Spaghetti Press Helper Goals Long-Term Goals Time Frame: Dec 31, 2022 Acute change in mental status: 1 Inattention: 0 Disorganized thinkin Altered level of consciousness: 0 Eating (QC): 6 Oral Hygiene (QC): 6 Toileting Hygiene (QC): 6 Shower/Bathe Self (QC): 6 Upper Body Dressing (QC): 6 Lower Body Dressing (QC): 6 On/Off Footwear (QC): 6 Additional Goals: 1-Demonstrate ADL Tasks, 2-Verbalize Understanding, 3- ImproveStrength/Bladimir 1=Demonstrate adherence to instructed precautions during ADL tasks. 2=Patient will verbalize/demonstrate understanding of assistive devices/modifications for ADL. 3=Patient will improve strength/tolerance for activity to enable patient to perform ADL's. OT Education/Plan Problem List/Assessment Assessment: Decreased Activ Tolerance, Decreased UE Strength, Impaired I ADL's, Impaired Self-Care Skills Discharge Recommendations Plan/Recommendations: Continue POC Treatment Plan/Plan of Care Patient would benefit from OT for education, treatment and training to promote independence in ADL's, mobility, safety and/or upper extremity function for ADL's. Plan of Care: ADL Retraining, Functional Mobility, Group Exercise/Act as Ind, UE Funct Exercise/Act Treatment Duration: Dec 31, 2022 Frequency: At least 5 of 7 days/Wk (IRF) Estimated Hrs Per Day: 1.5 hours per day Agreement: Yes Rehab Potential: Good Time Start Time: 09:45 Stop Time: 11:15 DATE: Dec 14, 2022 Total Time Billed (hr/min): 90 Billed Treatment Time 1, ADL 4 (60'), FA 2 (30') HELENA BANEGAS OT Dec 14, 2022 10:53
[2022-12-14] MEDS: LOSARTAN 100 MG (COZAAR) TABLET PO SCH (11:46)
[2022-12-14 19:14] VITALS: BP 136/67
[2022-12-14] MEDS: eZETimibe 10 MG (ZETIA) TABLET PO SCH (20:39)
--- NOTE | 2022-12-15 05:15 | PM&R Progress Note ---
Subjective HPI/CC On Admission Date Seen by Provider: Dec 15, 2022 Time Seen by Provider: 09:00 Subjective/Events-last exam 12/15/2022: Doing well Incontinent of bladder at night so we will try oxybutynin No other concerns 12/14/2022: Overall improved No falls Pain controlled BM loose 12/13/2022: No major issues Pain controlled No falls Checked meds and labs 12/12/2022: No major issues Pain controlled Walking pretty well Checked meds 12/11/2022: No major issues Checking UA since she reported increased odor Slow recovery but walking now 12/10/2022: BP varies Pain controlled Slow recovery No nausea 12/09/2022: Had episode of HTN and tachycardia so EKG obtained and Telemetry started Dr Mccarty consulted DC catheter then had retention No falls 12/08/2022: Improved status Pain controlled Lung mass is known and managed in [place] but it appears it is a benign granuloma? No falls Improved status Subtle cognition deficit noted since she could not name her doctor who managed the lung nodule Review of Systems General: Fatigue, Malaise Objective Exam Vital Signs Vital Signs Date Time Temp Pulse Resp B/P (MAP) Pulse Ox O2 Delivery O2 Flow Rate FiO2 12/15/22 10:13 Room Air 12/15/22 07:40 36.2 80 16 137/71 (93) 96 12/11/22 09:00 2.00 Capillary Refill : General Appearance: No Apparent Distress, WD/WN, Chronically ill, Obese HEENT: PERRL/EOMI, Normal ENT Inspection, Pharynx Normal Neck: Full Range of Motion, Normal Inspection, Non Tender, Supple, Carotid Bruit Respiratory: Chest Non Tender, Lungs Clear, No Accessory Muscle Use, No Respiratory Distress, Decreased Breath Sounds Cardiovascular: Regular Rate, Rhythm, No Edema, No Gallop, No JVD, No Murmur, Normal Peripheral Pulses Gastrointestinal: Normal Bowel Sounds, No Organomegaly, No Pulsatile Mass, Non Tender, Soft Back: Normal Inspection, No CVA Tenderness, No Vertebral Tenderness Extremity: Normal Capillary Refill, Normal Inspection, Normal Range of Motion (except right leg), Non Tender, No Calf Tenderness, No Pedal Edema Neurologic/Psychiatric: Alert, Oriented x3, No Motor/Sensory Deficits, Normal Mood/Affect Skin: Normal Color, Warm/Dry Lymphatic: No Adenopathy Results/Procedures Lab Patient resulted labs reviewed. FIM Transfers Therapy Code Descriptions/Definitions Functional [place] Measure: 0=Not Assessed/NA 4=Minimal Assistance 1=Total Assistance 5=Supervision or Setup 2=Maximal Assistance 6=Modified [place] 3=Moderate Assistance 7=Complete IndependenceSCALE: Activities may be completed with or without assistive devices. 3-Aijqbewsbe-iscufas completes the activity by him/herself with no assistance from a helper. 5-Set-up or Clean-up Assistance-helper sets up or cleans up; patient completes activity. Sarona assists only prior to or following the activity. 4-Supervision or Touching Assistance-helper provides verbal cues and/or touching/steadying and/or contact guard assistance as patient completes activity. Assistance may be provided throughout the activity or intermittently. 3-Partial/Moderate Assistance-helper does LESS THAN HALF the effort. Sarona lifts, holds or supports trunk or limbs, but provides less than half the effort. 2-Substantial/Maximal Assistance-helper does MORE THAN HALF the effort. Sarona lifts or holds trunk or limbs and provides more than half the effort. 9-Ejsavvheh-svygms does ALL the effort. Patient does none of the effort to complete the activity. Or, the assistance of 2 or more helpers is required for the patient to complete the activity. If activity was not attempted, code reason: 7-Patient Refused. 9-Not Applicable-not attempted and the patient did not perform the activity before the current illness, exacerbation or injury. 10-Not Attempted due to Environmental Limitations-(lack of equipment, weather restraints, etc.). 88-Not Attempted due to Medical Conditions or Safety Concerns. Roll Left to Right (QC): 6 Sit to Lying (QC): 5 Sit to Stand (QC): 5 Chair/Zbq-eh-Dbrpc Xfer(QC): 4 Car Transfer (QC): 3 Gait Training Does the Patient Walk?: Yes Distance: 15' x2 Walk 10 feet (QC): 5 Walk 50 ft with 2 Turns(QC): 5 Walk 150 ft (QC): 5 Walking 10ft/uneven surface-QC: 88 Gait Persons Needed: 1 Gait Assistive Device: FWW Wheelchair Training Does the Pt Use a Wheelchair?: No Wheel 50 ft with 2 turns (QC): 9 Wheel 150 ft (QC): 9 Stair Training Stair Training: Handrails/: 2 handrails #of Steps: 6 1 Step (curb) (QC): 4 4 Steps (QC): 4 12 Steps (QC): 88 Balance Picking up an Object (QC): 4 (CGA using a ward assistant) ADL-Treatment Eating (QC): 6 Oral Hygiene (QC): 6 Bathing Location: L Arm, R Arm, L Upper Leg, R Upper Leg, Chest, Abdomen, Buttocks, Perineal Area Shower/Bathe Self (QC): 5 (Set up ) Upper Body Dressing (QC): 6 Lower Body Dressing (QC): 4 (Min VCs for hip precautiosn.) On/Off Footwear (QC): 6 (IND slip on shoes.) Toileting Hygiene (QC): 6 Toilet Transfer (QC): 6 Assessment/Plan Assessment and Plan Assess & Plan/Chief Complaint Assessment: Right hip fracture Post op delirium Post op anemia from acute blood loss ARLETTE on CPAP Breast cancer with lung nodule on imaging but this is a known nodule per patient and she sees specialist in [place] for that but patient did not remember the name of the doctor HTN HLP Hypothyroidism DM Urinary retention after DC catheter now resolved Plan: PT OT Pain control Monitor labs 12/08/2022: Pain control Monitor closely 12/09/2022: Monitor closely In/out caths prn 12/10/2022: Monitor closely Urinary retention management 12/11/2022: Check UA 12/12/2022: UA ok 12/13/2022: Monitor closely 12/14/2022: Monitor closely 12/15/2022: Try oxybutynin for urge incontinency at night (1) Closed right hip fracture Status: Acute (2) Postoperative delirium Status: Acute (3) T2DM (type 2 diabetes mellitus) Status: Chronic (4) Lung nodule Status: Acute (5) HTN (hypertension) Status: Chronic (6) Non-insulin dependent type 2 diabetes mellitus (7) Essential (primary) hypertension (8) Hypothyroidism (9) Hyperlipidemia (10) Hypokalemia SHA GEORGE DO Dec 15, 2022 05:15
[2022-12-15] MEDS: CYANOCOBALAMIN 1,000 MCG (VITAMIN B-12) TABLET PO SCH (06:08)
[2022-12-15] MEDS: KCL 10 MEQ TAB (MICRO K) PO SCH (06:08)
[2022-12-15] MEDS: LEVOTHYROXINE 75 MCG (LEVOTHROID) TABLET PO SCH (06:08)
[2022-12-15] MEDS: VENlafaxine XR 75 MG (EFFEXOR XR) CAP PO SCH (06:08)
[2022-12-15] MEDS: CATHETER FLUSH 10 ML SYR IVP SCH ×3 (06:09→22:00)
[2022-12-15] MEDS: HYDROcodone/APAP 5 MG/325 MG (LORTAB) TAB PO PRN ×2 (06:11→14:49)
[2022-12-15] MEDS: LOPERAMIDE 2 MG (IMODIUM) TABLET PO PRN (06:11)
[2022-12-15 07:40] VITALS: BP 137/71
--- NOTE | 2022-12-15 07:44 | Cardiology Progress Note ---
Subjective Date Seen by Provider: Dec 15, 2022 Time Seen by Provider: 07:30 Subjective/Events-last exam Pt resting comfortably after eating breakfast. States she is complaint free, other than minor aches. Denies headache, chest pain, shortness of breath, dizziness, or any other acute symptoms. Blood pressure controlled at 137/71 this morning. Review of Systems General: No Chills; Malaise (mild aches) HEENT: No Head Aches, No Visual Changes Pulmonary: No Dyspnea, No Cough Cardiovascular: No: Chest Pain, Palpitations Gastrointestinal: No: Nausea, Vomiting, Diarrhea Genitourinary: No Dysuria, No Frequency Musculoskeletal: leg pain (improving hip pain) Neurological: No: Weakness, Numbness Objective-Cardiology Exam Last Set of Vital Signs Vital Signs 12/11/22 12/15/22 12/15/22 09:00 07:40 10:13 Temp 36.2 Pulse 80 Resp 16 B/P (MAP) 137/71 (93) Pulse Ox 96 O2 Delivery Room Air O2 Flow Rate 2.00 I&O Intake and Output 12/15/22 00:00 Intake Total 1360 ml Balance 1360 ml Intake Oral 1360 ml # Voids 6 # Urine Diapers 1 # Bowel Movements 1 General: Alert, Oriented X3, Cooperative HEENT: Atraumatic, EOMI, Mucous Memb Moist/Iselin Neck: Supple, No LAD Lungs: Clear to Auscultation, Normal Air Movement Heart: Regular Rate, Normal S1, Normal S2 Abdomen: Normal Bowel Sounds, Soft, No Tenderness Extremities: No Cyanosis, No Edema, Normal Pulses Skin: No Rashes Neuro: Normal Speech, Sensation Intact Psych/Mental Status: Mood NL A/P-Cardiology Admission Diagnosis Tachycardia Hypertension Diabetes mellitus Hip fracture Assessment/Plan Transient episode of tachycardia with hypotension. - resolved no palpitations or chest pain Telemetry started on December 09, 2022, no arrhythmia detected Continue to monitor 2D echo done on December 09, 2022 with normal LV size and function. No significant abnormality. Hypertension Increased metoprolol to 100 mg twice daily, increased losartan to 100mg, continue amilodipine 5mg daily Blood pressure this morning was 137/71, much improved with the increased dose of losartan Will continue to monitor Status post hip arthroplasty after closed head fracture, pain improving. M aintained in physical therapy Diabetes mellitus, managed by primary care physician Generalized weakness, improving each day with physical therapy Supervisory-Addendum Brief Verification & Attestation Participated in pt care: history, MDM, physical Personally performed: exam, history, MDM, supervision of care Care discussed with: Medical Student Procedures: n/a Results interpretation: Verified all documentation Verification and Attestation of Medical Student E/M Service A medical student performed and documented this service in my presence. I reviewed and verified all information documented by the medical student and made modifications to such information, when appropriate. I personally performed the physical exam and medical decision making. Patient was seen at bedside, laying down comfortably. No new complaint. Continue current medications and monitor, no changes are recommended Brandee Mccarty Dec 15, 2022,16:18 AARON FORD Dec 15, 2022 07:44 BRANDEE MCCARTY MD Dec 15, 2022 16:19
[2022-12-15] MEDS: meTOprolol TARTRATE 50 MG (LOPRESSOR) TAB PO SCH ×2 (07:59→20:38)
[2022-12-15] MEDS: PANTOPRAZOLE 40 MG (PROTONIX) TAB PO SCH (07:59)
[2022-12-15] MEDS: LOSARTAN 100 MG (COZAAR) TABLET PO SCH (07:59)
[2022-12-15] MEDS: DICLOFENAC 1% GEL 100 GM (VOLTAREN) TUBE TOP SCH ×4 (08:00→20:40)
[2022-12-15] MEDS: ENOXAPARIN 40 MG/0.4 ML (LOVENOX) SYR SQ SCH (08:00)
[2022-12-15] MEDS: amLODIPine 10 MG (NORVASC) TAB PO SCH (08:00)
[2022-12-15] MEDS: TRIAMCINOLONE 0.1% CR (KENALOG) 15 GM TUBE TOP SCH ×2 (08:00→20:39)
[2022-12-15] MEDS: LORATADINE (CLARITIN) 10 MG TAB PO SCH (08:00)
--- NOTE | 2022-12-15 09:42 | Occupational Ther Daily Note ---
OT Current Status-Daily Note Subjective Pt agreeable to OT Tx. Mental Status/Objective Patient Orientation: Person, Place, Time, Situation, Normal For Age ADL-Treatment Therapy Code Descriptions/Definitions Functional Hill Measure: 0=Not Assessed/NA 4=Minimal Assistance 1=Total Assistance 5=Supervision or Setup 2=Maximal Assistance 6=Modified [place] 3=Moderate Assistance 7=Complete IndependenceSCALE: Activities may be completed with or without assistive devices. 9-Orndyzfsrv-egyowzh completes the activity by him/herself with no assistance from a helper. 5-Set-up or Clean-up Assistance-helper sets up or cleans up; patient completes activity. Phelps assists only prior to or following the activity. 4-Supervision or Touching Assistance-helper provides verbal cues and/or touching/steadying and/or contact guard assistance as patient completes activity. Assistance may be provided throughout the activity or intermittently. 3-Partial/Moderate Assistance-helper does LESS THAN HALF the effort. Phelps lifts, holds or supports trunk or limbs, but provides less than half the effort. 2-Substantial/Maximal Assistance-helper does MORE THAN HALF the effort. [place]helps lifts or holds trunk or limbs and provides more than half the effort. 7-Cjdedenxi-bxjqfh does ALL the effort. Patient does none of the effort to complete the activity. Or, the assistance of 2 or more helpers is required for the patient to complete the activity. If activity was not attempted, code reason: 7-Patient Refused. 9-Not Applicable-not attempted and the patient did not perform the activity before the current illness, exacerbation or injury. 10-Not Attempted due to Environmental Limitations-(lack of equipment, weather restraints, etc.). 88-Not Attempted due to Medical Conditions or Safety Concerns. Toileting Hygiene (QC): 6 Toilet Transfer (QC): 6 Other Treatment Pt in recliner, used FWW to transfer into bathroom. Pt completed toileting independently, then used FWW to perform functional mobility to therapy gym. OT tx focused on increasing BUE strength and activity tolerance. Pt completed UE reaching task, 1lb wrist weights BUEs, completing x10 pipe tree diagrams. Pt a ble to locate correct pieces, and place together following printed diagrams. Pt used FWW to return to her room, transferring to bed and supine independently. Post tx, pt in bed, call light in reach and all needs met. Education OT Patient Education: Correct positioning, Energy conservation, Modified ADL techniques, Progress toward Goal/Update tx plan, Purpose of tx/functional activities, Rehab process Teaching Recipient: Patient Teaching Methods: Discussion Response to Teaching: Verbalize Understanding OT Short Term Goals Short Term Goals Time Frame: Dec 15, 2022 Shower/bathe self: 3 Lower body dressin Putting on/taking off footwear: 3 OT Toolmaker Grade Three Goals Longterm Goals Time Frame: Dec 31, 2022 Acute change in mental status: 1 Inattention: 0 Disorganized thinkin Altered level of consciousness: 0 Eating (QC): 6 Oral Hygiene (QC): 6 Toileting Hygiene (QC): 6 Shower/Bathe Self (QC): 6 Upper Body Dressing (QC): 6 Lower Body Dressing (QC): 6 On/Off Footwear (QC): 6 Additional Goals: 1-Demonstrate ADL Tasks, 2-Verbalize Understanding, 3- ImproveStrength/Bladimir 1=Demonstrate adherence to instructed precautions during ADL tasks. 2=Patient will verbalize/demonstrate understanding of assistive devices/modifications for ADL. 3=Patient will improve strength/tolerance for activity to enable patient to perform ADL's. OT Education/Plan Problem List/Assessment Assessment: Decreased Activ Tolerance, Decreased UE Strength, Impaired I ADL's Discharge Recommendations Plan/Recommendations: Continue POC Treatment Plan/Plan of Care Patient would benefit from OT for education, treatment and training to promote independence in ADL's, mobility, safety and/or upper extremity function for ADL's. Plan of Care: ADL Retraining, Functional Mobility, Group Exercise/Act as Ind, UE Funct Exercise/Act Treatment Duration: Dec 31, 2022 Frequency: At least 5 of 7 days/Wk (IRF) Estimated Hrs Per Day: 1.5 hours per day Agreement: Yes Rehab Potential: Good Time Start Time: 08:45 Stop Time: 09:45 DATE: Dec 15, 2022 Total Time Billed (hr/min): 60 Billed Treatment Time 1, ADL (15'), FA 3 (45') HELENA BANEGAS OT Dec 15, 2022 09:42
--- NOTE | 2022-12-15 15:33 | Physical Therapy Daily Note ---
PT Daily Note-Current Subjective Pt laying Supine in bed upon arrival. Pt agrees to PT. Pain Location: Left Location Body Site: Thigh Pain Description: Ache Section J - Health Conditions 1. Rarely or not at all 2. Occasionally 3. Frequently 4. Almost constantly 8. Unable to answer Pain Effect on Sleep: 1 Pain Interference with Therapy: 3 Pain Interference w/Day-to-Day: 2 Mental Status Patient Orientation: Person, Place, Time, Situation Transfers SCALE: Activities may be completed with or without assistive devices. 8-Yqpkbttqgy-minimvl completes the activity by him/herself with no assistance from a helper. 5-Set-up or Clean-up Assistance-helper sets up or cleans up; patient completes activity. Rison assists only prior to or following the activity. 4-Supervision or Touching Assistance-helper provides verbal cues and/or touching/steadying and/or contact guard assistance as patient completes activity. Assistance may be provided throughout the activity or intermittently. 3-Partial/Moderate Assistance-helper does LESS THAN HALF the effort. Rison lifts, holds or supports trunk or limbs, but provides less than half the effort. 2-Substantial/Maximal Assistance-helper does MORE THAN HALF the effort. Rison lifts or holds trunk or limbs and provides more than half the effort. 7-Fyrdwywuk-sjovxy does ALL the effort. Patient does none of the effort to complete the activity. Or, the assistance of 2 or more helpers is required for the patient to complete the activity. If activity was not attempted, code reason: 7-Patient Refused. 9-Not Applicable-not attempted and the patient did not perform the activity before the current illness, exacerbation or injury. 10-Not Attempted due to Environmental Limitations-(lack of equipment, weather restraints, etc.). 88-Not Attempted due to Medical Conditions or Safety Concerns. Sit to Stand (QC): 5 Car Transfer (QC): 5 Weight Bearing Full Weight Bearing Full Weight Bearing Gait Training Does the Patient Walk?: Yes Distance: 150' Walk 10 feet (QC): 5 Walk 50 ft with 2 Turns(QC): 5 Walk 150 ft (QC): 5 Gait Assistive Device: FWW Exercises Supine Ex: Rolling Seated Therapy Exercises: Ankle pumps, Sit to stand, Long arc quads, Hip flexion, Hip abd/add, Glut set Seated Reps: 15 Treatments Pt completes bed mobility, car transfer as well as amb in hallway before returning to room to rest in bed at end of tx. All needs met, call light in hand. Assessment Current Status: Good Progress Pt is gaining strength, mobility and activity tolerance during tx. PT Electrical Maintenance Engineer Goals Half-Way Goals PT Electrical Maintenance Engineer Goals Time Frame: Dec 21, 2022 Roll Left & Right (QC): 6 Sit to Lying (QC): 6 Lying-Sitting on Side/Bed(QC): 6 Sit to Stand (QC): 6 Chair/Bcg-ud-Ymdax Xfer(QC): 6 Toilet Transfer (QC): 6 Car Transfer (QC): 6 Does the Patient Walk: Yes Walk 10 feet (QC): 6 Walk 50ft with 2 Turns (QC): 6 Walk 150 ft (QC): 6 Walking 10ft on Uneven Surface: 6 1 Step (curb) (QC): 4 4 Steps (QC): 4 12 Steps (QC): 88 Picking up an Object (QC): 6 Wheel 50 feet with 2 turns (QC: 9 Wheel 150 feet: 9 PT Plan Problem List Problem List: Activity Tolerance Treatment/Plan Treatment Plan: Continue Plan of Care Treatment Plan: Bed Mobility, Education, Functional Activity Bladimir, Functional Strength, Group Therapy, Gait, Safety, Therapeutic Exercise, Transfers Treatment Duration: Dec 21, 2022 Frequency: At least 5 of 7 days/Wk (IRF) Estimated Hrs Per Day: 1.5 hours per day Patient and/or Family Agrees t: Yes Safety Risks/Education Patient Education: Transfer Techniques, Reviewed Precautions, Safety Issues Teaching Recipient: Patient Teaching Methods: Discussion Response to Teaching: Verbalize Understanding Time Time In: 1005 Time Out: 1050 DATE: Dec 15, 2022 Total Billed Treatment Time: 45 Total Billed Treatment 1, FA (15m), GT (15m) & EX (15m) SHARAN SERNA TECHNICAL ILLUSTRATOR Dec 15, 2022 15:33
--- NOTE | 2022-12-15 15:52 | Physical Therapy Daily Note ---
PT Daily Note-Current Subjective Pt laying Supine in bed upon arrival. Pt agrees to PT. Pain Section J - Health Conditions 1. Rarely or not at all 2. Occasionally 3. Frequently 4. Almost constantly 8. Unable to answer Pain Effect on Sleep: 1 Pain Interference with Therapy: 3 Pain Interference w/Day-to-Day: 2 Mental Status Patient Orientation: Person, Place, Time, Situation Transfers SCALE: Activities may be completed with or without assistive devices. 7-Xoarptsfbj-fgsjeaj completes the activity by him/herself with no assistance from a helper. 5-Set-up or Clean-up Assistance-helper sets up or cleans up; patient completes activity. Cromona assists only prior to or following the activity. 4-Supervision or Touching Assistance-helper provides verbal cues and/or touching/steadying and/or contact guard assistance as patient completes activity. Assistance may be provided throughout the activity or intermittently. 3-Partial/Moderate Assistance-helper does LESS THAN HALF the effort. Cromona lifts, holds or supports trunk or limbs, but provides less than half the effort. 2-Substantial/Maximal Assistance-helper does MORE THAN HALF the effort. Cromona lifts or holds trunk or limbs and provides more than half the effort. 5-Lgzvmgzkq-ifmpnl does ALL the effort. Patient does none of the effort to complete the activity. Or, the assistance of 2 or more helpers is required for the patient to complete the activity. If activity was not attempted, code reason: 7-Patient Refused. 9-Not Applicable-not attempted and the patient did not perform the activity before the current illness, exacerbation or injury. 10-Not Attempted due to Environmental Limitations-(lack of equipment, weather restraints, etc.). 88-Not Attempted due to Medical Conditions or Safety Concerns. Sit to Stand (QC): 5 Toilet Transfer (QC): 5 Weight Bearing Full Weight Bearing Full Weight Bearing Gait Training Does the Patient Walk?: Yes Distance: 150' Walk 10 feet (QC): 5 Walk 50 ft with 2 Turns(QC): 5 Walk 150 ft (QC): 5 Gait Assistive Device: FWW Treatments Pt and MEDICATION CARE MANAGER discuss as pt request question pt had over d/c possibility for soon. Pt feels ready and Therapy agreed but MEDICATION CARE MANAGER explained that pt also had medical needs that needed to be met before d/c. Pt completes car transfer and amb then returns to room. All needs met, call light in hand. Assessment Current Status: Good Progress Pt reagan. tx well. PT Snf Goals Press Catcher Goals PT Snf Goals Time Frame: Dec 21, 2022 Roll Left & Right (QC): 6 Sit to Lying (QC): 6 Lying-Sitting on Side/Bed(QC): 6 Sit to Stand (QC): 6 Chair/Nuv-pe-Fyewc Xfer(QC): 6 Toilet Transfer (QC): 6 Car Transfer (QC): 6 Does the Patient Walk: Yes Walk 10 feet (QC): 6 Walk 50ft with 2 Turns (QC): 6 Walk 150 ft (QC): 6 Walking 10ft on Uneven Surface: 6 1 Step (curb) (QC): 4 4 Steps (QC): 4 12 Steps (QC): 88 Picking up an Object (QC): 6 Wheel 50 feet with 2 turns (QC: 9 Wheel 150 feet: 9 PT Plan Treatment/Plan Treatment Plan: Continue Plan of Care Treatment Plan: Bed Mobility, Education, Functional Activity Bladimir, Functional Strength, Group Therapy, Gait, Safety, Therapeutic Exercise, Transfers Treatment Duration: Dec 21, 2022 Frequency: At least 5 of 7 days/Wk (IRF) Estimated Hrs Per Day: 1.5 hours per day Patient and/or Family Agrees t: Yes Time Time In: 1300 Time Out: 1345 DATE: Dec 15, 2022 Total Billed Treatment Time: 45 Total Billed Treatment 1, FA x3 (45m) SHARAN SERNA MEDICATION CARE MANAGER Dec 15, 2022 15:52
--- NOTE | 2022-12-15 15:52 | Occupational Ther Daily Note ---
OT Current Status-Daily Note Subjective Pt in bed, agreeable to OT Tx. ADL-Treatment Therapy Code Descriptions/Definitions Functional [place] Measure: 0=Not Assessed/NA 4=Minimal Assistance 1=Total Assistance 5=Supervision or Setup 2=Maximal Assistance 6=Modified [place] 3=Moderate Assistance 7=Complete IndependenceSCALE: Activities may be completed with or without assistive devices. 4-Ehkqsudisb-batqpzc completes the activity by him/herself with no assistance from a helper. 5-Set-up or Clean-up Assistance-helper sets up or cleans up; patient completes activity. [place] assists only prior to or following the activity. 4-Supervision or Touching Assistance-helper provides verbal cues and/or touching/steadying and/or contact guard assistance as patient completes activity. Assistance may be provided throughout the activity or intermittently. 3-Partial/Moderate Assistance-helper does LESS THAN HALF the effort. [place] lifts, holds or supports trunk or limbs, but provides less than half the effort. 2-Substantial/Maximal Assistance-helper does MORE THAN HALF the effort. [place] lifts or holds trunk or limbs and provides more than half the effort. 8-Xkknociof-zllgik does ALL the effort. Patient does none of the effort to complete the activity. Or, the assistance of 2 or more helpers is required for the patient to complete the activity. If activity was not attempted, code reason: 7-Patient Refused. 9-Not Applicable-not attempted and the patient did not perform the activity befo re the current illness, exacerbation or injury. 10-Not Attempted due to Environmental Limitations-(lack of equipment, weather re straints, etc.). 88-Not Attempted due to Medical Conditions or Safety Concerns. Other Treatment Pt in bed, transferred supine to sit EOB, independently. Pt used FWW to perform functional mobility to therapy gym. In order to focus on UE strength and activity tolerance, pt completed arm bike x10 mins, 20 Watt resistance. Pt used FWW to perform functional mobility around [facility] common area/2nd floor and back to her room, IND. Pt sat EOB, then transferred supine independently. Post tx, pt in bed, call light in reach and all needs met. OT Short Term Goals Short Term Goals Time Frame: Dec 15, 2022 Shower/bathe self: 3 Lower body dressin Putting on/taking off footwear: 3 OT [facility] Goals Lubrication Servicer Goals Time Frame: Dec 31, 2022 Acute change in mental status: 1 Inattention: 0 Disorganized thinkin Altered level of consciousness: 0 Eating (QC): 6 Oral Hygiene (QC): 6 Toileting Hygiene (QC): 6 Shower/Bathe Self (QC): 6 Upper Body Dressing (QC): 6 Lower Body Dressing (QC): 6 On/Off Footwear (QC): 6 Additional Goals: 1-Demonstrate ADL Tasks, 2-Verbalize Understanding, 3-ImproveStrength/Bl[place] 1=Demonstrate adherence to instructed precautions during ADL tasks. 2=Patient will verbalize/demonstrate understanding of assistive devices/modifications for ADL. 3=Patient will improve strength/tolerance for activity to enable patient to perform ADL's. OT Education/Plan Problem List/Assessment Assessment: Decreased Activ Tolerance, Decreased UE Strength, Impaired I ADL's Discharge Recommendations Plan/Recommendations: Continue POC Treatment Plan/Plan of Care Patient would benefit from OT for education, treatment and training to promote independence in ADL's, mobility, safety and/or upper extremity function for ADL's. Plan of Care: ADL Retraining, Functional Mobility, Group Exercise/Act as Ind, UE Funct Exercise/Act Treatment Duration: Dec 31, 2022 Frequency: At least 5 of 7 days/Wk (IRF) Estimated Hrs Per Day: 1.5 hours per day Agreement: Yes Rehab Potential: Good Time Start Time: 14:15 Stop Time: 14:45 DATE: Dec 15, 2022 Total Time Billed (hr/min): 30 Billed Treatment Time 1, EX (10'), FA (20') HELENA BANEGAS OT Dec 15, 2022 15:52
[2022-12-15 20:15] VITALS: BP 157/70
[2022-12-15] MEDS: OXYBUTYNIN (DITROPAN) 5 MG TAB PO SCH (20:38)
[2022-12-15] MEDS: eZETimibe 10 MG (ZETIA) TABLET PO SCH (20:38)
[2022-12-16] MEDS: HYDROcodone/APAP 5 MG/325 MG (LORTAB) TAB PO PRN ×3 (03:40→20:38)
--- NOTE | 2022-12-16 05:03 | PM&R Progress Note ---
Subjective HPI/CC On Admission Date Seen by Provider: Dec 16, 2022 Time Seen by Provider: 12:00 Subjective/Events-last exam 12/16/2022: No major issues Improved overall Oxybutynin helping 12/15/2022: Doing well Incontinent of bladder at night so we will try oxybutynin No other concerns 12/14/2022: Overall improved No falls Pain controlled BM loose 12/13/2022: No major issues Pain controlled No falls Checked meds and labs 12/12/2022: No major issues Pain controlled Walking pretty well Checked meds 12/11/2022: No major issues Checking UA since she reported increased odor Slow recovery but walking now 12/10/2022: BP varies Pain controlled Slow recovery No nausea 12/09/2022: Had episode of HTN and tachycardia so EKG obtained and Telemetry started Dr Mccarty consulted DC catheter then had retention No falls 12/08/2022: Improved status Pain controlled Lung mass is known and managed in [place] but it appears it is a benign granuloma? No falls Improved status Subtle cognition deficit noted since she could not name her doctor who managed the lung nodule Review of Systems General: Fatigue, Malaise Objective Exam Vital Signs Vital Signs Date Time Temp Pulse Resp B/P (MAP) Pulse Ox O2 Delivery O2 Flow Rate FiO2 12/16/22 20:47 36.4 78 16 130/59 (82) 94 Room Air 12/11/22 09:00 2.00 Capillary Refill : General Appearance: No Apparent Distress, WD/WN, Chronically ill, Obese HEENT: PERRL/EOMI, Normal ENT Inspection, Pharynx Normal Neck: Full Range of Motion, Normal Inspection, Non Tender, Supple, Carotid Bruit Respiratory: Chest Non Tender, Lungs Clear, No Accessory Muscle Use, No Respiratory Distress, Decreased Breath Sounds Cardiovascular: Regular Rate, Rhythm, No Edema, No Gallop, No JVD, No Murmur, Normal Peripheral Pulses Gastrointestinal: Normal Bowel Sounds, No Organomegaly, No Pulsatile Mass, Non Tender, Soft Back: Normal Inspection, No CVA Tenderness, No Vertebral Tenderness Extremity: Normal Capillary Refill, Normal Inspection, Normal Range of Motion (except right leg), Non Tender, No Calf Tenderness, No Pedal Edema Neurologic/Psychiatric: Alert, Oriented x3, No Motor/Sensory Deficits, Normal Mood/Affect Skin: Normal Color, Warm/Dry Lymphatic: No Adenopathy Results/Procedures Lab Patient resulted labs reviewed. FIM Transfers Therapy Code Descriptions/Definitions Functional [place] Measure: 0=Not Assessed/NA 4=Minimal Assistance 1=Total Assistance 5=Supervision or Setup 2=Maximal Assistance 6=Modified [place] 3=Moderate Assistance 7=Complete IndependenceSCALE: Activities may be completed with or without assistive devices. 8-Feqwblrzbb-sktdedz completes the activity by him/herself with no assistance from a helper. 5-Set-up or Clean-up Assistance-helper sets up or cleans up; patient completes activity. [place] assists only prior to or following the activity. 4-Supervision or Touching Assistance-helper provides verbal cues and/or touching/steadying and/or contact guard assistance as patient completes activity. Assistance may be provided throughout the activity or intermittently. 3-Partial/Moderate Assistance-helper does LESS THAN HALF the effort. [place] l ifts, holds or supports trunk or limbs, but provides less than half the effort. 2-Substantial/Maximal Assistance-helper does MORE THAN HALF the effort. [place] lifts or holds trunk or limbs and provides more than half the effort. 2-Paiopqdag-ublrro does ALL the effort. Patient does none of the effort to complete the activity. Or, the assistance of 2 or more helpers is required for t he patient to complete the activity. If activity was not attempted, code reason: 7-Patient Refused. 9-Not Applicable-not attempted and the patient did not perform the activity before the current illness, exacerbation or injury. 10-Not Attempted due to Environmental Limitations-(lack of equipment, weather restraints, etc.). 88-Not Attempted due to Medical Conditions or Safety Concerns. Roll Left to Right (QC): 6 Sit to Lying (QC): 5 Sit to Stand (QC): 5 Chair/Uwm-aj-Fwelq Xfer(QC): 4 Car Transfer (QC): 5 Gait Training Does the Patient Walk?: Yes Distance: 150' Walk 10 feet (QC): 5 Walk 50 ft with 2 Turns(QC): 5 Walk 150 ft (QC): 5 Walking 10ft/uneven surface-QC: 88 Gait Persons Needed: 1 Gait Assistive Device: FWW Wheelchair Training Does the Pt Use a Wheelchair?: No Wheel 50 ft with 2 turns (QC): 9 Wheel 150 ft (QC): 9 Stair Training Stair Training: Handrails/: 2 handrails #of Steps: 6 1 Step (curb) (QC): 4 4 Steps (QC): 4 12 Steps (QC): 88 Balance Picking up an Object (QC): 4 (CGA using a clinical education manager) ADL-Treatment Eating (QC): 6 Oral Hygiene (QC): 6 Bathing Location: L Arm, R Arm, L Upper Leg, R Upper Leg, Chest, Abdomen, Buttocks, Perineal Area Shower/Bathe Self (QC): 5 (Set up ) Upper Body Dressing (QC): 6 Lower Body Dressing (QC): 4 (Min VCs for hip precautiosn.) On/Off Footwear (QC): 6 (IND slip on shoes.) Toileting Hygiene (QC): 6 Toilet Transfer (QC): 6 Assessment/Plan Assessment and Plan Assess & Plan/Chief Complaint Assessment: Right hip fracture Post op delirium Post op anemia from acute blood loss ARLETTE on CPAP Breast cancer with lung nodule on imaging but this is a known nodule per patient and she sees specialist in [place] for that but patient did not remember the name of the doctor HTN HLP Hypothyroidism DM Urinary retention after DC catheter now resolved Plan: PT OT Pain control Monitor labs 12/08/2022: Pain control Monitor closely 12/09/2022: Monitor closely In/out caths prn 12/10/2022: Monitor closely Urinary retention management 12/11/2022: Check UA 12/12/2022: UA ok 12/13/2022: Monitor closely 12/14/2022: Monitor closely 12/15/2022: Try oxybutynin for urge incontinency at night 12/16/2022: Oxybutynin Improved overall (1) Closed right hip fracture Status: Acute (2) Postoperative delirium Status: Acute (3) T2DM (type 2 diabetes mellitus) Status: Chronic (4) Lung nodule Status: Acute (5) HTN (hypertension) Status: Chronic (6) Non-insulin dependent type 2 diabetes mellitus (7) Essential (primary) hypertension (8) Hypothyroidism (9) Hyperlipidemia (10) Hypokalemia SHA GEORGE DO Dec 16, 2022 05:03
[2022-12-16] MEDS: CATHETER FLUSH 10 ML SYR IVP SCH (06:00)
[2022-12-16] MEDS: CYANOCOBALAMIN 1,000 MCG (VITAMIN B-12) TABLET PO SCH (06:26)
[2022-12-16] MEDS: VENlafaxine XR 75 MG (EFFEXOR XR) CAP PO SCH (06:26)
[2022-12-16] MEDS: LEVOTHYROXINE 75 MCG (LEVOTHROID) TABLET PO SCH (06:26)
[2022-12-16] MEDS: KCL 10 MEQ TAB (MICRO K) PO SCH (06:26)
--- NOTE | 2022-12-16 07:24 | Physical Therapy Daily Note ---
PT Daily Note-Current Subjective Pt. finishing breakfast and agrees to Rx. Pt. states she has a "barometric headache " because of rainy weather and rates her right lateral hip pain and her VILLARREAL at 4/10. Pt. states a nurse gave her pain meds earlier. Pt. is axcited about her DC tomorrow and feels confident she is ready. Pt. shares that she is a bit nervous about going up and down a ramp at [employer] with her FWW Pain Numeric Pain Scale: 4 Location: Right Location Body Site: Hip Pain Description: Ache Comment: and headache , see above Section J - Health Conditions 1. Rarely or not at all 2. Occasionally 3. Frequently 4. Almost constantly 8. Unable to answer Pain Effect on Sleep: 1 Pain Interference with Therapy: 2 Pain Interference w/Day-to-Day: 1 Mental Status Patient Orientation: Normal For Age Transfers SCALE: Activities may be completed with or without assistive devices. 3-Udpoknqzpk-acuczub completes the activity by him/herself with no assistance from a helper. 5-Set-up or Clean-up Assistance-helper sets up or cleans up; patient completes activity. [place] assists only prior to or following the activity. 4-Supervision or Touching Assistance-helper provides verbal cues and/or touching/steadying and/or contact guard assistance as patient completes activity. Assistance may be provided throughout the activity or intermittently. 3-Partial/Moderate Assistance-helper does LESS THAN HALF the effort. [place] lifts, holds or supports trunk or limbs, but provides less than half the effort. 2-Substantial/Maximal Assistance-helper does MORE THAN HALF the effort. [place] lifts or holds trunk or limbs and provides more than half the effort. 8-Ykzqtkyvh-ewimoa does ALL the effort. Patient does none of the effort to complete the activity. Or, the assistance of 2 or more helpers is required for the patient to complete the activity. If activity was not attempted, code reason: 7-Patient Refused. 9-Not Applicable-not attempted and the patient did not perform the activity before the current illness, exacerbation or injury. 10-Not Attempted due to Environmental Limitations-(lack of equipment, weather restraints, etc.). 88-Not Attempted due to Medical Conditions or Safety Concerns. Roll Left & Right (QC): 6 Sit to Lying (QC): 6 Lying to Sitting/Side of Bed(Q: 6 Sit to Stand (QC): 6 Chair/Nrs-jn-Hrpoo Xfer(QC): 6 Toilet Transfer (QC): 6 Car Transfer (QC): 6 Weight Bearing Full Weight Bearing Full Weight Bearing Gait Training Does the Patient Walk?: Yes Walk 10 feet (QC): 6 Walk 50 ft with 2 Turns(QC): 6 Walk 150 ft (QC): 6 Walking 10ft/uneven surface-QC: 6 Gait Persons Needed: 0 Gait Assistive Device: FWW follows precautions with all turns , good gait pattern, equal step length, moderate wt bearing on FWW at times, pt. ambulated on ramp/incline approx 25 up and down with FWW no issues indep Stair Training Stair Training: Handrails/: 2 handrails #of Steps: 12 1 Step (curb) (QC): 4 4 Steps (QC): 4 12 Steps (QC): 4 Stairs: Pattern: Step to demonstrates understanding of sequence , safe technique, CGA to SBA Balance Picking up an Object (QC): 6 (chicken tender use) Exercises Supine Ex: Ankle pumps, Quad Set, Rolling, Glut sets, Heel Slides, Short Arc Quads, Scooting, Straight leg raise (x4 with mod to min assist), Hip abd/add Supine Reps: 15 Seated Therapy Exercises: Ankle pumps, Sit to stand, Long arc quads Seated Reps: 15 Treatments QC complete, gait on flat surface and incline, sup therex, Assessment Current Status: Good Progress meets goals PT Tuber Operator Goals Care Home Goals PT Tuber Operator Goals Time Frame: Dec 21, 2022 Roll Left & Right (QC): 6 Sit to Lying (QC): 6 Lying-Sitting on Side/Bed(QC): 6 Sit to Stand (QC): 6 Chair/Xyf-ea-Xhjcm Xfer(QC): 6 Toilet Transfer (QC): 6 Car Transfer (QC): 6 Does the Patient Walk: Yes Walk 10 feet (QC): 6 Walk 50ft with 2 Turns (QC): 6 Walk 150 ft (QC): 6 Walking 10ft on Uneven Surface: 6 1 Step (curb) (QC): 4 4 Steps (QC): 4 12 Steps (QC): 88 Picking up an Object (QC): 6 Wheel 50 feet with 2 turns (QC: 9 Wheel 150 feet: 9 PT Plan Treatment/Plan Treatment Plan: Continue Plan of Care Treatment Plan: Bed Mobility, Education, Functional Activity [place], Functional Strength, Group Therapy, Gait, Safety, Therapeutic Exercise, Transfers Treatment Duration: Dec 21, 2022 Frequency: At least 5 of 7 days/Wk (IRF) Estimated Hrs Per Day: 1.5 hours per day Patient and/or Family Agrees t: Yes Safety Risks/Education Patient Education: Gait Training, Transfer Techniques, Steps, Reviewed Precautions (reviewed THR prec), Correct Positioning, Disease Process, Safety Issues Teaching Recipient: Patient Teaching Methods: Demonstration, Discussion Response to Teaching: Verbalize Understanding, Return Demonstration, Reinforcement Needed Time Time In: 715 Time Out: 845 DATE: Dec 16, 2022 Total Billed Treatment Time: 90 Total Billed Treatment 1,FA47m,EX19m,GT24m JAVY FONTENOT PTA Dec 16, 2022 07:24
[2022-12-16 07:28] VITALS: BP 136/66
--- NOTE | 2022-12-16 08:02 | Cardiology Progress Note ---
Subjective Date Seen by Provider: Dec 16, 2022 Time Seen by Provider: 07:42 Subjective/Events-last exam Pt performing PT this morning upon evaluation. States she is feeling well and will be dismissed home tomorrow. Blood pressure well controlled this morning. She denies chest pain, shortness of breath, headache, dizziness, palpitations, or any other acute sx. Review of Systems General: No Chills, No Night Sweats HEENT: No Head Aches, No Visual Changes Pulmonary: No Dyspnea, No Cough Cardiovascular: No: Chest Pain, Palpitations, Edema Gastrointestinal: No: Nausea, Vomiting, Diarrhea Genitourinary: No Dysuria, No Frequency Musculoskeletal: leg pain (right hip pain due to fracture, improving) Neurological: No: Weakness, Numbness Objective-Cardiology Exam Last Set of Vital Signs Vital Signs 12/11/22 12/16/22 09:00 07:28 Temp 36.3 Pulse 83 Resp 18 B/P (MAP) 136/66 (89) Pulse Ox 96 O2 Delivery Room Air O2 Flow Rate 2.00 I&O Intake and Output 12/16/22 00:00 Intake Total 1445 ml Balance 1445 ml Intake Oral 1445 ml # Voids 5 # Bowel Movements 2 General: Alert, Oriented X3, Cooperative HEENT: Atraumatic, EOMI, Mucous Memb Moist/[place] Neck: Supple, No LAD Lungs: Clear to Auscultation, Normal Air Movement Heart: Regular Rate, Normal S1, Normal S2 Abdomen: Normal Bowel Sounds, Soft, No Tenderness Extremities: No Cyanosis, No Edema, Normal Pulses Skin: No Rashes Neuro: Normal Speech, Sensation Intact Psych/Mental Status: Mood NL A/P-Cardiology Admission Diagnosis Tachycardia Hypertension Diabetes mellitus Hip fracture Assessment/Plan Transient episode of tachycardia with hypotension. - resolved no palpitations or chest pain Telemetry started on December 09, 2022, no arrhythmia detected. Telemetry discontinued yesterday afternoon. Will have her follow up in the office and monitor as needed. 2D echo done on December 09, 2022 with normal LV size and function. No significant abnormality. Hypertension Increased metoprolol to 100 mg twice daily, increased losartan to 100mg, cont inue amilodipine 5mg dailly. Blood pressure has been well controlled. Will have her follow up in the office and monitor. Status post hip arthroplasty after closed head fracture, pain improving. Maintained in physical therapy Diabetes mellitus, managed by primary care physician Generalized weakness, improving each day with physical therapy Supervisory-Addendum Brief Verification & Attestation Participated in pt care: history, MDM, physical Personally performed: exam, history, MDM, supervision of care Care discussed with: Medical Student Procedures: n/a Results interpretation: Verified all documentation Verification and Attestation of Medical Student E/M Service A medical student performed and documented this service in my presence. I reviewed and verified all information documented by the medical student and made modifications to such information, when appropriate. I personally performed the physical exam and medical decision making. Patient was seen during exercise session. Feeling better No new complaint Blood pressure is better controlled Continue current medication regimen follow-up as an outpatient Brandee Mccarty, Dec 16, 2022,08:22 AARON FORD Dec 16, 2022 08:02 BRANDEE MCCARTY MD Dec 16, 2022 08:22
[2022-12-16] MEDS: LOSARTAN 100 MG (COZAAR) TABLET PO SCH (09:11)
[2022-12-16] MEDS: meTOprolol TARTRATE 50 MG (LOPRESSOR) TAB PO SCH ×2 (09:12→20:38)
[2022-12-16] MEDS: PANTOPRAZOLE 40 MG (PROTONIX) TAB PO SCH (09:12)
[2022-12-16] MEDS: amLODIPine 10 MG (NORVASC) TAB PO SCH (09:12)
[2022-12-16] MEDS: LORATADINE (CLARITIN) 10 MG TAB PO SCH (09:12)
[2022-12-16] MEDS: ENOXAPARIN 40 MG/0.4 ML (LOVENOX) SYR SQ SCH (09:13)
--- NOTE | 2022-12-16 09:30 | Occupational Ther Daily Note ---
OT Current Status-Daily Note Subjective Pt in bed, agreeable to OT Tx. Pt states she feels ready to discharge tomorrow. Mental Status/Objective Patient Orientation: Normal For Age ADL-Treatment Therapy Code Descriptions/Definitions Functional [place] Measure: 0=Not Assessed/NA 4=Minimal Assistance 1=Total Assistance 5=Supervision or Setup 2=Maximal Assistance 6=Modified [place] 3=Moderate Assistance 7=Complete IndependenceSCALE: Activities may be completed with or without assistive devices. 3-Bffgxudgxz-jygukhz completes the activity by him/herself with no assistance from a helper. 5-Set-up or Clean-up Assistance-helper sets up or cleans up; patient completes activity. [place] assists only prior to or following the activity. 4-Supervision or Touching Assistance-helper provides verbal cues and/or touching/steadying and/or contact guard assistance as patient completes activity. Assistance may be provided throughout the activity or intermittently. 3-Partial/Moderate Assistance-helper does LESS THAN HALF the effort. [place] lifts, holds or supports trunk or limbs, but provides less than half the effort. 2-Substantial/Maximal Assistance-helper does MORE THAN HALF the effort. [place] lifts or holds trunk or limbs and provides more than half the effort. 5-Fkaojfafo-dqoami does ALL the effort. Patient does none of the effort to complete the activity. Or, the assistance of 2 or more helpers is required for the patient to complete the activity. If activity was not attempted, code reason: 7-Patient Refused. 9-Not Applicable-not attempted and the patient did not perform the activity before the current illness, exacerbation or injury. 10-Not Attempted due to Environmental Limitations-(lack of equipment, weather restraints, etc.). 88-Not Attempted due to Medical Conditions or Safety Concerns. Eating (QC): 6 Oral Hygiene (QC): 6 Shower/Bathe Self (QC): 5 (set up to cover dressing prior to shower.) Upper Body Dressing (QC): 6 Lower Body Dressing (QC): 6 On/Off Footwear: 6 Toileting Hygiene (QC): 6 Toilet Transfer (QC): 6 Other Treatment Pt in bed, transferred supine to sit EOB, independently. Pt used FWW to gather clothes/ADL supplies, then transferred into bathroom. Pt completed ADLs as outlined above, required set up assist for showering only to cover dressing prior to shower. Pt returned to bed using FWW, transferring supine independently. Post tx, pt in recliner, call light in reach and all needs met. Education OT Patient Education: Correct positioning, Energy conservation, Modified ADL techniques, Progress toward Goal/Update tx plan, Purpose of tx/functional activities, Rehab process Teaching Recipient: Patient Teaching Methods: Discussion Response to Teaching: Verbalize Understanding BIMS CAM BIMS Expression of Ideas and Wants: Without Difficulty Understanding Verbal Content: Understands Brief Interview/Mental Status: Yes IRF LOREN BIMS: IRF LOREN BIMS Response (Comments) Value Repitition of Three Words Three 3 Recalls Socks Yes, No Cue Required 2 Recalls Blue Yes, No Cue Required 2 Recalls Bed Yes, No Cue Required 2 Year Correct 3 Month Accurate Within 5 Days 2 Day Correct 1 Total 15 [address] Staff [address] Mental [address] No CAM Mental Status Change/Baseline: 0 Inattention: 0 Disorganized thinkin Altered level of consciousness: 0 OT Short Term Goals Short Term Goals Time Frame: Dec 15, 2022 Shower/bathe self: 3 Lower body dressin Putting on/taking off footwear: 3 OT Door Machine Operator Goals Jail Goals Time Frame: Dec 31, 2022 Acute change in mental status: 1 Inattention: 0 Disorganized thinkin Altered level of consciousness: 0 Eating (QC): 6 (met) Oral Hygiene (QC): 6 (met) Toileting Hygiene (QC): 6 (met) Shower/Bathe Self (QC): 6 (not met) Upper Body Dressing (QC): 6 (met) Lower Body Dressing (QC): 6 (met) On/Off Footwear (QC): 6 (met) Additional Goals: 1-Demonstrate ADL Tasks, 2-Verbalize Understanding, 3- ImproveStrength/[place] 1=Demonstrate adherence to instructed precautions during ADL tasks. 2=Patient will verbalize/demonstrate understanding of assistive devices/modifications for ADL. 3=Patient will improve strength/tolerance for activity to enable patient to perform ADL's. OT Education/Plan Problem List/Assessment Assessment: Decreased Activ Tolerance, Decreased UE Strength, Impaired I ADL's Discharge Recommendations Plan/Recommendations: Continue POC Treatment Plan/Plan of Care Patient would benefit from OT for education, treatment and training to promote independence in ADL's, mobility, safety and/or upper extremity function for ADL's. Plan of Care: ADL Retraining, Functional Mobility, Group Exercise/Act as Ind, UE Funct Exercise/Act Treatment Duration: Dec 31, 2022 Frequency: At least 5 of 7 days/Wk (IRF) Estimated Hrs Per Day: 1.5 hours per day Agreement: Yes Rehab Potential: Good Time Start Time: 09:00 Stop Time: 10:00 DATE: Dec 16, 2022 Total Time Billed (hr/min): 60 Billed Treatment Time 1, ADL 4 HELENA BANEGAS OT Dec 16, 2022 09:30
[2022-12-16] MEDS: TRIAMCINOLONE 0.1% CR (KENALOG) 15 GM TUBE TOP SCH ×2 (10:23→20:38)
[2022-12-16] MEDS: DICLOFENAC 1% GEL 100 GM (VOLTAREN) TUBE TOP SCH ×4 (10:23→20:39)
--- NOTE | 2022-12-16 11:45 | Occupational Ther Daily Note ---
OT Current Status-Daily Note Subjective Pt in bed, agreeable to OT Tx. ADL-Treatment Therapy Code Descriptions/Definitions Functional [place] Measure: 0=Not Assessed/NA 4=Minimal Assistance 1=Total Assistance 5=Supervision or Setup 2=Maximal Assistance 6=Modified [place] 3=Moderate Assistance 7=Complete IndependenceSCALE: Activities may be completed with or without assistive devices. 1-Eswyfaxitc-xgzbarq completes the activity by him/herself with no assistance from a helper. 5-Set-up or Clean-up Assistance-helper sets up or cleans up; patient completes activity. [place] assists only prior to or following the activity. 4-Supervision or Touching Assistance-helper provides verbal cues and/or touching/steadying and/or contact guard assistance as patient completes activity. Assistance may be provided throughout the activity or intermittently. 3-Partial/Moderate Assistance-helper does LESS THAN HALF the effort. [place] lifts, holds or supports trunk or limbs, but provides less than half the effort. 2-Substantial/Maximal Assistance-helper does MORE THAN HALF the effort. [place] lifts or holds trunk or limbs and provides more than half the effort. 2-Ugbgphamu-advrxg does ALL the effort. Patient does none of the effort to complete the activity. Or, the assistance of 2 or more helpers is required for the patient to complete the activity. If activity was not attempted, code reason: 7-Patient Refused. 9-Not Applicable-not attempted and the patient did not perform the activity befo re the current illness, exacerbation or injury. 10-Not Attempted due to Environmental Limitations-(lack of equipment, weather re straints, etc.). 88-Not Attempted due to Medical Conditions or Safety Concerns. Toileting Hygiene (QC): 6 Toilet Transfer (QC): 6 Other Treatment Pt in bed, transferred supine to sit EOB, IND. Pt used FWW to transfer into bathroom. Pt completed toileting independently, then performed functional mobility to therapy gym, IND with FWW. OT tx focused on increasing BUE strength and activity tolerance. Pt completed arm bike x10 mins, 20 Watt resistance. Pt returned to her room using FWW, transferring to recliner, IND. Post tx, pt in recliner, call light in reach and all needs met. OT Short Term Goals Short Term Goals Time Frame: Dec 15, 2022 Shower/bathe self: 3 Lower body dressin Putting on/taking off footwear: 3 OT Half-Way Goals Fuse Assembler Goals Time Frame: Dec 31, 2022 Acute change in mental status: 0 Inattention: 0 Disorganized thinkin Altered level of consciousness: 0 Eating (QC): 6 (met) Oral Hygiene (QC): 6 (met) Toileting Hygiene (QC): 6 (met) Shower/Bathe Self (QC): 6 (not met) Upper Body Dressing (QC): 6 (met) Lower Body Dressing (QC): 6 (met) On/Off Footwear (QC): 6 (met) Additional Goals: 1-Demonstrate ADL Tasks, 2-Verbalize Understanding, 3-Im proveStrength/Bladimir 1=Demonstrate adherence to instructed precautions during ADL tasks. 2=Patient will verbalize/demonstrate understanding of assistive devices/modifications for ADL. 3=Patient will improve strength/tolerance for activity to enable patient to perform ADL's. OT Education/Plan Problem List/Assessment Assessment: Decreased Activ Tolerance, Decreased UE Strength, Impaired I ADL's Discharge Recommendations Plan/Recommendations: Continue POC Treatment Plan/Plan of Care Patient would benefit from OT for education, treatment and training to promote independence in ADL's, mobility, safety and/or upper extremity function for ADL's. Plan of Care: ADL Retraining, Functional Mobility, Group Exercise/Act as Ind, UE Funct Exercise/Act Treatment Duration: Dec 31, 2022 Frequency: At least 5 of 7 days/Wk (IRF) Estimated Hrs Per Day: 1.5 hours per day Agreement: Yes Rehab Potential: Good Time Start Time: 11:30 Stop Time: 12:00 DATE: Dec 16, 2022 Total Time Billed (hr/min): 30 Billed Treatment Time 1, ADL (15'), EX (15') HELENA BANEGAS OT Dec 16, 2022 11:45
[2022-12-16] MEDS: OXYBUTYNIN (DITROPAN) 5 MG TAB PO SCH (20:38)
[2022-12-16] MEDS: eZETimibe 10 MG (ZETIA) TABLET PO SCH (20:38)
[2022-12-16] MEDS: MELATONIN 3 MG TABLET PO PRN (20:39)
[2022-12-16 20:47] VITALS: BP 130/59
[2022-12-17] MEDS ORDERED: ACHD5005 PO (06:42)
[2022-12-17] MEDS ORDERED: LOSA100T57 PO (06:42)
[2022-12-17] MEDS ORDERED: LEVO75CA5 PO (06:42)
[2022-12-17] MEDS ORDERED: METF-865 PO (06:42)
[2022-12-17] MEDS ORDERED: FURO20TA4 PO (06:42)
[2022-12-17] MEDS ORDERED: LIOT5TAB10 PO (06:42)
[2022-12-17] MEDS ORDERED: AMLO-250 PO (06:42)
[2022-12-17] MEDS ORDERED: METO50TA15 PO (06:42)
[2022-12-17] MEDS ORDERED: OXYB5TAB13 PO (06:42)
[2022-12-17] MEDS ORDERED: SUCR1TAB PO (06:42)
[2022-12-17] MEDS ORDERED: VENL150C98 PO (06:42)
[2022-12-17] MEDS ORDERED: ASPI-999 PO (06:42)
[2022-12-17] MEDS ORDERED: LORA10CA PO (06:42)
[2022-12-17] MEDS ORDERED: MELO15TA39 PO (06:42)
[2022-12-17] MEDS ORDERED: OMEP20CA18 PO (06:42)
[2022-12-17] MEDS ORDERED: EZET10TA17 PO (06:42)
[2022-12-17] MEDS: LEVOTHYROXINE 75 MCG (LEVOTHROID) TABLET PO SCH (06:43)
[2022-12-17] MEDS: VENlafaxine XR 75 MG (EFFEXOR XR) CAP PO SCH (06:43)
[2022-12-17] MEDS: HYDROcodone/APAP 5 MG/325 MG (LORTAB) TAB PO PRN (06:44)
[2022-12-17] MEDS: KCL 10 MEQ TAB (MICRO K) PO SCH (06:44)
[2022-12-17] MEDS: CYANOCOBALAMIN 1,000 MCG (VITAMIN B-12) TABLET PO SCH (06:44)
--- NOTE | 2022-12-17 06:44 | D/C HH Face to Face Order ---
D/C Face to Face Orders Reconcile Patient Problems Problems Reviewed?: Yes Instructions for Patient Via [facility], Patient Instructions/FollowUp: PCP 1 week Physician to follow Patient: PCP Discharge Diet for Home: ADA Diet Patient Problems: Hip fracture Patient Data-Allergies,Ht & Wt Patient Allergies: Coded Allergies: Penicillins (Verified Allergy, Unknown, 12/03/22) Vwrzycz-[id number] Reductase Inhibitor (Verified Allergy, Unknown, 12/05/22) Sulfa (Sulfonamide Antibiotics) (Verified Allergy, Unknown, Itching, ) clarithromycin (Verified Allergy, Unknown, 12/05/22) doxycycline (Verified Allergy, Unknown, Hives, 12/05/22) oxycodone (Verified Allergy, Unknown, Itching;pt tolerated morphine, 12/07/22) valdecoxib (Verified Allergy, Unknown, Hives, 12/05/22) Home Health Need/Face to Face Date of Face to Face: Dec 17, 2022 Clinical Findings: Generalized weakness and fatigue, Instability, Muscle weakness I have seen Pt [id number]: Yes Discharged To: Home Diagnosis/Conditions: hip fx Patient is Homebound due to: Pierre fall risk due to instabilty, Muscle weakness Homebound Status Due to the above stated illness, injury or surgical procedure (medical condition or diagnosis) and associated clinical findings, the patient is homebound because of his/her inability to leave home except with aid of a supportive device and/or person AND leaving the home requires a considerable and taxing effort or is medically contraindicated. Pt req the following assistanc: [facility] Nursing Orders Home Health Services Order: Nursing Services, Senior Control Systems Engineer-Evaluate & Treat, Physical Therapy-Evaluate & Treat Home Health Infusion Therapy Line Start Date: Dec 09, 2022 Certify Stmt I certify that this patient is under my care and that I, a nurse practitioner or a physician; a development assistant working with me, had a face to face encounter that - meets the physician face to face encounter requirements with this patient as dated. SHA GEORGE DO Dec 17, 2022 06:44
--- NOTE | 2022-12-17 06:44 | Discharge Summary ---
Diagnosis/Chief Complaint Date of Admission Dec 07, 2022 at 11:20 Date of Discharge Discharge Date: Dec 17, 2022 Discharge Diagnosis Assessment: Right hip fracture Post op delirium Post op anemia from acute blood loss ARLETTE on CPAP Breast cancer with lung nodule on imaging but this is a known nodule per patient and she sees specialist in [place] for that but patient did not remember the name of the doctor HTN HLP Hypothyroidism DM Urinary retention after DC catheter now resolved Plan: PT OT Pain control Monitor labs 12/08/2022: Pain control Monitor closely 12/09/2022: Monitor closely In/out caths prn 12/10/2022: Monitor closely Urinary retention management 12/11/2022: Check UA 12/12/2022: UA ok 12/13/2022: Monitor closely 12/14/2022: Monitor closely 12/15/2022: Try oxybutynin for urge incontinency at night 12/16/2022: Oxybutynin Improved overall (1) Closed right hip fracture Status: Acute (2) Postoperative delirium Status: Acute (3) T2DM (type 2 diabetes mellitus) Status: Chronic (4) Lung nodule Status: Acute (5) HTN (hypertension) Status: Chronic (6) Non-insulin dependent type 2 diabetes mellitus (7) Essential (primary) hypertension (8) Hypothyroidism (9) Hyperlipidemia (10) Hypokalemia Discharge Summary Discharge Physical Examination Allergies: Coded Allergies: Penicillins (Verified Allergy, Unknown, 12/03/22) Ftfydfi-FAM-GbK Reductase Inhibitor (Verified Allergy, Unknown, 12/05/22) Sulfa (Sulfonamide Antibiotics) (Verified Allergy, Unknown, Itching, 12/05/22) clarithromycin (Verified Allergy, Unknown, 12/05/22) doxycycline (Verified Allergy, Unknown, Hives, 12/05/22) oxycodone (Verified Allergy, Unknown, Itching;pt tolerated morphine, 12/07/22) valdecoxib (Verified Allergy, Unknown, Hives, 12/05/22) Vitals & I&Os Vital Signs Date Time Temp Pulse Resp B/P (MAP) Pulse Ox O2 Delivery O2 Flow Rate FiO2 12/17/22 11:15 36.8 82 18 146/78 97 Room Air General Appearance: Alert, Oriented X3, Cooperative Respiratory: Clear to Auscultation Cardiovascular: Regular Rate Neuro: Normal Gait Psych/Mental Status: Mental Status NL Hospital Course Was the Problem List Reviewed?: Yes Hospital course: patient had a lengthy but successful course after she was admitted following hip fracture repair. Delirium cleared and she able to participate in therapies. [place] cath DC and had subsequently dysuria but UA was normal. Incontinence was noted at night so Oxybutynin was rxes with good results. Labs remained stable and patient received IV iron infusions. Overall she did well and was able to DC home with . Labs (last 24 hrs) Laboratory Tests 12/07/22 15:38: Glucometer 147H 12/07/22 20:11: Glucometer 182H 12/08/22 05:05: White Blood Count 6.6, Red Blood Count 3.23L, Hemoglobin 9.4L, Hematocrit 28L, Mean Corpuscular Volume 86, Mean Corpuscular Hemoglobin 29, Mean Corpuscular Hemoglobin Concent 34, Red Cell Distribution Width 13.6, Platelet Count 196, Mean Platelet Volume 11.2, Immature Granulocyte % (Auto) 1, Neutrophils (%) (Aut o) 73, Lymphocytes (%) (Auto) 18, Monocytes (%) (Auto) 9, Eosinophils (%) (Auto) 0, Basophils (%) (Auto) 0, Neutrophils # (Auto) 4.8, Lymphocytes # (Auto) 1.2, Monocytes # (Auto) 0.6, Eosinophils # (Auto) 0.0, Basophils # (Auto) 0.0, Immature Granulocyte # (Auto) 0.0, Sodium Level 138, Potassium Level 3.5L, Chloride Level 110H, Carbon Dioxide Level 19L, Anion Gap 9, Blood Urea Nitrogen 6L, Creatinine 0.60, Estimat Glomerular Filtration Rate 95, BUN/Creatinine Ratio 10, Glucose Level 155H, Calcium Level 8.0L, Corrected Calcium 9.0, Iron Level 15L, Total Bilirubin 0.5, Aspartate Amino Transf (AST/SGOT) 26, Alanine A minotransferase (ALT/SGPT) 30, Alkaline Phosphatase 40, Total Protein 5.7L, Albumin 2.8L, Vitamin B12 Level 458 12/08/22 11:07: Glucometer 148H 12/08/22 16:26: Glucometer 126H 12/08/22 20:39: Glucometer 144H 12/09/22 05:53: Glucometer 145H 12/09/22 11:09: Glucometer 135H 12/09/22 15:56: Glucometer 91 12/09/22 20:07: Glucometer 84 12/10/22 06:30: Glucometer 143H 12/10/22 10:02: White Blood Count 5.9, Red Blood Count 3.36L, Hemoglobin 9.9L, Hematocrit 29L, Mean Corpuscular Volume 88, Mean Corpuscular Hemoglobin 30, Mean Corpuscular Hemoglobin Concent 34, Red Cell Distribution Width 14.3, Platelet Count 296, Mean Platelet Volume 10.5, Immature Granulocyte % (Auto) 1, Neutrophils (%) (Auto) 66, Lymphocytes (%) (Auto) 23, Monocytes (%) (Auto) 10, Eosinophils (%) (Auto) 0, Basophils (%) (Auto) 0, Neutrophils # (Auto) 3.9, Lymphocytes # (Auto) 1.4, Monocytes # (Auto) 0.6, Eosinophils # (Auto) 0.0, Basophils # (Auto) 0.0, Immature Granulocyte # (Auto) 0.1, Sodium Level 142, Potassium Level 3.4L, Chloride Level 112H, Carbon Dioxide Level 21, Anion Gap 9, Blood Urea Nitrogen 7, Creatinine 0.74, Estimat Glomerular Filtration Rate 86, BUN/Creatinine Ratio 9, Glucose Level 220H, Calcium Level 8.4L, Corrected Calcium 9.2, Total Bilirubin 0.4, Aspartate Amino Transf (AST/SGOT) 41H, Alanine Aminotransferase (ALT/SGPT) 43, Alkaline Phosphatase 44, Total Protein 6.0L, Albumin 3.0L 12/10/22 10:55: Glucometer 175H 12/10/22 15:30: Glucometer 92 12/10/22 20:21: Glucometer 184H 12/11/22 05:17: Glucometer 135H 12/11/22 10:49: Glucometer 137H 12/11/22 13:49: Urine Color YELLOW, Urine Clarity CLEAR, Urine pH 6.0, Urine Specific [place] 1.010L, Urine Protein NEGATIVE, Urine Glucose (UA) NEGATIVE, Urine Ketones NEGATIVE, Urine Nitrite NEGATIVE, Urine Bilirubin NEGATIVE, Urine Urobilinogen 0.2, Urine Leukocyte Esterase NEGATIVE, Urine RBC (Auto) NEGATIVE, Urine RBC NONE, Urine WBC 2-5, Urine Squamous Epithelial Cells RARE, Urine Crystals NONE, Urine Bacteria TRACE, Urine Casts NONE, Urine Mucus NEGATIVE, Urine Yeast FEWH, Urine Culture Indicated NO 12/11/22 17:00: Glucometer 119H 12/11/22 20:07: Glucometer 169H 12/12/22 05:59: Glucometer 162H 12/12/22 10:43: Glucometer 147H 12/12/22 16:52: Glucometer 128H 12/12/22 20:11: Glucometer 189H 12/13/22 05:43: White Blood Count 8.6, Red Blood Count 3.77L, Hemoglobin 11.0L, Hematocrit 34L, Mean Corpuscular Volume 90, Mean Corpuscular Hemoglobin 29, Mean Corpuscular Hemoglobin Concent 33, Red Cell Distribution Width 14.7H, Platelet Count 260, Mean Platelet Volume 10.8, Immature Granulocyte % (Auto) 1, Neutrophils (%) (Auto) 71, Lymphocytes (%) (Auto) 20, Monocytes (%) (Auto) 8, Eosinophils (%) (Auto) 0, Basophils (%) (Auto) 0, Neutrophils # (Auto) 6.1, Lymphocytes # (Auto) 1.7, Monocytes # (Auto) 0.7, Eosinophils # (Auto) 0.0, Basophils # (Auto) 0.0, Immature Granulocyte # (Auto) 0.1, Sodium Level 142, Potassium Level 3.8, Chloride Level 110H, Carbon Dioxide Level 20L, Anion Gap 12, Blood Urea Nitrogen 10, Creatinine 0.73, Estimat Glomerular Filtration Rate 87, BUN/Creatinine Ratio 14, Glucose Level 155H, Calcium Level 9.1, Corrected Calcium 9.7, Total Bilirubin 0.4, Aspartate Amino Transf (AST/SGOT) 38H, Alanine Aminotransferase (ALT/SGPT) 43, Alkaline Phosphatase 52, Total Protein 6.4, Albumin 3.3 12/13/22 11:55: Glucometer 160H 12/13/22 16:30: Glucometer 140H 12/13/22 20:44: Glucometer 239H 12/14/22 06:05: Glucometer 154H 12/15/22 20:56: Glucometer 156H Pending Labs Laboratory Tests 12/07/22 15:38: Glucometer 147 12/07/22 20:11: Glucometer 182 12/08/22 05:05: White Blood Count 6.6, Red Blood Count 3.23, Hemoglobin 9.4, Hematocrit 28, Mean Corpuscular Volume 86, Mean Corpuscular Hemoglobin 29, Mean Corpuscular Hemoglobin Concent 34, Red Cell Distribution Width 13.6, Platelet Count 196, Mean Platelet Volume 11.2, Immature Granulocyte % (Auto) 1, Neutrophils (%) (Auto) 73, Lymphocytes (%) (Auto) 18, Monocytes (%) (Auto) 9, Eosinophils (%) (Auto) 0, Basophils (%) (Auto) 0, Neutrophils # (Auto) 4.8, Lymphocytes # (Auto) 1.2, Monocytes # (Auto) 0.6, Eosinophils # (Auto) 0.0, Basophils # (Auto) 0.0, Immature Granulocyte # (Auto) 0.0, Sodium Level 138, Potassium Level 3.5, Chloride Level 110, Carbon Dioxide Level 19, Anion Gap 9, Blood Urea Nitrogen 6, Creatinine 0.60, Estimat Glomerular Filtration Rate 95, BUN/Creatinine Ratio 10, Glucose Level 155, Calcium Level 8.0, Corrected Calcium 9.0, Iron Level 15, Total Bilirubin 0.5, Aspartate Amino Transf (AST/SGOT) 26, Alanine Aminotransferase (ALT/SGPT) 30, Alkaline Phosphatase 40, Total Protein 5.7, Albumin 2.8, Vitamin B12 Level 458 12/08/22 11:07: Glucometer 148 12/08/22 16:26: Glucometer 126 12/08/22 20:39: Glucometer 144 12/09/22 05:53: Glucometer 145 12/09/22 11:09: Glucometer 135 12/09/22 15:56: Glucometer 91 12/09/22 20:07: Glucometer 84 12/10/22 06:30: Glucometer 143 12/10/22 10:02: White Blood Count 5.9, Red Blood Count 3.36, Hemoglobin 9.9, Hematocrit 29, Mean Corpuscular Volume 88, Mean Corpuscular Hemoglobin 30, Mean Corpuscular Hemoglobin Concent 34, Red Cell Distribution Width 14.3, Platelet Count 296, Mean Platelet Volume 10.5, Immature Granulocyte % (Auto) 1, Neutrophils (%) (Auto) 66, Lymphocytes (%) (Auto) 23, Monocytes (%) (Auto) 10, Eosinophils (%) (Auto) 0, Basophils (%) (Auto) 0, Neutrophils # (Auto) 3.9, Lymphocytes # (Auto) 1.4, Monocytes # (Auto) 0.6, Eosinophils # (Auto) 0.0, Basophils # (Auto) 0.0, Immature Granulocyte # (Auto) 0.1, Sodium Level 142, Potassium Level 3.4, Chloride Level 112, Carbon Dioxide Level 21, Anion Gap 9, Blood Urea Nitrogen 7, Creatinine 0.74, Estimat Glomerular Filtration Rate 86, BUN/Creatinine Ratio 9, Glucose Level 220, Calcium Level 8.4, Corrected Calcium 9.2, Total Bilirubin 0.4, Aspartate Amino Transf (AST/SGOT) 41, Alanine Aminotransferase (ALT/SGPT) 43, Alkaline Phosphatase 44, Total Protein 6.0, Albumin 3.0 12/10/22 10:55: Glucometer 175 12/10/22 15:30: Glucometer 92 12/10/22 20:21: Glucometer 184 12/11/22 05:17: Glucometer 135 12/11/22 10:49: Glucometer 137 12/11/22 13:49: Urine Color YELLOW, Urine Clarity CLEAR, Urine pH 6.0, Urine Specific [place] 1.010, Urine Protein NEGATIVE, Urine Glucose (UA) NEGATIVE, Urine Ketones NEGATIVE, Urine Nitrite NEGATIVE, Urine Bilirubin NEGATIVE, Urine Urobilinogen 0.2, Urine Leukocyte Esterase NEGATIVE, Urine RBC (Auto) NEGATIVE, Urine RBC NONE, Urine WBC 2-5, Urine Squamous Epithelial Cells RARE, Urine Crystals NONE, Urine Bacteria TRACE, Urine Casts NONE, Urine Mucus NEGATIVE, Urine Yeast FEW, Urine Culture Indicated NO 12/11/22 17:00: Glucometer 119 12/11/22 20:07: Glucometer 169 12/12/22 05:59: Glucometer 162 12/12/22 10:43: Glucometer 147 12/12/22 16:52: Glucometer 128 12/12/22 20:11: Glucometer 189 12/13/22 05:43: White Blood Count 8.6, Red Blood Count 3.77, Hemoglobin 11.0, Hematocrit 34, Mean Corpuscular Volume 90, Mean Corpuscular Hemoglobin 29, Mean Corpuscular Hemoglobin Concent 33, Red Cell Distribution Width 14.7, Platelet Count 260, Mean Platelet Volume 10.8, Immature Granulocyte % (Auto) 1, Neutrophils (%) (Auto) 71, Lymphocytes (%) (Auto) 20, Monocytes (%) (Auto) 8, Eosinophils (%) (Auto) 0, Basophils (%) (Auto) 0, Neutrophils # (Auto) 6.1, Lymphocytes # (Auto) 1.7, Monocytes # (Auto) 0.7, Eosinophils # (Auto) 0.0, Basophils # (Auto) 0.0, Immature Granulocyte # (Auto) 0.1, Sodium Level 142, Potassium Level 3.8, Chloride Level 110, Carbon Dioxide Level 20, Anion Gap 12, Blood Urea Nitrogen 10, Creatinine 0.73, Estimat Glomerular Filtration Rate 87, BUN/Creatinine Ratio 14, Glucose Level 155, Calcium Level 9.1, Corrected Calcium 9.7, Total Bilirubin 0.4, Aspartate Amino Transf (AST/SGOT) 38, Alanine Aminotransferase (ALT/SGPT) 43, Alkaline Phosphatase 52, Total Protein 6.4, Albumin 3.3 12/13/22 11:55: Glucometer 160 12/13/22 16:30: Glucometer 140 12/13/22 20:44: Glucometer 239 12/14/22 06:05: Glucometer 154 12/15/22 20:56: Glucometer 156 Discharge Home Medications: Active Scripts Active Oxybutynin Chloride 5 Mg Tablet 5 Mg PO HS Sucralfate 1 Gram Tablet 1 Gm PO ACHS PRN Furosemide 20 Mg Tablet 20 Mg PO Q48H PRN Hydrocodone-Acetamin 5-325 mg (Hydrocodone/Acetaminophen) 5 Mg-325 Mg Tablet 1 Ea PO Q4H PRN Losartan Potassium 100 Mg Tablet 100 Mg PO DAILY Metoprolol Tartrate 50 Mg Tablet 100 Mg PO BID Meloxicam 15 Mg Tablet 15 Mg PO DAILY Levothyroxine (Levothyroxine Sodium) 75 Mcg Capsule 75 Mcg PO DAILY Claritin (Loratadine) 10 Mg Capsule 10 Mg PO DAILY Omeprazole 20 Mg Capsule.dr 20 Mg PO DAILY Aspirin 81 Mg Tab.chew 81 Mg PO DAILY Metformin HCl ER (Metformin HCl) 500 Mg Tab.er.24h 1,000 Mg PO BID TAKES 2 (500MG) TABS Liothyronine Sodium 5 Mcg Tablet 5 Mcg PO BID Amlodipine Besylate 5 Mg Tablet 5 Mg PO DAILY Venlafaxine HCl ER (Venlafaxine HCl) 150 Mg Cap.er.24h 150 Mg PO DAILY Zetia (Ezetimibe) 10 Mg Tablet 10 Mg PO DAILY Reported Flonase Allergy Relief (Fluticasone Propionate) 50 Mcg/Actuation [place].susp 1 [place] NS DAILY PRN 1 SPRAY EACH NARE DAILY Magnesium (Magnesium Oxide) 400 Mg Magnesium Tablet 800 Mg PO DAILY TAKES 2 (400MG) TABS B-12 (Cyanocobalamin (Vitamin B-12)) 1,000 Mcg Tablet 1,000 Mcg PO DAILY Prolia (Denosumab) 60 Mg/Ml Disp.syrin 60 Mg SQ UD Calcium (Calcium Carbonate) 600 Mg Calcium (1500 Mg) Tablet 600 Mg PO BID Benadryl (Diphenhydramine HCl) 25 Mg Capsule 25 Mg PO HS Instructions to patient/family Please see electronic discharge instructions given to patient. Diagnosis/Problems Diagnosis/Problems (1) Closed right hip fracture Status: Acute (2) Postoperative delirium Status: Acute (3) T2DM (type 2 diabetes mellitus) Status: Chronic (4) Lung nodule Status: Acute (5) HTN (hypertension) Status: Chronic (6) Non-insulin dependent type 2 diabetes mellitus (7) Essential (primary) hypertension (8) Hypothyroidism (9) Hyperlipidemia (10) Hypokalemia SHA GEORGE DO Dec 17, 2022 06:44
[2022-12-17 08:00] VITALS: BP 164/83
--- NOTE | 2022-12-17 09:34 | Cardiology Progress Note ---
Subjective Date Seen by Provider: Dec 17, 2022 Time Seen by Provider: 09:33 Subjective/Events-last exam Patient was seen and evaluated Has been doing well Review of Systems General: No Chills, No Night Sweats, No Fatigue, No Malaise, No Appetite, No Other HEENT: No Head Aches, No Visual Changes, No Eye Pain, No Ear Pain, No Dysphasia, No Sinus Congestion, No Post Nasal Drip, No Sore Throat, No Other Pulmonary: No Dyspnea, No Cough, No Pleuritic Chest Pain, No Other Cardiovascular: No: Chest Pain, Palpitations, Orthopnea, Paroxysmal Noc. Dyspnea, Edema, Lt Headedness, Other Objective-Cardiology Exam Last Set of Vital Signs Vital Signs 12/11/22 12/17/22 09:00 08:00 Temp 36.8 Pulse 76 Resp 16 B/P (MAP) 164/83 (110) Pulse Ox 94 O2 Delivery Room Air O2 Flow Rate 2.00 I&O Intake and Output 12/17/22 00:00 Intake Total 1500 ml Balance 1500 ml Intake Oral 1500 ml # Voids 7 # Bowel Movements 1 General: Alert, Oriented X3, Cooperative HEENT: Atraumatic, EOMI, Mucous Memb Moist/[place] Neck: Supple, No LAD Lungs: Clear to Auscultation, Normal Air Movement Heart: Regular Rate, Normal S1, Normal S2 Abdomen: Normal Bowel Sounds, Soft, No Tenderness Extremities: No Cyanosis, No Edema, Normal Pulses Skin: No Rashes Neuro: Normal Speech, Sensation Intact Psych/Mental Status: Mood NL A/P-Cardiology Admission Diagnosis Tachycardia Hypertension Diabetes mellitus Hip fracture Assessment/Plan Transient episode of tachycardia with hypotension. - resolved no palpitations or chest pain Telemetry started on December 09, 2022, no arrhythmia detected for 48 hours Will have her follow up in the office and monitor as needed. 2D echo done on December 09, 2022 with normal LV size and function. No significant abnormality. Hypertension Increased metoprolol to 100 mg twice daily, increased losartan to 100mg, continue amilodipine 5mg dailly. Blood pressure has been well controlled. Will have her follow up in the office and monitor. Status post hip arthroplasty after closed head fracture, pain improving. Maintained in physical therapy Diabetes mellitus, managed by primary care physician Generalized weakness, improving each day with physical therapy BRANDEE PAYNE MD Dec 17, 2022 09:34
[2022-12-17] MEDS: LOSARTAN 100 MG (COZAAR) TABLET PO SCH (09:46)
[2022-12-17] MEDS: LORATADINE (CLARITIN) 10 MG TAB PO SCH (09:46)
[2022-12-17] MEDS: PANTOPRAZOLE 40 MG (PROTONIX) TAB PO SCH (09:47)
[2022-12-17] MEDS: meTOprolol TARTRATE 50 MG (LOPRESSOR) TAB PO SCH (09:47)
[2022-12-17] MEDS: amLODIPine 10 MG (NORVASC) TAB PO SCH (09:47)
[2022-12-17] MEDS: LOPERAMIDE 2 MG (IMODIUM) TABLET PO PRN (09:47)
[2022-12-17] MEDS: DICLOFENAC 1% GEL 100 GM (VOLTAREN) TUBE TOP SCH (09:52)
[2022-12-17] MEDS: TRIAMCINOLONE 0.1% CR (KENALOG) 15 GM TUBE TOP SCH (09:52)
[2022-12-17] MEDS: ENOXAPARIN 40 MG/0.4 ML (LOVENOX) SYR SQ SCH (09:53)
[2022-12-17 11:15] VITALS: BP 146/78
--- NOTE | 2022-12-20 08:36 | Therapy Team Discharge Summary ---
Therapy Discharge Summary Discharge Recommendations Date of Discharge Dec 17, 2022 at 11:15 Physical Therapy Patient came to rehab post right NITIN. Upon evaluation patient performed rolling and supine <-> sit with min assist, sit <-> stand mod assist, transfers CGA, car transfer mod assist, ambulate 50' with a rolling walker with CGA (including 50' with at least 2 turns of 90 degrees), and picked up an object from the floor using a hotel breakfast attendant with CGA. Patient has been performing bed mobility and transfer training, balance and endurance training, functional strengthening, stair training, gait training, and education. Patient has made good progress and has met all of her detention goals. Now, patient performs rolling and supine <-> sit with independence, sit <-> stand and transfers independent, car transfer independent, ambulates at least 150' with a rolling walker with independence (including 50' with at least 2 turns of 90 degrees and 10' over an uneven surface), can go up and down 12 steps using 2 handrails with CGA, and can cloth picker an object from the floor using a hotel breakfast attendant with independence. Patient has been discharged from this facility and will be discharged from PT at this time. Roll Left to Right (QC): 6 Sit to Lying (QC): 6 Lying to Sitting/Side of Bed(Q: 6 Sit to Stand (QC): 6 Chair/Rxz-ck-Sndpy Xfer(QC): 6 Toilet Transfer (QC): 6 Car Transfer (QC): 6 Does the Patient Walk: Yes Mode of Locomotion: Walk Anticipated Mode of Locomotion: Walk Walk 10 feet (QC): 6 Walk 50 ft with 2 Turns(QC): 6 Walk 150 ft (QC): 6 Walking 10ft on uneven surface: 6 Distance: 50'x2 Gait Assistive Device: FWW Does the Pt Use a Wheelchair: No Wheel 50 ft with 2 turns (QC): 9 Wheel 150 ft (QC): 9 #of Steps: 12 1 Step (curb) (QC): 4 4 Steps (QC): 4 12 Steps (QC): 4 Balance Sitting Static: Normal Balance Sitting Dynamic: Normal Balance-Standing Static: Fair Picking up an Object (QC): 6 (hotel breakfast attendant use) Occupational Therapy Decreased Activ Tolerance, Decreased UE Strength, Impaired I ADL's Eating (QC): 6 Oral Hygiene (QC): 6 Shower/Bathe Self (QC): 5 (set up to cover dressing prior to shower.) Upper Body Dressing (QC): 6 Lower Body Dressing (QC): 6 On/Off Footwear (QC): 6 Toileting Hygiene (QC): 6 PT Market Investigator Goals Residential Goals PT Residential Goals Time Frame: Dec 21, 2022 Roll Left to Right (QC): 6 Sit to Lying (QC): 6 Lying-Sitting on Side/Bed(QC): 6 Sit to Stand (QC): 6 Chair/Ugd-sq-Icdlu Xfer(QC): 6 Toilet/Commode Transfer (QC): 6 Car Transfer (QC): 6 Does the Patient Walk: Yes Walk 10 feet (QC): 6 Walk 10ft-Uneven Surface(QC): 6 Walk 50ft with 2 Turns (QC): 6 Walk 150 ft (QC): 6 Wheel 50 feet with 2 turns (QC: 9 Wheel 150 feet: 9 1 Step (curb) (QC): 4 4 Steps (QC): 4 12 Steps (QC): 88 Picking up an Object (QC): 6 OT Residential Goals Market Investigator Goals Time Frame: Dec 31, 2022 Acute change in mental status: 0 Inattention: 0 Disorganized thinkin Altered level of consciousness: 0 Eating (QC): 6 (met) Oral Hygiene (QC): 6 (met) Toileting Hygiene (QC): 6 (met) Shower/Bathe Self (QC): 6 (not met) Upper Body Dressing (QC): 6 (met) Lower Body Dressing (QC): 6 (met) On/Off Footwear (QC): 6 (met) Additional Goals: 1-Demonstrate ADL Tasks, 2-Verbalize Understanding, 3- ImproveStrength/Bladimir 1=Demonstrate adherence to instructed precautions during ADL tasks. 2=Patient will verbalize/demonstrate understanding of assistive devices/modifications for ADL. 3=Patient will improve strength/tolerance for activity to enable patient to perform ADL's. SWETHA KENDALL PT Dec 20, 2022 08:36
--- NOTE | 2022-12-20 10:58 | Therapy Team Discharge Summary ---
Therapy Discharge Summary Discharge Recommendations Date of Discharge Dec 17, 2022 at 11:15 Physical Therapy Roll Left to Right (QC): 6 Sit to Lying (QC): 6 Lying to Sitting/Side of Bed(Q: 6 Sit to Stand (QC): 6 Chair/Lpd-ox-Bbabz Xfer(QC): 6 Toilet Transfer (QC): 6 Car Transfer (QC): 6 Does the Patient Walk: Yes Mode of Locomotion: Walk Anticipated Mode of Locomotion: Walk Walk 10 feet (QC): 6 Walk 50 ft with 2 Turns(QC): 6 Walk 150 ft (QC): 6 Walking 10ft on uneven surface: 6 Distance: 50'x2 Gait Assistive Device: FWW Does the Pt Use a Wheelchair: No Wheel 50 ft with 2 turns (QC): 9 Wheel 150 ft (QC): 9 #of Steps: 12 1 Step (curb) (QC): 4 4 Steps (QC): 4 12 Steps (QC): 4 Balance Sitting Static: Normal Balance Sitting Dynamic: Normal Balance-Standing Static: Fair Picking up an Object (QC): 6 (pot puller use) Occupational Therapy Pt admitted to [facility] s/p R [facility]. At [facility], pt was independent with ADLS and functional mobility without AD. Upon initial evaluation, pt was independent with eating, required set up with oral care, max A showering, LE Dressing and toileting, min A UE dressing and total assist footwear. OT tx focused on increasing BUE strength and activity tolerance, increasing safety and independence with ADLs and functional mobility, and education on hip precautions and AE. Pt made good progress towards ADLs, meeting IND level with all ADLs except showering, set up assistance with showering to cover dressing. Pt discharged home with spouse, d/c from OT. Decreased Activ Tolerance, Decreased UE Strength, Impaired I ADL's Eating (QC): 6 Oral Hygiene (QC): 6 Shower/Bathe Self (QC): 5 (set up to cover dressing prior to shower.) Upper Body Dressing (QC): 6 Lower Body Dressing (QC): 6 On/Off Footwear (QC): 6 Toileting Hygiene (QC): 6 PT Finance Lead Goals Finance Lead Goals PT Detention Goals Time Frame: Dec 21, 2022 Roll Left to Right (QC): 6 Sit to Lying (QC): 6 Lying-Sitting on Side/Bed(QC): 6 Sit to Stand (QC): 6 Chair/Obn-om-Ojojl Xfer(QC): 6 Toilet/Commode Transfer (QC): 6 Car Transfer (QC): 6 Does the Patient Walk: Yes Walk 10 feet (QC): 6 Walk 10ft-Uneven Surface(QC): 6 Walk 50ft with 2 Turns (QC): 6 Walk 150 ft (QC): 6 Wheel 50 feet with 2 turns (QC: 9 Wheel 150 feet: 9 1 Step (curb) (QC): 4 4 Steps (QC): 4 12 Steps (QC): 88 Picking up an Object (QC): 6 OT Finance Lead Goals Finance Lead Goals Time Frame: Dec 31, 2022 Acute change in mental status: 0 Inattention: 0 Disorganized thinkin Altered level of consciousness: 0 Eating (QC): 6 (met) Oral Hygiene (QC): 6 (met) Toileting Hygiene (QC): 6 (met) Shower/Bathe Self (QC): 6 (not met) Upper Body Dressing (QC): 6 (met) Lower Body Dressing (QC): 6 (met) On/Off Footwear (QC): 6 (met) Additional Goals: 1-Demonstrate ADL Tasks, 2-Verbalize Understanding, 3- ImproveStrength/Bladimir 1=Demonstrate adherence to instructed precautions during ADL tasks. 2=Patient will verbalize/demonstrate understanding of assistive dev ices/modifications for ADL. 3=Patient will improve strength/tolerance for activity to enable patient to perform ADL's. HELENA BANEGAS OT Dec 20, 2022 10:58
== END 2022-12-17 11:15 | disposition home health service (06) | DRG 560 ==
PROVIDERS: ADMIT Internal Medicine; ATTEND Internal Medicine
DX: Z47.1 Aftercare following joint replacement surgery (principal); D62 Acute posthemorrhagic anemia; Z96.641 Presence of right artificial hip joint; E11.9 Type 2 diabetes mellitus without complications; E03.9 Hypothyroidism, unspecified; I10 Essential (primary) hypertension; M81.0 Age-related osteoporosis without current pathological fracture; F41.9 Anxiety disorder, unspecified; F32.A Depression, unspecified; R91.1 Solitary pulmonary nodule; R19.7 Diarrhea, unspecified; G47.33 Obstructive sleep apnea (adult) (pediatric); E78.5 Hyperlipidemia, unspecified; E87.6 Hypokalemia; R00.0 Tachycardia, unspecified; I95.9 Hypotension, unspecified; R33.9 Retention of urine, unspecified; E66.9 Obesity, unspecified; L89.311 Pressure ulcer of right buttock, stage 1; R32 Unspecified urinary incontinence; R53.1 Weakness; Z68.29 Body mass index [BMI] 29.0-29.9, adult; Z79.82 Long term (current) use of aspirin; Z79.84 Long term (current) use of oral hypoglycemic drugs; Z88.1 Allergy status to other antibiotic agents; Z88.5 Allergy status to narcotic agent; Z88.0 Allergy status to penicillin; Z88.2 Allergy status to sulfonamides; Z88.8 Allergy status to other drugs, medicaments and biological substances; Z85.3 Personal history of malignant neoplasm of breast
CPT/HCPCS: 36410; 36415; 76937; 80053; 81000; 82607; 82947; 83540; 85025; 93005; 94664; 94760

== ENCOUNTER → 2022-12-28 | Outpatient (CLI) | payer MEDICARE, OTHER ==
[~2022-12-28] MED LIST changes: +ACHD5005 PO; +FURO20TA4 PO; +LOSA100T57 PO; +OXYB5TAB13 PO; +SUCR1TAB PO
== END ==
LOC: ORTHO 10:21
PROVIDERS: ATTEND Orthopaedic Surgery
DX: Z47.89 Encounter for other orthopedic aftercare (principal)

== ENCOUNTER → 2023-01-18 | Outpatient (CLI) | payer MEDICARE, OTHER ==
--- NOTE | 2023-01-18 11:51 | Diagnostic Imaging Report ---
EXAMINATION: Right knee radiographs, 4 views. COMPARISON: None. HISTORY: 72-year-old female, right knee pain. History of remote prior patellar fracture. 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 There is lack of a normal patellofemoral articulation. There is chondrocalcinosis. There is mild lateral compartment joint space loss. There is no knee joint effusion. There is no identified acute fracture. IMPRESSION: 1. 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 2. Mild lateral compartment osteoarthritis. 3. No acute bony abnormality of the right knee. 4. No right knee joint effusion. Dictated by: Dictated on workstation # [id number]
--- NOTE | 2023-01-18 15:51 | Diagnostic Imaging Report ---
HIP, RIGHT, 2 VIEWS INDICATION: Right hip pain COMPARISON: None available. TECHNIQUE: 2 views of right hip FINDINGS: Noncemented total hip arthroplasty has components in good alignment. No features of prosthesis loosening or acute periprosthetic fracture. No osteolysis. Mild degenerative changes of right SI joint. IMPRESSION: No complication associated right total hip arthroplasty. Dictated by: Dictated on workstation # [id number]
== END ==
LOC: ORTHO 10:18
PROVIDERS: ATTEND Orthopaedic Surgery
DX: Z47.89 Encounter for other orthopedic aftercare (principal); M17.11 Unilateral primary osteoarthritis, right knee
CPT/HCPCS: 73502; 73564

== ENCOUNTER → 2023-03-01 | Outpatient (CLI) | payer MEDICARE, OTHER ==
[~2023-03-01] MED LIST changes: -LOSA100T57 PO; +LOSA100T58 PO
== END ==
LOC: ORTHO 11:28
PROVIDERS: ATTEND Orthopaedic Surgery
DX: E11.9 Type 2 diabetes mellitus without complications (principal); I65.29 Occlusion and stenosis of unspecified carotid artery; I10 Essential (primary) hypertension; E78.2 Mixed hyperlipidemia

== ENCOUNTER → 2023-05-18 | Outpatient (CLI) | payer MEDICARE, OTHER ==
[~2023-05-18] MED LIST changes: +CATHETER FLUSH 10 ML SYR IVP PRN; +REGADENOSON 0.4 MG/5 ML SYR (LEXISCAN) IV ONE
[2023-05-18 13:22] VITALS: BP 243/103
== END ==
LOC: CARD 12:28
PROVIDERS: ATTEND Internal Medicine Cardiovascular Disease
DX: I10 Essential (primary) hypertension (principal); I25.10 Atherosclerotic heart disease of native coronary artery without angina pectoris
CPT/HCPCS: 78452; 93017; A9502